=== PATIENT | male | born 1985 | race Hispanic/Latino ===

== ENCOUNTER 2019-03-16 09:42 | Inpatient (IN) | payer OTHER, SELFPAY ==
[2019-03-16] MEDS ORDERED: NACL 0.9% 1000 ML 1,000 ML ONE (09:57)
[2019-03-16] MEDS ORDERED: D50W (25GM) Syringe IV ONE ×2 (09:57→10:30)
[2019-03-16] MEDS ORDERED: ATIVAN ONE (10:07)
[2019-03-16] MEDS ORDERED: AMIDATE IV ONE ×3 (10:14→10:26)
[2019-03-16] MEDS ORDERED: ZEMURON IV ONE ×2 (10:17→10:26)
[2019-03-16] MEDS ORDERED: NACL 0.9% 1000 ML 1,000 ML IV ONE ×2 (10:25→10:29)
[2019-03-16] MEDS ORDERED: ATIVAN IV ONE (10:27)
[2019-03-16] MEDS: DIPRIVAN 10 MG/ML 1,000 MG/100 ML BOTTLE IV SCH ×3 (10:40→23:57)
--- NOTE | 2019-03-16 10:44 | XRay Report ---
AP CHEST: HISTORY: Altered mental status, endotracheal tube placement The distal tip of the endotracheal tube terminates 6.6 cm superior to the dez. AP view of the chest demonstrates a normal mediastinal and cardiac contour with clear lungs and normal bony and soft tissue structures. IMPRESSION: Endotracheal tube as described. There is adequate bilateral pulmonary inflation. Unremarkable AP chest.
[2019-03-16] MEDS ORDERED: TYLENOL PR ONE ×3 (10:49→10:52)
--- NOTE | 2019-03-16 10:53 | Emergency Department Report ---
ED Altered Mental Status HPI - General Stated Complaint: AMS Time Seen by Provider: 03/16/19 10:23 Source: EMS Mode of arrival: Stretcher Limitations: Altered Mental Status - History of Present Illness Initial Comments: 33-year-old male presents to ED from [facility] for altered mental status. Patient currently inpatient resident at [facility] since yesterday for drug abuse. This morning, EMS states [facility] reported that the patient was unresponsive at the facility and Narcan was given IM. Facility then reports patient began having seizure-like activity. Upon EMS arrival patient tachycardic, tremulous, sweaty, with stammering speech. Father currently at bedside, reports patient has history of methamphetamine abuse and Xanax usage. Drug screen from yesterday, 03/15, positive for cocaine, opiates, amphetamines. Father states patient does not abuse alcohol. Father reports patient has an allergy to droperidol. States he was given the medication as a child and became very agitated after receiving it. [facility] records show that patient received ativan 2 mg for agitation at 2AM. Then received Ativan 2mg, Haldol 5 mg, and Benadryl 50 mg at 6 AM this morning. Narcan given at 9 AM. Complaint: altered mental status -: This morning Severity: severe Consistency of Symptoms: constant Context: drug abuse - Related Data Home Medications Medication Instructions Recorded Confirmed Last Taken Unobtainable 03/16/19 03/16/19 Unknown Allergies Allergy/AdvReac Type Severity Reaction Status Date / Time Unable to Assess Allergy Unverified 03/16/19 11:41 ED Review of Systems ROS: Stated complaint: AMS Other details as noted in HPI Comment: Unobtainable due to pts medical conditions ED Past Medical Hx - Medications Home Medications: Home Medications Medication Instructions Recorded Confirmed Last Taken Type Unobtainable 03/16/19 03/16/19 Unknown History ED Physical Exam - General General appearance: anxious, lethargic, in distress - Head Head exam: Present: atraumatic, normocephalic - Eye Eye exam: Present: normal appearance, PERRL - ENT ENT exam: Present: mucous membranes dry - Neck Neck exam: Present: normal inspection - Respiratory Respiratory exam: Present: normal lung sounds bilaterally, respiratory distress, other (tachypneic) - Cardiovascular Cardiovascular Exam: Present: normal rhythm, tachycardia - GI/Abdominal GI/Abdominal exam: Present: soft. Absent: distended, tenderness - Extremities Exam Extremities exam: Present: other (extremities are rigid) - Neurological Exam Neurological exam: Present: alert, altered, other (moves all extremities; tremulous; speech is incoherent) - Psychiatric Psychiatric exam: Present: agitated, anxious - Skin Skin exam: Present: diaphoretic, pallor ED Course Vital Signs 03/16/19 03/16/19 03/16/19 10:16 10:30 10:46 Temperature Temperature [ Pre-Procedure] Pulse Rate 125 H 134 H 128 H Pulse Rate [ Intra-Procedure ] Pulse Rate [ Post-Procedure] Pulse Rate [Pre -Procedure] Respiratory 64 H 10 L 19 Rate Respiratory Rate [Intra- Procedure] Respiratory Rate [Post- Procedure] Respiratory Rate [Pre- Procedure] Blood Pressure 156/60 177/92 Blood Pressure [Intra- Procedure] Blood Pressure [Post-Procedure ] Blood Pressure [Pre-Procedure] O2 Sat by Pulse 100 100 Oximetry O2 Sat by Pulse Oximetry [ Intra-Procedure ] O2 Sat by Pulse Oximetry [Post -Procedure] O2 Sat by Pulse Oximetry [Pre- Procedure] 03/16/19 03/16/19 03/16/19 11:00 11:33 11:37 Temperature 102.3 F H Temperature [ Pre-Procedure] Pulse Rate 120 H 115 H 130 H Pulse Rate [ Intra-Procedure ] Pulse Rate [ Post-Procedure] Pulse Rate [Pre -Procedure] Respiratory 17 18 Rate Respiratory Rate [Intra- Procedure] Respiratory Rate [Post- Procedure] Respiratory Rate [Pre- Procedure] Blood Pressure 147/95 151/73 130/53 Blood Pressure [Intra- Procedure] Blood Pressure [Post-Procedure ] Blood Pressure [Pre-Procedure] O2 Sat by Pulse 100 100 100 Oximetry O2 Sat by Pulse Oximetry [ Intra-Procedure ] O2 Sat by Pulse Oximetry [Post -Procedure] O2 Sat by Pulse Oximetry [Pre- Procedure] 03/16/19 03/16/19 03/16/19 11:45 11:54 12:01 Temperature Temperature [ Pre-Procedure] Pulse Rate 117 H 120 H 124 H Pulse Rate [ Intra-Procedure ] Pulse Rate [ Post-Procedure] Pulse Rate [Pre -Procedure] Respiratory 25 H 32 H Rate Respiratory Rate [Intra- Procedure] Respiratory Rate [Post- Procedure] Respiratory Rate [Pre- Procedure] Blood Pressure 121/59 132/71 132/71 Blood Pressure [Intra- Procedure] Blood Pressure [Post-Procedure ] Blood Pressure [Pre-Procedure] O2 Sat by Pulse 100 100 100 Oximetry O2 Sat by Pulse Oximetry [ Intra-Procedure ] O2 Sat by Pulse Oximetry [Post -Procedure] O2 Sat by Pulse Oximetry [Pre- Procedure] 03/16/19 03/16/19 03/16/19 12:15 12:30 12:31 Temperature Temperature [ 100.3 F H Pre-Procedure] Pulse Rate 125 H 125 H Pulse Rate [ 127 H Intra-Procedure ] Pulse Rate [ Post-Procedure] Pulse Rate [Pre 123 H -Procedure] Respiratory 35 H 20 Rate Respiratory 16 Rate [Intra- Procedure] Respiratory Rate [Post- Procedure] Respiratory 30 H Rate [Pre- Procedure] Blood Pressure 111/76 111/76 Blood Pressure 98/68 [Intra- Procedure] Blood Pressure [Post-Procedure ] Blood Pressure 111/76 [Pre-Procedure] O2 Sat by Pulse 100 Oximetry O2 Sat by Pulse 95 Oximetry [ Intra-Procedure ] O2 Sat by Pulse Oximetry [Post -Procedure] O2 Sat by Pulse 100 Oximetry [Pre- Procedure] 03/16/19 03/16/19 03/16/19 12:40 12:45 13:00 Temperature Temperature [ Pre-Procedure] Pulse Rate 118 H 111 H Pulse Rate [ Intra-Procedure ] Pulse Rate [ 119 H Post-Procedure] Pulse Rate [Pre -Procedure] Respiratory 33 H 32 H Rate Respiratory Rate [Intra- Procedure] Respiratory 34 H Rate [Post- Procedure] Respiratory Rate [Pre- Procedure] Blood Pressure 112/66 115/69 Blood Pressure [Intra- Procedure] Blood Pressure 122/69 [Post-Procedure ] Blood Pressure [Pre-Procedure] O2 Sat by Pulse 100 98 Oximetry O2 Sat by Pulse Oximetry [ Intra-Procedure ] O2 Sat by Pulse 100 Oximetry [Post -Procedure] O2 Sat by Pulse Oximetry [Pre- Procedure] 03/16/19 03/16/19 03/16/19 13:12 13:15 13:30 Temperature 100.3 F H Temperature [ Pre-Procedure] Pulse Rate 103 H 99 H Pulse Rate [ Intra-Procedure ] Pulse Rate [ Post-Procedure] Pulse Rate [Pre -Procedure] Respiratory 34 H 33 H Rate Respiratory Rate [Intra- Procedure] Respiratory Rate [Post- Procedure] Respiratory Rate [Pre- Procedure] Blood Pressure 112/67 113/67 Blood Pressure [Intra- Procedure] Blood Pressure [Post-Procedure ] Blood Pressure [Pre-Procedure] O2 Sat by Pulse 99 99 Oximetry O2 Sat by Pulse Oximetry [ Intra-Procedure ] O2 Sat by Pulse Oximetry [Post -Procedure] O2 Sat by Pulse Oximetry [Pre- Procedure] 03/16/19 03/16/19 03/16/19 13:45 14:00 14:15 Temperature Temperature [ Pre-Procedure] Pulse Rate 99 H 96 H 93 H Pulse Rate [ Intra-Procedure ] Pulse Rate [ Post-Procedure] Pulse Rate [Pre -Procedure] Respiratory 33 H 33 H 33 H Rate Respiratory Rate [Intra- Procedure] Respiratory Rate [Post- Procedure] Respiratory Rate [Pre- Procedure] Blood Pressure 112/67 115/65 118/68 Blood Pressure [Intra- Procedure] Blood Pressure [Post-Procedure ] Blood Pressure [Pre-Procedure] O2 Sat by Pulse Oximetry O2 Sat by Pulse Oximetry [ Intra-Procedure ] O2 Sat by Pulse Oximetry [Post -Procedure] O2 Sat by Pulse Oximetry [Pre- Procedure] 03/16/19 03/16/19 03/16/19 14:30 14:41 14:45 Temperature Temperature [ Pre-Procedure] Pulse Rate 95 H 93 H 94 H Pulse Rate [ Intra-Procedure ] Pulse Rate [ Post-Procedure] Pulse Rate [Pre -Procedure] Respiratory 33 H 32 H Rate Respiratory Rate [Intra- Procedure] Respiratory Rate [Post- Procedure] Respiratory Rate [Pre- Procedure] Blood Pressure 113/67 113/67 108/65 Blood Pressure [Intra- Procedure] Blood Pressure [Post-Procedure ] Blood Pressure [Pre-Procedure] O2 Sat by Pulse 100 100 Oximetry O2 Sat by Pulse Oximetry [ Intra-Procedure ] O2 Sat by Pulse Oximetry [Post -Procedure] O2 Sat by Pulse Oximetry [Pre- Procedure] 03/16/19 03/16/19 03/16/19 15:00 15:15 15:30 Temperature Temperature [ Pre-Procedure] Pulse Rate 94 H 95 H 94 H Pulse Rate [ Intra-Procedure ] Pulse Rate [ Post-Procedure] Pulse Rate [Pre -Procedure] Respiratory 32 H 33 H 32 H Rate Respiratory Rate [Intra- Procedure] Respiratory Rate [Post- Procedure] Respiratory Rate [Pre- Procedure] Blood Pressure 114/69 108/67 116/65 Blood Pressure [Intra- Procedure] Blood Pressure [Post-Procedure ] Blood Pressure [Pre-Procedure] O2 Sat by Pulse 100 100 Oximetry O2 Sat by Pulse Oximetry [ Intra-Procedure ] O2 Sat by Pulse Oximetry [Post -Procedure] O2 Sat by Pulse Oximetry [Pre- Procedure] 03/16/19 03/16/19 03/16/19 15:45 16:00 16:15 Temperature Temperature [ Pre-Procedure] Pulse Rate 94 H 97 H 98 H Pulse Rate [ Intra-Procedure ] Pulse Rate [ Post-Procedure] Pulse Rate [Pre -Procedure] Respiratory 30 H 32 H 31 H Rate Respiratory Rate [Intra- Procedure] Respiratory Rate [Post- Procedure] Respiratory Rate [Pre- Procedure] Blood Pressure 113/66 118/71 117/72 Blood Pressure [Intra- Procedure] Blood Pressure [Post-Procedure ] Blood Pressure [Pre-Procedure] O2 Sat by Pulse 100 100 100 Oximetry O2 Sat by Pulse Oximetry [ Intra-Procedure ] O2 Sat by Pulse Oximetry [Post -Procedure] O2 Sat by Pulse Oximetry [Pre- Procedure] 03/16/19 03/16/19 03/16/19 16:30 16:45 17:00 Temperature Temperature [ Pre-Procedure] Pulse Rate 99 H 96 H 99 H Pulse Rate [ Intra-Procedure ] Pulse Rate [ Post-Procedure] Pulse Rate [Pre -Procedure] Respiratory 34 H 33 H 31 H Rate Respiratory Rate [Intra- Procedure] Respiratory Rate [Post- Procedure] Respiratory Rate [Pre- Procedure] Blood Pressure 113/72 113/72 123/76 Blood Pressure [Intra- Procedure] Blood Pressure [Post-Procedure ] Blood Pressure [Pre-Procedure] O2 Sat by Pulse 100 100 Oximetry O2 Sat by Pulse Oximetry [ Intra-Procedure ] O2 Sat by Pulse Oximetry [Post -Procedure] O2 Sat by Pulse Oximetry [Pre- Procedure] 03/16/19 03/16/19 03/16/19 17:15 17:30 17:45 Temperature Temperature [ Pre-Procedure] Pulse Rate 97 H 94 H 95 H Pulse Rate [ Intra-Procedure ] Pulse Rate [ Post-Procedure] Pulse Rate [Pre -Procedure] Respiratory 32 H 34 H 27 H Rate Respiratory Rate [Intra- Procedure] Respiratory Rate [Post- Procedure] Respiratory Rate [Pre- Procedure] Blood Pressure 116/78 128/79 128/78 Blood Pressure [Intra- Procedure] Blood Pressure [Post-Procedure ] Blood Pressure [Pre-Procedure] O2 Sat by Pulse 100 97 Oximetry O2 Sat by Pulse Oximetry [ Intra-Procedure ] O2 Sat by Pulse Oximetry [Post -Procedure] O2 Sat by Pulse Oximetry [Pre- Procedure] 03/16/19 03/16/19 03/16/19 17:46 18:00 18:15 Temperature 97.4 F L Temperature [ Pre-Procedure] Pulse Rate 96 H 93 H Pulse Rate [ Intra-Procedure ] Pulse Rate [ Post-Procedure] Pulse Rate [Pre -Procedure] Respiratory 32 H 30 H Rate Respiratory Rate [Intra- Procedure] Respiratory Rate [Post- Procedure] Respiratory Rate [Pre- Procedure] Blood Pressure 132/73 127/71 Blood Pressure [Intra- Procedure] Blood Pressure [Post-Procedure ] Blood Pressure [Pre-Procedure] O2 Sat by Pulse Oximetry O2 Sat by Pulse Oximetry [ Intra-Procedure ] O2 Sat by Pulse Oximetry [Post -Procedure] O2 Sat by Pulse Oximetry [Pre- Procedure] 03/16/19 03/16/19 03/16/19 18:30 18:45 19:00 Temperature Temperature [ Pre-Procedure] Pulse Rate 93 H 90 91 H Pulse Rate [ Intra-Procedure ] Pulse Rate [ Post-Procedure] Pulse Rate [Pre -Procedure] Respiratory 32 H 29 H 33 H Rate Respiratory Rate [Intra- Procedure] Respiratory Rate [Post- Procedure] Respiratory Rate [Pre- Procedure] Blood Pressure 126/80 124/82 115/81 Blood Pressure [Intra- Procedure] Blood Pressure [Post-Procedure ] Blood Pressure [Pre-Procedure] O2 Sat by Pulse 100 100 100 Oximetry O2 Sat by Pulse Oximetry [ Intra-Procedure ] O2 Sat by Pulse Oximetry [Post -Procedure] O2 Sat by Pulse Oximetry [Pre- Procedure] 03/16/19 03/16/19 03/16/19 19:15 19:25 19:30 Temperature Temperature [ Pre-Procedure] Pulse Rate 89 88 87 Pulse Rate [ Intra-Procedure ] Pulse Rate [ Post-Procedure] Pulse Rate [Pre -Procedure] Respiratory 28 H 27 H Rate Respiratory Rate [Intra- Procedure] Respiratory Rate [Post- Procedure] Respiratory Rate [Pre- Procedure] Blood Pressure 123/75 123/75 123/71 Blood Pressure [Intra- Procedure] Blood Pressure [Post-Procedure ] Blood Pressure [Pre-Procedure] O2 Sat by Pulse 100 100 100 Oximetry O2 Sat by Pulse Oximetry [ Intra-Procedure ] O2 Sat by Pulse Oximetry [Post -Procedure] O2 Sat by Pulse Oximetry [Pre- Procedure] 03/16/19 03/16/19 03/16/19 19:45 20:00 20:15 Temperature Temperature [ Pre-Procedure] Pulse Rate 91 H 92 H 90 Pulse Rate [ Intra-Procedure ] Pulse Rate [ Post-Procedure] Pulse Rate [Pre -Procedure] Respiratory 30 H 31 H 30 H Rate Respiratory Rate [Intra- Procedure] Respiratory Rate [Post- Procedure] Respiratory Rate [Pre- Procedure] Blood Pressure 131/72 130/72 130/85 Blood Pressure [Intra- Procedure] Blood Pressure [Post-Procedure ] Blood Pressure [Pre-Procedure] O2 Sat by Pulse 99 99 98 Oximetry O2 Sat by Pulse Oximetry [ Intra-Procedure ] O2 Sat by Pulse Oximetry [Post -Procedure] O2 Sat by Pulse Oximetry [Pre- Procedure] 03/16/19 03/16/19 03/16/19 20:30 20:45 21:00 Temperature Temperature [ Pre-Procedure] Pulse Rate 91 H 94 H 93 H Pulse Rate [ Intra-Procedure ] Pulse Rate [ Post-Procedure] Pulse Rate [Pre -Procedure] Respiratory 30 H 31 H 31 H Rate Respiratory Rate [Intra- Procedure] Respiratory Rate [Post- Procedure] Respiratory Rate [Pre- Procedure] Blood Pressure 130/72 135/73 130/75 Blood Pressure [Intra- Procedure] Blood Pressure [Post-Procedure ] Blood Pressure [Pre-Procedure] O2 Sat by Pulse 100 100 100 Oximetry O2 Sat by Pulse Oximetry [ Intra-Procedure ] O2 Sat by Pulse Oximetry [Post -Procedure] O2 Sat by Pulse Oximetry [Pre- Procedure] 03/16/19 03/16/19 03/16/19 21:15 21:30 21:45 Temperature Temperature [ Pre-Procedure] Pulse Rate 93 H 95 H 92 H Pulse Rate [ Intra-Procedure ] Pulse Rate [ Post-Procedure] Pulse Rate [Pre -Procedure] Respiratory 32 H 33 H 31 H Rate Respiratory Rate [Intra- Procedure] Respiratory Rate [Post- Procedure] Respiratory Rate [Pre- Procedure] Blood Pressure 130/75 129/76 129/76 Blood Pressure [Intra- Procedure] Blood Pressure [Post-Procedure ] Blood Pressure [Pre-Procedure] O2 Sat by Pulse 100 100 100 Oximetry O2 Sat by Pulse Oximetry [ Intra-Procedure ] O2 Sat by Pulse Oximetry [Post -Procedure] O2 Sat by Pulse Oximetry [Pre- Procedure] 06/03/16/19 03/16/19 22:00 22:15 22:30 Temperature Temperature [ Pre-Procedure] Pulse Rate 90 93 H 90 Pulse Rate [ Intra-Procedure ] Pulse Rate [ Post-Procedure] Pulse Rate [Pre -Procedure] Respiratory 30 H 31 H 31 H Rate Respiratory Rate [Intra- Procedure] Respiratory Rate [Post- Procedure] Respiratory Rate [Pre- Procedure] Blood Pressure 129/74 129/74 136/73 Blood Pressure [Intra- Procedure] Blood Pressure [Post-Procedure ] Blood Pressure [Pre-Procedure] O2 Sat by Pulse 99 95 98 Oximetry O2 Sat by Pulse Oximetry [ Intra-Procedure ] O2 Sat by Pulse Oximetry [Post -Procedure] O2 Sat by Pulse Oximetry [Pre- Procedure] 03/16/19 22:45 Temperature Temperature [ Pre-Procedure] Pulse Rate 93 H Pulse Rate [ Intra-Procedure ] Pulse Rate [ Post-Procedure] Pulse Rate [Pre -Procedure] Respiratory 29 H Rate Respiratory Rate [Intra- Procedure] Respiratory Rate [Post- Procedure] Respiratory Rate [Pre- Procedure] Blood Pressure 136/73 Blood Pressure [Intra- Procedure] Blood Pressure [Post-Procedure ] Blood Pressure [Pre-Procedure] O2 Sat by Pulse 97 Oximetry O2 Sat by Pulse Oximetry [ Intra-Procedure ] O2 Sat by Pulse Oximetry [Post -Procedure] O2 Sat by Pulse Oximetry [Pre- Procedure] - Reevaluation(s) Reevaluation #1: 03/16/19 10:53 RT instructed to advance ET tube 4 cm - Intubation Sedative: Etomidate Mg Given: 24 Paralytic: Rocuronium Mg Given: 50 Laryngoscope: Jeffrey Size: 4 ET Tube Size: 7.5 Tube Secured Depth (cm): 26 Tube Secured Location: teeth Tube Placement Confirmation: visualized tube passing t, equal breath sounds bilat, no breath sounds over epi, confirmation by capnometr Patient Tolerated Procedure: well Intubation Complications: none - Lumbar Puncture Consent Obtained: emergent situation Time Out Performed: Yes Indication for Procedure: change in mental status Patient Position: right lateral decubitus Skin Prep: Other (betadine) Local Anesthetic Used: Lidocaine 1% Amount of anesthesia used (mls): 3 Interspace Used: L4-L5 Fluid Initially Obtained: clear Complications: none Patient Tolerated Procedure: well - Lab Data Result diagrams: 03/17/19 04:41 03/17/19 04:41 Lab Results 03/16/19 03/16/19 03/16/19 Range/Units 10:00 10:21 10:37 WBC 27.7 H (4.5-11.0) K/mm3 RBC 4.58 (3.65-5.03) M/mm3 Hgb 14.0 (11.8-15.2) gm/dl Hct 41.5 (35.5-45.6) % MCV 91 (84-94) fl MCH 31 (28-32) pg MCHC 34 (32-34) % RDW 13.8 (13.2-15.2) % Plt Count 553 H (140-440) K/mm3 Add Manual Diff Complete Total Counted 100 Seg Neuts % (Manual) 90.0 H (40.0-70.0) % Band Neutrophils % 1.0 % Lymphocytes % (Manual) 2.0 L (13.4-35.0) % Reactive Lymphs % (Man) 0 % Monocytes % (Manual) 5.0 (0.0-7.3) % Eosinophils % (Manual) 0 (0.0-4.3) % Basophils % (Manual) 0 (0.0-1.8) % Metamyelocytes % 1.0 % Myelocytes % 1.0 % Promyelocytes % 0 % Blast Cells % 0 % Nucleated RBC % Not Reportable Seg Neutrophils # Man 24.9 H (1.8-7.7) K/mm3 Band Neutrophils # 0.3 K/mm3 Lymphocytes # (Manual) 0.6 L (1.2-5.4) K/mm3 Abs React Lymphs (Man) 0.0 K/mm3 Monocytes # (Manual) 1.4 H (0.0-0.8) K/mm3 Eosinophils # (Manual) 0.0 (0.0-0.4) K/mm3 Basophils # (Manual) 0.0 (0.0-0.1) K/mm3 Metamyelocytes # 0.3 K/mm3 Myelocytes # 0.3 K/mm3 Promyelocytes # 0.0 K/mm3 Blast Cells # 0.0 K/mm3 WBC Morphology Not Reportable Hypersegmented Neuts Not Reportable Hyposegmented Neuts Not Reportable Hypogranular Neuts Not Reportable Smudge Cells Not Reportable Toxic Granulation Not Reportable Toxic Vacuolation Not Reportable Dohle Bodies Not Reportable Pelger-Huet Anomaly Not Reportable Yung Rods Not Reportable Platelet Estimate Consistent w auto Clumped Platelets Not Reportable Plt Clumps, EDTA Not Reportable Large Platelets Not Reportable Giant Platelets Not Reportable Platelet Satelliting Not Reportable Plt Morphology Comment Not Reportable RBC Morphology Normal Dimorphic RBCs Not Reportable Polychromasia Not Reportable Hypochromasia Not Reportable Poikilocytosis Not Reportable Anisocytosis Not Reportable Microcytosis Not Reportable Macrocytosis Not Reportable Spherocytes Not Reportable Pappenheimer Bodies Not Reportable Sickle Cells Not Reportable Target Cells Not Reportable Tear Drop Cells Not Reportable Ovalocytes Not Reportable Helmet Cells Not Reportable [place] Bodies Not Reportable [place] Rings Not Reportable Asif Cells Not Reportable Bite Cells Not Reportable Crenated Cell Not Reportable Elliptocytes Not Reportable Acanthocytes (Spur) Not Reportable Rouleaux Not Reportable Hemoglobin C Crystals Not Reportable Schistocytes Not Reportable Malaria parasites Not Reportable Yamil Bodies Not Reportable Hem Pathologist Commnt No PT (12.2-14.9) Sec. INR (0.87-1.13) APTT (24.2-36.6) Sec. Sodium (137-145) mmol/L Potassium (3.6-5.0) mmol/L Chloride (98-107) mmol/L Carbon Dioxide (22-30) mmol/L Anion Gap mmol/L BUN (9-20) mg/dL Creatinine (0.8-1.5) mg/dL Estimated GFR ml/min BUN/Creatinine Ratio % Glucose (75-100) mg/dL POC Glucose 49 L 154 H (70-105) Calcium (8.4-10.2) mg/dL Total Bilirubin (0.1-1.2) mg/dL AST (5-40) units/L ALT (7-56) units/L Alkaline Phosphatase (35-129) units/L Total Creatine Kinase (55-170) units/L Troponin T (0.00-0.029) ng/mL Total Protein (6.3-8.2) g/dL Albumin (3.9-5) g/dL Albumin/Globulin Ratio % Urine Color (Yellow) Urine Turbidity (Clear) Urine pH (5.0-7.0) Ur Specific Patterson (1.003-1.030) Urine Protein (Negative) mg/dL Urine Glucose (UA) (Negative) mg/dL Urine Ketones (Negative) mg/dL Urine Blood (Negative) Urine Nitrite (Negative) Urine Bilirubin (Negative) Urine Urobilinogen (<2.0) mg/dL Ur Leukocyte Esterase (Negative) Urine WBC (Auto) (0.0-6.0) /HPF Urine RBC (Auto) (0.0-6.0) /HPF U Epithel Cells (Auto) (0-13.0) /HPF Urine Bacteria (Auto) (Negative) /HPF Urine Mucus /HPF Urine Creatinine (0.1-20.0) mg/dL Urine Sodium mmol/L Salicylates (2.8-20.0) mg/dL Urine Opiates Screen Urine Methadone Screen Acetaminophen (10.0-30.0) ug/mL Ur Barbiturates Screen Ur Phencyclidine Scrn Ur Amphetamines Screen U Benzodiazepines Scrn Urine Cocaine Screen U Marijuana (THC) Screen Drugs of Abuse Note Plasma/Serum Alcohol (0-0.07) % 03/16/19 03/16/19 03/16/19 Range/Units 10:37 10:37 10:37 WBC (4.5-11.0) K/mm3 RBC (3.65-5.03) M/mm3 Hgb (11.8-15.2) gm/dl Hct (35.5-45.6) % MCV (84-94) fl MCH (28-32) pg MCHC (32-34) % RDW (13.2-15.2) % Plt Count (140-440) K/mm3 Add Manual Diff Total Counted Seg Neuts % (Manual) (40.0-70.0) % Band Neutrophils % % Lymphocytes % (Manual) (13.4-35.0) % Reactive Lymphs % (Man) % Monocytes % (Manual) (0.0-7.3) % Eosinophils % (Manual) (0.0-4.3) % Basophils % (Manual) (0.0-1.8) % Metamyelocytes % % Myelocytes % % Promyelocytes % % Blast Cells % % Nucleated RBC % Seg Neutrophils # Man (1.8-7.7) K/mm3 Band Neutrophils # K/mm3 Lymphocytes # (Manual) (1.2-5.4) K/mm3 Abs React Lymphs (Man) K/mm3 Monocytes # (Manual) (0.0-0.8) K/mm3 Eosinophils # (Manual) (0.0-0.4) K/mm3 Basophils # (Manual) (0.0-0.1) K/mm3 Metamyelocytes # K/mm3 Myelocytes # K/mm3 Promyelocytes # K/mm3 Blast Cells # K/mm3 WBC Morphology Hypersegmented Neuts Hyposegmented Neuts Hypogranular Neuts Smudge Cells Toxic Granulation Toxic Vacuolation Dohle Bodies Pelger-Huet Anomaly Yung Rods Platelet Estimate Clumped Platelets Plt Clumps, EDTA Large Platelets Giant Platelets Platelet Satelliting Plt Morphology Comment RBC Morphology Dimorphic RBCs Polychromasia Hypochromasia Poikilocytosis Anisocytosis Microcytosis Macrocytosis Spherocytes Pappenheimer Bodies Sickle Cells Target Cells Tear Drop Cells Ovalocytes Helmet Cells [place] Bodies [place] Rings Asif Cells Bite Cells Crenated Cell Elliptocytes Acanthocytes (Spur) Rouleaux Hemoglobin C Crystals Schistocytes Malaria parasites Yamil Bodies Hem Pathologist Commnt PT 17.5 H (12.2-14.9) Sec. INR 1.47 H (0.87-1.13) APTT 25.7 (24.2-36.6) Sec. Sodium 138 (137-145) mmol/L Potassium 5.1 H (3.6-5.0) mmol/L Chloride 99.8 (98-107) mmol/L Carbon Dioxide 13 L (22-30) mmol/L Anion Gap 30 mmol/L BUN 35 H (9-20) mg/dL Creatinine 3.0 H (0.8-1.5) mg/dL Estimated GFR 24 ml/min BUN/Creatinine Ratio 12 % Glucose 129 H (75-100) mg/dL POC Glucose (70-105) Calcium 8.9 (8.4-10.2) mg/dL Total Bilirubin 2.60 H (0.1-1.2) mg/dL AST 160 H (5-40) units/L ALT 106 H (7-56) units/L Alkaline Phosphatase 133 H (35-129) units/L Total Creatine Kinase (55-170) units/L Troponin T < 0.010 (0.00-0.029) ng/mL Total Protein 7.6 (6.3-8.2) g/dL Albumin 4.5 (3.9-5) g/dL Albumin/Globulin Ratio 1.5 % Urine Color (Yellow) Urine Turbidity (Clear) Urine pH (5.0-7.0) Ur Specific Patterson (1.003-1.030) Urine Protein (Negative) mg/dL Urine Glucose (UA) (Negative) mg/dL Urine Ketones (Negative) mg/dL Urine Blood (Negative) Urine Nitrite (Negative) Urine Bilirubin (Negative) Urine Urobilinogen (<2.0) mg/dL Ur Leukocyte Esterase (Negative) Urine WBC (Auto) (0.0-6.0) /HPF Urine RBC (Auto) (0.0-6.0) /HPF U Epithel Cells (Auto) (0-13.0) /HPF Urine Bacteria (Auto) (Negative) /HPF Urine Mucus /HPF Urine Creatinine (0.1-20.0) mg/dL Urine Sodium mmol/L Salicylates < 0.3 L (2.8-20.0) mg/dL Urine Opiates Screen Urine Methadone Screen Acetaminophen (10.0-30.0) ug/mL Ur Barbiturates Screen Ur Phencyclidine Scrn Ur Amphetamines Screen U Benzodiazepines Scrn Urine Cocaine Screen U Marijuana (THC) Screen Drugs of Abuse Note Plasma/Serum Alcohol (0-0.07) % 03/16/19 03/16/19 03/16/19 Range/Units 10:37 10:37 10:37 WBC (4.5-11.0) K/mm3 RBC (3.65-5.03) M/mm3 Hgb (11.8-15.2) gm/dl Hct (35.5-45.6) % MCV (84-94) fl MCH (28-32) pg MCHC (32-34) % RDW (13.2-15.2) % Plt Count (140-440) K/mm3 Add Manual Diff Total Counted Seg Neuts % (Manual) (40.0-70.0) % Band Neutrophils % % Lymphocytes % (Manual) (13.4-35.0) % Reactive Lymphs % (Man) % Monocytes % (Manual) (0.0-7.3) % Eosinophils % (Manual) (0.0-4.3) % Basophils % (Manual) (0.0-1.8) % Metamyelocytes % % Myelocytes % % Promyelocytes % % Blast Cells % % Nucleated RBC % Seg Neutrophils # Man (1.8-7.7) K/mm3 Band Neutrophils # K/mm3 Lymphocytes # (Manual) (1.2-5.4) K/mm3 Abs React Lymphs (Man) K/mm3 Monocytes # (Manual) (0.0-0.8) K/mm3 Eosinophils # (Manual) (0.0-0.4) K/mm3 Basophils # (Manual) (0.0-0.1) K/mm3 Metamyelocytes # K/mm3 Myelocytes # K/mm3 Promyelocytes # K/mm3 Blast Cells # K/mm3 WBC Morphology Hypersegmented Neuts Hyposegmented Neuts Hypogranular Neuts Smudge Cells Toxic Granulation Toxic Vacuolation Dohle Bodies Pelger-Huet Anomaly Yung Rods Platelet Estimate Clumped Platelets Plt Clumps, EDTA Large Platelets Giant Platelets Platelet Satelliting Plt Morphology Comment RBC Morphology Dimorphic RBCs Polychromasia Hypochromasia Poikilocytosis Anisocytosis Microcytosis Macrocytosis Spherocytes Pappenheimer Bodies Sickle Cells Target Cells Tear Drop Cells Ovalocytes Helmet Cells [place] Bodies [place] Rings Asif Cells Bite Cells Crenated Cell Elliptocytes Acanthocytes (Spur) Rouleaux Hemoglobin C Crystals Schistocytes Malaria parasites Yamil Bodies Hem Pathologist Commnt PT (12.2-14.9) Sec. INR (0.87-1.13) APTT (24.2-36.6) Sec. Sodium (137-145) mmol/L Potassium (3.6-5.0) mmol/L Chloride (98-107) mmol/L Carbon Dioxide (22-30) mmol/L Anion Gap mmol/L BUN (9-20) mg/dL Creatinine (0.8-1.5) mg/dL Estimated GFR ml/min BUN/Creatinine Ratio % Glucose (75-100) mg/dL POC Glucose (70-105) Calcium (8.4-10.2) mg/dL Total Bilirubin (0.1-1.2) mg/dL AST (5-40) units/L ALT (7-56) units/L Alkaline Phosphatase (35-129) units/L Total Creatine Kinase 4300 H (55-170) units/L Troponin T (0.00-0.029) ng/mL Total Protein (6.3-8.2) g/dL Albumin (3.9-5) g/dL Albumin/Globulin Ratio % Urine Color (Yellow) Urine Turbidity (Clear) Urine pH (5.0-7.0) Ur Specific Patterson (1.003-1.030) Urine Protein (Negative) mg/dL Urine Glucose (UA) (Negative) mg/dL Urine Ketones (Negative) mg/dL Urine Blood (Negative) Urine Nitrite (Negative) Urine Bilirubin (Negative) Urine Urobilinogen (<2.0) mg/dL Ur Leukocyte Esterase (Negative) Urine WBC (Auto) (0.0-6.0) /HPF Urine RBC (Auto) (0.0-6.0) /HPF U Epithel Cells (Auto) (0-13.0) /HPF Urine Bacteria (Auto) (Negative) /HPF Urine Mucus /HPF Urine Creatinine (0.1-20.0) mg/dL Urine Sodium mmol/L Salicylates (2.8-20.0) mg/dL Urine Opiates Screen Urine Methadone Screen Acetaminophen < 5.0 L (10.0-30.0) ug/mL Ur Barbiturates Screen Ur Phencyclidine Scrn Ur Amphetamines Screen U Benzodiazepines Scrn Urine Cocaine Screen U Marijuana (THC) Screen Drugs of Abuse Note Plasma/Serum Alcohol < 0.01 (0-0.07) % 03/16/19 03/16/19 03/16/19 Range/Units 11:37 11:37 11:37 WBC (4.5-11.0) K/mm3 RBC (3.65-5.03) M/mm3 Hgb (11.8-15.2) gm/dl Hct (35.5-45.6) % MCV (84-94) fl MCH (28-32) pg MCHC (32-34) % RDW (13.2-15.2) % Plt Count (140-440) K/mm3 Add Manual Diff Total Counted Seg Neuts % (Manual) (40.0-70.0) % Band Neutrophils % % Lymphocytes % (Manual) (13.4-35.0) % Reactive Lymphs % (Man) % Monocytes % (Manual) (0.0-7.3) % Eosinophils % (Manual) (0.0-4.3) % Basophils % (Manual) (0.0-1.8) % Metamyelocytes % % Myelocytes % % Promyelocytes % % Blast Cells % % Nucleated RBC % Seg Neutrophils # Man (1.8-7.7) K/mm3 Band Neutrophils # K/mm3 Lymphocytes # (Manual) (1.2-5.4) K/mm3 Abs React Lymphs (Man) K/mm3 Monocytes # (Manual) (0.0-0.8) K/mm3 Eosinophils # (Manual) (0.0-0.4) K/mm3 Basophils # (Manual) (0.0-0.1) K/mm3 Metamyelocytes # K/mm3 Myelocytes # K/mm3 Promyelocytes # K/mm3 Blast Cells # K/mm3 WBC Morphology Hypersegmented Neuts Hyposegmented Neuts Hypogranular Neuts Smudge Cells Toxic Granulation Toxic Vacuolation Dohle Bodies Pelger-Huet Anomaly Yung Rods Platelet Estimate Clumped Platelets Plt Clumps, EDTA Large Platelets Giant Platelets Platelet Satelliting Plt Morphology Comment RBC Morphology Dimorphic RBCs Polychromasia Hypochromasia Poikilocytosis Anisocytosis Microcytosis Macrocytosis Spherocytes Pappenheimer Bodies Sickle Cells Target Cells Tear Drop Cells Ovalocytes Helmet Cells [place] Bodies [place] Rings [place] Cells Bite Cells Crenated Cell Elliptocytes Acanthocytes (Spur) Rouleaux Hemoglobin C Crystals Schistocytes Malaria parasites Yamil Bodies Hem Pathologist Commnt PT (12.2-14.9) Sec. INR (0.87-1.13) APTT (24.2-36.6) Sec. Sodium (137-145) mmol/L Potassium (3.6-5.0) mmol/L Chloride (98-107) mmol/L Carbon Dioxide (22-30) mmol/L Anion Gap mmol/L BUN (9-20) mg/dL Creatinine (0.8-1.5) mg/dL Estimated GFR ml/min BUN/Creatinine Ratio % Glucose (75-100) mg/dL POC Glucose (70-105) Calcium (8.4-10.2) mg/dL Total Bilirubin (0.1-1.2) mg/dL AST (5-40) units/L ALT (7-56) units/L Alkaline Phosphatase (35-129) units/L Total Creatine Kinase (55-170) units/L Troponin T (0.00-0.029) ng/mL Total Protein (6.3-8.2) g/dL Albumin (3.9-5) g/dL Albumin/Globulin Ratio % Urine Color [place] (Yellow) Urine Turbidity Cloudy (Clear) Urine pH 6.0 (5.0-7.0) Ur Specific Patterson 1.015 (1.003-1.030) Urine Protein 100 mg/dl (Negative) mg/dL Urine Glucose (UA) 150 (Negative) mg/dL Urine Ketones Tr (Negative) mg/dL Urine Blood Lg (Negative) Urine Nitrite Neg (Negative) Urine Bilirubin Neg (Negative) Urine Urobilinogen 2.0 (<2.0) mg/dL Ur Leukocyte Esterase Neg (Negative) Urine WBC (Auto) 10.0 H (0.0-6.0) /HPF Urine RBC (Auto) 58.0 (0.0-6.0) /HPF U Epithel Cells (Auto) 3.0 (0-13.0) /HPF Urine Bacteria (Auto) 3+ (Negative) /HPF Urine Mucus 1+ /HPF Urine Creatinine 75.6 H (0.1-20.0) mg/dL Urine Sodium 50 mmol/L Salicylates (2.8-20.0) mg/dL Urine Opiates Screen Presumptive positive Urine Methadone Screen Presumptive negative Acetaminophen (10.0-30.0) ug/mL Ur Barbiturates Screen Presumptive negative Ur Phencyclidine Scrn Presumptive negative Ur Amphetamines Screen Presumptive positive U Benzodiazepines Scrn Presumptive negative Urine Cocaine Screen Presumptive positive U Marijuana (THC) Screen Presumptive negative Drugs of Abuse Note Disclamer Plasma/Serum Alcohol (0-0.07) % - EKG Data -: EKG Interpreted by Ak EKG shows normal: sinus rhythm, axis, intervals, QRS complexes, ST-T waves Rate: tachycardia - Radiology Data Radiology results: report reviewed, image reviewed - Medical Decision Making 38-year-old male presents from [facility] with altered mental status. Upon initial presentation, patient is pale, diaphoretic, tachypneic, tachycardic, tremulous, muscle rigidity is present, patient somewhat lethargic with incoherent speech. Initial Accu-Chek was in the 40s. One amp of D50 was given. No resolution of symptoms. Ativan 2 mg was given, without resolution of symptoms either. Decision was made to intubate the patient due to need to secure the airway for adequate sedation to obtain full workup. Patient was intubated with etomidate and rocuronium. CT head normal, CXR unremarkable. Paperwork from [facility] show that pt received ativan at 2 AM for agitation. Then received haldol, benadryl, ativan at 6 AM. Pt became unresponvise at around 9 AM and narcan was given. Then began exhibiting seizure-like activity, shaking all over but alert, so EMS was called. Pt has hx of depression and drug abuse (cocaine, methamphetamines, Xanax) per father. Father also reports hx of droperidol allergy which was given to pt when he was much younger. It is possible that pt is experiencing neuroleptic malignant syndrome after receiving haldol this morning. WBCs elevated, pt febrile, serum CK elevated to 4,000, acute renal failure and liver dysfunction present. Pt currently sedated w/ pro pofol and ativan, appears much better. Tachycardia improved, no muscle rigidity, skin color improved. Infection is also likely, so antibiotics given, blood and urine cultures drawn, and LP was performed. LP unremarkable for meningitis. Lactate is normal. Patient admitted to Dr Lees, hospitalist, for further management. - Differential Diagnosis NMS, benzodiazepine withdrawal, infection Critical Care Time: Yes Critical care time in (mins) excluding proc time.: 35 Critical care attestation.: If time is entered above; I have spent that time in minutes in the direct care of this critically ill patient, excluding procedure time. Critical Care Time: 35 min ED Disposition Clinical Impression: Encephalopathy, SIRS (systemic inflammatory response syndrome), Hypoglycemia, NMS (neuroleptic malignant syndrome), Drug abuse, Hepatic dysfunction Acute renal failure Qualifiers: Acute renal failure type: with acute tubular necrosis Qualified Code(s): N17.0 - Acute kidney failure with tubular necrosis Rhabdomyolysis Qualifiers: Encounter type: initial encounter Respiratory failure Qualifiers: Chronicity: acute Respiratory failure complication: hypoxia Qualified Code(s): J96.01 - Acute respiratory failure with hypoxia Disposition: 09 OP ADMIT IP TO THIS HOSP Is pt being admited?: Yes Condition: Critical
[2019-03-16 10:59] LABS: Hematocrit 41.5 % (35.5-45.6); Mean Corpuscular HGB Conc 34 % (32-34); Mean Corpuscular Volume 91 fl (84-94); Platelet Count 553 K/mm3 (140-440); Red Blood Count 4.58 M/mm3 (3.65-5.03); Red Cell Distribution Width 13.8 % (13.2-15.2)
[2019-03-16 11:09] LABS: INR 1.47 (0.87-1.13); Partial Thromboplastin Time 25.7 Sec. (24.2-36.6)
[2019-03-16 11:16] LABS: Alanine Aminotransferase 106 units/L (7-56); Albumin 4.5 g/dL (3.9-5); BUN/Creatinine Ratio 12; Blood Urea Nitrogen 35 mg/dL (9-20); Calcium 8.9 mg/dL (8.4-10.2); Hemolysis Index 9
[2019-03-16] MEDS ORDERED: ROCEPHIN/NS 2 GM/100 ML 2 GM/100 ML BAG IV ONE (11:30)
[2019-03-16] MEDS ORDERED: SODIUM CHLORIDE FLUSH SYRINGE 10 ML IV PRN (11:52)
[2019-03-16] MEDS ORDERED: NACL 0.9% 1000 ML IV ONE (11:52)
--- NOTE | 2019-03-16 11:57 | History and Physical Report ---
History of Present Illness Chief complaint: Confused History of present illness: 33 YO Male with Polysubstance Abuse, Psychosis currently and inpatient at [facility] presents to ED for evaluation. Pt is lethargic and unable to provide history and is intubated and on vest support at time of my exam. Patient history provided by his father who is at bedside during exam and interview. As per father, the patient was found to be confused by [place] staff to be confused with decreased level of responsiveness. EMS notified, and upon arrival the patient was found to be unresponsive and treated with supportive care and IM Narcan and transported to [facility]. Pt seen and evaluated in ED and was found to have Encephalopathy, Sepsis, and Respiratory distress and was unable to protect his airway. Pt intubated and placed on vent support. Pt admitted to ICU and initiated on sepsis protocol. No prior admission for review. No medication listed at time of admission for reconciliation. Past History Past Medical History: other (polysubstance abuse, Psychosis) Past Surgical History: No surgical history, Other (reviewed) Social history: single, smoking, alcohol abuse Family history: no significant family history (reviewed) Medications and Allergies Allergies Allergy/AdvReac Type Severity Reaction Status Date / Time Unable to Assess Allergy Unverified 03/16/19 11:41 Active Meds: Active Medications Propofol (Diprivan 10 Mg/Ml) 1,000 mg in 100 mls @ 3.138 mls/hr IV TITR JOÃO; Protocol Ceftriaxone Sodium (Rocephin/Ns 2 Gm/100 Ml) 2 gm in 100 mls @ 200 mls/hr IV ONCE ONE; Protocol Stop: 03/16/19 11:59 Lorazepam 100 mg/ Sodium Chloride/ Miscellaneous Information 100 mls @ 1 mls/hr IV TITR JOÃO; Protocol Vancomycin HCl 2,000 mg/ (Sodium Chloride) 540 mls @ 333 mls/hr IV ONCE ONE; Protocol Stop: 03/16/19 13:29 Ceftriaxone Sodium (Rocephin/Ns 2 Gm/100 Ml) 2 gm in 100 mls @ 200 mls/hr IV Q24HR JOÃO; Protocol Sodium Chloride (Sodium Chloride Flush Syringe 10 Ml) 10 ml IV BID JOÃO Sodium Chloride (Sodium Chloride Flush Syringe 10 Ml) 10 ml IV PRN PRN PRN Reason: LINE FLUSH Sodium Chloride (Nacl 0.9% 1000 Ml) 3,140 ml 30 ml/kg (3140 ml) IV ONCE ONE Stop: 03/16/19 11:53 Review of Systems ROS unobtainable: due to endotracheal tube Exam - Constitutional Vitals: Temp Pulse Resp BP Pulse Ox 102.3 F H 130 H 18 130/53 100 03/16/19 11:37 03/16/19 11:37 03/16/19 11:37 03/16/19 11:37 03/16/19 11:37 General appearance: Present: mild distress - EENT Eyes: Present: miosis - Neck Neck: Present: supple, normal ROM - Respiratory Respiratory effort: labored Respiratory: bilateral: diminished - Cardiovascular Heart Sounds: Present: S1 & S2. Absent: rub, click - Extremities Extremities: pulses symmetrical, No edema Peripheral Pulses: within normal limits - Abdominal General gastrointestinal: Present: soft, non-tender, non-distended, normal bowel sounds Male genitourinary: Present: normal - Integumentary Integumentary: Present: clear, warm, dry - Musculoskeletal Musculoskeletal: generalized weakness - Psychiatric Psychiatric: no appropriate mood/affect, no intact judgment & insight, no memory intact - Neurologic Neurologic: no focal deficits, moves all extremities, no gait normal Results - Labs CBC & Chem 7: 03/16/19 10:37 03/16/19 10:37 Labs: Abnormal lab results 03/16/19 03/16/19 03/16/19 Range/Units 10:21 10:37 10:37 WBC 27.7 H (4.5-11.0) K/mm3 Plt Count 553 H (140-440) K/mm3 PT 17.5 H (12.2-14.9) Sec. INR 1.47 H (0.87-1.13) Potassium (3.6-5.0) mmol/L Carbon Dioxide (22-30) mmol/L BUN (9-20) mg/dL Creatinine (0.8-1.5) mg/dL Glucose (75-100) mg/dL POC Glucose 154 H (70-105) Total Bilirubin (0.1-1.2) mg/dL AST (5-40) units/L ALT (7-56) units/L Alkaline Phosphatase (35-129) units/L Salicylates (2.8-20.0) mg/dL Acetaminophen (10.0-30.0) ug/mL 03/16/19 03/16/19 03/16/19 Range/Units 10:37 10:37 10:37 WBC (4.5-11.0) K/mm3 Plt Count (140-440) K/mm3 PT (12.2-14.9) Sec. INR (0.87-1.13) Potassium 5.1 H (3.6-5.0) mmol/L Carbon Dioxide 13 L (22-30) mmol/L BUN 35 H (9-20) mg/dL Creatinine 3.0 H (0.8-1.5) mg/dL Glucose 129 H (75-100) mg/dL POC Glucose (70-105) Total Bilirubin 2.60 H (0.1-1.2) mg/dL AST 160 H (5-40) units/L ALT 106 H (7-56) units/L Alkaline Phosphatase 133 H (35-129) units/L Salicylates < 0.3 L (2.8-20.0) mg/dL Acetaminophen < 5.0 L (10.0-30.0) ug/mL Assessment and Plan - Patient Problems (1) Sepsis Current Visit: Yes Status: Acute Qualifiers: Sepsis type: sepsis due to unspecified organism Qualified Code(s): A41.9 - Sepsis, unspecified organism Plan to address problem: Admit to ICU, Sepsis Protocol: IV antibiotic therapy, blood cultures, serial lactic acid level, monitor uop q shift, lumbar puncture, Rapid HIV, CBC, CMP, chest x ray, urinalysis, LFT, IVF resuscitation therapy. The high probability of a clinically significant, sudden or life threatening deterioration of the [neuro, respiratory, renal, ID] system(s) required my full and direct attention, intervention and personal management. The aggregate critical care time was [65] minutes. This time is in addition to time spent performing reported procedures but includes the following: [x] Data Review and interpretation [x] Patient assessment and monitoring of vital signs [x] Documentation [x] Medication orders and management (2) Encephalopathy Current Visit: Yes Status: Acute Plan to address problem: CT head, neuro checks, rapid hiv, ivf resuscitation therapy, seizure precautions. (3) Respiratory failure Current Visit: Yes Status: Acute Qualifiers: Chronicity: acute Respiratory failure complication: hypoxia Qualified Code(s): J96.01 - Acute respiratory failure with hypoxia Plan to address problem: Admit to ICU, Pt intubated, sedated on vent, pulmonary consulted in ED, wean vent as tolerated, daily SBT, chest x ray, pulse oximetry, nebulizer therapy, (4) Acute renal failure Current Visit: Yes Status: Acute Qualifiers: Acute renal failure type: with acute tubular necrosis Qualified Code(s): N17.0 - Acute kidney failure with tubular necrosis Plan to address problem: IVF resuscitation therapy, monitor uop q shift, urine electrolytes, monitor serum creatnine, repeat bmp in am. (5) Rhabdomyolysis Current Visit: Yes Status: Acute Qualifiers: Encounter type: initial encounter Plan to address problem: IVF resuscitation therapy, IV bicarbonate therapy, repeat ck in am, monitor uop q shift, avoid nephrotoxic agents. (6) Hepatic dysfunction Current Visit: Yes Status: Acute Plan to address problem: Supportive care, repeat CMP in AM to monitor for increasing LFT and to evaluated for shock liver. continue supportive care. (7) Hyperkalemia Current Visit: Yes Status: Acute Plan to address problem: IVF resuscitation therapy, repeat bmp in AM, No EKG changes. (8) DVT prophylaxis Current Visit: Yes Status: Acute Plan to address problem: SCD to BLE while in bed, prophylactic heparin
--- NOTE | 2019-03-16 11:59 | Cat Scan Report ---
CT HEAD WITHOUT CONTRAST: HISTORY: Altered mental status. TECHNIQUE: Sequential 2.5mm CT images. COMPARISON: none. FINDINGS: Cerebral Parenchyma: Within normal limits. Cerebellum: Within normal limits. Brainstem: Within normal limits. Ventricles: Normal. Sella: Normal. Extra-axial spaces: Normal. Basal Cisterns: Normal. Intracranial Hemorrhage: None. Midline Shift: None. Calvarium: Normal. Sinuses: Normal. Mastoid Air Cells: Normal. Visualized Orbits: Normal. IMPRESSION: Cranial CT scan within normal limits.
[2019-03-16] MEDS ORDERED: VANCOMYCIN PHARMACY TO DOSE IV SCH (12:00)
[2019-03-16] MEDS: ATIVAN 100 MG in NACL 0.9% 50 ML, VIAFLEX EMPTY CONTAINER 0 ML IV SCH (12:11)
[2019-03-16 12:15] LABS: Total Cells Counted 100
[2019-03-16 12:16] LABS: Band Neutrophils # (Manual) 0.3 K/mm3; Basophils % (Manual) 0 % (0.0-1.8); Eosinophils % (Manual) 0 % (0.0-4.3); Myelocytes # (Manual) 0.3 K/mm3; Platelet Estimate Consistent w Auto; RBC Morphology Normal
[2019-03-16 12:22] LABS: Benzodiazepines Screen,Urine PRESUMPTIVE NEGATIVE; Cannabinoid Screen,Urine PRESUMPTIVE NEGATIVE; Methadone Screen,Urine PRESUMPTIVE NEGATIVE
[2019-03-16 12:25] LABS: Bacteria,Urine 3+ /HPF (Negative); Bilirubin,Urine NEG (Negative); Blood,Urine LG (Negative); Color,Urine Amber (Yellow); Mucus,Urine 1+ /HPF
[2019-03-16 12:43] LABS: Amphetamine Screen,Urine PRESUMPTIVE POSITIVE; Cocaine Screen,Urine PRESUMPTIVE POSITIVE; Opiate Screen,Urine PRESUMPTIVE POSITIVE
[2019-03-16] MEDS ORDERED: VANCOMYCIN 2,000 MG in NACL 0.9% 500 ML 500 ML IV ONE (13:00)
[2019-03-16] MEDS ORDERED: NACL 0.9% 1000 ML 3,000 ML ONE (13:02)
[2019-03-16 13:56] LABS: Appearance,CSF Clear; Red Blood Cell,CSF 0 /mm3 (0-0); White Blood Cell,CSF 2 /mm3 (1-10)
[2019-03-16 13:58] LABS: Appearance,CSF Clear; Red Blood Cell,CSF 0 /mm3 (0-0); White Blood Cell,CSF 2 /mm3 (1-10)
[2019-03-16 14:26] LABS: Creatinine,Urine 75.6 mg/dL (0.1-20.0)
[2019-03-16 14:41] LABS: Basophils CSF 0 %; Total Cells Counted 29 /mm3
[2019-03-16 14:43] LABS: Basophils CSF 0 %; Total Cells Counted 65 /mm3
[2019-03-16] MEDS ORDERED: DIPRIVAN 10 MG/ML 1,000 MG/100 ML BOTTLE IV ONE ×3 (15:17→22:42)
[2019-03-16] MEDS: HEPARIN SUB-Q SCH (23:48)
[2019-03-16] MEDS: SODIUM CHLORIDE FLUSH SYRINGE 10 ML IV SCH (23:59)
[2019-03-17] MEDS: DIPRIVAN 10 MG/ML 1,000 MG/100 ML BOTTLE IV SCH ×3 (03:20→15:30)
[2019-03-17 05:20] LABS: Basophils % (Auto) 0.3 % (0.0-1.8); Eosinophils % (Auto) 0.1 % (0.0-4.3); Hematocrit 36.1 % (35.5-45.6); Hemoglobin 12.5 gm/dl (11.8-15.2); Lymphocytes # (Auto) 2.2 K/mm3 (1.2-5.4); Lymphocytes % (Auto) 16.1 % (13.4-35.0); Mean Corpuscular HGB Conc 35 % (32-34); Mean Corpuscular Volume 92 fl (84-94); Monocytes % (Auto) 7.1 % (0.0-7.3); Platelet Count 283 K/mm3 (140-440); Red Blood Count 3.93 M/mm3 (3.65-5.03); Red Cell Distribution Width 14.6 % (13.2-15.2)
[2019-03-17 05:54] LABS: Albumin 3.4 g/dL (3.9-5); Calcium 8.2 mg/dL (8.4-10.2)
--- NOTE | 2019-03-17 08:57 | Consultation ---
History of Present Illness Consult date: 03/17/19 Requesting physician: TOM HARRIS Reason for consult: other (Acute hypoxemic respiratory failure on MVS, acute toxic encephalopathy, Substance abuse disorder) History of present illness: 33 YO Male with Polysubstance Abuse, Psychosis currently and inpatient at [facility] presents to ED for evaluation. Pt is lethargic and unable to provide history and is intubated and on vest support at time of my exam. Patient history provided by his father who is at bedside during exam and interview. As per father, the patient was found to be confused by [place] staff to be confused with decreased level of responsiveness. EMS notified, and upon arrival the patient was found to be unresponsive and treated with supportive care and IM Narcan and transported to [facility]. Pt seen and evaluated in ED and was found to have Encephalopathy, Sepsis, and Respiratory distress and was unable to protect his airway. Pt intubated and placed on vent support. Pt admitted to ICU and initiated on sepsis protocol. I have been consulted for critical care management. Patient was seen and examined. Vitals, labs, medications, chart and imaging were reviewed. History as documented. Currently orally intubated, no central lines. Has a Sinclair catheter On propofol and Lorazepam infusions, with RAAS of -3 Vent settings- AC 26/500/6/25% 7.30/27/135/13/-13 Past History Past Medical History: other (polysubstance abuse, Psychosis) Past Surgical History: No surgical history, Other (reviewed) Social history: single, smoking, alcohol abuse Family history: no significant family history (reviewed) Medications and Allergies Allergies Allergy/AdvReac Type Severity Reaction Status Date / Time Unable to Assess Allergy Unverified 03/16/19 11:41 Home Medications Medication Instructions Recorded Confirmed Last Taken Type Unobtainable 03/16/19 03/16/19 Unknown History Active Meds: Active Medications Famotidine (Pepcid) 20 mg IV DAILY JOÃO Heparin Sodium (Porcine) (Heparin) 5,000 unit SUB-Q Q12HR JOÃO Last Admin: 03/16/19 23:48 Dose: 5,000 unit Documented by: Propofol (Diprivan 10 Mg/Ml) 1,000 mg in 100 mls @ 3.138 mls/hr IV TITR JOÃO; Protocol Last Admin: 03/17/19 08:15 Dose: 30 mcg/kg/min, 18.828 mls/hr Documented by: Lorazepam 100 mg/ Sodium Chloride/ Miscellaneous Information 100 mls @ 1 mls/hr IV TITR JOÃO; Protocol Last Titration: 03/17/19 08:15 Dose: 3 mg/hr, 3 mls/hr Documented by: Ceftriaxone Sodium (Rocephin/Ns 2 Gm/100 Ml) 2 gm in 100 mls @ 200 mls/hr IV Q24HR JOÃO; Protocol Azithromycin 500 mg/ Sodium (Chloride) 250 mls @ 250 mls/hr IV Q24HR JOÃO Stop: 03/22/19 09:59 Sodium Chloride (Sodium Chloride Flush Syringe 10 Ml) 10 ml IV BID JOÃO Last Admin: 03/16/19 23:59 Dose: 10 ml Documented by: Sodium Chloride (Sodium Chloride Flush Syringe 10 Ml) 10 ml IV PRN PRN PRN Reason: LINE FLUSH Review of Systems ROS unobtainable: due to endotracheal tube, due to mental status Physical Examination Vital signs: Vital Signs Pulse Resp 125 H 64 H 03/16/19 10:16 03/16/19 10:16 General appearance: no acute distress, other (sedated) Eyes: non-icteric ENT: oropharynx dry, other (ETT 7.5cm at 23 at the lip, no patient-ventilator dys-synchrony) Neck: supple, no lymphadenopathy, no JVD Effort: normal Ascultation: Bilateral: diminished breath sounds Cardiovascular: regular rate and rhythm, other (S1,S2, no murmurs, gallops or rubs) Gastrointestinal: normoactive bowel sounds, soft, non-tender, non-distended, other (bowel sounds in all 4 quadrants, sinclair catheter) Integumentary: normal Extremities: no cyanosis, no edema, pink and warm, pulses normal, no ischemia or petechiae Musculoskeletal: no deformities unable to assess other (sedated) Results - Laboratory Findings CBC and BMP: 03/17/19 04:41 03/17/19 04:41 ABG POC ABG pH 7.304 (7.35-7.45) L 03/17/19 08:27 POC ABG pO2 135 (80-105) H 03/17/19 08:27 POC ABG HCO3 13.2 (22-26 mml/L) 03/17/19 08:27 POC ABG Total CO2 14 (23-27mmol/L) 03/17/19 08:27 POC ABG O2 Sat 99 03/17/19 08:27 PT/INR, D-dimer PT 17.5 Sec. (12.2-14.9) H 03/16/19 10:37 INR 1.47 (0.87-1.13) H 03/16/19 10:37 Abnormal lab findings: Abnormal Labs 03/16/19 03/16/19 03/16/19 10:21 10:37 10:37 WBC 27.7 H MCHC Plt Count 553 H [place] # Seg Neutrophils % Seg Neuts % (Manual) 90.0 H Lymphocytes % (Manual) 2.0 L Seg Neutrophils # Seg Neutrophils # Man 24.9 H Lymphocytes # (Manual) 0.6 L Monocytes # (Manual) 1.4 H PT 17.5 H INR 1.47 H POC ABG pH POC ABG pCO2 POC ABG pO2 Potassium Carbon Dioxide BUN Creatinine Glucose POC Glucose 154 H Calcium Total Bilirubin AST ALT Alkaline Phosphatase Total Creatine Kinase Total Protein Albumin Urine WBC (Auto) Urine Creatinine Salicylates Acetaminophen 03/16/19 03/16/19 03/16/19 10:37 10:37 10:37 WBC MCHC Plt Count [place] # Seg Neutrophils % Seg Neuts % (Manual) Lymphocytes % (Manual) Seg Neutrophils # Seg Neutrophils # Man Lymphocytes # (Manual) Monocytes # (Manual) PT INR POC ABG pH POC ABG pCO2 POC ABG pO2 Potassium 5.1 H Carbon Dioxide 13 L BUN 35 H Creatinine 3.0 H Glucose 129 H POC Glucose Calcium Total Bilirubin 2.60 H AST 160 H ALT 106 H Alkaline Phosphatase 133 H Total Creatine Kinase Total Protein Albumin Urine WBC (Auto) Urine Creatinine Salicylates < 0.3 L Acetaminophen < 5.0 L 03/16/19 03/16/19 03/16/19 10:37 11:37 11:37 WBC MCHC Plt Count [place] # Seg Neutrophils % Seg Neuts % (Manual) Lymphocytes % (Manual) Seg Neutrophils # Seg Neutrophils # Man Lymphocytes # (Manual) Monocytes # (Manual) PT INR POC ABG pH POC ABG pCO2 POC ABG pO2 Potassium Carbon Dioxide BUN Creatinine Glucose POC Glucose Calcium Total Bilirubin AST ALT Alkaline Phosphatase Total Creatine Kinase 4300 H Total Protein Albumin Urine WBC (Auto) 10.0 H Urine Creatinine 75.6 H Salicylates Acetaminophen 03/16/19 03/17/19 03/17/19 12:25 04:41 04:41 WBC 13.5 H MCHC 35 H Plt Count [place] # 1.0 H Seg Neutrophils % 76.4 H Seg Neuts % (Manual) Lymphocytes % (Manual) Seg Neutrophils # 10.3 H Seg Neutrophils # Man Lymphocytes # (Manual) Monocytes # (Manual) PT INR POC ABG pH 7.188 L POC ABG pCO2 47.9 H POC ABG pO2 Potassium Carbon Dioxide 13 L BUN 57 H Creatinine 4.6 H D Glucose POC Glucose Calcium 8.2 L Total Bilirubin AST 567 H ALT 356 H Alkaline Phosphatase Total Creatine Kinase Total Protein 6.0 L D Albumin 3.4 L Urine WBC (Auto) Urine Creatinine Salicylates Acetaminophen 03/17/19 03/17/19 03/17/19 04:41 04:57 08:27 WBC MCHC Plt Count [place] # Seg Neutrophils % Seg Neuts % (Manual) Lymphocytes % (Manual) Seg Neutrophils # Seg Neutrophils # Man Lymphocytes # (Manual) Monocytes # (Manual) PT INR POC ABG pH 7.302 L 7.304 L POC ABG pCO2 POC ABG pO2 158 H 135 H Potassium Carbon Dioxide BUN Creatinine Glucose POC Glucose Calcium Total Bilirubin AST ALT Alkaline Phosphatase Total Creatine Kinase 73966 H Total Protein Albumin Urine WBC (Auto) Urine Creatinine Salicylates Acetaminophen - Diagnostic Findings Chest x-ray: image reviewed (ETT is high, no acute pulmonary infiltrates, large gastric bubble) Additional studies: CT head- no acute infarct, hemorrhage or shift. Normal study Assessment and Plan -Acute hypoxemic respiratory failure on MVS -Acute metabolic- toxic encephalopathy -Acute metabolic acidosis -Acute renal failure (multifactorial) -Rhabdomyolysis -Polysubstance abuse disorder with overdose -Advance ETT by 3 cm -Continue with volume resuscitation, change the fluid to bicarbonate infusion in view of rhabdomyolysis -He has a base excess of -13 and acute renal failure, he remains intravascularly depleted and will benefit from volume resuscitation. -Avoid normal saline- there is emerging data that it can potentiate renal failure -Blood cultures, urine cultures with urinalysis, tracheal aspirate for culture -Follow up cultures -Stop antibiotics and monitor. No clinical indication to suspect sepsis -Adjust minute ventilation for better gas exchange -Lung protective strategies -Serial CXR and ABG -Serail BMPs, monitor CK and liver enzymes -VAP bundle addressed -Critical care bundles addressed -Supplemental oxygen to keep O2 sats > 90% -Bronchodilators -Accuchecks with glycemic control. Target blood glucose <180mg/dL -Nutrition consult for tube feedings -Start tube feedings with aspiration precautions -Agitation management -Titrate sedation to RAAS 0 to -1 -Prevention of delirium, maintenance of sleep-wake cycle -Avoid nephrotoxic agents, adjust all antibiotics and medications for CrCL and GFR -VTE and Stress ulcer prophylaxis -Sinclair catheter in this critically ill patient with acute renal failure, requiring strict intake and output monitoring. Will assess daily, the need for ongoing Sinclair catheter -Substance abuse counselling once he is able to be an active participant of the conversation CONDITION: CRITICAL PROGNOSIS: GUARDED CODE STATUS: FULL CODE The high probability of a clinically significant, sudden or life-threatening deterioration of the [respiratory, cardiovascular, renal , gastrointestinal, neurology] system(s) required my full and direct attention, intervention and personal management. The aggregate critical care time was [45 ] minutes without overlap. Time includes spent on; [x] Data Review and interpretation [x] Patient assessment and monitoring of vital signs [x] Documentation [x] Medication orders and management
[2019-03-17] MEDS ORDERED: ROCEPHIN/NS 2 GM/100 ML 2 GM/100 ML BAG IV SCH (10:00)
[2019-03-17] MEDS ORDERED: ZITHROMAX 500 MG in NACL 0.9% 250ML 250 ML IV SCH (10:00)
[2019-03-17] MEDS ORDERED: SODIUM BICARBONATE IV ONE (10:00)
[2019-03-17] MEDS ORDERED: D5W IV ONE (10:00)
[2019-03-17] MEDS: HEPARIN SUB-Q SCH ×2 (11:01→21:11)
[2019-03-17] MEDS: PEPCID IV SCH (11:01)
[2019-03-17] MEDS: SODIUM CHLORIDE FLUSH SYRINGE 10 ML IV SCH ×2 (11:02→21:13)
[2019-03-17] MEDS: ATIVAN 100 MG in NACL 0.9% 50 ML, VIAFLEX EMPTY CONTAINER 0 ML IV SCH (11:03)
[2019-03-17] MEDS: D5W IV SCH ×2 (12:00→19:03)
[2019-03-17] MEDS: SODIUM BICARBONATE IV SCH ×2 (12:00→19:03)
--- NOTE | 2019-03-17 15:10 | Progress Note ---
Assessment and Plan Assessment and plan: 33 YO Male with Polysubstance Abuse, Psychosis currently and inpatient at [facility] presents to ED for evaluation. Pt is lethargic and unable to provide history and is intubated and on vest support at time of my exam. Patient history provided by his father who is at bedside during exam and interview. As per father, the patient was found to be confused by [place] staff to be confused with decreased level of responsiveness. EMS notified, and upon arrival the patient was found to be unresponsive and treated with supportive care and IM Narcan and transported to [facility]. Pt seen and evaluated in ED and was found to have Encephalopathy, Sepsis, and Respiratory distress and was unable to protect his airway. Pt intubated and placed on vent support. Pt admitted to ICU and initiated on sepsis protocol. No prior admission for review. No medication listed at time of admission for reconciliation. (1) Sepsis Current Visit: Yes Status: Acute Qualifiers: Sepsis type: sepsis due to unspecified organism Qualified Code(s): A41.9 - Sepsis, unspecified organism Plan to address problem: CONTINUE ICU, Sepsis Protocol: IV antibiotic therapy, blood cultures, serial lactic acid level, monitor uop q shift, lumbar puncture, Rapid HIV, CBC, CMP, chest x ray, urinalysis, LFT, IVF resuscitation therapy. ASPIRATION PRECAUTIONS (2) Encephalopathy-METABOLIC Current Visit: Yes Status: Acute Plan to address problem: CT head, neuro checks, rapid hiv, ivf resuscitation therapy, seizure precautions. Neurology consulted due to possible seizure (3) Respiratory failure Current Visit: Yes Status: Acute Qualifiers: Chronicity: acute Respiratory failure complication: hypoxia Qualified Code(s): J96.01 - Acute respiratory failure with hypoxia Plan to address problem: Pt intubated, sedated on vent, pulmonary consulted in ED, wean vent as maddison erated, daily SBT, chest x ray, pulse oximetry, nebulizer therapy, (4) Acute renal failure Current Visit: Yes Status: Acute Qualifiers: Acute renal failure type: with acute tubular necrosis Qualified Code(s): N17.0 - Acute kidney failure with tubular necrosis Plan to address problem: IVF resuscitation therapy, monitor uop q shift, urine electrolytes, monitor serum creatnine, repeat bmp in am. (5) Rhabdomyolysis Current Visit: Yes Status: Acute Qualifiers: Encounter type: initial encounter Plan to address problem: IVF resuscitation therapy, IV bicarbonate therapy, repeat ck in am, monitor uop q shift, avoid nephrotoxic agents. (6) Hepatic dysfunction Current Visit: Yes Status: Acute Plan to address problem: Supportive care, repeat CMP in AM to monitor for increasing LFT and to evaluated for shock liver. continue supportive care. (7) Hyperkalemia Current Visit: Yes Status: Acute Plan to address problem: IVF resuscitation therapy, repeat bmp in AM, No EKG changes. (8) DVT prophylaxis Current Visit: Yes Status: Acute Plan to address problem: SCD to BLE while in bed, prophylactic heparin Plan discussed with family The high probability of a clinically significant, sudden or life threatening deterioration of the [neuro, respiratory, renal, ID] system(s) required my full and direct attention, intervention and personal management. The aggregate critical care time was [35] minutes. This time is in addition to time spent performing reported procedures but includes the following: [x] Data Review and interpretation [x] Patient assessment and monitoring of vital signs [x] Documentation [x] Medication orders and management History Interval history: Patient seen and examined, remains on full ventilatory support and sedated Hospitalist Physical - Physical exam Narrative exam: General appearance: Present: mild distress, ON FULL MECHANICAL VENTIALTION - EENT Eyes: Present: miosis - Neck Neck: Present: supple, normal ROM - Respiratory Respiratory effort: labored Respiratory: bilateral: diminished - Cardiovascular Heart Sounds: Present: S1 & S2. Absent: rub, click - Extremities Extremities: pulses symmetrical, No edema Peripheral Pulses: within normal limits - Abdominal General gastrointestinal: Present: soft, non-tender, non-distended, normal bowel sounds Male genitourinary: Present: normal - Integumentary Integumentary: Present: clear, warm, dry - Musculoskeletal Musculoskeletal: no c/c/e - Psychiatric Psychiatric: unable to access - Neurologic Neurologic: no focal deficits, moves all extremities, no gait rahul - Constitutional Vitals: Temp Pulse Resp BP Pulse Ox 98.9 F 89 32 H 142/91 100 03/17/19 04:00 03/17/19 13:41 03/17/19 13:41 03/17/19 13:41 03/17/19 13:41 General appearance: Present: mild distress Results - Labs CBC & Chem 7: 03/17/19 04:41 03/17/19 04:41 Labs: Laboratory Last Values WBC 13.5 K/mm3 (4.5-11.0) H 03/17/19 04:41 RBC 3.93 M/mm3 (3.65-5.03) 03/17/19 04:41 Hgb 12.5 gm/dl (11.8-15.2) 03/17/19 04:41 Hct 36.1 % (35.5-45.6) 03/17/19 04:41 MCV 92 fl (84-94) 03/17/19 04:41 MCH 32 pg (28-32) 03/17/19 04:41 MCHC 35 % (32-34) H 03/17/19 04:41 RDW 14.6 % (13.2-15.2) 03/17/19 04:41 Plt Count 283 K/mm3 (140-440) 03/17/19 04:41 Lymph % (Auto) 16.1 % (13.4-35.0) 03/17/19 04:41 [place] % (Auto) 7.1 % (0.0-7.3) 03/17/19 04:41 Eos % (Auto) 0.1 % (0.0-4.3) 03/17/19 04:41 Baso % (Auto) 0.3 % (0.0-1.8) 03/17/19 04:41 Lymph # 2.2 K/mm3 (1.2-5.4) 03/17/19 04:41 [place] # 1.0 K/mm3 (0.0-0.8) H 03/17/19 04:41 Eos # 0.0 K/mm3 (0.0-0.4) 03/17/19 04:41 Baso # 0.0 K/mm3 (0.0-0.1) 03/17/19 04:41 Add Manual Diff Complete 03/16/19 10:37 Total Counted 100 03/16/19 10:37 Seg Neutrophils % 76.4 % (40.0-70.0) H 03/17/19 04:41 Seg Neuts % (Manual) 90.0 % (40.0-70.0) H 03/16/19 10:37 1.0 % 03/16/19 10:37 2.0 % (13.4-35.0) L 03/16/19 10:37 Reactive Lymphs % (Man) 0 % 03/16/19 10:37 5.0 % (0.0-7.3) 03/16/19 10:37 0 % (0.0-4.3) 03/16/19 10:37 0 % (0.0-1.8) 03/16/19 10:37 1.0 % 03/16/19 10:37 1.0 % 03/16/19 10:37 0 % 03/16/19 10:37 0 % 03/16/19 10:37 Nucleated RBC % Not Reportable 03/16/19 10:37 Seg Neutrophils # 10.3 K/mm3 (1.8-7.7) H 03/17/19 04:41 Seg Neutrophils # Man 24.9 K/mm3 (1.8-7.7) H 03/16/19 10:37 Band Neutrophils # 0.3 K/mm3 03/16/19 10:37 0.6 K/mm3 (1.2-5.4) L 03/16/19 10:37 Abs React Lymphs (Man) 0.0 K/mm3 03/16/19 10:37 1.4 K/mm3 (0.0-0.8) H 03/16/19 10:37 0.0 K/mm3 (0.0-0.4) 03/16/19 10:37 0.0 K/mm3 (0.0-0.1) 03/16/19 10:37 0.3 K/mm3 03/16/19 10:37 0.3 K/mm3 03/16/19 10:37 0.0 K/mm3 03/16/19 10:37 Blast Cells # 0.0 K/mm3 03/16/19 10:37 WBC Morphology Not Reportable 03/16/19 10:37 Hypersegmented Neuts Not Reportable 03/16/19 10:37 Hyposegmented Neuts Not Reportable 03/16/19 10:37 Hypogranular Neuts Not Reportable 03/16/19 10:37 Not Reportable 03/16/19 10:37 Not Reportable 03/16/19 10:37 Not Reportable 03/16/19 10:37 Not Reportable 03/16/19 10:37 Not Reportable 03/16/19 10:37 Not Reportable 03/16/19 10:37 Consistent w auto 03/16/19 10:37 Not Reportable 03/16/19 10:37 Plt Clumps, EDTA Not Reportable 03/16/19 10:37 Not Reportable 03/16/19 10:37 Not Reportable 03/16/19 10:37 Not Reportable 03/16/19 10:37 Plt Morphology Comment Not Reportable 03/16/19 10:37 RBC Morphology Normal 03/16/19 10:37 Dimorphic RBCs Not Reportable 03/16/19 10:37 Not Reportable 03/16/19 10:37 Not Reportable 03/16/19 10:37 Not Reportable 03/16/19 10:37 Not Reportable 03/16/19 10:37 Not Reportable 03/16/19 10:37 Not Reportable 03/16/19 10:37 Not Reportable 03/16/19 10:37 Not Reportable 03/16/19 10:37 Not Reportable 03/16/19 10:37 Not Reportable 03/16/19 10:37 Not Reportable 03/16/19 10:37 Not Reportable 03/16/19 10:37 Not Reportable 03/16/19 10:37 Not Reportable 03/16/19 10:37 Not Reportable 03/16/19 10:37 Not Reportable 03/16/19 10:37 Not Reportable 03/16/19 10:37 Not Reportable 03/16/19 10:37 Not Reportable 03/16/19 10:37 Acanthocytes (Spur) Not Reportable 03/16/19 10:37 Rouleaux Not Reportable 03/16/19 10:37 Not Reportable 03/16/19 10:37 Not Reportable 03/16/19 10:37 Not Reportable 03/16/19 10:37 Not Reportable 03/16/19 10:37 Hem Pathologist Commnt No 03/16/19 10:37 PT 17.5 Sec. (12.2-14.9) H 03/16/19 10:37 INR 1.47 (0.87-1.13) H 03/16/19 10:37 APTT 25.7 Sec. (24.2-36.6) 03/16/19 10:37 POC ABG pH 7.304 (7.35-7.45) L 03/17/19 08:27 POC ABG pCO2 47.9 (35-45) H 03/16/19 12:25 POC ABG pO2 135 (80-105) H 03/17/19 08:27 POC ABG HCO3 13.2 (22-26 mml/L) 03/17/19 08:27 POC ABG Total CO2 14 (23-27mmol/L) 03/17/19 08:27 POC ABG O2 Sat 99 03/17/19 08:27 POC ABG Base Excess -13 ((-2) - (+3)mmol/L) 03/17/19 08:27 25 % 03/17/19 08:27 Sodium 141 mmol/L (137-145) 03/17/19 04:41 Potassium 4.1 mmol/L (3.6-5.0) 03/17/19 04:41 Chloride 106.3 mmol/L (98-107) 03/17/19 04:41 Carbon Dioxide 13 mmol/L (22-30) L 03/17/19 04:41 26 mmol/L 03/17/19 04:41 BUN 57 mg/dL (9-20) H 03/17/19 04:41 4.6 mg/dL (0.8-1.5) H D 03/17/19 04:41 Estimated GFR 15 ml/min 03/17/19 04:41 12 % 03/17/19 04:41 Glucose 90 mg/dL (75-100) 03/17/19 04:41 POC Glucose 100 (70-105) 03/16/19 17:45 Lactic Acid 0.80 mmol/L (0.7-2.0) 03/16/19 16:38 Calcium 8.2 mg/dL (8.4-10.2) L 03/17/19 04:41 1.10 mg/dL (0.1-1.2) 03/17/19 04:41 AST 567 units/L (5-40) H 03/17/19 04:41 ALT 356 units/L (7-56) H 03/17/19 04:41 114 units/L (35-129) 03/17/19 04:41 61201 units/L (55-170) H 03/17/19 04:41 < 0.010 ng/mL (0.00-0.029) 03/16/19 10:37 6.0 g/dL (6.3-8.2) L D 03/17/19 04:41 3.4 g/dL (3.9-5) L 03/17/19 04:41 1.3 % 03/17/19 04:41 [place] (Yellow) 03/16/19 11:37 Cloudy (Clear) 03/16/19 11:37 6.0 (5.0-7.0) 03/16/19 11:37 Ur Specific [place] 1.015 (1.003-1.030) 03/16/19 11:37 100 mg/dl mg/dL (Negative) 03/16/19 11:37 150 mg/dL (Negative) 03/16/19 11:37 Tr mg/dL (Negative) 03/16/19 11:37 Lg (Negative) 03/16/19 11:37 Neg (Negative) 03/16/19 11:37 Neg (Negative) 03/16/19 11:37 2.0 mg/dL (<2.0) 03/16/19 11:37 Ur Leukocyte Esterase Neg (Negative) 03/16/19 11:37 10.0 /HPF (0.0-6.0) H 03/16/19 11:37 58.0 /HPF (0.0-6.0) 03/16/19 11:37 U Epithel Cells (Auto) 3.0 /HPF (0-13.0) 03/16/19 11:37 3+ /HPF (Negative) 03/16/19 11:37 1+ /HPF 03/16/19 11:37 75.6 mg/dL (0.1-20.0) H 03/16/19 11:37 50 mmol/L 03/16/19 11:37 Clear 03/16/19 12:40 Clear 03/16/19 12:40 Colorless 03/16/19 12:40 Colorless 03/16/19 12:40 2 /mm3 (1-10) 03/16/19 12:40 2 /mm3 (1-10) 03/16/19 12:40 0 /mm3 (0-0) 03/16/19 12:40 0 /mm3 (0-0) 03/16/19 12:40 CSF Seg Neutrophils 0 % (0-6) 03/16/19 12:40 CSF Seg Neutrophils 0 % (0-6) 03/16/19 12:40 47.7 % (40-80) 03/16/19 12:40 93.1 % (40-80) 03/16/19 12:40 CSF Reactive Lymphs 0 % 03/16/19 12:40 CSF Reactive Lymphs 0 % 03/16/19 12:40 6.9 % (15-45) 03/16/19 12:40 52.3 % (15-45) 03/16/19 12:40 0 % 03/16/19 12:40 0 % 03/16/19 12:40 0 % 03/16/19 12:40 0 % 03/16/19 12:40 C 03/16/19 12:40 C 03/16/19 12:40 69 mg/dL 03/16/19 12:40 Salicylates < 0.3 mg/dL (2.8-20.0) L 03/16/19 10:37 Presumptive positive 03/16/19 11:37 Presumptive negative 03/16/19 11:37 Acetaminophen < 5.0 ug/mL (10.0-30.0) L 03/16/19 10:37 Ur Barbiturates Screen Presumptive negative 03/16/19 11:37 Ur Phencyclidine Scrn Presumptive negative 03/16/19 11:37 Ur Amphetamines Screen Presumptive positive 03/16/19 11:37 U Benzodiazepines Scrn Presumptive negative 03/16/19 11:37 Presumptive positive 03/16/19 11:37 U Marijuana (THC) Screen Presumptive negative 03/16/19 11:37 Disclamer 03/16/19 11:37 Plasma/Serum Alcohol < 0.01 % (0-0.07) 03/16/19 10:37 HIV 1&2 Antibody Rapid Non react (Non React) 03/16/19 12:05 Non react (Non React) 03/16/19 12:05 Active Medications - Current Medications Current Medications: Generic Name Dose Route Start Last Admin Trade Name Freq PRN Reason Stop Dose Admin Famotidine 20 mg 03/17/19 10:00 03/17/19 11:01 Pepcid IV 20 mg DAILY JOÃO Administration Heparin Sodium (Porcine) 5,000 unit 03/16/19 22:00 03/17/19 11:01 Heparin SUB-Q 5,000 unit Q12HR JOÃO Administration Propofol 1,000 mg in 100 mls @ 3.138 mls/hr 03/16/19 11:00 03/17/19 14:52 Diprivan 10 Mg/Ml IV 15 mcg/kg/min TITR JOÃO 9.414 mls/hr Titration Protocol 5 MCG/KG/MIN Lorazepam 100 mg/ Sodium 100 mls @ 1 mls/hr 03/16/19 12:00 03/17/19 12:30 Chloride/ Miscellaneous IV 1 mg/hr Information TITR JOÃO 1 mls/hr Titration Protocol 1 MG/HR Sodium Bicarbonate 150 meq/ 1,150 mls @ 175 mls/hr 03/17/19 10:00 03/17/19 12:00 Dextrose IV 175 mls/hr DIRECT JOÃO Administration Sodium Chloride 10 ml 03/16/19 22:00 03/17/19 11:02 Sodium Chloride Flush Syringe 10 Ml IV 10 ml BID JOÃO Administration Sodium Chloride 10 ml 03/16/19 11:52 Sodium Chloride Flush Syringe 10 Ml IV PRN PRN LINE FLUSH
--- NOTE | 2019-03-17 19:54 | Electroencephalogram Report ---
Electroencephalogram EEG Date of exam: 03/17/19 History: Seizure after Narcan at [place] when found unresponsive Impression: This 17 channel digital EEG (of which one is an EKG channel) is done using the 10/20 international montage in this 20 minute recording. There is 9-10 Hz alpha activity in the posterior leads and some anterior beta activity. EKG shows tachycardia. Off propofol there is considerable movement artifact with pulling of restraints according to the nitriles lab technician and EMG artifact. No sleep architecture was captured. No epileptiform activity was seen. Description: The waking background shows an appropriate organization with well-defined anter ior posterior voltage and frequency gradients. Posteriorly, there is a well- developed alpha rhythm of [ ] Hz which is symmetrical and bilaterally reactive. Anteriorly, there is a pattern of lower voltage and slightly irregular theta and beta range frequencies. During drowsiness, there is attenuation of the background rhythms. The sleep background shows normal organization with well-formed sleep spindles and vertex waves which are synchronous and symmetrical. Throughout, the recording there are no epileptiform abnormalities, focal or lateralizing features, or significant interhemispheric findings. Interpretation: Normal waking electroencephalogram for age other than tachycardia. This EEG does not exclude epilepsy of partial onset. Up to 4 EEGs over several months may be needed to capture interictal epileptiform activity.
--- NOTE | 2019-03-17 19:58 | Consultation ---
History of Present Illness Consult date: 03/17/19 Requesting physician: TOM HARRIS Reason for Consult: seizure Chief complaint: seizure History of present illness: This 33-year-old white male was admitted yesterday after having been found un responsive at [facility] where he was given Narcan followed by a seizure. He was noted to be tachycardic and sweating and stammering afterwards. The previous days tox screen at the facility and shown cocaine, opiates and amphetamines. Because he is intubated, history gathering is sparse but he nods yes to smoking and yes to 1 pack per day and nods yes to alcohol and to beer though not to wine or hard liquor cannot easily quantify the amounts of alcohol with him today. He shakes his head no to headache and to dizziness. He is on a lorazepam drip and propofol while intubated. Past medical history: See below Social history: One pack per day cigarettes as above, unknown quantities of alcohol, could not really interrogate him about illicit substances. See below Family history: Unobtainable Review of systems: Unobtainable General appearance: Well-developed but overweight early 30s white male, intubated and sedated though wakes up enough to nod his head and shake his head to questions after being off lorazepam and propofol for several minutes. HEENT: Atraumatic normocephalic, no bruits, orally intubated which prevents inspection of oropharynx. Neck: Supple, no bruits. Heart: No murmur or extra sounds. Extremities: 2+ dorsalis pedis pulses, no clubbing cyanosis or edema. Neurologic exam: Mental status: Awake and is off sedation to being semi-alert, nods yes to h [facility] for multiple choice for location, cannot nod to identify month or year or name of president. Cranial nerves: [place] appear grossly intact to visual threat, no papilledema, spontaneous venous pulsations are present, PERRL, extraocular movements full to command though has a tendency to look downwards, corneals are positive, facial sensation intact to pinprick him a cannot assess Karimi, weakly positive gag to Yankauer suction and positive cough to tracheal suction. Won't cooperate for shoulder shrug but protrudes tongue in the midline. Cerebellar: Finger to nose is dysmetric bilaterally with searching tremor. Cannot attempt [id number] on either side due to painful left leg. Sensory exam: Intact pinprick throughout. Motor exam upper extremities: No drift or pronation, raw juice weigher are 5 right and 4+ left, cannot cooperate for rapid alternating movements. Motor exam lower extremities: Bends knees equally, pedal pushes and anterior tibials are 5 bilaterally. Rapid alternating movements are intact. Reflexes: Jaw jerk is positive, palmomental and snout are negative. Triceps, biceps and brachioradialis is 0. Pugh's is negative bilaterally. Knee jerks are 0, ankle jerks are 1 on the right and trace in the left without clonus. Toes are bilaterally downgoing to Babinski testing. Past History Past Medical History: other (polysubstance abuse, Psychosis) Past Surgical History: No surgical history, Other (reviewed) Social history: single, smoking, alcohol abuse Family history: no significant family history (reviewed) Medications and Allergies Allergies Allergy/AdvReac Type Severity Reaction Status Date / Time Unable to Assess Allergy Unverified 03/16/19 11:41 Home Medications Medication Instructions Recorded Confirmed Last Taken Type Unobtainable 03/16/19 03/16/19 Unknown History Active Meds: Active Medications Famotidine (Pepcid) 20 mg IV DAILY JOÃO Last Admin: 03/17/19 11:01 Dose: 20 mg Documented by: Heparin Sodium (Porcine) (Heparin) 5,000 unit SUB-Q Q12HR JOÃO Last Admin: 03/17/19 11:01 Dose: 5,000 unit Documented by: Propofol (Diprivan 10 Mg/Ml) 1,000 mg in 100 mls @ 3.138 mls/hr IV TITR JOÃO; Protocol Last Titration: 03/17/19 18:50 Dose: 10 mcg/kg/min, 6.276 mls/hr Documented by: Lorazepam 100 mg/ Sodium Chloride/ Miscellaneous Information 100 mls @ 1 mls/hr IV TITR JOÃO; Protocol Last Titration: 03/17/19 18:50 Dose: 2 mg/hr, 2 mls/hr Documented by: Sodium Bicarbonate 150 meq/ (Dextrose) 1,150 mls @ 175 mls/hr IV DIRECT JOÃO Last Admin: 03/17/19 19:03 Dose: 175 mls/hr Documented by: Sodium Chloride (Sodium Chloride Flush Syringe 10 Ml) 10 ml IV BID JOÃO Last Admin: 03/17/19 11:02 Dose: 10 ml Documented by: Sodium Chloride (Sodium Chloride Flush Syringe 10 Ml) 10 ml IV PRN PRN PRN Reason: LINE FLUSH Physical Examination - Vital Signs Vital Signs: Vital Signs Pulse Resp 125 H 64 H 03/16/19 10:16 03/16/19 10:16 Results - Laboratory Findings CBC and BMP: 03/17/19 04:41 03/17/19 04:41 Abnormal Lab Findings: Abnormal Labs 03/16/19 03/16/19 03/16/19 10:00 10:21 10:37 WBC 27.7 H MCHC Plt Count 553 H [place] # Seg Neutrophils % Seg Neuts % (Manual) 90.0 H Lymphocytes % (Manual) 2.0 L Seg Neutrophils # Seg Neutrophils # Man 24.9 H Lymphocytes # (Manual) 0.6 L Monocytes # (Manual) 1.4 H PT INR POC ABG pH POC ABG pCO2 POC ABG pO2 Potassium Carbon Dioxide BUN Creatinine Glucose POC Glucose 49 L 154 H Calcium Total Bilirubin AST ALT Alkaline Phosphatase Total Creatine Kinase Total Protein Albumin Urine WBC (Auto) Urine Creatinine Salicylates Acetaminophen 03/16/19 03/16/19 03/16/19 10:37 10:37 10:37 WBC MCHC Plt Count [place] # Seg Neutrophils % Seg Neuts % (Manual) Lymphocytes % (Manual) Seg Neutrophils # Seg Neutrophils # Man Lymphocytes # (Manual) Monocytes # (Manual) PT 17.5 H INR 1.47 H POC ABG pH POC ABG pCO2 POC ABG pO2 Potassium 5.1 H Carbon Dioxide 13 L BUN 35 H Creatinine 3.0 H Glucose 129 H POC Glucose Calcium Total Bilirubin 2.60 H AST 160 H ALT 106 H Alkaline Phosphatase 133 H Total Creatine Kinase Total Protein Albumin Urine WBC (Auto) Urine Creatinine Salicylates < 0.3 L Acetaminophen 03/16/19 03/16/19 03/16/19 10:37 10:37 11:37 WBC MCHC Plt Count [place] # Seg Neutrophils % Seg Neuts % (Manual) Lymphocytes % (Manual) Seg Neutrophils # Seg Neutrophils # Man Lymphocytes # (Manual) Monocytes # (Manual) PT INR POC ABG pH POC ABG pCO2 POC ABG pO2 Potassium Carbon Dioxide BUN Creatinine Glucose POC Glucose Calcium Total Bilirubin AST ALT Alkaline Phosphatase Total Creatine Kinase 4300 H Total Protein Albumin Urine WBC (Auto) 10.0 H Urine Creatinine Salicylates Acetaminophen < 5.0 L 03/16/19 03/16/19 03/17/19 11:37 12:25 04:41 WBC 13.5 H MCHC 35 H Plt Count [place] # 1.0 H Seg Neutrophils % 76.4 H Seg Neuts % (Manual) Lymphocytes % (Manual) Seg Neutrophils # 10.3 H Seg Neutrophils # Man Lymphocytes # (Manual) Monocytes # (Manual) PT INR POC ABG pH 7.188 L POC ABG pCO2 47.9 H POC ABG pO2 Potassium Carbon Dioxide BUN Creatinine Glucose POC Glucose Calcium Total Bilirubin AST ALT Alkaline Phosphatase Total Creatine Kinase Total Protein Albumin Urine WBC (Auto) Urine Creatinine 75.6 H Salicylates Acetaminophen 03/17/19 03/17/19 03/17/19 04:41 04:41 04:57 WBC MCHC Plt Count [place] # Seg Neutrophils % Seg Neuts % (Manual) Lymphocytes % (Manual) Seg Neutrophils # Seg Neutrophils # Man Lymphocytes # (Manual) Monocytes # (Manual) PT INR POC ABG pH 7.302 L POC ABG pCO2 POC ABG pO2 158 H Potassium Carbon Dioxide 13 L BUN 57 H Creatinine 4.6 H D Glucose POC Glucose Calcium 8.2 L Total Bilirubin AST 567 H ALT 356 H Alkaline Phosphatase Total Creatine Kinase 51711 H Total Protein 6.0 L D Albumin 3.4 L Urine WBC (Auto) Urine Creatinine Salicylates Acetaminophen 03/17/19 03/17/19 08:27 16:47 WBC MCHC Plt Count [place] # Seg Neutrophils % Seg Neuts % (Manual) Lymphocytes % (Manual) Seg Neutrophils # Seg Neutrophils # Man Lymphocytes # (Manual) Monocytes # (Manual) PT INR POC ABG pH 7.304 L POC ABG pCO2 POC ABG pO2 135 H 127 H Potassium Carbon Dioxide BUN Creatinine Glucose POC Glucose Calcium Total Bilirubin AST ALT Alkaline Phosphatase Total Creatine Kinase Total Protein Albumin Urine WBC (Auto) Urine Creatinine Salicylates Acetaminophen Assessment and Plan Impression: 1. Single provoked seizure 2. Metabolic encephalopathy Plan: 1. Seizure triggered by Narcan in the setting of opiate withdrawal. 2. I expect him to return to normal once he is able to be off sedation. 40 minutes critical care time spent with this patient. Thanks for an interesting consultation on this unfortunate early 30s male. Signing off, call for any questions.
[2019-03-18] MEDS: SODIUM BICARBONATE IV SCH ×2 (03:23→10:30)
[2019-03-18] MEDS: D5W IV SCH ×2 (03:23→10:30)
[2019-03-18] MEDS: SODIUM CHLORIDE FLUSH SYRINGE 10 ML IV SCH ×2 (10:00→21:28)
[2019-03-18] MEDS: HEPARIN SUB-Q SCH ×2 (10:00→21:28)
[2019-03-18] MEDS: PEPCID IV SCH (10:01)
[2019-03-18 10:27] LABS: Basophils # (Auto) 0.1 K/mm3 (0.0-0.1); Basophils % (Auto) 1.2 % (0.0-1.8); Eosinophils # (Auto) 0.3 K/mm3 (0.0-0.4); Eosinophils % (Auto) 3.1 % (0.0-4.3); Hematocrit 31.2 % (35.5-45.6); Hemoglobin 10.8 gm/dl (11.8-15.2); Lymphocytes # (Auto) 1.6 K/mm3 (1.2-5.4); Lymphocytes % (Auto) 17.3 % (13.4-35.0); Mean Corpuscular HGB Conc 35 % (32-34); Mean Corpuscular Volume 90 fl (84-94); Monocytes # (Auto) 0.8 K/mm3 (0.0-0.8); Monocytes % (Auto) 9.2 % (0.0-7.3); Platelet Count 254 K/mm3 (140-440); Red Blood Count 3.47 M/mm3 (3.65-5.03); Red Cell Distribution Width 14.1 % (13.2-15.2)
[2019-03-18 10:51] LABS: Calcium 7.5 mg/dL (8.4-10.2)
--- NOTE | 2019-03-18 10:57 | Progress Note ---
Assessment and Plan Acute hypoxemic respiratory failure on MVS Acute metabolic- toxic encephalopathy Acute metabolic acidosis Acute renal failure (multifactorial) Rhabdomyolysis Polysubstance abuse disorder with overdose - get ABG and extubate if acceptable - get nephrology consultation - continue with volume resuscitation, change the fluid to bicarbonate infusion in view of rhabdomyolysis - follow Blood cultures, urine cultures with urinalysis, tracheal aspirate for culture - Follow clinically off AB's - continue Lung protective strategies - Serial CXR and ABG - Serial BMPs, monitor CK and liver enzymes - VAP bundle addressed - Critical care bundles addressed - Supplemental oxygen to keep O2 sats > 90% - Bronchodilators - Accuchecks with glycemic control. Target blood glucose <180mg/dL - Nutrition consult for tube feedings - Start tube feedings with aspiration precautions - Agitation management - Titrate sedation to RAAS 0 to -1 - Prevention of delirium, maintenance of sleep-wake cycle - Avoid nephrotoxic agents, adjust all antibiotics and medications for CrCL and GFR - VTE and Stress ulcer prophylaxis - Sinclair catheter in this critically ill patient with acute renal failure, requiring strict intake and output monitoring (Will assess daily, the need for ongoing Sinclair catheter) - Substance abuse counselling once he is able to be an active participant of the conversation CONDITION: CRITICAL PROGNOSIS: GUARDED CODE STATUS: FULL CODE The high probability of a clinically significant, sudden or life-threatening deterioration of the [respiratory, cardiovascular, renal , gastrointestinal, neurology] system(s) required my full and direct attention, intervention and personal management. The aggregate critical care time was [32] minutes without overlap. Time includes spent on; [x] Data Review and interpretation [x] Patient assessment and monitoring of vital signs [x] Documentation [x] Medication orders and management Subjective Date of service: 03/18/19 Principal diagnosis: Ac. hypoxemic resp failure; Ac encephalopathy (toxic/met); ABDI; Drug OD Interval history: Patient is seen today for: Ac. hypoxemic respiratory failure on MVS; Acute encephalopathy (toxic/met); Acute metabolic acidosis; Acute renal failure (multifactorial); Rhabdomyolysis; Polysubstance abuse disorder with overdose Seen and examined at bedside; 24hour events reviewed; nursing and respiratory care staff consulted; no adverse overnight events reported to me; remains on MVS; tolerating SBT well; denies acute chest pains or palpitations; No N/V/F/C Objective Vital Signs - 12hr 03/17/19 03/17/19 03/17/19 23:00 23:11 23:21 Temperature Pulse Rate 84 84 85 Pulse Rate [ From Monitor] Respiratory 27 H 28 H 29 H Rate Respiratory Rate [no s/s] Blood Pressure 142/86 142/86 142/86 O2 Sat by Pulse 100 100 100 Oximetry 03/17/19 03/17/19 03/17/19 23:28 23:30 23:34 Temperature Pulse Rate 78 84 78 Pulse Rate [ From Monitor] Respiratory 28 H 29 H 29 H Rate Respiratory Rate [no s/s] Blood Pressure 136/89 148/90 148/90 O2 Sat by Pulse 100 100 99 Oximetry 03/17/19 03/17/19 03/17/19 23:41 23:43 23:44 Temperature Pulse Rate 84 85 84 Pulse Rate [ 86 From Monitor] Respiratory 33 H 32 H 25 H Rate Respiratory Rate [no s/s] Blood Pressure 148/90 148/90 O2 Sat by Pulse 100 100 100 Oximetry 03/17/19 03/18/19 03/18/19 23:51 00:00 00:11 Temperature 99.7 F H Pulse Rate 84 85 85 Pulse Rate [ From Monitor] Respiratory 32 H 31 H 23 Rate Respiratory Rate [no s/s] Blood Pressure 148/90 131/79 131/79 O2 Sat by Pulse 100 100 100 Oximetry 03/18/19 03/18/19 03/18/19 00:21 00:30 00:41 Temperature Pulse Rate Pulse Rate [ From Monitor] Respiratory Rate Respiratory Rate [no s/s] Blood Pressure 131/79 147/81 147/81 O2 Sat by Pulse 100 99 100 Oximetry 03/18/19 03/18/19 03/18/19 00:50 01:00 01:11 Temperature Pulse Rate 76 83 Pulse Rate [ From Monitor] Respiratory 31 H 26 H Rate Respiratory Rate [no s/s] Blood Pressure 147/81 122/73 122/73 O2 Sat by Pulse 100 100 100 Oximetry 03/18/19 03/18/19 03/18/19 01:21 01:30 01:41 Temperature Pulse Rate 84 77 78 Pulse Rate [ From Monitor] Respiratory 30 H 31 H 20 Rate Respiratory Rate [no s/s] Blood Pressure 122/73 130/78 130/78 O2 Sat by Pulse 100 100 100 Oximetry 03/18/19 03/18/1903/18/19 01:51 02:00 02:10 Temperature Pulse Rate 80 80 Pulse Rate [ 86 From Monitor] Respiratory 18 25 H Rate Respiratory 25 H Rate [no s/s] Blood Pressure 130/78 130/78 126/75 O2 Sat by Pulse 100 100 100 Oximetry 03/18/19 03/18/19 03/18/19 02:20 02:30 02:41 Temperature Pulse Rate Pulse Rate [ From Monitor] Respiratory Rate Respiratory Rate [no s/s] Blood Pressure 126/75 126/75 O2 Sat by Pulse 100 100 100 Oximetry 03/18/19 03/18/19 03/18/19 02:51 03:00 03:11 Temperature Pulse Rate 78 81 Pulse Rate [ From Monitor] Respiratory 29 H 29 H Rate Respiratory Rate [no s/s] Blood Pressure 126/75 128/75 128/75 O2 Sat by Pulse 100 100 100 Oximetry 03/18/19 03/18/19 03/18/19 03:20 03:30 03:41 Temperature Pulse Rate 78 75 78 Pulse Rate [ From Monitor] Respiratory 28 H 28 H 27 H Rate Respiratory Rate [no s/s] Blood Pressure 128/75 130/76 130/76 O2 Sat by Pulse 100 100 100 Oximetry 03/18/19 03/18/19 03/18/19 03:51 04:00 04:11 Temperature 99.0 F Pulse Rate 75 76 75 Pulse Rate [ 86 From Monitor] Respiratory 26 H 27 H 29 H Rate Respiratory Rate [no s/s] Blood Pressure 130/76 130/76 137/83 O2 Sat by Pulse 100 100 100 Oximetry 03/18/19 03/18/19 03/18/19 04:21 04:25 04:30 Temperature Pulse Rate 72 77 80 Pulse Rate [ From Monitor] Respiratory 25 H 25 H Rate Respiratory Rate [no s/s] Blood Pressure 137/83 137/83 127/79 O2 Sat by Pulse 100 100 100 Oximetry 03/18/19 03/18/19 03/18/19 04:41 04:51 05:00 Temperature Pulse Rate 75 77 72 Pulse Rate [ From Monitor] Respiratory 27 H 27 H 27 H Rate Respiratory Rate [no s/s] Blood Pressure 127/79 127/79 127/79 O2 Sat by Pulse 100 100 100 Oximetry 03/18/19 03/18/19 03/18/19 05:11 05:21 05:30 Temperature Pulse Rate 73 73 75 Pulse Rate [ From Monitor] Respiratory 24 26 H 26 H Rate Respiratory Rate [no s/s] Blood Pressure 135/88 135/88 144/90 O2 Sat by Pulse 100 100 100 Oximetry 03/18/19 03/18/19 03/18/19 05:41 05:51 06:00 Temperature Pulse Rate 72 72 69 Pulse Rate [ From Monitor] Respiratory 26 H 26 H 26 H Rate Respiratory Rate [no s/s] Blood Pressure 144/90 144/90 144/90 O2 Sat by Pulse 100 100 100 Oximetry 03/18/19 03/18/19 03/18/19 06:04 06:11 06:21 Temperature Pulse Rate 75 76 75 Pulse Rate [ From Monitor] Respiratory 23 23 Rate Respiratory Rate [no s/s] Blood Pressure 138/87 138/87 138/87 O2 Sat by Pulse 100 100 100 Oximetry 03/18/19 03/18/19 03/18/19 06:25 06:30 06:40 Temperature Pulse Rate 75 76 Pulse Rate [ From Monitor] Respiratory 24 23 Rate Respiratory 25 H Rate [no s/s] Blood Pressure 137/85 137/85 O2 Sat by Pulse 100 100 Oximetry 03/18/19 03/18/19 03/18/19 06:51 07:00 07:09 Temperature Pulse Rate 74 77 77 Pulse Rate [ From Monitor] Respiratory 22 25 H 21 Rate Respiratory Rate [no s/s] Blood Pressure 137/85 143/82 143/82 O2 Sat by Pulse 100 100 100 Oximetry 03/18/19 03/18/19 03/18/19 07:11 07:21 07:30 Temperature Pulse Rate 74 85 70 Pulse Rate [ From Monitor] Respiratory 22 23 20 Rate Respiratory Rate [no s/s] Blood Pressure 143/82 143/82 133/81 O2 Sat by Pulse 100 100 100 Oximetry 03/18/19 03/18/19 03/18/19 07:41 07:51 08:00 Temperature 97.5 F L Pulse Rate 71 71 72 Pulse Rate [ 72 From Monitor] Respiratory 22 22 21 Rate Respiratory Rate [no s/s] Blood Pressure 133/81 133/81 134/84 O2 Sat by Pulse 100 100 100 Oximetry 03/18/19 03/18/19 03/18/19 08:11 08:15 08:21 Temperature Pulse Rate 76 80 76 Pulse Rate [ From Monitor] Respiratory 22 24 Rate Respiratory Rate [no s/s] Blood Pressure 134/84 134/84 O2 Sat by Pulse 100 100 Oximetry 03/18/19 08:30 Temperature Pulse Rate 77 Pulse Rate [ From Monitor] Respiratory 25 H Rate Respiratory Rate [no s/s] Blood Pressure 140/80 O2 Sat by Pulse 100 Oximetry Constitutional: no acute distress, other (sedated) Eyes: non-icteric ENT: oropharynx dry, other (ETT 7.5cm at 23 at the lip, no patient-ventilator dys-synchrony) Neck: supple, no lymphadenopathy, no JVD Effort: normal Ascultation: Bilateral: diminished breath sounds Percussion: Bilateral: not dull Cardiovascular: regular rate and rhythm, other (S1,S2, no murmurs, gallops or rubs) Gastrointestinal: normoactive bowel sounds, soft, non-tender, non-distended, other (bowel sounds in all 4 quadrants, sinclair catheter) Integumentary: normal Extremities: no cyanosis, no edema, pink and warm, pulses normal, no ischemia or petechiae Neurologic: normal mental status, non-focal exam, pupils equal and round, motor strength normal and Psychiatric: mood appropriate, affect normal CBC and BMP: 03/19/19 04:22 03/19/19 04:22 ABG, PT/INR, D-dimer: ABG POC ABG pH 7.473 (7.35-7.45) H 03/18/19 09:16 POC ABG pCO2 31.5 (35-45) L 03/18/19 09:16 POC ABG pO2 118 (80-105) H 03/18/19 09:16 POC ABG HCO3 23.1 (22-26 mml/L) 03/18/19 09:16 POC ABG Total CO2 24 (23-27mmol/L) 03/18/19 09:16 POC ABG O2 Sat 99 03/18/19 09:16 PT/INR, D-dimer PT 17.5 Sec. (12.2-14.9) H 03/16/19 10:37 INR 1.47 (0.87-1.13) H 03/16/19 10:37 Abnormal lab findings: Abnormal Labs 03/16/19 03/16/19 03/16/19 10:00 10:21 10:37 WBC 27.7 H RBC Hgb Hct MCHC Plt Count 553 H [place] % (Auto) [place] # Seg Neutrophils % Seg Neuts % (Manual) 90.0 H Lymphocytes % (Manual) 2.0 L Seg Neutrophils # Seg Neutrophils # Man 24.9 H Lymphocytes # (Manual) 0.6 L Monocytes # (Manual) 1.4 H PT INR POC ABG pH POC ABG pCO2 POC ABG pO2 Potassium Carbon Dioxide BUN Creatinine Glucose POC Glucose 49 L 154 H Calcium Total Bilirubin AST ALT Alkaline Phosphatase Total Creatine Kinase Total Protein Albumin Urine WBC (Auto) Urine Creatinine Salicylates Acetaminophen 03/16/19 03/16/19 03/16/19 10:37 10:37 10:37 WBC RBC Hgb Hct MCHC Plt Count [place] % (Auto) [place] # Seg Neutrophils % Seg Neuts % (Manual) Lymphocytes % (Manual) Seg Neutrophils # Seg Neutrophils # Man Lymphocytes # (Manual) Monocytes # (Manual) PT 17.5 H INR 1.47 H POC ABG pH POC ABG pCO2 POC ABG pO2 Potassium 5.1 H Carbon Dioxide 13 L BUN 35 H Creatinine 3.0 H Glucose 129 H POC Glucose Calcium Total Bilirubin 2.60 H AST 160 H ALT 106 H Alkaline Phosphatase 133 H Total Creatine Kinase Total Protein Albumin Urine WBC (Auto) Urine Creatinine Salicylates < 0.3 L Acetaminophen 03/16/19 03/16/19 03/16/19 10:37 10:37 11:37 WBC RBC Hgb Hct MCHC Plt Count [place] % (Auto) [place] # Seg Neutrophils % Seg Neuts % (Manual) Lymphocytes % (Manual) Seg Neutrophils # Seg Neutrophils # Man Lymphocytes # (Manual) Monocytes # (Manual) PT INR POC ABG pH POC ABG pCO2 POC ABG pO2 Potassium Carbon Dioxide BUN Creatinine Glucose POC Glucose Calcium Total Bilirubin AST ALT Alkaline Phosphatase Total Creatine Kinase 4300 H Total Protein Albumin Urine WBC (Auto) 10.0 H Urine Creatinine Salicylates Acetaminophen < 5.0 L 03/16/19 03/16/19 03/17/19 11:37 12:25 04:41 WBC 13.5 H RBC Hgb Hct MCHC 35 H Plt Count [place] % (Auto) [place] # 1.0 H Seg Neutrophils % 76.4 H Seg Neuts % (Manual) Lymphocytes % (Manual) Seg Neutrophils # 10.3 H Seg Neutrophils # Man Lymphocytes # (Manual) Monocytes # (Manual) PT INR POC ABG pH 7.188 L POC ABG pCO2 47.9 H POC ABG pO2 Potassium Carbon Dioxide BUN Creatinine Glucose POC Glucose Calcium Total Bilirubin AST ALT Alkaline Phosphatase Total Creatine Kinase Total Protein Albumin Urine WBC (Auto) Urine Creatinine 75.6 H Salicylates Acetaminophen 03/17/19 03/17/19 03/17/19 04:41 04:41 04:57 WBC RBC Hgb Hct MCHC Plt Count [place] % (Auto) [place] # Seg Neutrophils % Seg Neuts % (Manual) Lymphocytes % (Manual) Seg Neutrophils # Seg Neutrophils # Man Lymphocytes # (Manual) Monocytes # (Manual) PT INR POC ABG pH 7.302 L POC ABG pCO2 POC ABG pO2 158 H Potassium Carbon Dioxide 13 L BUN 57 H Creatinine 4.6 H D Glucose POC Glucose Calcium 8.2 L Total Bilirubin AST 567 H ALT 356 H Alkaline Phosphatase Total Creatine Kinase 53468 H Total Protein 6.0 L D Albumin 3.4 L Urine WBC (Auto) Urine Creatinine Salicylates Acetaminophen 03/17/19 03/17/19 03/18/19 08:27 16:47 04:45 WBC RBC Hgb Hct MCHC Plt Count [place] % (Auto) [place] # Seg Neutrophils % Seg Neuts % (Manual) Lymphocytes % (Manual) Seg Neutrophils # Seg Neutrophils # Man Lymphocytes # (Manual) Monocytes # (Manual) PT INR POC ABG pH 7.304 L 7.459 H POC ABG pCO2 POC ABG pO2 135 H 127 H 124 H Potassium Carbon Dioxide BUN Creatinine Glucose POC Glucose Calcium Total Bilirubin AST ALT Alkaline Phosphatase Total Creatine Kinase Total Protein Albumin Urine WBC (Auto) Urine Creatinine Salicylates Acetaminophen 03/18/19 03/18/19 03/18/19 04:59 09:16 10:00 WBC RBC Hgb Hct MCHC Plt Count [place] % (Auto) [place] # Seg Neutrophils % Seg Neuts % (Manual) Lymphocytes % (Manual) Seg Neutrophils # Seg Neutrophils # Man Lymphocytes # (Manual) Monocytes # (Manual) PT INR POC ABG pH 7.473 H POC ABG pCO2 31.5 L POC ABG pO2 118 H Potassium 3.1 L D Carbon Dioxide 21 L D BUN 75 H Creatinine 7.9 H D Glucose 120 H POC Glucose Calcium 7.5 L Total Bilirubin AST ALT Alkaline Phosphatase Total Creatine Kinase 64471 H Total Protein Albumin Urine WBC (Auto) Urine Creatinine Salicylates Acetaminophen 03/18/19 10:00 WBC RBC 3.47 L Hgb 10.8 L Hct 31.2 L MCHC 35 H Plt Count [place] % (Auto) 9.2 H [place] # Seg Neutrophils % Seg Neuts % (Manual) Lymphocytes % (Manual) Seg Neutrophils # Seg Neutrophils # Man Lymphocytes # (Manual) Monocytes # (Manual) PT INR POC ABG pH POC ABG pCO2 POC ABG pO2 Potassium Carbon Dioxide BUN Creatinine Glucose POC Glucose Calcium Total Bilirubin AST ALT Alkaline Phosphatase Total Creatine Kinase Total Protein Albumin Urine WBC (Auto) Urine Creatinine Salicylates Acetaminophen Chest x-ray: image reviewed (ETT in good position) Allied health notes reviewed: nursing
[2019-03-18] MEDS ORDERED: POTASSIUM CHLORIDE FEEDTUBE ONE ×2 (12:00→17:00)
--- NOTE | 2019-03-18 14:41 | Consultation ---
History of Present Illness - Reason for Consult Consult date: 03/18/19 acute renal failure, hypokalemia, metabolic acidosis - History of Present Illness This is a 33-year-old male with a past medical history of psychosis and polysubstance abuse who was recently being seen at the [facility] who presented from this facility to the emergency department for further evaluation of altered mental status and agitation. There is documentation that apparently he became unresponsive and was administered Narcan by EMS after which he had what was described as seizure-like activity. He was then transported to [facility]. He is being evaluated at this time. He was noted to have elevated CPK levels and now continually rising creatinine levels concerning for worsening acute kidney injury in the setting of rhabdomyolysis. He initially was intubated but now has been extubated and seems to be stable from a respiratory standpoint. He is continuing on the bicarbonate drip running at 150 mL an hour. He was also receiving Ativan and propofol infu sions but for less than a 48 hour period. He had urinated about 700 mL of urine yesterday. He was switched over to a condom cath and has since only voided 40 mL. I have discussed with the nurse and we will do a bladder scan at this time. Renal ultrasound is pending at this time. He is urinalysis is actually positive for large amount of blood and red blood cells along with proteinuria. This is raising concerns for possible glomerular nephritis etiology of this acute kidney injury beyond just rhabdo. Per patient and patient's family at bedside he has never had any history of kidney disease. He denies any recent episode of gross hematuria, recent cold or cough, recent fevers, recent flulike symptoms, or any new rashes or significant joint pains. His tox screen was positive for cocaine. Past History Past Medical History: other (polysubstance abuse, Psychosis) Past Surgical History: No surgical history, Other (reviewed) Social history: single, smoking, alcohol abuse Family history: no significant family history (reviewed) Medications and Allergies Allergies Allergy/AdvReac Type Severity Reaction Status Date / Time Unable to Assess Allergy Unverified 03/16/19 11:41 Home Medications Medication Instructions Recorded Confirmed Last Taken Type Unobtainable 03/16/19 03/16/19 Unknown History Active Meds: Active Medications Famotidine (Pepcid) 20 mg IV DAILY JOÃO Last Admin: 03/18/19 10:01 Dose: 20 mg Documented by: Heparin Sodium (Porcine) (Heparin) 5,000 unit SUB-Q Q12HR JOÃO Last Admin: 03/18/19 10:00 Dose: 5,000 unit Documented by: Propofol (Diprivan 10 Mg/Ml) 1,000 mg in 100 mls @ 3.138 mls/hr IV TITR JOÃO; Protocol Last Titration: 03/18/19 05:00 Dose: 0 mcg/kg/min, 0 mls/hr Documented by: Lorazepam 100 mg/ Sodium Chloride/ Miscellaneous Information 100 mls @ 1 mls/hr IV TITR JOÃO; Protocol Last Titration: 03/18/19 05:00 Dose: 0 mg/hr, 0 mls/hr Documented by: Sodium Bicarbonate 150 meq/ (Dextrose) 1,150 mls @ 175 mls/hr IV DIRECT JOÃO Last Admin: 03/18/19 10:30 Dose: 175 mls/hr Documented by: Sodium Chloride (Sodium Chloride Flush Syringe 10 Ml) 10 ml IV BID JOÃO Last Admin: 03/18/19 10:00 Dose: 10 ml Documented by: Sodium Chloride (Sodium Chloride Flush Syringe 10 Ml) 10 ml IV PRN PRN PRN Reason: LINE FLUSH Review of Systems All systems: negative Constitutional: fatigue, weakness Neurological: weakness Exam - Vital Signs Vital signs: Vital Signs Pulse Resp 125 H 64 H 03/16/19 10:16 03/16/19 10:16 - General Appearance General appearance: well-developed, well-nourished, appears stated age, obese EENT: ATNC, PERRL Neck: Present: neck supple, trachea midline Respiratory: Clear to Ascultation Heart: regular, normal heart rate, S1S2 Gastrointestinal: Present: normal, normoactive bowel sounds Integumentary: no rash, warm and dry Neurologic: no focal deficit, no asterixis Musculoskeletal: Present: other (negative edema) Psychiatric: mood/affect appropriate, cooperative Results - Lab Results 03/18/19 10:00 03/18/19 10:00 Most recent lab results Calcium 7.5 mg/dL (8.4-10.2) L 03/18/19 10:00 75.6 mg/dL (0.1-20.0) H 03/16/19 11:37 50 mmol/L 03/16/19 11:37 - Image Kidney/bladder ultrasound: pending Assessment and Plan - Patient Problems (1) Acute renal failure Current Visit: Yes Status: Acute Qualifiers: Acute renal failure type: with acute tubular necrosis Qualified Code(s): N17.0 - Acute kidney failure with tubular necrosis Plan to address problem: Patient is showing signs of severe ABDI possibly in the setting of ATN. With the urinalysis findings have to rule out possible glomerulonephritis. Concern for possible underlying rapidly progressive glomerulonephritis given quick rise in his serum creatinine worsening kidney function. This is despite mild reduction in CPK levels. Will send complement levels as well as ANCA vasculitis studies stat. Will monitor renal functions daily. No acute indication for renal placement therapy at this time. However based on his poor renal function this may change. Recommend avoiding any nephrotoxins. Maintain maps above 65. His propafol has been discontinued at this time. We'll assess triglyceride levels but doubt propofol infusion syndrome based on duration of infusion. Discussed with patient's family that if kidney function continues to worsen he will need a kidney biopsy for further elucidation of the cause of his renal insufficiency. We'll consider empiric steroid treatment for possible RPGN pending the aforementioned labs. (2) Encephalopathy Current Visit: Yes Status: Acute Plan to address problem: His mental status seems to be improved back to baseline. We'll continue to monitor. ECG was reviewed. Further recommendations per neurology. (3) Respiratory failure Current Visit: Yes Status: Acute Qualifiers: Chronicity: acute Respiratory failure complication: hypoxia Qualified Code(s): J96.01 - Acute respiratory failure with hypoxia Plan to address problem: Patient has been extubated at this time and his overall respiratory status is stable. Further recommendations per ICU. (4) Rhabdomyolysis Current Visit: Yes Status: Acute Qualifiers: Encounter type: initial encounter Plan to address problem: Would recommend to switch his sodium bicarbonate drip given his recent ABG and serum bicarbonate levels, as well as low K and Ca levels. We'll switch over to normal saline and will increase to 250 mL an hour. Careful monitoring of I's a nd O's.
[2019-03-18] MEDS: NS/KCL 20MEQ 20 MEQ/1,000 ML BAG IV SCH ×2 (16:13→20:16)
--- NOTE | 2019-03-18 17:44 | Progress Note ---
Assessment and Plan Assessment and plan: 33 YO Male with Polysubstance Abuse, Psychosis currently and inpatient at [facility] presents to ED for evaluation. Pt is lethargic and unable to provide history and is intubated and on vest support at time of my exam. Patient history provided by his father who is at bedside during exam and interview. As per father, the patient was found to be confused by [place] staff to be confused with decreased level of responsiveness. EMS notified, and upon arrival the patient was found to be unresponsive and treated with supportive care and IM Narcan and transported to [facility]. Pt seen and evaluated in ED and was found to have Encephalopathy, Sepsis, and Respiratory distress and was unable to protect his airway. Pt intubated and placed on vent support. Pt admitted to ICU and initiated on sepsis protocol. No prior admission for review. No medication listed at time of admission for reconciliation. (1) Sepsis Current Visit: Yes Status: Acute Qualifiers: Sepsis type: sepsis due to unspecified organism Qualified Code(s): A41.9 - Sepsis, unspecified organism Plan to address problem: CONTINUE ICU, Sepsis Protocol: IV antibiotic therapy, blood cultures, serial lactic acid level, monitor uop q shift, lumbar puncture, Rapid HIV, CBC, CMP, chest x ray, urinalysis, LFT, IVF resuscitation therapy. ASPIRATION PRECAUTIONS (2) Encephalopathy-METABOLIC Current Visit: Yes Status: Acute Plan to address problem: CT head, neuro checks, rapid hiv, ivf resuscitation therapy, seizure precautions. Neurology consulted due to possible seizure (3) Respiratory failure Current Visit: Yes Status: Acute Qualifiers: Chronicity: acute Respiratory failure complication: hypoxia Qualified Code(s): J96.01 - Acute respiratory failure with hypoxia Plan to address problem: Pt intubated, sedated on vent, pulmonary consulted in ED, wean vent as maddison erated, daily SBT, chest x ray, pulse oximetry, nebulizer therapy, (4) Acute renal failure Current Visit: Yes Status: Acute Qualifiers: Acute renal failure type: with acute tubular necrosis Qualified Code(s): N17.0 - Acute kidney failure with tubular necrosis Plan to address problem: IVF resuscitation therapy, monitor uop q shift, urine electrolytes, monitor serum creatnine, repeat bmp in am. Worsening, Renal consulted. Concerning for Glomerolonephritis and work up started Per nephrology- Discussed with patient's family that if kidney function continues to worsen he will need a kidney biopsy for further elucidation of the cause of his renal insufficiency. We'll consider empiric steroid treatment for possible RPGN pending the aforementioned labs. (4) Rhabdomyolysis Current Visit: Yes Status: Acute Qualifiers: Encounter type: initial encounter Plan to address problem: Would recommend to switch his sodium bicarbonate drip given his recent ABG and serum bicarbonate levels, as well as low K and Ca levels. We'll switch over to normal saline and will increase to 250 mL an hour. Careful monitoring of I's and O's. (5) Rhabdomyolysis Current Visit: Yes Status: Acute Qualifiers: Encounter type: initial encounter Plan to address problem: IVF resuscitation therapy, IV bicarbonate therapy, repeat ck in am, monitor uop q shift, avoid nephrotoxic agents. (6) Hepatic dysfunction Current Visit: Yes Status: Acute Plan to address problem: Supportive care, repeat CMP in AM to monitor for increasing LFT and to evaluated for shock liver. continue supportive care. (7) Hyperkalemia Current Visit: Yes Status: Acute Plan to address problem: IVF resuscitation therapy, repeat bmp in AM, No EKG changes. (8) DVT prophylaxis Current Visit: Yes Status: Acute Plan to address problem: SCD to BLE while in bed, prophylactic heparin Plan discussed with family The high probability of a clinically significant, sudden or life threatening deterioration of the [neuro, respiratory, renal, ID] system(s) required my full and direct attention, intervention and personal management. The aggregate critical care time was [35] minutes. This time is in addition to time spent performing reported procedures but includes the following: [x] Data Review and interpretation [x] Patient assessment and monitoring of vital signs [x] Documentation [x] Medication orders and management History Interval history: Patient seen and examined, remains on full ventilatory support Was on CPAP this afternoon. Hospitalist Physical - Physical exam Narrative exam: General appearance: Present: mild distress, ON FULL MECHANICAL VENTILATION - EENT Eyes: Present: miosis - Neck Neck: Present: supple, normal ROM - Respiratory Respiratory effort: labored Respiratory: bilateral: diminished - Cardiovascular Heart Sounds: Present: S1 & S2. Absent: rub, click - Extremities Extremities: pulses symmetrical, No edema Peripheral Pulses: within normal limits - Abdominal General gastrointestinal: Present: soft, non-tender, non-distended, normal bowel sounds Male genitourinary: Present: normal - Integumentary Integumentary: Present: clear, warm, dry - Musculoskeletal Musculoskeletal: no c/c/e - Psychiatric Psychiatric: unable to access - Neurologic Neurologic: no focal deficits, moves all extremities, no gait rahul. Awakes to stimuli but lethargic - Constitutional Vitals: Temp Pulse Resp BP Pulse Ox 98.6 F 72 15 120/78 100 03/18/19 11:46 03/18/19 14:11 03/18/19 14:11 03/18/19 14:11 03/18/19 14:11 General appearance: Present: mild distress Results - Labs CBC & Chem 7: 03/18/19 10:00 03/18/19 10:00 Labs: Laboratory Last Values WBC 9.1 K/mm3 (4.5-11.0) 03/18/19 10:00 RBC 3.47 M/mm3 (3.65-5.03) L 03/18/19 10:00 Hgb 10.8 gm/dl (11.8-15.2) L 03/18/19 10:00 Hct 31.2 % (35.5-45.6) L 03/18/19 10:00 MCV 90 fl (84-94) 03/18/19 10:00 MCH 31 pg (28-32) 03/18/19 10:00 MCHC 35 % (32-34) H 03/18/19 10:00 RDW 14.1 % (13.2-15.2) 03/18/19 10:00 Plt Count 254 K/mm3 (140-440) 03/18/19 10:00 Lymph % (Auto) 17.3 % (13.4-35.0) 03/18/19 10:00 [place] % (Auto) 9.2 % (0.0-7.3) H 03/18/19 10:00 Eos % (Auto) 3.1 % (0.0-4.3) 03/18/19 10:00 Baso % (Auto) 1.2 % (0.0-1.8) 03/18/19 10:00 Lymph # 1.6 K/mm3 (1.2-5.4) 03/18/19 10:00 [place] # 0.8 K/mm3 (0.0-0.8) 03/18/19 10:00 Eos # 0.3 K/mm3 (0.0-0.4) 03/18/19 10:00 Baso # 0.1 K/mm3 (0.0-0.1) 03/18/19 10:00 Add Manual Diff Complete 03/16/19 10:37 Total Counted 100 03/16/19 10:37 Seg Neutrophils % 69.2 % (40.0-70.0) 03/18/19 10:00 Seg Neuts % (Manual) 90.0 % (40.0-70.0) H 03/16/19 10:37 1.0 % 03/16/19 10:37 2.0 % (13.4-35.0) L 03/16/19 10:37 Reactive Lymphs % (Man) 0 % 03/16/19 10:37 5.0 % (0.0-7.3) 03/16/19 10:37 0 % (0.0-4.3) 03/16/19 10:37 0 % (0.0-1.8) 03/16/19 10:37 1.0 % 03/16/19 10:37 1.0 % 03/16/19 10:37 0 % 03/16/19 10:37 0 % 03/16/19 10:37 Nucleated RBC % Not Reportable 03/16/19 10:37 Seg Neutrophils # 6.3 K/mm3 (1.8-7.7) 03/18/19 10:00 Seg Neutrophils # Man 24.9 K/mm3 (1.8-7.7) H 03/16/19 10:37 Band Neutrophils # 0.3 K/mm3 03/16/19 10:37 0.6 K/mm3 (1.2-5.4) L 03/16/19 10:37 Abs React Lymphs (Man) 0.0 K/mm3 03/16/19 10:37 1.4 K/mm3 (0.0-0.8) H 03/16/19 10:37 0.0 K/mm3 (0.0-0.4) 03/16/19 10:37 0.0 K/mm3 (0.0-0.1) 03/16/19 10:37 0.3 K/mm3 03/16/19 10:37 0.3 K/mm3 03/16/19 10:37 0.0 K/mm3 03/16/19 10:37 Blast Cells # 0.0 K/mm3 03/16/19 10:37 WBC Morphology Not Reportable 03/16/19 10:37 Hypersegmented Neuts Not Reportable 03/16/19 10:37 Hyposegmented Neuts Not Reportable 03/16/19 10:37 Hypogranular Neuts Not Reportable 03/16/19 10:37 Not Reportable 03/16/19 10:37 Not Reportable 03/16/19 10:37 Not Reportable 03/16/19 10:37 Not Reportable 03/16/19 10:37 Not Reportable 03/16/19 10:37 Not Reportable 03/16/19 10:37 Consistent w auto 03/16/19 10:37 Not Reportable 03/16/19 10:37 Plt Clumps, EDTA Not Reportable 03/16/19 10:37 Not Reportable 03/16/19 10:37 Not Reportable 03/16/19 10:37 Not Reportable 03/16/19 10:37 Plt Morphology Comment Not Reportable 03/16/19 10:37 RBC Morphology Normal 03/16/19 10:37 Dimorphic RBCs Not Reportable 03/16/19 10:37 Not Reportable 03/16/19 10:37 Not Reportable 03/16/19 10:37 Not Reportable 03/16/19 10:37 Not Reportable 03/16/19 10:37 Not Reportable 03/16/19 10:37 Not Reportable 03/16/19 10:37 Not Reportable 03/16/19 10:37 Not Reportable 03/16/19 10:37 Not Reportable 03/16/19 10:37 Not Reportable 03/16/19 10:37 Not Reportable 03/16/19 10:37 Not Reportable 03/16/19 10:37 Not Reportable 03/16/19 10:37 Not Reportable 03/16/19 10:37 Not Reportable 03/16/19 10:37 Not Reportable 03/16/19 10:37 Not Reportable 03/16/19 10:37 Not Reportable 03/16/19 10:37 Not Reportable 03/16/19 10:37 Acanthocytes (Spur) Not Reportable 03/16/19 10:37 Rouleaux Not Reportable 03/16/19 10:37 Not Reportable 03/16/19 10:37 Not Reportable 03/16/19 10:37 Not Reportable 03/16/19 10:37 Not Reportable 03/16/19 10:37 Hem Pathologist Commnt No 03/16/19 10:37 PT 17.5 Sec. (12.2-14.9) H 03/16/19 10:37 INR 1.47 (0.87-1.13) H 03/16/19 10:37 APTT 25.7 Sec. (24.2-36.6) 03/16/19 10:37 POC ABG pH 7.473 (7.35-7.45) H 03/18/19 09:16 POC ABG pCO2 31.5 (35-45) L 03/18/19 09:16 POC ABG pO2 118 (80-105) H 03/18/19 09:16 POC ABG HCO3 23.1 (22-26 mml/L) 03/18/19 09:16 POC ABG Total CO2 24 (23-27mmol/L) 03/18/19 09:16 POC ABG O2 Sat 99 03/18/19 09:16 POC ABG Base Excess 0 ((-2) - (+3)mmol/L) 03/18/19 09:16 25 % 03/18/19 09:16 Sodium 142 mmol/L (137-145) 03/18/19 10:00 Potassium 3.1 mmol/L (3.6-5.0) L D 03/18/19 10:00 Chloride 99.3 mmol/L (98-107) 03/18/19 10:00 Carbon Dioxide 21 mmol/L (22-30) L D 03/18/19 10:00 25 mmol/L 03/18/19 10:00 BUN 75 mg/dL (9-20) H 03/18/19 10:00 7.9 mg/dL (0.8-1.5) H D 03/18/19 10:00 Estimated GFR 8 ml/min 03/18/19 10:00 9 % 03/18/19 10:00 Glucose 120 mg/dL (75-100) H 03/18/19 10:00 POC Glucose 100 (70-105) 03/16/19 17:45 Lactic Acid 0.80 mmol/L (0.7-2.0) 03/16/19 16:38 Calcium 7.5 mg/dL (8.4-10.2) L 03/18/19 10:00 1.10 mg/dL (0.1-1.2) 03/17/19 04:41 AST 567 units/L (5-40) H 03/17/19 04:41 ALT 356 units/L (7-56) H 03/17/19 04:41 114 units/L (35-129) 03/17/19 04:41 74009 units/L (55-170) H 03/18/19 04:59 < 0.010 ng/mL (0.00-0.029) 03/16/19 10:37 6.0 g/dL (6.3-8.2) L D 03/17/19 04:41 3.4 g/dL (3.9-5) L 03/17/19 04:41 1.3 % 03/17/19 04:41 Triglycerides 76 mg/dL (2-149) 03/18/19 15:24 [place] (Yellow) 03/16/19 11:37 Cloudy (Clear) 03/16/19 11:37 6.0 (5.0-7.0) 03/16/19 11:37 Ur Specific Atco 1.015 (1.003-1.030) 03/16/19 11:37 100 mg/dl mg/dL (Negative) 03/16/19 11:37 150 mg/dL (Negative) 03/16/19 11:37 Tr mg/dL (Negative) 03/16/19 11:37 Lg (Negative) 03/16/19 11:37 Neg (Negative) 03/16/19 11:37 Neg (Negative) 03/16/19 11:37 2.0 mg/dL (<2.0) 03/16/19 11:37 Ur Leukocyte Esterase Neg (Negative) 03/16/19 11:37 10.0 /HPF (0.0-6.0) H 03/16/19 11:37 58.0 /HPF (0.0-6.0) 03/16/19 11:37 U Epithel Cells (Auto) 3.0 /HPF (0-13.0) 03/16/19 11:37 3+ /HPF (Negative) 03/16/19 11:37 1+ /HPF 03/16/19 11:37 75.6 mg/dL (0.1-20.0) H 03/16/19 11:37 50 mmol/L 03/16/19 11:37 Clear 03/16/19 12:40 Clear 03/16/19 12:40 Colorless 03/16/19 12:40 Colorless 03/16/19 12:40 2 /mm3 (1-10) 03/16/19 12:40 2 /mm3 (1-10) 03/16/19 12:40 0 /mm3 (0-0) 03/16/19 12:40 0 /mm3 (0-0) 03/16/19 12:40 CSF Seg Neutrophils 0 % (0-6) 03/16/19 12:40 CSF Seg Neutrophils 0 % (0-6) 03/16/19 12:40 47.7 % (40-80) 03/16/19 12:40 93.1 % (40-80) 03/16/19 12:40 CSF Reactive Lymphs 0 % 03/16/19 12:40 CSF Reactive Lymphs 0 % 03/16/19 12:40 6.9 % (15-45) 03/16/19 12:40 52.3 % (15-45) 03/16/19 12:40 0 % 03/16/19 12:40 0 % 03/16/19 12:40 0 % 03/16/19 12:40 0 % 03/16/19 12:40 C 03/16/19 12:40 C 03/16/19 12:40 69 mg/dL 03/16/19 12:40 Salicylates < 0.3 mg/dL (2.8-20.0) L 03/16/19 10:37 Presumptive positive 03/16/19 11:37 Presumptive negative 03/16/19 11:37 Acetaminophen < 5.0 ug/mL (10.0-30.0) L 03/16/19 10:37 Ur Barbiturates Screen Presumptive negative 03/16/19 11:37 Ur Phencyclidine Scrn Presumptive negative 03/16/19 11:37 Ur Amphetamines Screen Presumptive positive 03/16/19 11:37 U Benzodiazepines Scrn Presumptive negative 03/16/19 11:37 Presumptive positive 03/16/19 11:37 U Marijuana (THC) Screen Presumptive negative 03/16/19 11:37 Disclamer 03/16/19 11:37 Plasma/Serum Alcohol < 0.01 % (0-0.07) 03/16/19 10:37 HIV 1&2 Antibody Rapid Non react (Non React) 03/16/19 12:05 Non react (Non React) 03/16/19 12:05 Active Medications - Current Medications Current Medications: Generic Name Dose Route Start Last Admin Trade Name Freq PRN Reason Stop Dose Admin Famotidine 20 mg 03/17/19 10:00 03/18/19 10:01 Pepcid IV 20 mg DAILY JOÃO Administration Heparin Sodium (Porcine) 5,000 unit 03/16/19 22:00 03/18/19 10:00 Heparin SUB-Q 5,000 unit Q12HR JOÃO Administration Propofol 1,000 mg in 100 mls @ 3.138 mls/hr 03/16/19 11:00 03/18/19 05:00 Diprivan 10 Mg/Ml IV 0 mcg/kg/min TITR JOÃO 0 mls/hr Titration Protocol 5 MCG/KG/MIN Lorazepam 100 mg/ Sodium 100 mls @ 1 mls/hr 03/16/19 12:00 03/18/19 05:00 Chloride/ Miscellaneous IV 0 mg/hr Information TITR JOÃO 0 mls/hr Titration Protocol 1 MG/HR Potassium Chloride/Sodium Chloride 20 meq in 1,000 mls @ 250 mls/hr 03/18/19 15:00 03/18/19 16:13 Ns/Kcl 20meq IV 250 mls/hr DIRECT JOÃO Administration Sodium Chloride 10 ml 03/16/19 22:00 03/18/19 10:00 Sodium Chloride Flush Syringe 10 Ml IV 10 ml BID JOÃO Administration Sodium Chloride 10 ml 03/16/19 11:52 Sodium Chloride Flush Syringe 10 Ml IV PRN PRN LINE FLUSH
[2019-03-18 19:03] LABS: Bacteria,Urine 3+ /HPF (Negative); Bilirubin,Urine NEG (Negative); Blood,Urine LG (Negative); Color,Urine Amber (Yellow); Mucus,Urine FEW /HPF; Urobilinogen,Urine < 2.0 mg/dL (<2.0)
[2019-03-18 19:05] LABS: Protein,Urine >500 mg/dL (Negative)
[2019-03-19] MEDS: NS/KCL 20MEQ 20 MEQ/1,000 ML BAG IV SCH (05:15)
[2019-03-19 05:24] LABS: Hematocrit 30.6 % (35.5-45.6); Hemoglobin 10.5 gm/dl (11.8-15.2); Mean Corpuscular HGB Conc 34 % (32-34); Mean Corpuscular Volume 92 fl (84-94); Platelet Count 210 K/mm3 (140-440); Red Blood Count 3.35 M/mm3 (3.65-5.03); Red Cell Distribution Width 14.4 % (13.2-15.2)
[2019-03-19] MEDS ORDERED: LASIX IV ONE (08:00)
--- NOTE | 2019-03-19 09:30 | Progress Note ---
Assessment and Plan Assessment and plan: 33 YO Male with Polysubstance Abuse, Psychosis currently and inpatient at [facility] presents to ED for evaluation. Pt is lethargic and unable to provide history and is intubated and on vest support at time of my exam. Patient history provided by his father who is at bedside during exam and interview. As per father, the patient was found to be confused by [facility] staff to be confused with decreased level of responsiveness. EMS notified, and upon arrival the patient was found to be unresponsive and treated with supportive care and IM Narcan and transported to [facility]. Pt seen and evaluated in ED and was found to have Encephalopathy, Sepsis, and Respiratory distress and was unable to protect his airway. Pt intubated and placed on vent support. Pt admitted to ICU and initiated on sepsis protocol. No prior admission for review. No medication listed at time of admission for reconciliation. * Extubated successfully 03/18/19 * Patient on admission was treated with sepsis while other differential diagnosis SIRS (systemic inflammatory response syndrome), Hypoglycemia, NMS (neuroleptic malignant syndrome), Drug abuse, Hepatic dysfunction was highly evident. He did rather recover quickly only evidence noted for infection is from Urinalysis * His mental status improved by day 2 * He had noted seizure like activity follow administration of Narcan * UDS positive for cocain * Neurology, Renal and [employer]rication And [employer] Supervisor input noted * csf, unremarkable. Head CT -normal. EEG did not show active seizure. Sepsis- Resolved Acute Metabolic Encephalopathy- Resolved Acute cystitis- Descalate ABX, await culture Polysubstane abuse- With overdose, UDS, POSITIVE for opioids, cocain and amphateamines, counselling provided, greater than 15 mins. Patient currently and admitted from a r Rehab program Seizure-Likely secondary to opiate withdrawal Tobacco use disorder- Counseling provided Acute Hypoxemic Respiratory Failure Acute Renal failure with underlying ATN and possible Glomerelonephritis, -worse, On going work up with renal, anticipate renal biopsy Rhabdomylysis- Improving, initially treated with IV Bicarb Drip Acute Heaptocellular dysfunction- ?Acute Hepatitis vs passive congestive failure and shock liver state-Improving- check hepatic panel Hyperkalemia- Resolved DVT/GI prophy Plan discussed with family Will transfer to Med/surg History Interval history: Patient seen and examined, Doing well post extubation. No new complaints, sitting up this am, reports good urine output by nurses. Hospitalist Physical - Physical exam Narrative exam: General appearance: Present, AWAKE, EXTUBATED, Sitting up on chair, - EENT Eyes: Present: anicteric sclera - Neck Neck: Present: supple, normal ROM - Respiratory Respiratory effort: stable Respiratory: bilateral: diminished - Cardiovascular Heart Sounds: Present: S1 & S2. Absent: rub, click - Extremities Extremities: pulses symmetrical, No edema Peripheral Pulses: within normal limits - Abdominal General gastrointestinal: Present: soft, non-tender, non-distended, normal bowel sounds Male genitourinary: Present: normal - Integumentary Integumentary: Present: clear, warm, dry - Musculoskeletal Musculoskeletal: no c/c/e - Psychiatric Psychiatric: blank look. - Neurologic Neurologic: no focal deficits, moves all extremities, no gait normal. Awakes to stimuli but lethargic - Constitutional Vitals: Temp Pulse Resp BP Pulse Ox 98.6 F 56 L 30 H 124/68 96 03/18/19 11:46 03/19/19 08:11 03/19/19 08:17 03/19/19 08:11 03/19/19 08:17 General appearance: Present: mild distress Results - Labs CBC & Chem 7: 03/19/19 04:22 03/19/19 04:22 Labs: Laboratory Last Values WBC 6.9 K/mm3 (4.5-11.0) 03/19/19 04:22 RBC 3.35 M/mm3 (3.65-5.03) L 03/19/19 04:22 Hgb 10.5 gm/dl (11.8-15.2) L 03/19/19 04:22 Hct 30.6 % (35.5-45.6) L 03/19/19 04:22 MCV 92 fl (84-94) 03/19/19 04:22 MCH 32 pg (28-32) 03/19/19 04:22 MCHC 34 % (32-34) 03/19/19 04:22 RDW 14.4 % (13.2-15.2) 03/19/19 04:22 Plt Count 210 K/mm3 (140-440) 03/19/19 04:22 Lymph % (Auto) 17.3 % (13.4-35.0) 03/18/19 10:00 [place] % (Auto) 9.2 % (0.0-7.3) H 03/18/19 10:00 Eos % (Auto) 3.1 % (0.0-4.3) 03/18/19 10:00 Baso % (Auto) 1.2 % (0.0-1.8) 03/18/19 10:00 Lymph # 1.6 K/mm3 (1.2-5.4) 03/18/19 10:00 [place] # 0.8 K/mm3 (0.0-0.8) 03/18/19 10:00 Eos # 0.3 K/mm3 (0.0-0.4) 03/18/19 10:00 Baso # 0.1 K/mm3 (0.0-0.1) 03/18/19 10:00 Add Manual Diff Complete 03/16/19 10:37 Total Counted 100 03/16/19 10:37 Seg Neutrophils % 69.2 % (40.0-70.0) 03/18/19 10:00 Seg Neuts % (Manual) 90.0 % (40.0-70.0) H 03/16/19 10:37 1.0 % 03/16/19 10:37 2.0 % (13.4-35.0) L 03/16/19 10:37 Reactive Lymphs % (Man) 0 % 03/16/19 10:37 5.0 % (0.0-7.3) 03/16/19 10:37 0 % (0.0-4.3) 03/16/19 10:37 0 % (0.0-1.8) 03/16/19 10:37 1.0 % 03/16/19 10:37 1.0 % 03/16/19 10:37 0 % 03/16/19 10:37 0 % 03/16/19 10:37 Nucleated RBC % Not Reportable 03/16/19 10:37 Seg Neutrophils # 6.3 K/mm3 (1.8-7.7) 03/18/19 10:00 Seg Neutrophils # Man 24.9 K/mm3 (1.8-7.7) H 03/16/19 10:37 Band Neutrophils # 0.3 K/mm3 03/16/19 10:37 0.6 K/mm3 (1.2-5.4) L 03/16/19 10:37 Abs React Lymphs (Man) 0.0 K/mm3 03/16/19 10:37 1.4 K/mm3 (0.0-0.8) H 03/16/19 10:37 0.0 K/mm3 (0.0-0.4) 03/16/19 10:37 0.0 K/mm3 (0.0-0.1) 03/16/19 10:37 0.3 K/mm3 03/16/19 10:37 0.3 K/mm3 03/16/19 10:37 0.0 K/mm3 03/16/19 10:37 Blast Cells # 0.0 K/mm3 03/16/19 10:37 WBC Morphology Not Reportable 03/16/19 10:37 Hypersegmented Neuts Not Reportable 03/16/19 10:37 Hyposegmented Neuts Not Reportable 03/16/19 10:37 Hypogranular Neuts Not Reportable 03/16/19 10:37 Not Reportable 03/16/19 10:37 Not Reportable 03/16/19 10:37 Not Reportable 03/16/19 10:37 Not Reportable 03/16/19 10:37 Not Reportable 03/16/19 10:37 Not Reportable 03/16/19 10:37 Consistent w auto 03/16/19 10:37 Not Reportable 03/16/19 10:37 Plt Clumps, EDTA Not Reportable 03/16/19 10:37 Not Reportable 03/16/19 10:37 Not Reportable 03/16/19 10:37 Not Reportable 03/16/19 10:37 Plt Morphology Comment Not Reportable 03/16/19 10:37 RBC Morphology Normal 03/16/19 10:37 Dimorphic RBCs Not Reportable 03/16/19 10:37 Not Reportable 03/16/19 10:37 Not Reportable 03/16/19 10:37 Not Reportable 03/16/19 10:37 Not Reportable 03/16/19 10:37 Not Reportable 03/16/19 10:37 Not Reportable 03/16/19 10:37 Not Reportable 03/16/19 10:37 Not Reportable 03/16/19 10:37 Not Reportable 03/16/19 10:37 Not Reportable 03/16/19 10:37 Not Reportable 03/16/19 10:37 Not Reportable 03/16/19 10:37 Not Reportable 03/16/19 10:37 Not Reportable 03/16/19 10:37 Not Reportable 03/16/19 10:37 Not Reportable 03/16/19 10:37 Not Reportable 03/16/19 10:37 Not Reportable 03/16/19 10:37 Not Reportable 03/16/19 10:37 Acanthocytes (Spur) Not Reportable 03/16/19 10:37 [place]le[place] Not Reportable 03/16/19 10:37 Not Reportable 03/16/19 10:37 Not Reportable 03/16/19 10:37 Not Reportable 03/16/19 10:37 Not Reportable 03/16/19 10:37 Hem Pathologist Commnt No 03/16/19 10:37 PT 17.5 Sec. (12.2-14.9) H 03/16/19 10:37 INR 1.47 (0.87-1.13) H 03/16/19 10:37 APTT 25.7 Sec. (24.2-36.6) 03/16/19 10:37 POC ABG pH 7.473 (7.35-7.45) H 03/18/19 09:16 POC ABG pCO2 31.5 (35-45) L 03/18/19 09:16 POC ABG pO2 118 (80-105) H 03/18/19 09:16 POC ABG HCO3 23.1 (22-26 mml/L) 03/18/19 09:16 POC ABG Total CO2 24 (23-27mmol/L) 03/18/19 09:16 POC ABG O2 Sat 99 03/18/19 09:16 POC ABG Base Excess 0 ((-2) - (+3)mmol/L) 03/18/19 09:16 25 % 03/18/19 09:16 Sodium 143 mmol/L (137-145) 03/19/19 04:22 Potassium 3.8 mmol/L (3.6-5.0) D 03/19/19 04:22 Chloride 100.3 mmol/L (98-107) 03/19/19 04:22 Carbon Dioxide 20 mmol/L (22-30) L 03/19/19 04:22 27 mmol/L 03/19/19 04:22 BUN 78 mg/dL (9-20) H 03/19/19 04:22 9.1 mg/dL (0.8-1.5) H 03/19/19 04:22 Estimated GFR 7 ml/min 03/19/19 04:22 9 % 03/19/19 04:22 Glucose 97 mg/dL (75-100) 03/19/19 04:22 POC Glucose 100 (70-105) 03/16/19 17:45 Lactic Acid 0.80 mmol/L (0.7-2.0) 03/16/19 16:38 Calcium 8.0 mg/dL (8.4-10.2) L 03/19/19 04:22 2.00 mg/dL (0.1-1.2) H 03/19/19 04:22 AST 444 units/L (5-40) H 03/19/19 04:22 ALT 559 units/L (7-56) H 03/19/19 04:22 166 units/L (35-129) H 03/19/19 04:22 78011 units/L (55-170) H 03/19/19 04:22 < 0.010 ng/mL (0.00-0.029) 03/16/19 10:37 5.6 g/dL (6.3-8.2) L 03/19/19 04:22 3.0 g/dL (3.9-5) L 03/19/19 04:22 1.2 % 03/19/19 04:22 Triglycerides 76 mg/dL (2-149) 03/18/19 15:24 [place] (Yellow) 03/18/19 12:49 Cloudy (Clear) 03/18/19 12:49 5.0 (5.0-7.0) 03/18/19 12:49 Ur Specific [place] 1.015 (1.003-1.030) 03/18/19 12:49 >500 mg/dL (Negative) 03/18/19 12:49 150 mg/dL (Negative) 03/18/19 12:49 Tr mg/dL (Negative) 03/18/19 12:49 Lg (Negative) 03/18/19 12:49 Neg (Negative) 03/18/19 12:49 Neg (Negative) 03/18/19 12:49 < 2.0 mg/dL (<2.0) 03/18/19 12:49 Ur Leukocyte Esterase Neg (Negative) 03/18/19 12:49 18.0 /HPF (0.0-6.0) H 03/18/19 12:49 121.0 /HPF (0.0-6.0) 03/18/19 12:49 U Epithel Cells (Auto) 2.0 /HPF (0-13.0) 03/18/19 12:49 3+ /HPF (Negative) 03/18/19 12:49 Few /HPF 03/18/19 12:49 75.6 mg/dL (0.1-20.0) H 03/16/19 11:37 50 mmol/L 03/16/19 11:37 Clear 03/16/19 12:40 Clear 03/16/19 12:40 Colorless 03/16/19 12:40 Colorless 03/16/19 12:40 2 /mm3 (1-10) 03/16/19 12:40 2 /mm3 (1-10) 03/16/19 12:40 0 /mm3 (0-0) 03/16/19 12:40 0 /mm3 (0-0) 03/16/19 12:40 CSF Seg Neutrophils 0 % (0-6) 03/16/19 12:40 CSF Seg Neutrophils 0 % (0-6) 03/16/19 12:40 47.7 % (40-80) 03/16/19 12:40 93.1 % (40-80) 03/16/19 12:40 CSF Reactive Lymphs 0 % 03/16/19 12:40 CSF Reactive Lymphs 0 % 03/16/19 12:40 6.9 % (15-45) 03/16/19 12:40 52.3 % (15-45) 03/16/19 12:40 0 % 03/16/19 12:40 0 % 03/16/19 12:40 0 % 03/16/19 12:40 0 % 03/16/19 12:40 C 03/16/19 12:40 C 03/16/19 12:40 69 mg/dL 03/16/19 12:40 Salicylates < 0.3 mg/dL (2.8-20.0) L 03/16/19 10:37 Presumptive positive 03/16/19 11:37 Presumptive negative 03/16/19 11:37 Acetaminophen < 5.0 ug/mL (10.0-30.0) L 03/16/19 10:37 Ur Barbiturates Screen Presumptive negative 03/16/19 11:37 Ur Phencyclidine Scrn Presumptive negative 03/16/19 11:37 Ur Amphetamines Screen Presumptive positive 03/16/19 11:37 U Benzodiazepines Scrn Presumptive negative 03/16/19 11:37 Presumptive positive 03/16/19 11:37 U Marijuana (THC) Screen Presumptive negative 03/16/19 11:37 Disclamer 03/16/19 11:37 Plasma/Serum Alcohol < 0.01 % (0-0.07) 03/16/19 10:37 HIV 1&2 Antibody Rapid Non react (Non React) 03/16/19 12:05 Non react (Non React) 03/16/19 12:05 Active Medications - Current Medications Current Medications: Generic Name Dose Route Start Last Admin Trade Name Freq PRN Reason Stop Dose Admin Famotidine 20 mg 03/19/19 10:00 Pepcid PO DAILY JOÃO Heparin Sodium (Porcine) 5,000 unit 03/16/19 22:00 03/18/19 21:28 Heparin SUB-Q 5,000 unit Q12HR JOÃO Administration Sodium Chloride 1,000 mls @ 125 mls/hr 03/19/19 08:00 Nacl 0.9% 1000 Ml IV DIRECT JOÃO Sodium Chloride 10 ml 03/16/19 22:00 03/18/19 21:28 Sodium Chloride Flush Syringe 10 Ml IV 10 ml BID JOÃO Administration Sodium Chloride 10 ml 03/16/19 11:52 Sodium Chloride Flush Syringe 10 Ml IV PRN PRN LINE FLUSH
[2019-03-19] MEDS: HEPARIN SUB-Q SCH ×2 (09:33→21:19)
[2019-03-19] MEDS: NACL 0.9% 1000 ML 1,000 ML IV SCH (09:33)
[2019-03-19] MEDS: PEPCID PO SCH (09:34)
[2019-03-19] MEDS: SODIUM CHLORIDE FLUSH SYRINGE 10 ML IV SCH (09:36)
--- NOTE | 2019-03-19 10:06 | Progress Note ---
Assessment and Plan - Patient Problems (1) Acute renal failure Current Visit: Yes Status: Acute Qualifiers: Acute renal failure type: with acute tubular necrosis Qualified Code(s): N17.0 - Acute kidney failure with tubular necrosis Plan to address problem: Patient is showing signs of severe ABDI possibly in the setting of ATN. With the urinalysis findings have to rule out possible glomerulonephritis. Concern for possible underlying rapidly progressive glomerulonephritis given quick rise in his serum creatinine worsening kidney function. This is despite steady reduction in CPK levels. Sentcomplement levels as well as ANCA vasculitis studies stat, which are pending. No acute indication for renal placement therapy at this time. However based on his poor renal function this may change. Recommend avoiding any nephrotoxins. Maintain maps above 65. Given his progressively worsening renal function, will favor to set patient up for renal biopsy. His renal US is pending read, and if negative, will set patient up for renal biopsy and empirically treat as a RPGN with pulse dose steroid x 3 days. (2) Encephalopathy Current Visit: Yes Status: Acute Plan to address problem: His mental status seems to be improved back to baseline. We'll continue to monitor. ECG was reviewed. Further recommendations per neurology. (3) Respiratory failure Current Visit: Yes Status: Acute Qualifiers: Chronicity: acute Respiratory failure complication: hypoxia Qualified Code(s): J96.01 - Acute respiratory failure with hypoxia Plan to address problem: Patient has been extubated at this time and his overall respiratory status is stable. Further recommendations per ICU. (4) Rhabdomyolysis Current Visit: Yes Status: Acute Qualifiers: Encounter type: initial encounter Plan to address problem: His CPK levels are showing improvement with fluid hydration. Will continue at this time. Subjective Date of service: 03/19/19 Principal diagnosis: Ac. hypoxemic resp failure; Ac encephalopathy (toxic/met); ABDI; Drug OD Interval history: No acute events overnight. Renal function continues to worsen, with serum creatinine rapidly increasing now to 9 depsite decrease in CPK levels. He is oliguric, with documented 300 cc urine output. He remains on room air and overall respiratory and mental status is stable. Hemodynamics are also stable at this time. Objective - Vital Signs Vital signs: Vital Signs - 12hr 03/18/19 03/18/19 03/18/19 22:11 22:21 23:05 Pulse Rate 60 79 64 Pulse Rate [ From Monitor] Respiratory 45 H 46 H 20 Rate Blood Pressure 145/89 145/82 145/82 O2 Sat by Pulse 95 Oximetry 03/18/19 03/18/19 03/18/19 23:11 23:21 23:30 Pulse Rate 65 61 73 Pulse Rate [ From Monitor] Respiratory 47 H 43 H 29 H Rate Blood Pressure 145/82 145/82 126/81 O2 Sat by Pulse 94 94 89 Oximetry 03/18/19 03/18/19 03/18/19 23:31 23:41 23:51 Pulse Rate 68 68 58 L Pulse Rate [ From Monitor] Respiratory 30 H 22 40 H Rate Blood Pressure 126/81 145/89 126/81 O2 Sat by Pulse 93 96 100 Oximetry 03/19/19 03/19/19 03/19/19 00:00 00:11 00:21 Pulse Rate 59 L 64 61 Pulse Rate [ From Monitor] Respiratory 18 21 31 H Rate Blood Pressure 125/86 125/86 125/86 O2 Sat by Pulse 99 100 100 Oximetry 03/19/19 03/19/19 03/19/19 00:31 00:41 00:51 Pulse Rate 70 64 60 Pulse Rate [ From Monitor] Respiratory 24 42 H 40 H Rate Blood Pressure 146/88 146/88 146/88 O2 Sat by Pulse 91 97 Oximetry 03/19/19 03/19/19 03/19/19 01:00 01:11 01:20 Pulse Rate 64 66 62 Pulse Rate [ From Monitor] Respiratory 44 H 44 H 11 L Rate Blood Pressure 146/88 144/84 144/84 O2 Sat by Pulse 98 98 96 Oximetry 03/19/19 03/19/19 03/19/19 01:30 01:41 01:51 Pulse Rate 59 L 59 L 60 Pulse Rate [ From Monitor] Respiratory 15 42 H 23 Rate Blood Pressure 139/84 139/84 139/84 O2 Sat by Pulse 89 97 98 Oximetry 03/19/19 03/19/19 03/19/19 02:00 02:01 02:11 Pulse Rate 57 L 57 L Pulse Rate [ 60 From Monitor] Respiratory 27 H 27 H 34 H Rate Blood Pressure 136/80 136/80 O2 Sat by Pulse 100 100 Oximetry 03/19/19 03/19/19 03/19/19 02:21 02:30 02:41 Pulse Rate 62 52 L 52 L Pulse Rate [ From Monitor] Respiratory 27 H 22 11 L Rate Blood Pressure 136/80 133/82 133/82 O2 Sat by Pulse 94 Oximetry 03/19/19 03/19/19 03/19/19 02:51 03:00 03:29 Pulse Rate 56 L 103 H Pulse Rate [ From Monitor] Respiratory 39 H 45 H Rate Blood Pressure 133/82 134/79 134/79 O2 Sat by Pulse 97 99 Oximetry 03/19/19 03/19/19 03/19/19 03:31 03:41 03:51 Pulse Rate 59 L 58 L 65 Pulse Rate [ From Monitor] Respiratory 33 H 45 H 43 H Rate Blood Pressure 134/79 133/75 134/79 O2 Sat by Pulse 97 98 Oximetry 03/19/19 03/19/19 03/19/19 04:00 04:11 04:21 Pulse Rate 64 62 61 Pulse Rate [ From Monitor] Respiratory 21 41 H 13 Rate Blood Pressure 123/81 123/81 123/81 O2 Sat by Pulse 99 92 91 Oximetry 03/19/19 03/19/19 03/19/19 04:31 04:41 04:51 Pulse Rate 65 Pulse Rate [ From Monitor] Respiratory 13 Rate Blood Pressure 123/81 123/81 123/81 O2 Sat by Pulse 99 84 96 Oximetry 03/19/19 03/19/19 03/19/19 05:00 05:11 05:21 Pulse Rate 78 67 Pulse Rate [ From Monitor] Respiratory 23 Rate Blood Pressure 132/82 132/82 132/82 O2 Sat by Pulse 81 L 96 Oximetry 03/19/19 03/19/19 03/19/19 05:33 05:41 05:51 Pulse Rate 74 61 86 Pulse Rate [ From Monitor] Respiratory 28 H 14 19 Rate Blood Pressure 132/82 138/84 138/84 O2 Sat by Pulse 96 85 Oximetry 03/19/19 03/19/19 03/19/19 06:00 06:01 06:11 Pulse Rate 64 66 Pulse Rate [ 60 From Monitor] Respiratory 27 H 27 H 13 Rate Blood Pressure 138/84 160/85 O2 Sat by Pulse 100 83 L Oximetry 03/19/19 03/19/19 03/19/19 06:21 06:31 06:41 Pulse Rate 70 62 70 Pulse Rate [ From Monitor] Respiratory 22 Rate Blood Pressure 160/85 126/74 126/74 O2 Sat by Pulse 89 97 Oximetry 03/19/19 03/19/19 03/19/19 06:50 07:00 07:11 Pulse Rate 66 63 Pulse Rate [ From Monitor] Respiratory 15 28 H Rate Blood Pressure 126/74 130/82 130/82 O2 Sat by Pulse 68 L 83 L Oximetry 03/19/19 03/19/19 03/19/19 07:21 07:30 07:41 Pulse Rate 69 60 Pulse Rate [ From Monitor] Respiratory 30 H 24 29 H Rate Blood Pressure 130/82 124/68 124/68 O2 Sat by Pulse 78 L 90 Oximetry 03/19/19 03/19/19 03/19/19 07:51 08:01 08:11 Pulse Rate 58 L 90 56 L Pulse Rate [ From Monitor] Respiratory 47 H 20 Rate Blood Pressure 124/68 124/68 124/68 O2 Sat by Pulse 92 82 L 88 Oximetry 03/19/19 03/19/19 03/19/19 08:17 08:21 08:30 Pulse Rate 57 L 59 L Pulse Rate [ From Monitor] Respiratory 30 H 18 Rate Blood Pressure 124/68 135/82 O2 Sat by Pulse 96 94 92 Oximetry 03/19/19 03/19/19 03/19/19 08:41 08:51 09:00 Pulse Rate 60 64 86 Pulse Rate [ From Monitor] Respiratory 23 39 H 26 H Rate Blood Pressure 135/82 135/82 140/79 O2 Sat by Pulse 95 92 Oximetry 03/19/19 03/19/19 03/19/19 09:11 09:27 09:30 Pulse Rate 58 L 62 65 Pulse Rate [ From Monitor] Respiratory 43 H 27 H 23 Rate Blood Pressure 140/79 140/79 129/76 O2 Sat by Pulse 97 Oximetry 03/19/19 09:41 Pulse Rate 75 Pulse Rate [ From Monitor] Respiratory 29 H Rate Blood Pressure 129/76 O2 Sat by Pulse 98 Oximetry - General Appearance General appearance: well-developed, well-nourished, appears stated age, obese EENT: ATNC, PERRL Neck: no JVD, no thyromegaly Respiratory: Present: [place] Cardiology: regular, S1S2 Gastrointestinal: normal Integumentary: no rash, warm and dry Neurologic: no focal deficit, alert and oriented x3 Psychiatric: mood/affect appropriate, cooperative - Lab 03/19/19 04:22 03/19/19 04:22 Most recent lab results Calcium 8.0 mg/dL (8.4-10.2) L 03/19/19 04:22 75.6 mg/dL (0.1-20.0) H 03/16/19 11:37 50 mmol/L 03/16/19 11:37 - Imaging Chest x-ray: pending Kidney/bladder ultrasound: pending - Allied health notes Allied health notes reviewed: nursing Medications & Allergies - Medications Allergies/Adverse Reactions: Allergies Unable to Assess Allergy (Unverified 03/16/19 11:41) AMS Home Medications: Home Medications Medication Instructions Recorded Confirmed Last Taken Type Unobtainable 03/16/19 03/16/19 Unknown History Active Medications: Generic Name Dose Route Start Last Admin Trade Name Freq PRN Reason Stop Dose Admin Cephalexin 500 mg 03/19/19 10:00 Keflex PO Q12HR JOÃO Famotidine 20 mg 03/19/19 10:00 03/19/19 09:34 Pepcid PO 20 mg DAILY JOÃO Administration Heparin Sodium (Porcine) 5,000 unit 03/16/19 22:00 03/19/19 09:33 Heparin SUB-Q 5,000 unit Q12HR JOÃO Administration Sodium Chloride 1,000 mls @ 125 mls/hr 03/19/19 08:00 03/19/19 09:33 Nacl 0.9% 1000 Ml IV 125 mls/hr DIRECT JOÃO Administration Sodium Chloride 10 ml 03/16/19 22:00 03/19/19 09:36 Sodium Chloride Flush Syringe 10 Ml IV 10 ml BID JOÃO Administration Sodium Chloride 10 ml 03/16/19 11:52 Sodium Chloride Flush Syringe 10 Ml IV PRN PRN LINE FLUSH
[2019-03-19 10:42] LABS: Albumin 3.3 g/dL (3.9-5); Bilirubin,Direct 1.6 mg/dL (0-0.2)
[2019-03-19] MEDS: KEFLEX PO SCH (11:05)
--- NOTE | 2019-03-19 14:39 | Progress Note ---
Assessment and Plan Acute hypoxemic respiratory failure on MVS Acute metabolic- toxic encephalopathy Acute metabolic acidosis Acute renal failure (multifactorial) Rhabdomyolysis Polysubstance abuse disorder with overdose - nephrology evaluation ongoing - volume resuscitation per nephrology prescription - trend CpK levels and follow clinically - follow Blood, urine & tracheal aspirate cultures - Follow clinically off AB's - Serial BMPs and monitor liver enzymes - Supplemental oxygen prn to keep O2 sats > 90% - Bronchodilators to prn at this point - continue accuchecks with glycemic control per SSI fo target blood glucose <180mg/dL - ST evaluation and advance diet - Prevention of delirium, maintenance of sleep-wake cycle - Avoid nephrotoxic agents, adjust all antibiotics and medications for CrCL and GFR - VTE and Stress ulcer prophylaxis - Substance abuse counselling done at bedside ... re-evaluate in am & prn Subjective Date of service: 03/19/19 Principal diagnosis: Ac. hypoxemic resp failure; Ac encephalopathy (toxic/met); ABDI; Drug OD Interval history: Patient is seen today for: Ac. hypoxemic respiratory failure on MVS; Acute encephalopathy (toxic/met); Acute metabolic acidosis; Acute renal failure (mul tifactorial); Rhabdomyolysis; Polysubstance abuse disorder with overdose Seen and examined at bedside; 24hour events reviewed; nursing and respiratory care staff consulted; no adverse overnight events reported to me; resting peacefully in bed; No N/V/F/C; azotemia is persistent and may need dialysis Objective Vital Signs - 12hr 03/19/19 03/19/19 03/19/19 02:41 02:51 03:00 Temperature Pulse Rate 52 L 56 L Pulse Rate [ From Monitor] Respiratory 11 L 39 H Rate Blood Pressure 133/82 133/82 134/79 O2 Sat by Pulse 97 99 Oximetry 03/19/19 03/19/19 03/19/19 03:29 03:31 03:41 Temperature Pulse Rate 103 H 59 L 58 L Pulse Rate [ From Monitor] Respiratory 45 H 33 H 45 H Rate Blood Pressure 134/79 134/79 133/75 O2 Sat by Pulse 97 Oximetry 03/19/19 03/19/19 03/19/19 03:51 04:00 04:11 Temperature Pulse Rate 65 64 62 Pulse Rate [ From Monitor] Respiratory 43 H 21 41 H Rate Blood Pressure 134/79 123/81 123/81 O2 Sat by Pulse 98 99 92 Oximetry 03/19/19 03/19/19 03/19/19 04:21 04:31 04:41 Temperature Pulse Rate 61 65 Pulse Rate [ From Monitor] Respiratory 13 13 Rate Blood Pressure 123/81 123/81 123/81 O2 Sat by Pulse 91 99 84 Oximetry 03/19/19 03/19/19 03/19/19 04:51 05:00 05:11 Temperature Pulse Rate 78 67 Pulse Rate [ From Monitor] Respiratory 23 Rate Blood Pressure 123/81 132/82 132/82 O2 Sat by Pulse 96 81 L Oximetry 03/19/19 03/19/19 03/19/19 05:21 05:33 05:41 Temperature Pulse Rate 74 61 Pulse Rate [ From Monitor] Respiratory 28 H 14 Rate Blood Pressure 132/82 132/82 138/84 O2 Sat by Pulse 96 96 Oximetry 03/19/19 03/19/19 03/19/19 05:51 06:00 06:01 Temperature Pulse Rate 86 64 Pulse Rate [ 60 From Monitor] Respiratory 19 27 H 27 H Rate Blood Pressure 138/84 138/84 O2 Sat by Pulse 85 100 83 L Oximetry 03/19/19 03/19/19 03/19/19 06:11 06:21 06:31 Temperature Pulse Rate 66 70 62 Pulse Rate [ From Monitor] Respiratory 13 22 Rate Blood Pressure 160/85 160/85 126/74 O2 Sat by Pulse 89 97 Oximetry 03/19/19 03/19/19 03/19/19 06:41 06:50 07:00 Temperature Pulse Rate 70 66 Pulse Rate [ From Monitor] Respiratory 15 Rate Blood Pressure 126/74 126/74 130/82 O2 Sat by Pulse 68 L Oximetry 03/19/19 03/19/19 03/19/19 07:11 07:21 07:30 Temperature Pulse Rate 63 69 Pulse Rate [ From Monitor] Respiratory 28 H 30 H 24 Rate Blood Pressure 130/82 130/82 124/68 O2 Sat by Pulse 83 L 78 L Oximetry 03/19/19 03/19/19 03/19/19 07:41 07:51 08:01 Temperature Pulse Rate 60 58 L 90 Pulse Rate [ From Monitor] Respiratory 29 H 47 H 20 Rate Blood Pressure 124/68 124/68 124/68 O2 Sat by Pulse 90 92 82 L Oximetry 03/19/19 03/19/19 03/19/19 08:11 08:17 08:21 Temperature Pulse Rate 56 L 57 L Pulse Rate [ From Monitor] Respiratory 30 H Rate Blood Pressure 124/68 124/68 O2 Sat by Pulse 88 96 94 Oximetry 03/19/19 03/19/19 03/19/19 08:30 08:41 08:51 Temperature Pulse Rate 59 L 60 64 Pulse Rate [ From Monitor] Respiratory 18 23 39 H Rate Blood Pressure 135/82 135/82 135/82 O2 Sat by Pulse 92 95 92 Oximetry 03/19/19 03/19/19 03/19/19 09:00 09:11 09:27 Temperature Pulse Rate 86 58 L 62 Pulse Rate [ From Monitor] Respiratory 26 H 43 H 27 H Rate Blood Pressure 140/79 140/79 140/79 O2 Sat by Pulse Oximetry 03/19/19 03/19/19 03/19/19 09:30 09:41 09:51 Temperature Pulse Rate 65 75 64 Pulse Rate [ From Monitor] Respiratory 23 29 H 26 H Rate Blood Pressure 129/76 129/76 129/76 O2 Sat by Pulse 97 98 98 Oximetry 03/19/19 03/19/19 03/19/19 10:00 10:11 10:21 Temperature Pulse Rate 65 68 54 L Pulse Rate [ From Monitor] Respiratory 39 H 28 H 36 H Rate Blood Pressure 126/81 140/79 140/79 O2 Sat by Pulse 98 Oximetry 03/19/19 03/19/19 03/19/19 10:31 10:41 10:51 Temperature Pulse Rate 53 L 55 L 55 L Pulse Rate [ From Monitor] Respiratory 14 15 29 H Rate Blood Pressure 146/77 146/77 146/77 O2 Sat by Pulse 100 99 96 Oximetry 03/19/19 03/19/19 03/19/19 11:00 11:11 11:21 Temperature Pulse Rate 55 L 65 52 L Pulse Rate [ From Monitor] Respiratory 15 10 L 24 Rate Blood Pressure 142/84 146/77 146/77 O2 Sat by Pulse Oximetry 03/19/19 03/19/19 03/19/19 11:31 11:41 11:51 Temperature Pulse Rate 65 51 L 56 L Pulse Rate [ From Monitor] Respiratory 18 33 H 31 H Rate Blood Pressure 146/77 111/64 111/64 O2 Sat by Pulse Oximetry 03/19/19 03/19/19 12:00 13:08 Temperature 98.5 F Pulse Rate 68 65 Pulse Rate [ From Monitor] Respiratory 39 H 20 Rate Blood Pressure 134/73 141/87 O2 Sat by Pulse 96 Oximetry Constitutional: no acute distress, other (sedated) Eyes: non-icteric ENT: oropharynx dry, other (extubated) Neck: supple, no lymphadenopathy, no JVD Effort: normal Ascultation: Bilateral: diminished breath sounds Percussion: Bilateral: not dull Cardiovascular: regular rate and rhythm, other (S1,S2, no murmurs, gallops or rubs) Gastrointestinal: normoactive bowel sounds, soft, non-tender, non-distended, other (bowel sounds in all 4 quadrants, sinclair catheter) Integumentary: normal Extremities: no cyanosis, no edema, pink and warm, pulses normal, no ischemia or petechiae Neurologic: normal mental status, non-focal exam, pupils equal and round, motor strength normal and Psychiatric: mood appropriate, affect normal CBC and BMP: 03/20/19 06:32 03/22/19 06:53 ABG, PT/INR, D-dimer: ABG POC ABG pH 7.473 (7.35-7.45) H 03/18/19 09:16 POC ABG pCO2 31.5 (35-45) L 03/18/19 09:16 POC ABG pO2 118 (80-105) H 03/18/19 09:16 POC ABG HCO3 23.1 (22-26 mml/L) 03/18/19 09:16 POC ABG Total CO2 24 (23-27mmol/L) 03/18/19 09:16 POC ABG O2 Sat 99 03/18/19 09:16 PT/INR, D-dimer PT 17.5 Sec. (12.2-14.9) H 03/16/19 10:37 INR 1.47 (0.87-1.13) H 03/16/19 10:37 Abnormal lab findings: Abnormal Labs 03/16/19 03/16/19 03/16/19 10:00 10:21 10:37 WBC 27.7 H RBC Hgb Hct MCHC Plt Count 553 H [place] % (Auto) [place] # Seg Neutrophils % Seg Neuts % (Manual) 90.0 H Lymphocytes % (Manual) 2.0 L Seg Neutrophils # Seg Neutrophils # Man 24.9 H Lymphocytes # (Manual) 0.6 L Monocytes # (Manual) 1.4 H PT INR POC ABG pH POC ABG pCO2 POC ABG pO2 Potassium Carbon Dioxide BUN Creatinine Glucose POC Glucose 49 L 154 H Calcium Total Bilirubin Direct Bilirubin AST ALT Alkaline Phosphatase Total Creatine Kinase Total Protein Albumin Urine WBC (Auto) Urine Creatinine Salicylates Acetaminophen 03/16/19 03/16/19 03/16/19 10:37 10:37 10:37 WBC RBC Hgb Hct MCHC Plt Count [place] % (Auto) [place] # Seg Neutrophils % Seg Neuts % (Manual) Lymphocytes % (Manual) Seg Neutrophils # Seg Neutrophils # Man Lymphocytes # (Manual) Monocytes # (Manual) PT 17.5 H INR 1.47 H POC ABG pH POC ABG pCO2 POC ABG pO2 Potassium 5.1 H Carbon Dioxide 13 L BUN 35 H Creatinine 3.0 H Glucose 129 H POC Glucose Calcium Total Bilirubin 2.60 H Direct Bilirubin AST 160 H ALT 106 H Alkaline Phosphatase 133 H Total Creatine Kinase Total Protein Albumin Urine WBC (Auto) Urine Creatinine Salicylates < 0.3 L Acetaminophen 03/16/19 03/16/19 03/16/19 10:37 10:37 11:37 WBC RBC Hgb Hct MCHC Plt Count [place] % (Auto) [place] # Seg Neutrophils % Seg Neuts % (Manual) Lymphocytes % (Manual) Seg Neutrophils # Seg Neutrophils # Man Lymphocytes # (Manual) Monocytes # (Manual) PT INR POC ABG pH POC ABG pCO2 POC ABG pO2 Potassium Carbon Dioxide BUN Creatinine Glucose POC Glucose Calcium Total Bilirubin Direct Bilirubin AST ALT Alkaline Phosphatase Total Creatine Kinase 4300 H Total Protein Albumin Urine WBC (Auto) 10.0 H Urine Creatinine Salicylates Acetaminophen < 5.0 L 03/16/19 03/16/19 03/17/19 11:37 12:25 04:41 WBC 13.5 H RBC Hgb Hct MCHC 35 H Plt Count [place] % (Auto) [place] # 1.0 H Seg Neutrophils % 76.4 H Seg Neuts % (Manual) Lymphocytes % (Manual) Seg Neutrophils # 10.3 H Seg Neutrophils # Man Lymphocytes # (Manual) Monocytes # (Manual) PT INR POC ABG pH 7.188 L POC ABG pCO2 47.9 H POC ABG pO2 Potassium Carbon Dioxide BUN Creatinine Glucose POC Glucose Calcium Total Bilirubin Direct Bilirubin AST ALT Alkaline Phosphatase Total Creatine Kinase Total Protein Albumin Urine WBC (Auto) Urine Creatinine 75.6 H Salicylates Acetaminophen 03/17/19 03/17/19 03/17/19 04:41 04:41 04:57 WBC RBC Hgb Hct MCHC Plt Count [place] % (Auto) [place] # Seg Neutrophils % Seg Neuts % (Manual) Lymphocytes % (Manual) Seg Neutrophils # Seg Neutrophils # Man Lymphocytes # (Manual) Monocytes # (Manual) PT INR POC ABG pH 7.302 L POC ABG pCO2 POC ABG pO2 158 H Potassium Carbon Dioxide 13 L BUN 57 H Creatinine 4.6 H D Glucose POC Glucose Calcium 8.2 L Total Bilirubin Direct Bilirubin AST 567 H ALT 356 H Alkaline Phosphatase Total Creatine Kinase 15178 H Total Protein 6.0 L D Albumin 3.4 L Urine WBC (Auto) Urine Creatinine Salicylates Acetaminophen 03/17/19 03/17/19 03/18/19 08:27 16:47 04:45 WBC RBC Hgb Hct MCHC Plt Count [place] % (Auto) [place] # Seg Neutrophils % Seg Neuts % (Manual) Lymphocytes % (Manual) Seg Neutrophils # Seg Neutrophils # Man Lymphocytes # (Manual) Monocytes # (Manual) PT INR POC ABG pH 7.304 L 7.459 H POC ABG pCO2 POC ABG pO2 135 H 127 H 124 H Potassium Carbon Dioxide BUN Creatinine Glucose POC Glucose Calcium Total Bilirubin Direct Bilirubin AST ALT Alkaline Phosphatase Total Creatine Kinase Total Protein Albumin Urine WBC (Auto) Urine Creatinine Salicylates Acetaminophen 03/18/19 03/18/19 03/18/19 04:59 09:16 10:00 WBC RBC Hgb Hct MCHC Plt Count [place] % (Auto) [place] # Seg Neutrophils % Seg Neuts % (Manual) Lymphocytes % (Manual) Seg Neutrophils # Seg Neutrophils # Man Lymphocytes # (Manual) Monocytes # (Manual) PT INR POC ABG pH 7.473 H POC ABG pCO2 31.5 L POC ABG pO2 118 H Potassium 3.1 L D Carbon Dioxide 21 L D BUN 75 H Creatinine 7.9 H D Glucose 120 H POC Glucose Calcium 7.5 L Total Bilirubin Direct Bilirubin AST ALT Alkaline Phosphatase Total Creatine Kinase 74529 H Total Protein Albumin Urine WBC (Auto) Urine Creatinine Salicylates Acetaminophen 03/18/19 03/18/19 03/19/19 10:00 12:49 04:22 WBC RBC 3.47 L Hgb 10.8 L Hct 31.2 L MCHC 35 H Plt Count [place] % (Auto) 9.2 H [place] # Seg Neutrophils % Seg Neuts % (Manual) Lymphocytes % (Manual) Seg Neutrophils # Seg Neutrophils # Man Lymphocytes # (Manual) Monocytes # (Manual) PT INR POC ABG pH POC ABG pCO2 POC ABG pO2 Potassium Carbon Dioxide BUN Creatinine Glucose POC Glucose Calcium Total Bilirubin Direct Bilirubin AST ALT Alkaline Phosphatase Total Creatine Kinase 54609 H Total Protein Albumin Urine WBC (Auto) 18.0 H Urine Creatinine Salicylates Acetaminophen 03/19/19 03/19/19 03/19/19 04:22 04:22 09:53 WBC RBC 3.35 L Hgb 10.5 L Hct 30.6 L MCHC Plt Count [place] % (Auto) [place] # Seg Neutrophils % Seg Neuts % (Manual) Lymphocytes % (Manual) Seg Neutrophils # Seg Neutrophils # Man Lymphocytes # (Manual) Monocytes # (Manual) PT INR POC ABG pH POC ABG pCO2 POC ABG pO2 Potassium Carbon Dioxide 20 L BUN 78 H Creatinine 9.1 H Glucose POC Glucose Calcium 8.0 L Total Bilirubin 2.00 H 2.20 H Direct Bilirubin 1.6 H AST 444 H 467 H ALT 559 H 611 H Alkaline Phosphatase 166 H 189 H Total Creatine Kinase Total Protein 5.6 L 6.1 L Albumin 3.0 L 3.3 L Urine WBC (Auto) Urine Creatinine Salicylates Acetaminophen Allied health notes reviewed: nursing
[2019-03-19] MEDS: SOLU-Medrol 500 MG in NACL 0.9% 100 ML IV SCH (15:41)
--- NOTE | 2019-03-19 20:24 | Ultrasound Report ---
PROCEDURE: US RENAL BILAT TECHNIQUE: Ultrasound kidneys HISTORY: ABDI COMPARISONS: FINDINGS: Right kidney is 12.9 x 5.9 x 7.2 cm cortical thickness 1.4 cm Left kidney is 12.3 x 6.3 x 5.3 cm. Cortical thickness 2.4 cm No evidence for hydronephrosis. Kidneys appear slightly echogenic bilaterally may indicate underlying medical renal disease. IMPRESSION: Mildly increased renal echogenicity may indicate underlying medical renal disease No evidence for hydronephrosis. This document is electronically signed by Agus Post MD., March 19 2019 08:22:15 PM ET
[2019-03-20] MEDS: BENADRYL PO PRN (00:12)
[2019-03-20] MEDS: NACL 0.9% 1000 ML 1,000 ML IV SCH (00:12)
[2019-03-20] MEDS: SODIUM CHLORIDE FLUSH SYRINGE 10 ML IV SCH ×3 (00:13→21:48)
[2019-03-20 07:01] LABS: Hematocrit 33.5 % (35.5-45.6); Hemoglobin 11.6 gm/dl (11.8-15.2); Mean Corpuscular HGB Conc 35 % (32-34); Mean Corpuscular Volume 90 fl (84-94); Platelet Count 262 K/mm3 (140-440); Red Blood Count 3.72 M/mm3 (3.65-5.03); Red Cell Distribution Width 14.3 % (13.2-15.2)
[2019-03-20 07:13] LABS: Albumin 3.3 g/dL (3.9-5); Calcium 8.7 mg/dL (8.4-10.2)
--- NOTE | 2019-03-20 08:17 | Progress Note ---
Assessment and Plan -Acute hypoxemic respiratory failure s/p MVS -Acute metabolic- toxic encephalopathy -Acute metabolic acidosis -Acute renal failure (multifactorial) -Rhabdomyolysis -Polysubstance abuse disorder with overdose -PRN CXR and ABG -Supplemental oxygen to keep O2 sats > 90% -Bronchodilators -Accuchecks with glycemic control. Target blood glucose <180mg/dL -Prevention of delirium, maintenance of sleep-wake cycle -Avoid nephrotoxic agents, adjust all antibiotics and medications for CrCL and GFR -VTE and Stress ulcer prophylaxis -Substance abuse counselling -Placement of vascular catheter for initiation of HD CONDITION: FAIR PROGNOSIS: FAIR CODE STATUS: FULL CODE Subjective Date of service: 03/20/19 Principal diagnosis: Ac. hypoxemic resp failure; Ac encephalopathy (toxic/met); ABDI; Drug OD Interval history: Patient is seen today for: Ac. hypoxemic respiratory failure s/p MVS; Acute encephalopathy (toxic/met); Acute metabolic acidosis; Acute renal failure (multifactorial); Rhabdomyolysis; Polysubstance abuse disorder with overdose Seen and examined at bedside; 24hour events reviewed; nursing and respiratory care staff consulted; no adverse overnight events reported to me; mother at the bedside, somnolent, for HD catheter placement today fro initiation of HD No fevers, no vomiting Objective Vital Signs - 12hr 03/19/19 03/19/19 03/20/19 21:24 22:00 00:00 Temperature 97.2 F L Pulse Rate 60 56 L Pulse Rate [ 56 L From Monitor] Respiratory 22 Rate Blood Pressure 142/93 O2 Sat by Pulse 97 Oximetry 03/20/19 05:16 Temperature 96.6 F L Pulse Rate 50 L Pulse Rate [ From Monitor] Respiratory 20 Rate Blood Pressure 146/87 O2 Sat by Pulse 98 Oximetry Constitutional: no acute distress Eyes: non-icteric ENT: oropharynx dry Neck: supple, no lymphadenopathy, no JVD Effort: normal Ascultation: Bilateral: diminished breath sounds Percussion: Bilateral: not dull Cardiovascular: regular rate and rhythm, other (S1,S2, no murmurs, gallops or rubs) Gastrointestinal: normoactive bowel sounds, soft, non-tender, non-distended, other (bowel sounds in all 4 quadrants, sinclair catheter) Integumentary: normal Extremities: no cyanosis, no edema, pink and warm, pulses normal, no ischemia or petechiae Neurologic: normal mental status, non-focal exam, pupils equal and round, motor strength normal and Psychiatric: mood appropriate, affect normal CBC and BMP: 03/20/19 06:32 03/20/19 06:32 ABG, PT/INR, D-dimer: ABG POC ABG pH 7.473 (7.35-7.45) H 03/18/19 09:16 POC ABG pCO2 31.5 (35-45) L 03/18/19 09:16 POC ABG pO2 118 (80-105) H 03/18/19 09:16 POC ABG HCO3 23.1 (22-26 mml/L) 03/18/19 09:16 POC ABG Total CO2 24 (23-27mmol/L) 03/18/19 09:16 POC ABG O2 Sat 99 03/18/19 09:16 PT/INR, D-dimer PT 17.5 Sec. (12.2-14.9) H 03/16/19 10:37 INR 1.47 (0.87-1.13) H 03/16/19 10:37 Abnormal lab findings: Abnormal Labs 03/16/19 03/16/19 03/16/19 10:00 10:21 10:37 WBC 27.7 H RBC Hgb Hct MCHC Plt Count 553 H [place] % (Auto) [place] # Seg Neutrophils % Seg Neuts % (Manual) 90.0 H Lymphocytes % (Manual) 2.0 L Seg Neutrophils # Seg Neutrophils # Man 24.9 H Lymphocytes # (Manual) 0.6 L Monocytes # (Manual) 1.4 H PT INR POC ABG pH POC ABG pCO2 POC ABG pO2 Sodium Potassium Chloride Carbon Dioxide BUN Creatinine Glucose POC Glucose 49 L 154 H Calcium Total Bilirubin Direct Bilirubin AST ALT Alkaline Phosphatase Total Creatine Kinase Total Protein Albumin Urine WBC (Auto) Urine Creatinine Salicylates Acetaminophen 03/16/19 03/16/19 03/16/19 10:37 10:37 10:37 WBC RBC Hgb Hct MCHC Plt Count [place] % (Auto) [place] # Seg Neutrophils % Seg Neuts % (Manual) Lymphocytes % (Manual) Seg Neutrophils # Seg Neutrophils # Man Lymphocytes # (Manual) Monocytes # (Manual) PT 17.5 H INR 1.47 H POC ABG pH POC ABG pCO2 POC ABG pO2 Sodium Potassium 5.1 H Chloride Carbon Dioxide 13 L BUN 35 H Creatinine 3.0 H Glucose 129 H POC Glucose Calcium Total Bilirubin 2.60 H Direct Bilirubin AST 160 H ALT 106 H Alkaline Phosphatase 133 H Total Creatine Kinase Total Protein Albumin Urine WBC (Auto) Urine Creatinine Salicylates < 0.3 L Acetaminophen 03/16/19 03/16/19 03/16/19 10:37 10:37 11:37 WBC RBC Hgb Hct MCHC Plt Count [place] % (Auto) [place] # Seg Neutrophils % Seg Neuts % (Manual) Lymphocytes % (Manual) Seg Neutrophils # Seg Neutrophils # Man Lymphocytes # (Manual) Monocytes # (Manual) PT INR POC ABG pH POC ABG pCO2 POC ABG pO2 Sodium Potassium Chloride Carbon Dioxide BUN Creatinine Glucose POC Glucose Calcium Total Bilirubin Direct Bilirubin AST ALT Alkaline Phosphatase Total Creatine Kinase 4300 H Total Protein Albumin Urine WBC (Auto) 10.0 H Urine Creatinine Salicylates Acetaminophen < 5.0 L 03/16/19 03/16/19 03/17/19 11:37 12:25 04:41 WBC 13.5 H RBC Hgb Hct MCHC 35 H Plt Count [place] % (Auto) [place] # 1.0 H Seg Neutrophils % 76.4 H Seg Neuts % (Manual) Lymphocytes % (Manual) Seg Neutrophils # 10.3 H Seg Neutrophils # Man Lymphocytes # (Manual) Monocytes # (Manual) PT INR POC ABG pH 7.188 L POC ABG pCO2 47.9 H POC ABG pO2 Sodium Potassium Chloride Carbon Dioxide BUN Creatinine Glucose POC Glucose Calcium Total Bilirubin Direct Bilirubin AST ALT Alkaline Phosphatase Total Creatine Kinase Total Protein Albumin Urine WBC (Auto) Urine Creatinine 75.6 H Salicylates Acetaminophen 03/17/19 03/17/19 03/17/19 04:41 04:41 04:57 WBC RBC Hgb Hct MCHC Plt Count [place] % (Auto) [place] # Seg Neutrophils % Seg Neuts % (Manual) Lymphocytes % (Manual) Seg Neutrophils # Seg Neutrophils # Man Lymphocytes # (Manual) Monocytes # (Manual) PT INR POC ABG pH 7.302 L POC ABG pCO2 POC ABG pO2 158 H Sodium Potassium Chloride Carbon Dioxide 13 L BUN 57 H Creatinine 4.6 H D Glucose POC Glucose Calcium 8.2 L Total Bilirubin Direct Bilirubin AST 567 H ALT 356 H Alkaline Phosphatase Total Creatine Kinase 18915 H Total Protein 6.0 L D Albumin 3.4 L Urine WBC (Auto) Urine Creatinine Salicylates Acetaminophen 03/17/19 03/17/19 03/18/19 08:27 16:47 04:45 WBC RBC Hgb Hct MCHC Plt Count [place] % (Auto) [place] # Seg Neutrophils % Seg Neuts % (Manual) Lymphocytes % (Manual) Seg Neutrophils # Seg Neutrophils # Man Lymphocytes # (Manual) Monocytes # (Manual) PT INR POC ABG pH 7.304 L 7.459 H POC ABG pCO2 POC ABG pO2 135 H 127 H 124 H Sodium Potassium Chloride Carbon Dioxide BUN Creatinine Glucose POC Glucose Calcium Total Bilirubin Direct Bilirubin AST ALT Alkaline Phosphatase Total Creatine Kinase Total Protein Albumin Urine WBC (Auto) Urine Creatinine Salicylates Acetaminophen 03/18/19 03/18/19 03/18/19 04:59 09:16 10:00 WBC RBC Hgb Hct MCHC Plt Count [place] % (Auto) [place] # Seg Neutrophils % Seg Neuts % (Manual) Lymphocytes % (Manual) Seg Neutrophils # Seg Neutrophils # Man Lymphocytes # (Manual) Monocytes # (Manual) PT INR POC ABG pH 7.473 H POC ABG pCO2 31.5 L POC ABG pO2 118 H Sodium Potassium 3.1 L D Chloride Carbon Dioxide 21 L D BUN 75 H Creatinine 7.9 H D Glucose 120 H POC Glucose Calcium 7.5 L Total Bilirubin Direct Bilirubin AST ALT Alkaline Phosphatase Total Creatine Kinase 87492 H Total Protein Albumin Urine WBC (Auto) Urine Creatinine Salicylates Acetaminophen 03/18/19 03/18/19 03/19/19 10:00 12:49 04:22 WBC RBC 3.47 L Hgb 10.8 L Hct 31.2 L MCHC 35 H Plt Count [place] % (Auto) 9.2 H [place] # Seg Neutrophils % Seg Neuts % (Manual) Lymphocytes % (Manual) Seg Neutrophils # Seg Neutrophils # Man Lymphocytes # (Manual) Monocytes # (Manual) PT INR POC ABG pH POC ABG pCO2 POC ABG pO2 Sodium Potassium Chloride Carbon Dioxide BUN Creatinine Glucose POC Glucose Calcium Total Bilirubin Direct Bilirubin AST ALT Alkaline Phosphatase Total Creatine Kinase 11186 H Total Protein Albumin Urine WBC (Auto) 18.0 H Urine Creatinine Salicylates Acetaminophen 03/19/19 03/19/19 03/19/19 04:22 04:22 09:53 WBC RBC 3.35 L Hgb 10.5 L Hct 30.6 L MCHC Plt Count [place] % (Auto) [place] # Seg Neutrophils % Seg Neuts % (Manual) Lymphocytes % (Manual) Seg Neutrophils # Seg Neutrophils # Man Lymphocytes # (Manual) Monocytes # (Manual) PT INR POC ABG pH POC ABG pCO2 POC ABG pO2 Sodium Potassium Chloride Carbon Dioxide 20 L BUN 78 H Creatinine 9.1 H Glucose POC Glucose Calcium 8.0 L Total Bilirubin 2.00 H 2.20 H Direct Bilirubin 1.6 H AST 444 H 467 H ALT 559 H 611 H Alkaline Phosphatase 166 H 189 H Total Creatine Kinase Total Protein 5.6 L 6.1 L Albumin 3.0 L 3.3 L Urine WBC (Auto) Urine Creatinine Salicylates Acetaminophen 03/20/19 03/20/19 03/20/19 06:32 06:32 06:32 WBC RBC Hgb 11.6 L Hct 33.5 L MCHC 35 H Plt Count [place] % (Auto) [place] # Seg Neutrophils % Seg Neuts % (Manual) Lymphocytes % (Manual) Seg Neutrophils # Seg Neutrophils # Man Lymphocytes # (Manual) Monocytes # (Manual) PT INR POC ABG pH POC ABG pCO2 POC ABG pO2 Sodium 136 L Potassium Chloride 97.7 L Carbon Dioxide 18 L BUN 88 H Creatinine 11.0 H Glucose 147 H POC Glucose Calcium Total Bilirubin 1.40 H Direct Bilirubin AST 269 H ALT 552 H Alkaline Phosphatase 198 H Total Creatine Kinase 4375 H Total Protein Albumin 3.3 L Urine WBC (Auto) Urine Creatinine Salicylates Acetaminophen Allied health notes reviewed: nursing
--- NOTE | 2019-03-20 09:33 | Progress Note ---
Assessment and Plan Assessment and plan: 33 YO Male with Polysubstance Abuse, Psychosis currently and inpatient at [facility] presents to ED for evaluation. Pt is lethargic and unable to provide history and is intubated and on vest support at time of my exam. Patient history provided by his father who is at bedside during exam and interview. As per father, the patient was found to be confused by [place] staff to be confused with decreased level of responsiveness. EMS notified, and upon arrival the patient was found to be unresponsive and treated with supportive care and IM Narcan and transported to [facility]. Pt seen and evaluated in ED and was found to have Encephalopathy, Sepsis, and Respiratory distress and was unable to protect his airway. Pt intubated and placed on vent support. Pt admitted to ICU and initiated on sepsis protocol. No prior admission for review. No medication listed at time of admission for reconciliation. * Extubated successfully 03/18/19 * Patient on admission was treated with sepsis while other differential diagnosis SIRS (systemic inflammatory response syndrome), Hypoglycemia, NMS (neuroleptic malignant syndrome), Drug abuse, Hepatic dysfunction was highly evident. He did rather recover quickly only evidence noted for infection is from Urinalysis * His mental status improved by day 2 * He had noted seizure like activity follow administration of Narcan * UDS positive for cocain * Neurology, Renal and Tapper Supervisor input noted * csf, unremarkable. Head CT -normal. EEG did not show active seizure. Sepsis- Resolved Acute Renal failure with underlying ATN and possible Glomerelonephritis, -worse, On going work up with renal, anticipate renal biopsy- WORSENIGN AZOTEMIA DESPITE RESOLVING RHABDO AND RESOLVED DKA - Nephrology following METABOLIC ACIDOSIS: Starting on dialysis today, anticipate correction Acute Metabolic Encephalopathy- Intermittent, may require intermittent Ativan, MONITOR FOR RESPIRATORY DEPRESSION Acute cystitis- Descalate ABX, await culture Polysubstane abuse- With overdose, UDS, POSITIVE for opioids, cocain and amphateamines, counselling provided, greater than 15 mins. Patient currently and admitted from a rRehab program Seizure-Likely secondary to opiate withdrawal Tobacco use disorder- Counseling provided Acute Hypoxemic Respiratory Failure-Resolved Rhabdomylysis- Improving, initially treated with IV Bicarb Drip Acute Heaptocellular dysfunction- ?Acute Hepatitis vs passive congestive failure and shock liver state-Improving- check hepatic panel Hyperkalemia- Resolved DVT/GI prophy Plan discussed with family History Interval history: Patient seen and examined, father at bedside No new complaints, sitting up this am, reports good urine output by nurses. Hospitalist Physical - Physical exam Narrative exam: General appearance: Present, AWAKE, - EENT Eyes: Present: anicteric sclera - Neck Neck: Present: supple, normal ROM - Respiratory Respiratory effort: stable Respiratory: bilateral: diminished - Cardiovascular Heart Sounds: Present: S1 & S2. Absent: rub, click - Extremities Extremities: pulses symmetrical, No edema Peripheral Pulses: within normal limits - Abdominal General gastrointestinal: Present: soft, non-tender, non-distended, normal bowel sounds Male genitourinary: Present: normal - Integumentary Integumentary: Present: clear, warm, dry - Musculoskeletal Musculoskeletal: no c/c/e - Psychiatric Psychiatric: blank look. - Neurologic Neurologic: no focal deficits, moves all extremities, no gait normal. - Constitutional Vitals: Temp Pulse Resp BP Pulse Ox 96.6 F L 50 L 20 146/87 98 03/20/19 05:16 03/20/19 05:16 03/20/19 05:16 03/20/19 05:16 03/20/19 05:16 General appearance: Present: mild distress Results - Labs CBC & Chem 7: 03/20/19 06:32 03/20/19 06:32 Labs: Laboratory Last Values WBC 7.7 K/mm3 (4.5-11.0) 03/20/19 06:32 RBC 3.72 M/mm3 (3.65-5.03) 03/20/19 06:32 Hgb 11.6 gm/dl (11.8-15.2) L 03/20/19 06:32 Hct 33.5 % (35.5-45.6) L 03/20/19 06:32 MCV 90 fl (84-94) 03/20/19 06:32 MCH 31 pg (28-32) 03/20/19 06:32 MCHC 35 % (32-34) H 03/20/19 06:32 RDW 14.3 % (13.2-15.2) 03/20/19 06:32 Plt Count 262 K/mm3 (140-440) 03/20/19 06:32 Lymph % (Auto) 17.3 % (13.4-35.0) 03/18/19 10:00 [place] % (Auto) 9.2 % (0.0-7.3) H 03/18/19 10:00 Eos % (Auto) 3.1 % (0.0-4.3) 03/18/19 10:00 Baso % (Auto) 1.2 % (0.0-1.8) 03/18/19 10:00 Lymph # 1.6 K/mm3 (1.2-5.4) 03/18/19 10:00 [place] # 0.8 K/mm3 (0.0-0.8) 03/18/19 10:00 Eos # 0.3 K/mm3 (0.0-0.4) 03/18/19 10:00 Baso # 0.1 K/mm3 (0.0-0.1) 03/18/19 10:00 Add Manual Diff Complete 03/16/19 10:37 Total Counted 100 03/16/19 10:37 Seg Neutrophils % 69.2 % (40.0-70.0) 03/18/19 10:00 Seg Neuts % (Manual) 90.0 % (40.0-70.0) H 03/16/19 10:37 1.0 % 03/16/19 10:37 2.0 % (13.4-35.0) L 03/16/19 10:37 Reactive Lymphs % (Man) 0 % 03/16/19 10:37 5.0 % (0.0-7.3) 03/16/19 10:37 0 % (0.0-4.3) 03/16/19 10:37 0 % (0.0-1.8) 03/16/19 10:37 1.0 % 03/16/19 10:37 1.0 % 03/16/19 10:37 0 % 03/16/19 10:37 0 % 03/16/19 10:37 Nucleated RBC % Not Reportable 03/16/19 10:37 Seg Neutrophils # 6.3 K/mm3 (1.8-7.7) 03/18/19 10:00 Seg Neutrophils # Man 24.9 K/mm3 (1.8-7.7) H 03/16/19 10:37 Band Neutrophils # 0.3 K/mm3 03/16/19 10:37 0.6 K/mm3 (1.2-5.4) L 03/16/19 10:37 Abs React Lymphs (Man) 0.0 K/mm3 03/16/19 10:37 1.4 K/mm3 (0.0-0.8) H 03/16/19 10:37 0.0 K/mm3 (0.0-0.4) 03/16/19 10:37 0.0 K/mm3 (0.0-0.1) 03/16/19 10:37 0.3 K/mm3 03/16/19 10:37 0.3 K/mm3 03/16/19 10:37 0.0 K/mm3 03/16/19 10:37 Blast Cells # 0.0 K/mm3 03/16/19 10:37 WBC Morphology Not Reportable 03/16/19 10:37 Hypersegmented Neuts Not Reportable 03/16/19 10:37 Hyposegmented Neuts Not Reportable 03/16/19 10:37 Hypogranular Neuts Not Reportable 03/16/19 10:37 Not Reportable 03/16/19 10:37 Not Reportable 03/16/19 10:37 Not Reportable 03/16/19 10:37 Not Reportable 03/16/19 10:37 Not Reportable 03/16/19 10:37 Not Reportable 03/16/19 10:37 Consistent w auto 03/16/19 10:37 Not Reportable 03/16/19 10:37 Plt Clumps, EDTA Not Reportable 03/16/19 10:37 Not Reportable 03/16/19 10:37 Not Reportable 03/16/19 10:37 Not Reportable 03/16/19 10:37 Plt Morphology Comment Not Reportable 03/16/19 10:37 RBC Morphology Normal 03/16/19 10:37 Dimorphic RBCs Not Reportable 03/16/19 10:37 Not Reportable 03/16/19 10:37 Not Reportable 03/16/19 10:37 Not Reportable 03/16/19 10:37 Not Reportable 03/16/19 10:37 Not Reportable 03/16/19 10:37 Not Reportable 03/16/19 10:37 Not Reportable 03/16/19 10:37 Not Reportable 03/16/19 10:37 Not Reportable 03/16/19 10:37 Not Reportable 03/16/19 10:37 Not Reportable 03/16/19 10:37 Not Reportable 03/16/19 10:37 Not Reportable 03/16/19 10:37 Not Reportable 03/16/19 10:37 Not Reportable 03/16/19 10:37 Not Reportable 03/16/19 10:37 Not Reportable 03/16/19 10:37 Not Reportable 03/16/19 10:37 Not Reportable 03/16/19 10:37 Acanthocytes (Spur) Not Reportable 03/16/19 10:37 [place] Not Reportable 03/16/19 10:37 Not Reportable 03/16/19 10:37 Not Reportable 03/16/19 10:37 Not Reportable 03/16/19 10:37 Not Reportable 03/16/19 10:37 Hem Pathologist Commnt No 03/16/19 10:37 PT 17.5 Sec. (12.2-14.9) H 03/16/19 10:37 INR 1.47 (0.87-1.13) H 03/16/19 10:37 APTT 25.7 Sec. (24.2-36.6) 03/16/19 10:37 POC ABG pH 7.473 (7.35-7.45) H 03/18/19 09:16 POC ABG pCO2 31.5 (35-45) L 03/18/19 09:16 POC ABG pO2 118 (80-105) H 03/18/19 09:16 POC ABG HCO3 23.1 (22-26 mml/L) 03/18/19 09:16 POC ABG Total CO2 24 (23-27mmol/L) 03/18/19 09:16 POC ABG O2 Sat 99 03/18/19 09:16 POC ABG Base Excess 0 ((-2) - (+3)mmol/L) 03/18/19 09:16 25 % 03/18/19 09:16 Sodium 136 mmol/L (137-145) L 03/20/19 06:32 Potassium 4.7 mmol/L (3.6-5.0) D 03/20/19 06:32 Chloride 97.7 mmol/L (98-107) L 03/20/19 06:32 Carbon Dioxide 18 mmol/L (22-30) L 03/20/19 06:32 25 mmol/L 03/20/19 06:32 BUN 88 mg/dL (9-20) H 03/20/19 06:32 11.0 mg/dL (0.8-1.5) H 03/20/19 06:32 Estimated GFR 5 ml/min 03/20/19 06:32 8 % 03/20/19 06:32 Glucose 147 mg/dL (75-100) H 03/20/19 06:32 POC Glucose 100 (70-105) 03/16/19 17:45 Lactic Acid 0.80 mmol/L (0.7-2.0) 03/16/19 16:38 Calcium 8.7 mg/dL (8.4-10.2) 03/20/19 06:32 1.40 mg/dL (0.1-1.2) H 03/20/19 06:32 1.6 mg/dL (0-0.2) H 03/19/19 09:53 0.6 mg/dL 03/19/19 09:53 AST 269 units/L (5-40) H 03/20/19 06:32 ALT 552 units/L (7-56) H 03/20/19 06:32 198 units/L (35-129) H 03/20/19 06:32 4375 units/L (55-170) H 03/20/19 06:32 < 0.010 ng/mL (0.00-0.029) 03/16/19 10:37 6.4 g/dL (6.3-8.2) 03/20/19 06:32 3.3 g/dL (3.9-5) L 03/20/19 06:32 1.1 % 03/20/19 06:32 Triglycerides 76 mg/dL (2-149) 03/18/19 15:24 [place] (Yellow) 03/18/19 12:49 Cloudy (Clear) 03/18/19 12:49 5.0 (5.0-7.0) 03/18/19 12:49 Ur Specific [place] 1.015 (1.003-1.030) 03/18/19 12:49 >500 mg/dL (Negative) 03/18/19 12:49 150 mg/dL (Negative) 03/18/19 12:49 Tr mg/dL (Negative) 03/18/19 12:49 Lg (Negative) 03/18/19 12:49 Neg (Negative) 03/18/19 12:49 Neg (Negative) 03/18/19 12:49 < 2.0 mg/dL (<2.0) 03/18/19 12:49 Ur Leukocyte Esterase Neg (Negative) 03/18/19 12:49 18.0 /HPF (0.0-6.0) H 03/18/19 12:49 121.0 /HPF (0.0-6.0) 03/18/19 12:49 U Epithel Cells (Auto) 2.0 /HPF (0-13.0) 03/18/19 12:49 3+ /HPF (Negative) 03/18/19 12:49 Few /HPF 03/18/19 12:49 75.6 mg/dL (0.1-20.0) H 03/16/19 11:37 50 mmol/L 03/16/19 11:37 Clear 03/16/19 12:40 Clear 03/16/19 12:40 Colorless 03/16/19 12:40 Colorless 03/16/19 12:40 2 /mm3 (1-10) 03/16/19 12:40 2 /mm3 (1-10) 03/16/19 12:40 0 /mm3 (0-0) 03/16/19 12:40 0 /mm3 (0-0) 03/16/19 12:40 CSF Seg Neutrophils 0 % (0-6) 03/16/19 12:40 CSF Seg Neutrophils 0 % (0-6) 03/16/19 12:40 47.7 % (40-80) 03/16/19 12:40 93.1 % (40-80) 03/16/19 12:40 CSF Reactive Lymphs 0 % 03/16/19 12:40 CSF Reactive Lymphs 0 % 03/16/19 12:40 6.9 % (15-45) 03/16/19 12:40 52.3 % (15-45) 03/16/19 12:40 0 % 03/16/19 12:40 0 % 03/16/19 12:40 0 % 03/16/19 12:40 0 % 03/16/19 12:40 C 03/16/19 12:40 C 03/16/19 12:40 69 mg/dL 03/16/19 12:40 Salicylates < 0.3 mg/dL (2.8-20.0) L 03/16/19 10:37 Presumptive positive 03/16/19 11:37 Presumptive negative 03/16/19 11:37 Acetaminophen < 5.0 ug/mL (10.0-30.0) L 03/16/19 10:37 Ur Barbiturates Screen Presumptive negative 03/16/19 11:37 Ur Phencyclidine Scrn Presumptive negative 03/16/19 11:37 Ur Amphetamines Screen Presumptive positive 03/16/19 11:37 U Benzodiazepines Scrn Presumptive negative 03/16/19 11:37 Presumptive positive 03/16/19 11:37 U Marijuana (THC) Screen Presumptive negative 03/16/19 11:37 Disclamer 03/16/19 11:37 Plasma/Serum Alcohol < 0.01 % (0-0.07) 03/16/19 10:37 HIV 1&2 Antibody Rapid Non react (Non React) 03/16/19 12:05 Non react (Non React) 03/16/19 12:05 Active Medications - Current Medications Current Medications: Generic Name Dose Route Start Last Admin Trade Name Freq PRN Reason Stop Dose Admin Cephalexin 250 mg 03/19/19 12:00 03/19/19 11:05 Keflex PO 250 mg Q24HR JOÃO Administration Diphenhydramine HCl 25 mg 03/19/19 22:54 03/20/19 00:12 Benadryl PO 25 mg Q6H PRN Administration Itching Famotidine 20 mg 03/19/19 10:00 03/19/19 09:34 Pepcid PO 20 mg DAILY JOÃO Administration Heparin Sodium (Porcine) 5,000 unit 03/16/19 22:00 03/19/19 21:19 Heparin SUB-Q 5,000 unit Q12HR JOÃO Administration Sodium Chloride 1,000 mls @ 125 mls/hr 03/19/19 08:00 03/20/19 00:12 Nacl 0.9% 1000 Ml IV 125 mls/hr DIRECT JOÃO Administration Methylprednisolone Sodium 100 mls @ 200 mls/hr 03/19/19 15:30 03/19/19 15:41 Succinate 500 mg/ Sodium IV 03/21/19 10:29 200 mls/hr Chloride Q24HR JOÃO Administration Lorazepam 2 mg 03/19/19 17:14 Ativan IV Q6H PRN Agitation Sodium Chloride 10 ml 03/16/19 22:00 03/20/19 00:13 Sodium Chloride Flush Syringe 10 Ml IV 10 ml BID JOÃO Administration Sodium Chloride 10 ml 03/16/19 11:52 Sodium Chloride Flush Syringe 10 Ml IV PRN PRN LINE FLUSH
[2019-03-20] MEDS ORDERED: NACL 0.9% 100 ML IV PRN (10:19)
--- NOTE | 2019-03-20 10:29 | Progress Note ---
Assessment and Plan - Patient Problems (1) Acute renal failure Current Visit: Yes Status: Acute Qualifiers: Acute renal failure type: with acute tubular necrosis Qualified Code(s): N17.0 - Acute kidney failure with tubular necrosis Plan to address problem: severe ABDI possibly in the setting of ATN. With the urinalysis findings have to rule out possible glomerulonephritis. Concern for possible underlying rapidly progressive glomerulonephritis given quick rise in his serum creatinine wors ening kidney function. Sent complement levels as well as ANCA vasculitis studies stat, which are pending. Empiric treatment with IV steroid pulse, scheduled for renal biopsy on Mon. progressive decline in eGFR noted along with developing uremic symptoms. Discussed indication, risks and benefits of temporary HD with patient and father, initially pt was reluctant to undergo HD, but now agreeable to HD. vascular surgery consulted for vacath placement. Will initiate HD once access placed. Recommend avoiding any nephrotoxins. Maintain maps above 65. (2) Rhabdomyolysis Current Visit: Yes Status: Acute Qualifiers: Encounter type: initial encounter Plan to address problem: His CPK levels are showing improvement with fluid hydration. Will continue at this time. (3) Encephalopathy Current Visit: Yes Status: Acute Plan to address problem: uremic encephalopathy contributing. HD for today (4) Respiratory failure Current Visit: Yes Status: Acute Qualifiers: Chronicity: acute Respiratory failure complication: hypoxia Qualified Code(s): J96.01 - Acute respiratory failure with hypoxia Plan to address problem: Patient has been extubated at this time and his overall respiratory status is stable. Subjective Date of service: 03/20/19 Principal diagnosis: Ac. hypoxemic resp failure; Ac encephalopathy (toxic/met); ABDI; Drug OD Interval history: Pt awake, weak, decreased appetite, some nausea reported, however not in acute respiratory distress. Objective - Vital Signs Vital signs: Vital Signs - 12hr 03/20/19 03/20/19 00:00 05:16 Temperature 96.6 F L Pulse Rate 50 L Pulse Rate [ 56 L From Monitor] Respiratory 20 Rate Blood Pressure 146/87 O2 Sat by Pulse 98 Oximetry - General Appearance General appearance: well-developed, well-nourished, appears stated age EENT: ATNC, PERRL, mucous membranes moist Neck: no JVD Respiratory: Present: Clear to Ascultation Cardiology: regular, S1S2 Gastrointestinal: normoactive bowel sounds Integumentary: no rash, other (no edema ) Neurologic: no focal deficit, alert and oriented x3, strength 5/5, CN 3-12 intact Psychiatric: mood/affect appropriate, cooperative - Lab 03/20/19 06:32 03/20/19 06:32 Most recent lab results Calcium 8.7 mg/dL (8.4-10.2) 03/20/19 06:32 75.6 mg/dL (0.1-20.0) H 03/16/19 11:37 50 mmol/L 03/16/19 11:37 Medications & Allergies - Medications Allergies/Adverse Reactions: Allergies Unable to Assess Allergy (Unverified 03/16/19 11:41) AMS Home Medications: Home Medications Medication Instructions Recorded Confirmed Last Taken Type Unobtainable 03/16/19 03/16/19 Unknown History Active Medications: Generic Name Dose Route Start Last Admin Trade Name Freq PRN Reason Stop Dose Admin Cephalexin 250 mg 03/19/19 12:00 03/19/19 11:05 Keflex PO 250 mg Q24HR JOÃO Administration Diphenhydramine HCl 25 mg 03/19/19 22:54 03/20/19 00:12 Benadryl PO 25 mg Q6H PRN Administration Itching Famotidine 20 mg 03/19/19 10:00 03/19/19 09:34 Pepcid PO 20 mg DAILY JOÃO Administration Heparin Sodium (Porcine) 5,000 unit 03/16/19 22:00 03/19/19 21:19 Heparin SUB-Q 5,000 unit Q12HR JOÃO Administration Sodium Chloride 1,000 mls @ 125 mls/hr 03/19/19 08:00 03/20/19 00:12 Nacl 0.9% 1000 Ml IV 125 mls/hr DIRECT JOÃO Administration Methylprednisolone Sodium 100 mls @ 200 mls/hr 03/19/19 15:30 03/19/19 15:41 Succinate 500 mg/ Sodium IV 03/21/19 10:29 200 mls/hr Chloride Q24HR JOÃO Administration Sodium Chloride 100 mls @ 999 mls/hr 03/20/19 10:19 Nacl 0.9% IV BECK PRN Hypotension Lorazepam 2 mg 03/19/19 17:14 Ativan IV Q6H PRN Agitation Sodium Chloride 10 ml 03/16/19 22:00 03/20/19 00:13 Sodium Chloride Flush Syringe 10 Ml IV 10 ml BID JOÃO Administration Sodium Chloride 10 ml 03/16/19 11:52 Sodium Chloride Flush Syringe 10 Ml IV PRN PRN LINE FLUSH
[2019-03-20] MEDS: HEPARIN SUB-Q SCH ×2 (10:52→21:47)
[2019-03-20] MEDS: SOLU-Medrol 500 MG in NACL 0.9% 100 ML IV SCH (11:01)
[2019-03-20] MEDS: KEFLEX PO SCH (11:15)
[2019-03-20] MEDS: PEPCID PO SCH (11:15)
[2019-03-20] MEDS ORDERED: HEPARIN 10,000 UNITS/10 ML ONE (11:16)
[2019-03-20] MEDS ORDERED: HEPARIN/NS 5000 UNIT/500ML(CATH LAB) 500 ML IR ONE (11:16)
[2019-03-20] MEDS ORDERED: XYLOCAINE 1%/ EPI 1:100,000 INFILTRATI ONE (11:17)
[2019-03-20] MEDS ORDERED: VERSED ONE (11:22)
[2019-03-20] MEDS ORDERED: SUBLIMAZE ONE (11:22)
--- NOTE | 2019-03-20 11:26 | Event Note ---
Date: 03/20/19 Discussed situation with mother. Dialysis catheter is necessary for treatment. The risks of dialysis catheters include, but are not limited to, pneumothorax, hemorrhage, deep venous thrombosis, infection, and malfunction. Without dialysis, the patient will experience significant morbidity and possible mortality. Dialysis catheter risks exist and are unpredictable. Mother agreed to proceeding with intervention.
--- NOTE | 2019-03-20 11:50 | Operative Report ---
Operative Report Operative Report: RIGHT JUGULAR VASCATH Date of procedure: 03/20/2019 Pre-operative diagnosis: ESRD Post-operative diagnosis: same Procedure name(s): 1. US guided puncture of the right internal jugular vein 2. Placement of right internal jugular vein Medcomp 6" Vascath 3. Fluoroscopic supervision Surgeon: Jose Cerda MD, FACS Shuttle Van Driver: none Anesthesia: local only EBL: minimal Operative indication: Patient is a 33 yo man who requires hemodialysis access. Findings: Good flow from both ports. Catheter located at the cavoatrial junction. Procedure: The patient was placed on the table in the supine position. The area over the right neck and chest was prepped with ChloraPrep solution and draped in usual sterile fashion. 1% lidocaine was used for local anesthesia. Under real-time ultrasound guidance the right internal jugular vein was identified and cannulated using micropuncture technique. A guidewire was advanced into the central circulation. Using the dilator, the track into the jugular vein was dilated. The catheter was placed over the wire into the central circulation. The catheter tip was placed at the cavoatrial junction. The catheters were aspirated with excellent flow from both ports. Both ports flushed easily. They were then filled to their stated volume with 1000 unit per milliliter heparin. The catheter was sewn to the skin with 2-0 Proline. Sterile dressings were applied. The patient tolerated the procedure well.
[2019-03-20] MEDS ORDERED: NACL 0.9 (PRIMING MACHINE ONLY DIALYSIS) MC ONE (12:28)
[2019-03-20 16:02] LABS: Hepatitis B Surface Antigen Non-Reactive (Negative); Hepatitis C Virus Antibody Non-Reactive (NonReactive)
--- NOTE | 2019-03-21 07:43 | Progress Note ---
Assessment and Plan - Patient Problems (1) Acute renal failure Current Visit: Yes Status: Acute Qualifiers: Acute renal failure type: with acute tubular necrosis Qualified Code(s): N17.0 - Acute kidney failure with tubular necrosis Plan to address problem: severe ABDI possibly in the setting of ATN. With the urinalysis findings have to rule out possible glomerulonephritis. Concern for possible underlying rapidly progressive glomerulonephritis given quick rise in his serum creatinine wors ening kidney function. Sent complement levels as well as ANCA vasculitis studies stat, which are pending. Empiric treatment with IV steroid pulse, scheduled for renal biopsy on Fri. progressive decline in eGFR noted along with developing uremic symptoms. Patient initiated on HD on 03/20, next HD scheduled for Fri AM. Recommend avoiding any nephrotoxins. Maintain maps above 65. (2) Rhabdomyolysis Current Visit: Yes Status: Acute Qualifiers: Encounter type: initial encounter Plan to address problem: CPK levels are trending down with fluid hydration. Will continue at this time, however at decreased rate to avoid fluid overload in the setting of oliguria (3) Encephalopathy Current Visit: Yes Status: Acute Plan to address problem: uremic encephalopathy contributing. HD for today (4) Respiratory failure Current Visit: Yes Status: Acute Qualifiers: Chronicity: acute Respiratory failure complication: hypoxia Qualified Code(s): J96.01 - Acute respiratory failure with hypoxia Plan to address problem: Patient has been extubated at this time and his overall respiratory status is stable. Subjective Date of service: 03/21/19 Principal diagnosis: Ac. hypoxemic resp failure; Ac encephalopathy (toxic/met); ABDI; Drug OD Interval history: Pt awake, denies fever, chills, SOB, CP, n/v/d, reports decreased urine output. HD well tolerated yesterday. Objective - Vital Signs Vital signs: Vital Signs - 12hr 03/21/19 04:09 Temperature 98.3 F Pulse Rate 60 Blood Pressure 153/83 O2 Sat by Pulse 97 Oximetry - General Appearance General appearance: well-developed, well-nourished, appears stated age EENT: ATNC, PERRL, mucous membranes moist Neck: no JVD Respiratory: Present: Clear to Ascultation Cardiology: regular, S1S2 Gastrointestinal: normoactive bowel sounds Integumentary: no rash Neurologic: no focal deficit, alert and oriented x3, strength 5/5, CN 3-12 i ntact Psychiatric: mood/affect appropriate, cooperative - Lab 03/20/19 06:32 03/20/19 06:32 Most recent lab results Calcium 8.7 mg/dL (8.4-10.2) 03/20/19 06:32 75.6 mg/dL (0.1-20.0) H 03/16/19 11:37 50 mmol/L 03/16/19 11:37 Medications & Allergies - Medications Allergies/Adverse Reactions: Allergies Unable to Assess Allergy (Unverified 03/16/19 11:41) AMS Home Medications: Home Medications Medication Instructions Recorded Confirmed Last Taken Type Unobtainable 03/16/19 03/16/19 Unknown History Active Medications: Generic Name Dose Route Start Last Admin Trade Name Freq PRN Reason Stop Dose Admin Cephalexin 250 mg 03/19/19 12:00 03/20/19 11:15 Keflex PO Not Given Q24HR JOÃO Diphenhydramine HCl 25 mg 03/19/19 22:54 03/20/19 00:12 Benadryl PO 25 mg Q6H PRN Administration Itching Famotidine 20 mg 03/19/19 10:00 03/20/19 11:15 Pepcid PO Not Given DAILY JOÃO Heparin Sodium (Porcine) 5,000 unit 03/16/19 22:00 03/20/19 21:47 Heparin SUB-Q 5,000 unit Q12HR JOÃO Administration Sodium Chloride 1,000 mls @ 125 mls/hr 03/19/19 08:00 03/21/19 03:15 Nacl 0.9% 1000 Ml IV Infused DIRECT JOÃO Infusion Methylprednisolone Sodium 100 mls @ 200 mls/hr 03/19/19 15:30 03/20/19 11:01 Succinate 500 mg/ Sodium IV 03/21/19 10:29 200 mls/hr Chloride Q24HR JOÃO Administration Sodium Chloride 100 mls @ 999 mls/hr 03/20/19 10:19 Nacl 0.9% IV BECK PRN Hypotension Lorazepam 2 mg 03/19/19 17:14 Ativan IV Q6H PRN Agitation Sodium Chloride 10 ml 03/16/19 22:00 03/20/19 21:48 Sodium Chloride Flush Syringe 10 Ml IV 10 ml BID JOÃO Administration Sodium Chloride 10 ml 03/16/19 11:52 Sodium Chloride Flush Syringe 10 Ml IV PRN PRN LINE FLUSH
[2019-03-21] MEDS ORDERED: NACL 0.9% 100 ML IV PRN (07:45)
--- NOTE | 2019-03-21 08:34 | Progress Note ---
Assessment and Plan Assessment and plan: 33 YO Male with Polysubstance Abuse, Psychosis currently and inpatient at [facility] presents to ED for evaluation. Pt is lethargic and unable to provide history and is intubated and on vest support at time of my exam. Patient history provided by his father who is at bedside during exam and interview. As per father, the patient was found to be confused by [facility] staff to be confused with decreased level of responsiveness. EMS notified, and upon arrival the patient was found to be unresponsive and treated with supportive care and IM Narcan and transported to [facility]. Pt seen and evaluated in ED and was found to have Encephalopathy, Sepsis, and Respiratory distress and was unable to protect his airway. Pt intubated and placed on vent support. Pt admitted to ICU and initiated on sepsis protocol. No prior admission for review. No medication listed at time of admission for reconciliation. * Extubated successfully 03/18/19 * Patient on admission was treated with sepsis while other differential diagnosis SIRS (systemic inflammatory response syndrome), Hypoglycemia, NMS (neuroleptic malignant syndrome), Drug abuse, Hepatic dysfunction was highly evident. He did rather recover quickly only evidence noted for infection is from Urinalysis * His mental status improved by day 2 * He had noted seizure like activity follow administration of Narcan * UDS positive for cocain * Neurology, Renal and Area Manager input noted * csf, unremarkable. Head CT -normal. EEG did not show active seizure. * Dialysis access placed 03/20/19 and dialysis started Sepsis- Resolved Acute Renal failure with underlying ATN and possible Glomerelonephritis, -worse, On going work up with renal, anticipate renal biopsy- - Nephrology following. vascular work up ongoing, pulse dose steroids started METABOLIC ACIDOSIS: started dialysis, anticipate correction Acute Metabolic Encephalopathy- Intermittent, may require intermittent Ativan, MONITOR FOR RESPIRATORY DEPRESSION Acute cystitis- Descalate ABX, await culture Polysubstane abuse- With overdose, UDS, POSITIVE for opioids, cocain and amphateamines, counselling provided, greater than 15 mins. Patient currently and admitted from a Rehab program Seizure-Likely secondary to opiate withdrawal Tobacco use disorder- Counseling provided Acute Hypoxemic Respiratory Failure-Resolved Rhabdomylysis- Improving, initially treated with IV Bicarb Drip Acute Heaptocellular dysfunction- ?Acute Hepatitis vs passive congestive failure and shock liver state-Improving- check hepatic panel Hyperkalemia- Resolved DVT/GI prophy Plan discussed with family History Interval history: Patient seen and examined, No new complaints, tolerated Dialysis yesterday Hospitalist Physical - Physical exam Narrative exam: General appearance: Present, AWAKE, - EENT Eyes: Present: anicteric sclera - Neck Neck: Present: supple, normal ROM - Respiratory Respiratory effort: stable Respiratory: bilateral: diminished - Cardiovascular Heart Sounds: Present: S1 & S2. Absent: rub, click - Extremities Extremities: pulses symmetrical, No edema Peripheral Pulses: within normal limits - Abdominal General gastrointestinal: Present: soft, non-tender, non-distended, normal bowel sounds Male genitourinary: Present: normal - Integumentary Integumentary: Present: clear, warm, dry - Musculoskeletal Musculoskeletal: no c/c/e - Psychiatric Psychiatric: blank look. - Neurologic Neurologic: no focal deficits, moves all extremities, no gait normal. - Constitutional Vitals: Temp Pulse Resp BP Pulse Ox 98.3 F 60 20 153/83 97 03/21/19 04:09 03/21/19 04:09 03/20/19 18:57 03/21/19 04:09 03/21/19 04:09 General appearance: Present: mild distress Results - Labs CBC & Chem 7: 03/20/19 06:32 03/21/19 08:24 Labs: Laboratory Last Values WBC 7.7 K/mm3 (4.5-11.0) 03/20/19 06:32 RBC 3.72 M/mm3 (3.65-5.03) 03/20/19 06:32 Hgb 11.6 gm/dl (11.8-15.2) L 03/20/19 06:32 Hct 33.5 % (35.5-45.6) L 03/20/19 06:32 MCV 90 fl (84-94) 03/20/19 06:32 MCH 31 pg (28-32) 03/20/19 06:32 MCHC 35 % (32-34) H 03/20/19 06:32 RDW 14.3 % (13.2-15.2) 03/20/19 06:32 Plt Count 262 K/mm3 (140-440) 03/20/19 06:32 Lymph % (Auto) 17.3 % (13.4-35.0) 03/18/19 10:00 [place] % (Auto) 9.2 % (0.0-7.3) H 03/18/19 10:00 Eos % (Auto) 3.1 % (0.0-4.3) 03/18/19 10:00 Baso % (Auto) 1.2 % (0.0-1.8) 03/18/19 10:00 Lymph # 1.6 K/mm3 (1.2-5.4) 03/18/19 10:00 [place] # 0.8 K/mm3 (0.0-0.8) 03/18/19 10:00 Eos # 0.3 K/mm3 (0.0-0.4) 03/18/19 10:00 Baso # 0.1 K/mm3 (0.0-0.1) 03/18/19 10:00 Add Manual Diff Complete 03/16/19 10:37 Total Counted 100 03/16/19 10:37 Seg Neutrophils % 69.2 % (40.0-70.0) 03/18/19 10:00 Seg Neuts % (Manual) 90.0 % (40.0-70.0) H 03/16/19 10:37 1.0 % 03/16/19 10:37 2.0 % (13.4-35.0) L 03/16/19 10:37 Reactive Lymphs % (Man) 0 % 03/16/19 10:37 5.0 % (0.0-7.3) 03/16/19 10:37 0 % (0.0-4.3) 03/16/19 10:37 0 % (0.0-1.8) 03/16/19 10:37 1.0 % 03/16/19 10:37 1.0 % 03/16/19 10:37 0 % 03/16/19 10:37 0 % 03/16/19 10:37 Nucleated RBC % Not Reportable 03/16/19 10:37 Seg Neutrophils # 6.3 K/mm3 (1.8-7.7) 03/18/19 10:00 Seg Neutrophils # Man 24.9 K/mm3 (1.8-7.7) H 03/16/19 10:37 Band Neutrophils # 0.3 K/mm3 03/16/19 10:37 0.6 K/mm3 (1.2-5.4) L 03/16/19 10:37 Abs React Lymphs (Man) 0.0 K/mm3 03/16/19 10:37 1.4 K/mm3 (0.0-0.8) H 03/16/19 10:37 0.0 K/mm3 (0.0-0.4) 03/16/19 10:37 0.0 K/mm3 (0.0-0.1) 03/16/19 10:37 0.3 K/mm3 03/16/19 10:37 0.3 K/mm3 03/16/19 10:37 0.0 K/mm3 03/16/19 10:37 Blast Cells # 0.0 K/mm3 03/16/19 10:37 WBC Morphology Not Reportable 03/16/19 10:37 Hypersegmented Neuts Not Reportable 03/16/19 10:37 Hyposegmented Neuts Not Reportable 03/16/19 10:37 Hypogranular Neuts Not Reportable 03/16/19 10:37 Not Reportable 03/16/19 10:37 Not Reportable 03/16/19 10:37 Not Reportable 03/16/19 10:37 Not Reportable 03/16/19 10:37 Not Reportable 03/16/19 10:37 Not Reportable 03/16/19 10:37 Consistent w auto 03/16/19 10:37 Not Reportable 03/16/19 10:37 Plt Clumps, EDTA Not Reportable 03/16/19 10:37 Not Reportable 03/16/19 10:37 Not Reportable 03/16/19 10:37 Not Reportable 03/16/19 10:37 Plt Morphology Comment Not Reportable 03/16/19 10:37 RBC Morphology Normal 03/16/19 10:37 Dimorphic RBCs Not Reportable 03/16/19 10:37 Not Reportable 03/16/19 10:37 Not Reportable 03/16/19 10:37 Not Reportable 03/16/19 10:37 Not Reportable 03/16/19 10:37 Not Reportable 03/16/19 10:37 Not Reportable 03/16/19 10:37 Not Reportable 03/16/19 10:37 Not Reportable 03/16/19 10:37 Not Reportable 03/16/19 10:37 Not Reportable 03/16/19 10:37 Not Reportable 03/16/19 10:37 Not Reportable 03/16/19 10:37 Not Reportable 03/16/19 10:37 Not Reportable 03/16/19 10:37 Not Reportable 03/16/19 10:37 Not Reportable 03/16/19 10:37 Not Reportable 03/16/19 10:37 Not Reportable 03/16/19 10:37 Not Reportable 03/16/19 10:37 Acanthocytes (Spur) Not Reportable 03/16/19 10:37 [place]le[place] Not Reportable 03/16/19 10:37 Not Reportable 03/16/19 10:37 Not Reportable 03/16/19 10:37 Not Reportable 03/16/19 10:37 Not Reportable 03/16/19 10:37 Hem Pathologist Commnt No 03/16/19 10:37 PT 17.5 Sec. (12.2-14.9) H 03/16/19 10:37 INR 1.47 (0.87-1.13) H 03/16/19 10:37 APTT 25.7 Sec. (24.2-36.6) 03/16/19 10:37 POC ABG pH 7.473 (7.35-7.45) H 03/18/19 09:16 POC ABG pCO2 31.5 (35-45) L 03/18/19 09:16 POC ABG pO2 118 (80-105) H 03/18/19 09:16 POC ABG HCO3 23.1 (22-26 mml/L) 03/18/19 09:16 POC ABG Total CO2 24 (23-27mmol/L) 03/18/19 09:16 POC ABG O2 Sat 99 03/18/19 09:16 POC ABG Base Excess 0 ((-2) - (+3)mmol/L) 03/18/19 09:16 25 % 03/18/19 09:16 Sodium 136 mmol/L (137-145) L 03/20/19 06:32 Potassium 4.7 mmol/L (3.6-5.0) D 03/20/19 06:32 Chloride 97.7 mmol/L (98-107) L 03/20/19 06:32 Carbon Dioxide 18 mmol/L (22-30) L 03/20/19 06:32 25 mmol/L 03/20/19 06:32 BUN 88 mg/dL (9-20) H 03/20/19 06:32 11.0 mg/dL (0.8-1.5) H 03/20/19 06:32 Estimated GFR 5 ml/min 03/20/19 06:32 8 % 03/20/19 06:32 Glucose 147 mg/dL (75-100) H 03/20/19 06:32 POC Glucose 100 (70-105) 03/16/19 17:45 Lactic Acid 0.80 mmol/L (0.7-2.0) 03/16/19 16:38 Calcium 8.7 mg/dL (8.4-10.2) 03/20/19 06:32 1.40 mg/dL (0.1-1.2) H 03/20/19 06:32 1.6 mg/dL (0-0.2) H 03/19/19 09:53 0.6 mg/dL 03/19/19 09:53 AST 269 units/L (5-40) H 03/20/19 06:32 ALT 552 units/L (7-56) H 03/20/19 06:32 198 units/L (35-129) H 03/20/19 06:32 4375 units/L (55-170) H 03/20/19 06:32 < 0.010 ng/mL (0.00-0.029) 03/16/19 10:37 6.4 g/dL (6.3-8.2) 03/20/19 06:32 3.3 g/dL (3.9-5) L 03/20/19 06:32 1.1 % 03/20/19 06:32 Triglycerides 76 mg/dL (2-149) 03/18/19 15:24 [place] (Yellow) 03/18/19 12:49 Cloudy (Clear) 03/18/19 12:49 5.0 (5.0-7.0) 03/18/19 12:49 Ur Specific [place] 1.015 (1.003-1.030) 03/18/19 12:49 >500 mg/dL (Negative) 03/18/19 12:49 150 mg/dL (Negative) 03/18/19 12:49 Tr mg/dL (Negative) 03/18/19 12:49 Lg (Negative) 03/18/19 12:49 Neg (Negative) 03/18/19 12:49 Neg (Negative) 03/18/19 12:49 < 2.0 mg/dL (<2.0) 03/18/19 12:49 Ur Leukocyte Esterase Neg (Negative) 03/18/19 12:49 18.0 /HPF (0.0-6.0) H 03/18/19 12:49 121.0 /HPF (0.0-6.0) 03/18/19 12:49 U Epithel Cells (Auto) 2.0 /HPF (0-13.0) 03/18/19 12:49 3+ /HPF (Negative) 03/18/19 12:49 Few /HPF 03/18/19 12:49 75.6 mg/dL (0.1-20.0) H 03/16/19 11:37 50 mmol/L 03/16/19 11:37 Clear 03/16/19 12:40 Clear 03/16/19 12:40 Colorless 03/16/19 12:40 Colorless 03/16/19 12:40 2 /mm3 (1-10) 03/16/19 12:40 2 /mm3 (1-10) 03/16/19 12:40 0 /mm3 (0-0) 03/16/19 12:40 0 /mm3 (0-0) 03/16/19 12:40 CSF Seg Neutrophils 0 % (0-6) 03/16/19 12:40 CSF Seg Neutrophils 0 % (0-6) 03/16/19 12:40 47.7 % (40-80) 03/16/19 12:40 93.1 % (40-80) 03/16/19 12:40 CSF Reactive Lymphs 0 % 03/16/19 12:40 CSF Reactive Lymphs 0 % 03/16/19 12:40 6.9 % (15-45) 03/16/19 12:40 52.3 % (15-45) 03/16/19 12:40 0 % 03/16/19 12:40 0 % 03/16/19 12:40 0 % 03/16/19 12:40 0 % 03/16/19 12:40 C 03/16/19 12:40 C 03/16/19 12:40 69 mg/dL 03/16/19 12:40 Salicylates < 0.3 mg/dL (2.8-20.0) L 03/16/19 10:37 Presumptive positive 03/16/19 11:37 Presumptive negative 03/16/19 11:37 Acetaminophen < 5.0 ug/mL (10.0-30.0) L 03/16/19 10:37 Ur Barbiturates Screen Presumptive negative 03/16/19 11:37 Ur Phencyclidine Scrn Presumptive negative 03/16/19 11:37 Ur Amphetamines Screen Presumptive positive 03/16/19 11:37 U Benzodiazepines Scrn Presumptive negative 03/16/19 11:37 Presumptive positive 03/16/19 11:37 U Marijuana (THC) Screen Presumptive negative 03/16/19 11:37 Disclamer 03/16/19 11:37 Plasma/Serum Alcohol < 0.01 % (0-0.07) 03/16/19 10:37 Hepatitis A IgM Ab Non-reactive (NonReactive) 03/20/19 14:30 Hep Bs Antigen Non-reactive (Negative) 03/20/19 14:30 Hep B Core IgM Ab Non-reactive (NonReactive) 03/20/19 14:30 Non-reactive (NonReactive) 03/20/19 14:30 HIV 1&2 Antibody Rapid Non react (Non React) 03/16/19 12:05 Non react (Non React) 03/16/19 12:05 Active Medications - Current Medications Current Medications: Generic Name Dose Route Start Last Admin Trade Name Freq PRN Reason Stop Dose Admin Cephalexin 250 mg 03/19/19 12:00 03/20/19 11:15 Keflex PO Not Given Q24HR JOÃO Diphenhydramine HCl 25 mg 03/19/19 22:54 03/20/19 00:12 Benadryl PO 25 mg Q6H PRN Administration Itching Famotidine 20 mg 03/19/19 10:00 03/20/19 11:15 Pepcid PO Not Given DAILY JOÃO Heparin Sodium (Porcine) 5,000 unit 03/16/19 22:00 03/20/19 21:47 Heparin SUB-Q 5,000 unit Q12HR JOÃO Administration Sodium Chloride 1,000 mls @ 125 mls/hr 03/19/19 08:00 03/21/19 03:15 Nacl 0.9% 1000 Ml IV Infused DIRECT JOÃO Infusion Methylprednisolone Sodium 100 mls @ 200 mls/hr 03/19/19 15:30 03/20/19 11:01 Succinate 500 mg/ Sodium IV 03/21/19 10:29 200 mls/hr Chloride Q24HR JOÃO Administration Sodium Chloride 100 mls @ 999 mls/hr 03/20/19 10:19 Nacl 0.9% IV BECK PRN Hypotension Sodium Chloride 100 mls @ 999 mls/hr 03/21/19 07:45 Nacl 0.9% IV BECK PRN Hypotension Lorazepam 2 mg 03/19/19 17:14 Ativan IV Q6H PRN Agitation Sodium Chloride 10 ml 03/16/19 22:00 03/20/19 21:48 Sodium Chloride Flush Syringe 10 Ml IV 10 ml BID JOÃO Administration Sodium Chloride 10 ml 03/16/19 11:52 Sodium Chloride Flush Syringe 10 Ml IV PRN PRN LINE FLUSH
[2019-03-21] MEDS: HEPARIN SUB-Q SCH ×2 (09:17→21:35)
[2019-03-21] MEDS: KEFLEX PO SCH (09:17)
[2019-03-21] MEDS: PEPCID PO SCH (09:17)
[2019-03-21] MEDS: SOLU-Medrol 500 MG in NACL 0.9% 100 ML IV SCH (09:24)
--- NOTE | 2019-03-21 09:42 | Progress Note ---
Assessment and Plan -Acute hypoxemic respiratory failure s/p MVS -Acute metabolic- toxic encephalopathy -Acute metabolic acidosis -Acute renal failure (multifactorial) -Rhabdomyolysis -Polysubstance abuse disorder with overdose -PRN CXR and ABG -Supplemental oxygen to keep O2 sats > 90% -Bronchodilators -Accuchecks with glycemic control. Target blood glucose <180mg/dL -Prevention of delirium, maintenance of sleep-wake cycle -Avoid nephrotoxic agents, adjust all antibiotics and medications for CrCL and GFR -VTE and Stress ulcer prophylaxis -Substance abuse counselling done -PT/OT to evaluate and treat, increase activity --HD/UF schedule per Renal service -Updated patient and family re care plan- NO smoking, PT/OT will help him get up CONDITION: FAIR PROGNOSIS: FAIR CODE STATUS: FULL CODE Subjective Date of service: 03/14/19 Principal diagnosis: Ac. hypoxemic resp failure; Ac encephalopathy (toxic/met); ABDI; Drug OD Interval history: Patient is seen today for: Ac. hypoxemic respiratory failure s/p MVS; Acute encephalopathy (toxic/met); Acute metabolic acidosis; Acute renal failure (multifactorial); Rhabdomyolysis; Polysubstance abuse disorder with overdose Seen and examined at bedside; 24hour events reviewed; nursing and respiratory care staff consulted; no adverse overnight events reported to me; s/p HD catheter yesterday tolerated it well. Awake and alert; parents at the bedside. Want to smoke a cigarette, wants to walk around and he wants a coca-cola. Offered a nicotine patch which he declined No fevers, no vomiting Objective Vital Signs - 12hr 03/21/19 04:09 Temperature 98.3 F Pulse Rate 60 Blood Pressure 153/83 O2 Sat by Pulse 97 Oximetry Constitutional: no acute distress, alert Eyes: non-icteric ENT: oropharynx moist Neck: supple, no lymphadenopathy, no JVD Effort: normal Ascultation: Bilateral: diminished breath sounds Percussion: Bilateral: not dull Cardiovascular: regular rate and rhythm, other (S1,S2, no murmurs, gallops or rubs) Gastrointestinal: normoactive bowel sounds, soft, non-tender, non-distended, other (bowel sounds in all 4 quadrants,) Integumentary: normal Extremities: no cyanosis, no edema, pink and warm, pulses normal, no ischemia or petechiae Neurologic: normal mental status, non-focal exam, pupils equal and round, motor strength normal and Psychiatric: mood appropriate, affect normal CBC and BMP: 03/24/19 07:46 03/24/19 07:46 ABG, PT/INR, D-dimer: ABG POC ABG pH 7.473 (7.35-7.45) H 03/18/19 09:16 POC ABG pCO2 31.5 (35-45) L 03/18/19 09:16 POC ABG pO2 118 (80-105) H 03/18/19 09:16 POC ABG HCO3 23.1 (22-26 mml/L) 03/18/19 09:16 POC ABG Total CO2 24 (23-27mmol/L) 03/18/19 09:16 POC ABG O2 Sat 99 03/18/19 09:16 PT/INR, D-dimer PT 17.5 Sec. (12.2-14.9) H 03/16/19 10:37 INR 1.47 (0.87-1.13) H 03/16/19 10:37 Abnormal lab findings: Abnormal Labs 03/16/19 03/16/19 03/16/19 10:00 10:21 10:37 WBC 27.7 H RBC Hgb Hct MCHC Plt Count 553 H [place] % (Auto) [place] # Seg Neutrophils % Seg Neuts % (Manual) 90.0 H Lymphocytes % (Manual) 2.0 L Seg Neutrophils # Seg Neutrophils # Man 24.9 H Lymphocytes # (Manual) 0.6 L Monocytes # (Manual) 1.4 H PT INR POC ABG pH POC ABG pCO2 POC ABG pO2 Sodium Potassium Chloride Carbon Dioxide BUN Creatinine Glucose POC Glucose 49 L 154 H Calcium Total Bilirubin Direct Bilirubin AST ALT Alkaline Phosphatase Total Creatine Kinase Total Protein Albumin Urine WBC (Auto) Urine Creatinine Salicylates Acetaminophen 03/16/19 03/16/19 03/16/19 10:37 10:37 10:37 WBC RBC Hgb Hct MCHC Plt Count [place] % (Auto) [place] # Seg Neutrophils % Seg Neuts % (Manual) Lymphocytes % (Manual) Seg Neutrophils # Seg Neutrophils # Man Lymphocytes # (Manual) Monocytes # (Manual) PT 17.5 H INR 1.47 H POC ABG pH POC ABG pCO2 POC ABG pO2 Sodium Potassium 5.1 H Chloride Carbon Dioxide 13 L BUN 35 H Creatinine 3.0 H Glucose 129 H POC Glucose Calcium Total Bilirubin 2.60 H Direct Bilirubin AST 160 H ALT 106 H Alkaline Phosphatase 133 H Total Creatine Kinase Total Protein Albumin Urine WBC (Auto) Urine Creatinine Salicylates < 0.3 L Acetaminophen 03/16/19 03/16/19 03/16/19 10:37 10:37 11:37 WBC RBC Hgb Hct MCHC Plt Count [place] % (Auto) [place] # Seg Neutrophils % Seg Neuts % (Manual) Lymphocytes % (Manual) Seg Neutrophils # Seg Neutrophils # Man Lymphocytes # (Manual) Monocytes # (Manual) PT INR POC ABG pH POC ABG pCO2 POC ABG pO2 Sodium Potassium Chloride Carbon Dioxide BUN Creatinine Glucose POC Glucose Calcium Total Bilirubin Direct Bilirubin AST ALT Alkaline Phosphatase Total Creatine Kinase 4300 H Total Protein Albumin Urine WBC (Auto) 10.0 H Urine Creatinine Salicylates Acetaminophen < 5.0 L 03/16/19 03/16/19 03/17/19 11:37 12:25 04:41 WBC 13.5 H RBC Hgb Hct MCHC 35 H Plt Count [place] % (Auto) [place] # 1.0 H Seg Neutrophils % 76.4 H Seg Neuts % (Manual) Lymphocytes % (Manual) Seg Neutrophils # 10.3 H Seg Neutrophils # Man Lymphocytes # (Manual) Monocytes # (Manual) PT INR POC ABG pH 7.188 L POC ABG pCO2 47.9 H POC ABG pO2 Sodium Potassium Chloride Carbon Dioxide BUN Creatinine Glucose POC Glucose Calcium Total Bilirubin Direct Bilirubin AST ALT Alkaline Phosphatase Total Creatine Kinase Total Protein Albumin Urine WBC (Auto) Urine Creatinine 75.6 H Salicylates Acetaminophen 03/17/19 03/17/19 03/17/19 04:41 04:41 04:57 WBC RBC Hgb Hct MCHC Plt Count [place] % (Auto) [place] # Seg Neutrophils % Seg Neuts % (Manual) Lymphocytes % (Manual) Seg Neutrophils # Seg Neutrophils # Man Lymphocytes # (Manual) Monocytes # (Manual) PT INR POC ABG pH 7.302 L POC ABG pCO2 POC ABG pO2 158 H Sodium Potassium Chloride Carbon Dioxide 13 L BUN 57 H Creatinine 4.6 H D Glucose POC Glucose Calcium 8.2 L Total Bilirubin Direct Bilirubin AST 567 H ALT 356 H Alkaline Phosphatase Total Creatine Kinase 77930 H Total Protein 6.0 L D Albumin 3.4 L Urine WBC (Auto) Urine Creatinine Salicylates Acetaminophen 03/17/19 03/17/19 03/18/19 08:27 16:47 04:45 WBC RBC Hgb Hct MCHC Plt Count [place] % (Auto) [place] # Seg Neutrophils % Seg Neuts % (Manual) Lymphocytes % (Manual) Seg Neutrophils # Seg Neutrophils # Man Lymphocytes # (Manual) Monocytes # (Manual) PT INR POC ABG pH 7.304 L 7.459 H POC ABG pCO2 POC ABG pO2 135 H 127 H 124 H Sodium Potassium Chloride Carbon Dioxide BUN Creatinine Glucose POC Glucose Calcium Total Bilirubin Direct Bilirubin AST ALT Alkaline Phosphatase Total Creatine Kinase Total Protein Albumin Urine WBC (Auto) Urine Creatinine Salicylates Acetaminophen 03/18/19 03/18/19 03/18/19 04:59 09:16 10:00 WBC RBC Hgb Hct MCHC Plt Count [place] % (Auto) [place] # Seg Neutrophils % Seg Neuts % (Manual) Lymphocytes % (Manual) Seg Neutrophils # Seg Neutrophils # Man Lymphocytes # (Manual) Monocytes # (Manual) PT INR POC ABG pH 7.473 H POC ABG pCO2 31.5 L POC ABG pO2 118 H Sodium Potassium 3.1 L D Chloride Carbon Dioxide 21 L D BUN 75 H Creatinine 7.9 H D Glucose 120 H POC Glucose Calcium 7.5 L Total Bilirubin Direct Bilirubin AST ALT Alkaline Phosphatase Total Creatine Kinase 63635 H Total Protein Albumin Urine WBC (Auto) Urine Creatinine Salicylates Acetaminophen 03/18/19 03/18/19 03/19/19 10:00 12:49 04:22 WBC RBC 3.47 L Hgb 10.8 L Hct 31.2 L MCHC 35 H Plt Count [place] % (Auto) 9.2 H [place] # Seg Neutrophils % Seg Neuts % (Manual) Lymphocytes % (Manual) Seg Neutrophils # Seg Neutrophils # Man Lymphocytes # (Manual) Monocytes # (Manual) PT INR POC ABG pH POC ABG pCO2 POC ABG pO2 Sodium Potassium Chloride Carbon Dioxide BUN Creatinine Glucose POC Glucose Calcium Total Bilirubin Direct Bilirubin AST ALT Alkaline Phosphatase Total Creatine Kinase 22466 H Total Protein Albumin Urine WBC (Auto) 18.0 H Urine Creatinine Salicylates Acetaminophen 03/19/19 03/19/19 03/19/19 04:22 04:22 09:53 WBC RBC 3.35 L Hgb 10.5 L Hct 30.6 L MCHC Plt Count [place] % (Auto) [place] # Seg Neutrophils % Seg Neuts % (Manual) Lymphocytes % (Manual) Seg Neutrophils # Seg Neutrophils # Man Lymphocytes # (Manual) Monocytes # (Manual) PT INR POC ABG pH POC ABG pCO2 POC ABG pO2 Sodium Potassium Chloride Carbon Dioxide 20 L BUN 78 H Creatinine 9.1 H Glucose POC Glucose Calcium 8.0 L Total Bilirubin 2.00 H 2.20 H Direct Bilirubin 1.6 H AST 444 H 467 H ALT 559 H 611 H Alkaline Phosphatase 166 H 189 H Total Creatine Kinase Total Protein 5.6 L 6.1 L Albumin 3.0 L 3.3 L Urine WBC (Auto) Urine Creatinine Salicylates Acetaminophen 03/20/19 03/20/19 03/20/19 06:32 06:32 06:32 WBC RBC Hgb 11.6 L Hct 33.5 L MCHC 35 H Plt Count [place] % (Auto) [place] # Seg Neutrophils % Seg Neuts % (Manual) Lymphocytes % (Manual) Seg Neutrophils # Seg Neutrophils # Man Lymphocytes # (Manual) Monocytes # (Manual) PT INR POC ABG pH POC ABG pCO2 POC ABG pO2 Sodium 136 L Potassium Chloride 97.7 L Carbon Dioxide 18 L BUN 88 H Creatinine 11.0 H Glucose 147 H POC Glucose Calcium Total Bilirubin 1.40 H Direct Bilirubin AST 269 H ALT 552 H Alkaline Phosphatase 198 H Total Creatine Kinase 4375 H Total Protein Albumin 3.3 L Urine WBC (Auto) Urine Creatinine Salicylates Acetaminophen 03/21/19 08:24 WBC RBC Hgb Hct MCHC Plt Count [place] % (Auto) [place] # Seg Neutrophils % Seg Neuts % (Manual) Lymphocytes % (Manual) Seg Neutrophils # Seg Neutrophils # Man Lymphocytes # (Manual) Monocytes # (Manual) PT INR POC ABG pH POC ABG pCO2 POC ABG pO2 Sodium 136 L Potassium Chloride Carbon Dioxide 20 L BUN 76 H Creatinine 9.6 H Glucose 146 H POC Glucose Calcium 8.0 L Total Bilirubin Direct Bilirubin AST ALT Alkaline Phosphatase Total Creatine Kinase Total Protein Albumin Urine WBC (Auto) Urine Creatinine Salicylates Acetaminophen Allied health notes reviewed: nursing
[2019-03-21 15:38] LABS: Creatinine,Urine 136.3 mg/dL (0.1-20.0)
[2019-03-21] MEDS: SODIUM CHLORIDE FLUSH SYRINGE 10 ML IV SCH ×2 (17:03→21:35)
[2019-03-22] MEDS: ATIVAN IV PRN (03:04)
[2019-03-22 07:59] LABS: Albumin 3.2 g/dL (3.9-5); Calcium 7.8 mg/dL (8.4-10.2)
--- NOTE | 2019-03-22 09:14 | Progress Note ---
Assessment and Plan Acute hypoxemic respiratory failure on MVS Acute metabolic- toxic encephalopathy Acute metabolic acidosis Acute renal failure (multifactorial) Rhabdomyolysis Polysubstance abuse disorder with overdose - continue HD/UF for toxon and volume clearance - trend CpK levels and follow clinically (down to hundreds now) - all cultures NGTD - follow clinically off AB's - Serial BMPs and monitor liver enzymes - Supplemental oxygen prn to keep O2 sats > 90% - Bronchodilators prn at this point - continue accuchecks with glycemic control per SSI fo target blood glucose <180mg/dL - aspiration precautions - Avoid nephrotoxic agents, adjust all antibiotics and medications for CrCL and GFR - VTE and Stress ulcer prophylaxis - Substance abuse counselling done at bedside ... re-evaluate in am & prn Subjective Date of service: 03/22/19 Principal diagnosis: Ac. hypoxemic resp failure; Ac encephalopathy (toxic/met); ABDI; Drug OD Interval history: Patient is seen today for: Ac. hypoxemic respiratory failure on MVS; Acute encephalopathy (toxic/met); Acute metabolic acidosis; Acute renal failure (multifactorial); Rhabdomyolysis; Polysubstance abuse disorder with overdose Seen and examined at bedside; 24hour events reviewed; nursing and respiratory care staff consulted; no adverse overnight events reported to me; resting peacefully in bed; family visiting; he feels better; he is s/p dialysis; denies acute chest pains or palpitations; still making some urine Objective Vital Signs - 12hr 03/22/19 03/22/19 00:21 06:34 Temperature 98.0 F 97.3 F L Pulse Rate 62 62 Respiratory 18 18 Rate Blood Pressure 174/86 166/96 O2 Sat by Pulse 100 98 Oximetry Constitutional: no acute distress, other (mallampati 2) Eyes: non-icteric ENT: oropharynx dry, other (extubated) Neck: supple, no lymphadenopathy, no JVD, other (no thyromegaly) Effort: normal Ascultation: Bilateral: diminished breath sounds Percussion: Bilateral: not dull Cardiovascular: regular rate and rhythm, other (S1,S2, no murmurs, gallops or rubs) Gastrointestinal: normoactive bowel sounds, soft, non-tender, non-distended, other (bowel sounds in all 4 quadrants, sinclair catheter) Integumentary: normal Extremities: no cyanosis, no edema, pink and warm, pulses normal, no ischemia or petechiae Neurologic: normal mental status, non-focal exam, pupils equal and round, motor strength normal and Psychiatric: mood appropriate, affect normal CBC and BMP: 03/22/19 06:53 03/23/19 06:07 ABG, PT/INR, D-dimer: ABG POC ABG pH 7.473 (7.35-7.45) H 03/18/19 09:16 POC ABG pCO2 31.5 (35-45) L 03/18/19 09:16 POC ABG pO2 118 (80-105) H 03/18/19 09:16 POC ABG HCO3 23.1 (22-26 mml/L) 03/18/19 09:16 POC ABG Total CO2 24 (23-27mmol/L) 03/18/19 09:16 POC ABG O2 Sat 99 03/18/19 09:16 PT/INR, D-dimer PT 17.5 Sec. (12.2-14.9) H 03/16/19 10:37 INR 1.47 (0.87-1.13) H 03/16/19 10:37 Abnormal lab findings: Abnormal Labs 03/16/19 03/16/19 03/16/19 10:00 10:21 10:37 WBC 27.7 H RBC Hgb Hct MCHC Plt Count 553 H Meigs % (Auto) Meigs # Seg Neutrophils % Seg Neuts % (Manual) 90.0 H Lymphocytes % (Manual) 2.0 L Seg Neutrophils # Seg Neutrophils # Man 24.9 H Lymphocytes # (Manual) 0.6 L Monocytes # (Manual) 1.4 H PT INR POC ABG pH POC ABG pCO2 POC ABG pO2 Sodium Potassium Chloride Carbon Dioxide BUN Creatinine Glucose POC Glucose 49 L 154 H Calcium Total Bilirubin Direct Bilirubin AST ALT Alkaline Phosphatase Total Creatine Kinase Total Protein Albumin Urine WBC (Auto) Urine Creatinine Salicylates Acetaminophen Complement C3 Complement C4 03/16/19 03/16/19 03/16/19 10:37 10:37 10:37 WBC RBC Hgb Hct MCHC Plt Count Meigs % (Auto) Meigs # Seg Neutrophils % Seg Neuts % (Manual) Lymphocytes % (Manual) Seg Neutrophils # Seg Neutrophils # Man Lymphocytes # (Manual) Monocytes # (Manual) PT 17.5 H INR 1.47 H POC ABG pH POC ABG pCO2 POC ABG pO2 Sodium Potassium 5.1 H Chloride Carbon Dioxide 13 L BUN 35 H Creatinine 3.0 H Glucose 129 H POC Glucose Calcium Total Bilirubin 2.60 H Direct Bilirubin AST 160 H ALT 106 H Alkaline Phosphatase 133 H Total Creatine Kinase Total Protein Albumin Urine WBC (Auto) Urine Creatinine Salicylates < 0.3 L Acetaminophen Complement C3 Complement C4 03/16/19 03/16/19 03/16/19 10:37 10:37 11:37 WBC RBC Hgb Hct MCHC Plt Count Meigs % (Auto) Meigs # Seg Neutrophils % Seg Neuts % (Manual) Lymphocytes % (Manual) Seg Neutrophils # Seg Neutrophils # Man Lymphocytes # (Manual) Monocytes # (Manual) PT INR POC ABG pH POC ABG pCO2 POC ABG pO2 Sodium Potassium Chloride Carbon Dioxide BUN Creatinine Glucose POC Glucose Calcium Total Bilirubin Direct Bilirubin AST ALT Alkaline Phosphatase Total Creatine Kinase 4300 H Total Protein Albumin Urine WBC (Auto) 10.0 H Urine Creatinine Salicylates Acetaminophen < 5.0 L Complement C3 Complement C4 03/16/19 03/16/19 03/17/19 11:37 12:25 04:41 WBC 13.5 H RBC Hgb Hct MCHC 35 H Plt Count Meigs % (Auto) Meigs # 1.0 H Seg Neutrophils % 76.4 H Seg Neuts % (Manual) Lymphocytes % (Manual) Seg Neutrophils # 10.3 H Seg Neutrophils # Man Lymphocytes # (Manual) Monocytes # (Manual) PT INR POC ABG pH 7.188 L POC ABG pCO2 47.9 H POC ABG pO2 Sodium Potassium Chloride Carbon Dioxide BUN Creatinine Glucose POC Glucose Calcium Total Bilirubin Direct Bilirubin AST ALT Alkaline Phosphatase Total Creatine Kinase Total Protein Albumin Urine WBC (Auto) Urine Creatinine 75.6 H Salicylates Acetaminophen Complement C3 Complement C4 03/17/19 03/17/19 03/17/19 04:41 04:41 04:57 WBC RBC Hgb Hct MCHC Plt Count Meigs % (Auto) Meigs # Seg Neutrophils % Seg Neuts % (Manual) Lymphocytes % (Manual) Seg Neutrophils # Seg Neutrophils # Man Lymphocytes # (Manual) Monocytes # (Manual) PT INR POC ABG pH 7.302 L POC ABG pCO2 POC ABG pO2 158 H Sodium Potassium Chloride Carbon Dioxide 13 L BUN 57 H Creatinine 4.6 H D Glucose POC Glucose Calcium 8.2 L Total Bilirubin Direct Bilirubin AST 567 H ALT 356 H Alkaline Phosphatase Total Creatine Kinase 61501 H Total Protein 6.0 L D Albumin 3.4 L Urine WBC (Auto) Urine Creatinine Salicylates Acetaminophen Complement C3 Complement C4 03/17/19 03/17/19 03/18/19 08:27 16:47 04:45 WBC RBC Hgb Hct MCHC Plt Count Meigs % (Auto) Meigs # Seg Neutrophils % Seg Neuts % (Manual) Lymphocytes % (Manual) Seg Neutrophils # Seg Neutrophils # Man Lymphocytes # (Manual) Monocytes # (Manual) PT INR POC ABG pH 7.304 L 7.459 H POC ABG pCO2 POC ABG pO2 135 H 127 H 124 H Sodium Potassium Chloride Carbon Dioxide BUN Creatinine Glucose POC Glucose Calcium Total Bilirubin Direct Bilirubin AST ALT Alkaline Phosphatase Total Creatine Kinase Total Protein Albumin Urine WBC (Auto) Urine Creatinine Salicylates Acetaminophen Complement C3 Complement C4 03/18/19 03/18/19 03/18/19 04:59 09:16 10:00 WBC RBC Hgb Hct MCHC Plt Count Meigs % (Auto) Meigs # Seg Neutrophils % Seg Neuts % (Manual) Lymphocytes % (Manual) Seg Neutrophils # Seg Neutrophils # Man Lymphocytes # (Manual) Monocytes # (Manual) PT INR POC ABG pH 7.473 H POC ABG pCO2 31.5 L POC ABG pO2 118 H Sodium Potassium 3.1 L D Chloride Carbon Dioxide 21 L D BUN 75 H Creatinine 7.9 H D Glucose 120 H POC Glucose Calcium 7.5 L Total Bilirubin Direct Bilirubin AST ALT Alkaline Phosphatase Total Creatine Kinase 13475 H Total Protein Albumin Urine WBC (Auto) Urine Creatinine Salicylates Acetaminophen Complement C3 Complement C4 03/18/19 03/18/19 03/18/19 10:00 12:49 15:24 WBC RBC 3.47 L Hgb 10.8 L Hct 31.2 L MCHC 35 H Plt Count Meigs % (Auto) 9.2 H Meigs # Seg Neutrophils % Seg Neuts % (Manual) Lymphocytes % (Manual) Seg Neutrophils # Seg Neutrophils # Man Lymphocytes # (Manual) Monocytes # (Manual) PT INR POC ABG pH POC ABG pCO2 POC ABG pO2 Sodium Potassium Chloride Carbon Dioxide BUN Creatinine Glucose POC Glucose Calcium Total Bilirubin Direct Bilirubin AST ALT Alkaline Phosphatase Total Creatine Kinase Total Protein Albumin Urine WBC (Auto) 18.0 H Urine Creatinine Salicylates Acetaminophen Complement C3 69 L Complement C4 03/18/19 03/19/19 03/19/19 15:24 04:22 04:22 WBC RBC Hgb Hct MCHC Plt Count Meigs % (Auto) Meigs # Seg Neutrophils % Seg Neuts % (Manual) Lymphocytes % (Manual) Seg Neutrophils # Seg Neutrophils # Man Lymphocytes # (Manual) Monocytes # (Manual) PT INR POC ABG pH POC ABG pCO2 POC ABG pO2 Sodium Potassium Chloride Carbon Dioxide 20 L BUN 78 H Creatinine 9.1 H Glucose POC Glucose Calcium 8.0 L Total Bilirubin 2.00 H Direct Bilirubin AST 444 H ALT 559 H Alkaline Phosphatase 166 H Total Creatine Kinase 69456 H Total Protein 5.6 L Albumin 3.0 L Urine WBC (Auto) Urine Creatinine Salicylates Acetaminophen Complement C3 Complement C4 14 L 03/19/19 03/19/19 03/20/19 04:22 09:53 06:32 WBC RBC 3.35 L Hgb 10.5 L Hct 30.6 L MCHC Plt Count Meigs % (Auto) Meigs # Seg Neutrophils % Seg Neuts % (Manual) Lymphocytes % (Manual) Seg Neutrophils # Seg Neutrophils # Man Lymphocytes # (Manual) Monocytes # (Manual) PT INR POC ABG pH POC ABG pCO2 POC ABG pO2 Sodium Potassium Chloride Carbon Dioxide BUN Creatinine Glucose POC Glucose Calcium Total Bilirubin 2.20 H Direct Bilirubin 1.6 H AST 467 H ALT 611 H Alkaline Phosphatase 189 H Total Creatine Kinase 4375 H Total Protein 6.1 L Albumin 3.3 L Urine WBC (Auto) Urine Creatinine Salicylates Acetaminophen Complement C3 Complement C4 03/20/19 03/20/19 03/21/19 06:32 06:32 08:24 WBC RBC Hgb 11.6 L Hct 33.5 L MCHC 35 H Plt Count Meigs % (Auto) Meigs # Seg Neutrophils % Seg Neuts % (Manual) Lymphocytes % (Manual) Seg Neutrophils # Seg Neutrophils # Man Lymphocytes # (Manual) Monocytes # (Manual) PT INR POC ABG pH POC ABG pCO2 POC ABG pO2 Sodium 136 L Potassium Chloride 97.7 L Carbon Dioxide 18 L BUN 88 H Creatinine 11.0 H Glucose 147 H POC Glucose Calcium Total Bilirubin 1.40 H Direct Bilirubin AST 269 H ALT 552 H Alkaline Phosphatase 198 H Total Creatine Kinase 1011 H Total Protein Albumin 3.3 L Urine WBC (Auto) Urine Creatinine Salicylates Acetaminophen Complement C3 Complement C4 03/21/19 03/21/19 03/22/19 08:24 15:00 06:53 WBC RBC Hgb Hct MCHC Plt Count Meigs % (Auto) Meigs # Seg Neutrophils % Seg Neuts % (Manual) Lymphocytes % (Manual) Seg Neutrophils # Seg Neutrophils # Man Lymphocytes # (Manual) Monocytes # (Manual) PT INR POC ABG pH POC ABG pCO2 POC ABG pO2 Sodium 136 L Potassium Chloride Carbon Dioxide 20 L BUN 76 H Creatinine 9.6 H Glucose 146 H POC Glucose Calcium 8.0 L Total Bilirubin Direct Bilirubin AST ALT Alkaline Phosphatase Total Creatine Kinase 642 H Total Protein Albumin Urine WBC (Auto) Urine Creatinine 136.3 H Salicylates Acetaminophen Complement C3 Complement C4 03/22/19 06:53 WBC RBC Hgb Hct MCHC Plt Count Meigs % (Auto) Meigs # Seg Neutrophils % Seg Neuts % (Manual) Lymphocytes % (Manual) Seg Neutrophils # Seg Neutrophils # Man Lymphocytes # (Manual) Monocytes # (Manual) PT INR POC ABG pH POC ABG pCO2 POC ABG pO2 Sodium 134 L Potassium Chloride 96.1 L Carbon Dioxide 18 L BUN 94 H Creatinine 10.8 H Glucose 136 H POC Glucose Calcium 7.8 L Total Bilirubin Direct Bilirubin AST 106 H ALT 378 H Alkaline Phosphatase 181 H Total Creatine Kinase Total Protein 5.9 L Albumin 3.2 L Urine WBC (Auto) Urine Creatinine Salicylates Acetaminophen Complement C3 Complement C4 Allied health notes reviewed: nursing
[2019-03-22] MEDS ORDERED: TYLENOL PR PRN (09:23)
[2019-03-22] MEDS: HEPARIN SUB-Q SCH ×2 (09:37→21:54)
[2019-03-22] MEDS: KEFLEX PO SCH ×2 (09:37→23:06)
[2019-03-22] MEDS: PEPCID PO SCH (09:38)
[2019-03-22] MEDS: SODIUM CHLORIDE FLUSH SYRINGE 10 ML IV SCH ×2 (09:39→21:55)
[2019-03-22] MEDS ORDERED: NACL 0.9 (PRIMING MACHINE ONLY DIALYSIS) MC ONE (10:18)
--- NOTE | 2019-03-22 10:43 | Progress Note ---
Assessment and Plan - Patient Problems (1) Acute renal failure Current Visit: Yes Status: Acute Qualifiers: Acute renal failure type: with acute tubular necrosis Qualified Code(s): N17.0 - Acute kidney failure with tubular necrosis Plan to address problem: severe ABDI possibly in the setting of ATN. With the urinalysis findings have to rule out possible glomerulonephritis. Concern for possible underlying rapidly progressive glomerulonephritis given quick rise in his serum creatinine wors ening kidney function. Hep B/C/ HIV panel negative. Sent complement levels as well as ANCA vasculitis studies, which are pending. S/p empiric treatment with IV steroid pulse, scheduled for renal biopsy on Fri. progressive decline in eGFR noted along with developing uremic symptoms. Patient initiated on HD on 03/20, cont HD on MWF schedule until significant renal recovery seen. Recommend avoiding any nephrotoxins. Maintain maps above 65. (2) Rhabdomyolysis Current Visit: Yes Status: Acute Qualifiers: Encounter type: initial encounter Plan to address problem: CPK levels are trending down with fluid hydration. (3) Encephalopathy Current Visit: Yes Status: Acute Plan to address problem: uremic encephalopathy contributing. improved with HD (4) Respiratory failure Current Visit: Yes Status: Acute Qualifiers: Chronicity: acute Respiratory failure complication: hypoxia Qualified Code(s): J96.01 - Acute respiratory failure with hypoxia Plan to address problem: Patient has been extubated at this time and his overall respiratory status is stable. Subjective Date of service: 03/22/19 Principal diagnosis: Ac. hypoxemic resp failure; Ac encephalopathy (toxic/met); ABDI; Drug OD Interval history: Pt awake, denies fever, chills, SOB, CP, n/v/d, reports decreased urine output. HD well tolerated Objective - Vital Signs Vital signs: Vital Signs - 12hr 03/22/19 03/22/19 03/22/19 00:21 06:34 09:40 Temperature 98.0 F 97.3 F L 98.2 F Pulse Rate 62 62 60 Respiratory 18 18 18 Rate Blood Pressure 174/86 166/96 178/101 O2 Sat by Pulse 100 98 Oximetry 03/22/19 03/22/19 03/22/19 09:52 10:00 10:15 Temperature Pulse Rate 58 L 60 58 L Respiratory Rate Blood Pressure 187/105 183/105 169/90 O2 Sat by Pulse Oximetry - General Appearance General appearance: well-developed, well-nourished, appears stated age EENT: ATNC, PERRL, mucous membranes moist Neck: no JVD Respiratory: Present: Clear to Ascultation Cardiology: regular, S1S2 Gastrointestinal: normoactive bowel sounds Integumentary: no rash, other (no edema ) Neurologic: no focal deficit, alert and oriented x3, strength 5/5, CN 3-12 intact Psychiatric: mood/affect appropriate, cooperative - Lab 03/20/19 06:32 03/22/19 06:53 Most recent lab results Calcium 7.8 mg/dL (8.4-10.2) L 03/22/19 06:53 136.3 mg/dL (0.1-20.0) H 03/21/19 15:00 37 mmol/L 03/21/19 15:00 Medications & Allergies - Medications Allergies/Adverse Reactions: Allergies Unable to Assess Allergy (Unverified 03/16/19 11:41) AMS Home Medications: Home Medications Medication Instructions Recorded Confirmed Last Taken Type Unobtainable 03/16/19 03/16/19 Unknown History Active Medications: Generic Name Dose Route Start Last Admin Trade Name Freq PRN Reason Stop Dose Admin Acetaminophen 650 mg 03/22/19 09:23 Tylenol NV Q6H PRN Pain, Mild (1-3) Cephalexin 250 mg 03/19/19 12:00 03/22/19 09:37 Keflex PO Not Given Q24HR JOÃO Diphenhydramine HCl 25 mg 03/19/19 22:54 03/20/19 00:12 Benadryl PO 25 mg Q6H PRN Administration Itching Famotidine 20 mg 03/19/19 10:00 03/22/19 09:38 Pepcid PO Not Given DAILY JOÃO Heparin Sodium (Porcine) 5,000 unit 03/16/19 22:00 03/22/19 09:37 Heparin SUB-Q Not Given Q12HR JOÃO Sodium Chloride 100 mls @ 999 mls/hr 03/20/19 10:19 Nacl 0.9% IV BECK PRN Hypotension Sodium Chloride 100 mls @ 999 mls/hr 03/21/19 07:45 Nacl 0.9% IV BECK PRN Hypotension Sodium Chloride 1,000 mls @ 50 mls/hr 03/21/19 10:00 Nacl 0.9% 1000 Ml IV DIRECT JOÃO Lorazepam 2 mg 03/19/19 17:14 03/22/19 03:04 Ativan IV 2 mg Q6H PRN Administration Agitation Sodium Chloride 10 ml 03/16/19 22:00 03/22/19 09:39 Sodium Chloride Flush Syringe 10 Ml IV Not Given BID JOÃO Sodium Chloride 10 ml 03/16/19 11:52 Sodium Chloride Flush Syringe 10 Ml IV PRN PRN LINE FLUSH
[2019-03-22 10:50] LABS: Hematocrit 30.5 % (35.5-45.6); Hemoglobin 10.5 gm/dl (11.8-15.2); Mean Corpuscular HGB Conc 35 % (32-34); Mean Corpuscular Volume 91 fl (84-94); Platelet Count 303 K/mm3 (140-440); Red Blood Count 3.36 M/mm3 (3.65-5.03); Red Cell Distribution Width 14.2 % (13.2-15.2)
[2019-03-22 15:39] LABS: INR 1.2 (0.87-1.13)
[2019-03-22 15:40] LABS: Partial Thromboplastin Time 26.4 Sec. (24.2-36.6)
--- NOTE | 2019-03-22 15:57 | Progress Note ---
Assessment and Plan Assessment and plan: 33 YO Male with Polysubstance Abuse, Psychosis currently and inpatient at [facility] presents to ED for evaluation. Pt is lethargic and unable to provide history and is intubated and on vest support at time of my exam. Patient history provided by his father who is at bedside during exam and interview. As per father, the patient was found to be confused by [place] staff to be confused with decreased level of responsiveness. EMS notified, and upon arrival the patient was found to be unresponsive and treated with supportive care and IM Narcan and transported to [facility]. Pt seen and evaluated in ED and was found to have Encephalopathy, Sepsis, and Respiratory distress and was unable to protect his airway. Pt intubated and placed on vent support. Pt admitted to ICU and initiated on sepsis protocol. No prior admission for review. No medication listed at time of admission for reconciliation. * Extubated successfully 03/18/19 * Patient on admission was treated with sepsis while other differential diagnosis SIRS (systemic inflammatory response syndrome), Hypoglycemia, NMS (neuroleptic malignant syndrome), Drug abuse, Hepatic dysfunction was highly evident. He did rather recover quickly only evidence noted for infection is from Urinalysis * His mental status improved by day 2 * He had noted seizure like activity follow administration of Narcan * UDS positive for cocain * Neurology, Renal and Processing Archivist input noted * csf, unremarkable. Head CT -normal. EEG did not show active seizure. * Dialysis access placed 03/20/19 and dialysis started Sepsis- Resolved Acute Renal failure with underlying ATN and possible Glomerelonephritis, - Started on HD, Renal biopsy planned for AM - Nephrology following. vascular work up ongoing, pulse dose steroids started METABOLIC ACIDOSIS: started dialysis, anticipate correction Acute Metabolic Encephalopathy- Intermittent, may require intermittent Ativan, MONITOR FOR RESPIRATORY DEPRESSION Acute cystitis- No culture growth, continue abx till day after biopsy and then discontinue if no fever Polysubstane abuse- With overdose, UDS, POSITIVE for opioids, cocain and amphateamines, counselling provided, greater than 15 mins. Patient currently and admitted from a Rehab program Seizure-Likely secondary to opiate withdrawal Tobacco use disorder- Counseling provided Acute Hypoxemic Respiratory Failure-Resolved Rhabdomylysis- Improving, initially treated with IV Bicarb Drip Acute Heaptocellular dysfunction- ?Acute Hepatitis vs passive congestive failure and shock liver state-Improving- Hyperkalemia- Resolved DVT/GI prophy Plan discussed with family History Interval history: Patient seen and examined, No new complaints, tolerated Dialysis today. Family at bedside. Hospitalist Physical - Physical exam Narrative exam: General appearance: Present, AWAKE, - EENT Eyes: Present: anicteric sclera - Neck Neck: Present: supple, normal ROM - Respiratory Respiratory effort: stable Respiratory: bilateral: clear - Cardiovascular Heart Sounds: Present: S1 & S2. Absent: rub, click - Extremities Extremities: pulses symmetrical, No edema Peripheral Pulses: within normal limits - Abdominal General gastrointestinal: Present: soft, non-tender, non-distended, normal bowel sounds Male genitourinary: Present: normal - Integumentary Integumentary: Present: clear, warm, dry - Musculoskeletal Musculoskeletal: no c/c/e - Psychiatric Psychiatric: Normal mood and affect - Neurologic Neurologic: no focal deficits, moves all extremities, no gait normal. - Constitutional Vitals: Temp Pulse Resp BP Pulse Ox 98.0 F 72 22 153/96 99 03/22/19 12:50 03/22/19 12:50 03/22/19 12:50 03/22/19 12:50 03/22/19 12:50 General appearance: Present: mild distress Results - Labs CBC & Chem 7: 03/22/19 06:53 03/22/19 06:53 Labs: Laboratory Last Values WBC 10.0 K/mm3 (4.5-11.0) 03/22/19 06:53 RBC 3.36 M/mm3 (3.65-5.03) L 03/22/19 06:53 Hgb 10.5 gm/dl (11.8-15.2) L 03/22/19 06:53 Hct 30.5 % (35.5-45.6) L 03/22/19 06:53 MCV 91 fl (84-94) 03/22/19 06:53 MCH 31 pg (28-32) 03/22/19 06:53 MCHC 35 % (32-34) H 03/22/19 06:53 RDW 14.2 % (13.2-15.2) 03/22/19 06:53 Plt Count 303 K/mm3 (140-440) 03/22/19 06:53 Lymph % (Auto) 17.3 % (13.4-35.0) 03/18/19 10:00 [place] % (Auto) 9.2 % (0.0-7.3) H 03/18/19 10:00 Eos % (Auto) 3.1 % (0.0-4.3) 03/18/19 10:00 Baso % (Auto) 1.2 % (0.0-1.8) 03/18/19 10:00 Lymph # 1.6 K/mm3 (1.2-5.4) 03/18/19 10:00 [place] # 0.8 K/mm3 (0.0-0.8) 03/18/19 10:00 Eos # 0.3 K/mm3 (0.0-0.4) 03/18/19 10:00 Baso # 0.1 K/mm3 (0.0-0.1) 03/18/19 10:00 Add Manual Diff Complete 03/16/19 10:37 Total Counted 100 03/16/19 10:37 Seg Neutrophils % 69.2 % (40.0-70.0) 03/18/19 10:00 Seg Neuts % (Manual) 90.0 % (40.0-70.0) H 03/16/19 10:37 1.0 % 03/16/19 10:37 2.0 % (13.4-35.0) L 03/16/19 10:37 Reactive Lymphs % (Man) 0 % 03/16/19 10:37 5.0 % (0.0-7.3) 03/16/19 10:37 0 % (0.0-4.3) 03/16/19 10:37 0 % (0.0-1.8) 03/16/19 10:37 1.0 % 03/16/19 10:37 1.0 % 03/16/19 10:37 0 % 03/16/19 10:37 0 % 03/16/19 10:37 Nucleated RBC % Not Reportable 03/16/19 10:37 Seg Neutrophils # 6.3 K/mm3 (1.8-7.7) 03/18/19 10:00 Seg Neutrophils # Man 24.9 K/mm3 (1.8-7.7) H 03/16/19 10:37 Band Neutrophils # 0.3 K/mm3 03/16/19 10:37 0.6 K/mm3 (1.2-5.4) L 03/16/19 10:37 Abs React Lymphs (Man) 0.0 K/mm3 03/16/19 10:37 1.4 K/mm3 (0.0-0.8) H 03/16/19 10:37 0.0 K/mm3 (0.0-0.4) 03/16/19 10:37 0.0 K/mm3 (0.0-0.1) 03/16/19 10:37 0.3 K/mm3 03/16/19 10:37 0.3 K/mm3 03/16/19 10:37 0.0 K/mm3 03/16/19 10:37 Blast Cells # 0.0 K/mm3 03/16/19 10:37 WBC Morphology Not Reportable 03/16/19 10:37 Hypersegmented Neuts Not Reportable 03/16/19 10:37 Hyposegmented Neuts Not Reportable 03/16/19 10:37 Hypogranular Neuts Not Reportable 03/16/19 10:37 Not Reportable 03/16/19 10:37 Not Reportable 03/16/19 10:37 Not Reportable 03/16/19 10:37 Not Reportable 03/16/19 10:37 Not Reportable 03/16/19 10:37 Not Reportable 03/16/19 10:37 Consistent w auto 03/16/19 10:37 Not Reportable 03/16/19 10:37 Plt Clumps, EDTA Not Reportable 03/16/19 10:37 Not Reportable 03/16/19 10:37 Not Reportable 03/16/19 10:37 Not Reportable 03/16/19 10:37 Plt Morphology Comment Not Reportable 03/16/19 10:37 RBC Morphology Normal 03/16/19 10:37 Dimorphic RBCs Not Reportable 03/16/19 10:37 Not Reportable 03/16/19 10:37 Not Reportable 03/16/19 10:37 Not Reportable 03/16/19 10:37 Not Reportable 03/16/19 10:37 Not Reportable 03/16/19 10:37 Not Reportable 03/16/19 10:37 Not Reportable 03/16/19 10:37 Not Reportable 03/16/19 10:37 Not Reportable 03/16/19 10:37 Not Reportable 03/16/19 10:37 Not Reportable 03/16/19 10:37 Not Reportable 03/16/19 10:37 Not Reportable 03/16/19 10:37 Not Reportable 03/16/19 10:37 Not Reportable 03/16/19 10:37 Not Reportable 03/16/19 10:37 Not Reportable 03/16/19 10:37 Not Reportable 03/16/19 10:37 Not Reportable 03/16/19 10:37 Acanthocytes (Spur) Not Reportable 03/16/19 10:37 [place] Not Reportable 03/16/19 10:37 Not Reportable 03/16/19 10:37 Not Reportable 03/16/19 10:37 Not Reportable 03/16/19 10:37 Not Reportable 03/16/19 10:37 Hem Pathologist Commnt No 03/16/19 10:37 PT 14.9 Sec. (12.2-14.9) 03/22/19 15:13 INR 1.20 (0.87-1.13) H 03/22/19 15:13 APTT 26.4 Sec. (24.2-36.6) 03/22/19 15:13 POC ABG pH 7.473 (7.35-7.45) H 03/18/19 09:16 POC ABG pCO2 31.5 (35-45) L 03/18/19 09:16 POC ABG pO2 118 (80-105) H 03/18/19 09:16 POC ABG HCO3 23.1 (22-26 mml/L) 03/18/19 09:16 POC ABG Total CO2 24 (23-27mmol/L) 03/18/19 09:16 POC ABG O2 Sat 99 03/18/19 09:16 POC ABG Base Excess 0 ((-2) - (+3)mmol/L) 03/18/19 09:16 25 % 03/18/19 09:16 Sodium 134 mmol/L (137-145) L 03/22/19 06:53 Potassium 4.5 mmol/L (3.6-5.0) 03/22/19 06:53 Chloride 96.1 mmol/L (98-107) L 03/22/19 06:53 Carbon Dioxide 18 mmol/L (22-30) L 03/22/19 06:53 24 mmol/L 03/22/19 06:53 BUN 94 mg/dL (9-20) H 03/22/19 06:53 10.8 mg/dL (0.8-1.5) H 03/22/19 06:53 Estimated GFR 6 ml/min 03/22/19 06:53 9 % 03/22/19 06:53 Glucose 136 mg/dL (75-100) H 03/22/19 06:53 POC Glucose 100 (70-105) 03/16/19 17:45 Lactic Acid 0.80 mmol/L (0.7-2.0) 03/16/19 16:38 Calcium 7.8 mg/dL (8.4-10.2) L 03/22/19 06:53 0.90 mg/dL (0.1-1.2) 03/22/19 06:53 1.6 mg/dL (0-0.2) H 03/19/19 09:53 0.6 mg/dL 03/19/19 09:53 AST 106 units/L (5-40) H 03/22/19 06:53 ALT 378 units/L (7-56) H 03/22/19 06:53 181 units/L (35-129) H 03/22/19 06:53 642 units/L (55-170) H 03/22/19 06:53 < 0.010 ng/mL (0.00-0.029) 03/16/19 10:37 5.9 g/dL (6.3-8.2) L 03/22/19 06:53 3.2 g/dL (3.9-5) L 03/22/19 06:53 1.2 % 03/22/19 06:53 Triglycerides 76 mg/dL (2-149) 03/18/19 15:24 [place] (Yellow) 03/18/19 12:49 Cloudy (Clear) 03/18/19 12:49 5.0 (5.0-7.0) 03/18/19 12:49 Ur Specific [place] 1.015 (1.003-1.030) 03/18/19 12:49 >500 mg/dL (Negative) 03/18/19 12:49 150 mg/dL (Negative) 03/18/19 12:49 Tr mg/dL (Negative) 03/18/19 12:49 Lg (Negative) 03/18/19 12:49 Neg (Negative) 03/18/19 12:49 Neg (Negative) 03/18/19 12:49 < 2.0 mg/dL (<2.0) 03/18/19 12:49 Ur Leukocyte Esterase Neg (Negative) 03/18/19 12:49 18.0 /HPF (0.0-6.0) H 03/18/19 12:49 121.0 /HPF (0.0-6.0) 03/18/19 12:49 U Epithel Cells (Auto) 2.0 /HPF (0-13.0) 03/18/19 12:49 3+ /HPF (Negative) 03/18/19 12:49 Few /HPF 03/18/19 12:49 136.3 mg/dL (0.1-20.0) H 03/21/19 15:00 37 mmol/L 03/21/19 15:00 Clear 03/16/19 12:40 Clear 03/16/19 12:40 Colorless 03/16/19 12:40 Colorless 03/16/19 12:40 2 /mm3 (1-10) 03/16/19 12:40 2 /mm3 (1-10) 03/16/19 12:40 0 /mm3 (0-0) 03/16/19 12:40 0 /mm3 (0-0) 03/16/19 12:40 CSF Seg Neutrophils 0 % (0-6) 03/16/19 12:40 CSF Seg Neutrophils 0 % (0-6) 03/16/19 12:40 47.7 % (40-80) 03/16/19 12:40 93.1 % (40-80) 03/16/19 12:40 CSF Reactive Lymphs 0 % 03/16/19 12:40 CSF Reactive Lymphs 0 % 03/16/19 12:40 6.9 % (15-45) 03/16/19 12:40 52.3 % (15-45) 03/16/19 12:40 0 % 03/16/19 12:40 0 % 03/16/19 12:40 0 % 03/16/19 12:40 0 % 03/16/19 12:40 C 03/16/19 12:40 C 03/16/19 12:40 69 mg/dL 03/16/19 12:40 Salicylates < 0.3 mg/dL (2.8-20.0) L 03/16/19 10:37 Presumptive positive 03/16/19 11:37 Presumptive negative 03/16/19 11:37 Acetaminophen < 5.0 ug/mL (10.0-30.0) L 03/16/19 10:37 Ur Barbiturates Screen Presumptive negative 03/16/19 11:37 Ur Phencyclidine Scrn Presumptive negative 03/16/19 11:37 Ur Amphetamines Screen Presumptive positive 03/16/19 11:37 U Benzodiazepines Scrn Presumptive negative 03/16/19 11:37 Presumptive positive 03/16/19 11:37 U Marijuana (THC) Screen Presumptive negative 03/16/19 11:37 Disclamer 03/16/19 11:37 Plasma/Serum Alcohol < 0.01 % (0-0.07) 03/16/19 10:37 69 mg/dL (82-185) L 03/18/19 15:24 14 mg/dL (15-53) L 03/18/19 15:24 Hepatitis A IgM Ab Non-reactive (NonReactive) 03/20/19 14:30 Hep Bs Antigen Non-reactive (Negative) 03/20/19 14:30 Hep B Core IgM Ab Non-reactive (NonReactive) 03/20/19 14:30 Non-reactive (NonReactive) 03/20/19 14:30 HIV 1&2 Antibody Rapid Non react (Non React) 03/16/19 12:05 Non react (Non React) 03/16/19 12:05 Active Medications - Current Medications Current Medications: Generic Name Dose Route Start Last Admin Trade Name Freq PRN Reason Stop Dose Admin Acetaminophen 650 mg 03/22/19 09:23 Tylenol RI Q6H PRN Pain, Mild (1-3) Cephalexin 250 mg 03/19/19 12:00 03/22/19 09:37 Keflex PO Not Given Q24HR JOÃO Diphenhydramine HCl 25 mg 03/19/19 22:54 03/20/19 00:12 Benadryl PO 25 mg Q6H PRN Administration Itching Famotidine 20 mg 03/19/19 10:00 03/22/19 09:38 Pepcid PO Not Given DAILY [facility] Heparin Sodium (Porcine) 5,000 unit 03/16/19 22:00 03/22/19 09:37 Heparin SUB-Q Not Given Q12HR JOÃO Sodium Chloride 100 mls @ 999 mls/hr 03/21/19 07:45 Nacl 0.9% IV BECK PRN Hypotension Sodium Chloride 1,000 mls @ 50 mls/hr 03/21/19 10:00 Nacl 0.9% 1000 Ml IV DIRECT [facility] Lorazepam 2 mg 03/19/19 17:14 03/22/19 03:04 Ativan IV 2 mg Q6H PRN Administration Agitation Sodium Chloride 10 ml 03/16/19 22:00 03/22/19 09:39 Sodium Chloride Flush Syringe 10 Ml IV Not Given BID JOÃO Sodium Chloride 10 ml 03/16/19 11:52 Sodium Chloride Flush Syringe 10 Ml IV PRN PRN LINE FLUSH
[2019-03-22] MEDS ORDERED: KEFLEX PO SCH (17:00)
[2019-03-23 06:50] LABS: Calcium 7.1 mg/dL (8.4-10.2)
[2019-03-23] MEDS ORDERED: SUBLIMAZE IV ONE (08:51)
[2019-03-23] MEDS ORDERED: VERSED IV ONE (08:51)
[2019-03-23] MEDS ORDERED: DILAUDID ONE ×2 (09:57→10:05)
[2019-03-23] MEDS ORDERED: ZOFRAN ONE (09:57)
[2019-03-23] MEDS: HEPARIN SUB-Q SCH ×2 (10:00→21:56)
[2019-03-23] MEDS ORDERED: ZOFRAN IV ONE (10:03)
--- NOTE | 2019-03-23 10:44 | Progress Note ---
Assessment and Plan Acute hypoxemic respiratory failure on MVS Acute metabolic- toxic encephalopathy Acute metabolic acidosis Acute renal failure (multifactorial) Rhabdomyolysis Polysubstance abuse disorder with overdose - follow kidney biopsy report - conservative volume management - continue HD/UF for toxon and volume clearance / to prevent pulmonary edema - trend CpK levels and follow clinically (down to hundreds now) - all cultures NGTD - follow clinically off AB's - Serial BMPs and monitor liver enzymes - Supplemental oxygen prn to keep O2 sats > 90% - Bronchodilators prn at this point - continue accuchecks with glycemic control per SSI fo target blood glucose <180mg/dL - aspiration precautions - Avoid nephrotoxic agents, adjust all antibiotics and medications for CrCL and GFR - VTE and Stress ulcer prophylaxis - Substance abuse counselling done at bedside ... re-evaluate in am & prn Subjective Date of service: 03/23/19 Principal diagnosis: Ac. hypoxemic resp failure; Ac encephalopathy (toxic/met); BADI; Drug OD Interval history: Patient is seen today for: Ac. hypoxemic respiratory failure on MVS; Acute encephalopathy (toxic/met); Acute metabolic acidosis; Acute renal failure (multifactorial); Rhabdomyolysis; Polysubstance abuse disorder with overdose Seen and examined at bedside; 24hour events reviewed; nursing and respiratory care staff consulted; no adverse overnight events reported to me; resting peacefully in bed; s/p left kidney biopsy; no immediate complications; No hemoptysis; No N/V/F/C Objective Vital Signs - 12hr 03/23/19 03/23/19 03/23/19 02:00 04:47 06:00 Temperature 98.5 F Temperature [ Post-Procedure] Pulse Rate 69 Pulse Rate [ Intra-Procedure ] Pulse Rate [ Post-Procedure] Respiratory 18 Rate Respiratory Rate [Intra- Procedure] Respiratory Rate [Post- Procedure] Respiratory 18 18 Rate [no s/s] Blood Pressure 143/85 Blood Pressure [Intra- Procedure] Blood Pressure [Post-Procedure ] O2 Sat by Pulse 97 Oximetry O2 Sat by Pulse Oximetry [ Intra-Procedure ] O2 Sat by Pulse Oximetry [Post -Procedure] 03/23/19 03/23/19 03/23/19 09:48 09:52 09:56 Temperature Temperature [ 97.9 F Post-Procedure] Pulse Rate Pulse Rate [ 63 64 Intra-Procedure ] Pulse Rate [ 68 Post-Procedure] Respiratory Rate Respiratory 24 24 Rate [Intra- Procedure] Respiratory 18 Rate [Post- Procedure] Respiratory Rate [no s/s] Blood Pressure Blood Pressure 152/97 149/96 [Intra- Procedure] Blood Pressure 150/91 [Post-Procedure ] O2 Sat by Pulse Oximetry O2 Sat by Pulse 100 100 Oximetry [ Intra-Procedure ] O2 Sat by Pulse 96 Oximetry [Post -Procedure] 03/23/19 03/23/19 03/23/19 10:00 10:05 10:09 Temperature Temperature [ Post-Procedure] Pulse Rate Pulse Rate [ 67 64 64 Intra-Procedure ] Pulse Rate [ Post-Procedure] Respiratory Rate Respiratory 20 20 13 Rate [Intra- Procedure] Respiratory Rate [Post- Procedure] Respiratory Rate [no s/s] Blood Pressure Blood Pressure 135/84 138/83 151/91 [Intra- Procedure] Blood Pressure [Post-Procedure ] O2 Sat by Pulse Oximetry O2 Sat by Pulse 100 100 99 Oximetry [ Intra-Procedure ] O2 Sat by Pulse Oximetry [Post -Procedure] 03/23/19 03/23/19 03/23/19 10:18 10:27 10:41 Temperature Temperature [ 97.1 F L Post-Procedure] Pulse Rate Pulse Rate [ Intra-Procedure ] Pulse Rate [ 64 66 64 Post-Procedure] Respiratory Rate Respiratory Rate [Intra- Procedure] Respiratory 20 16 16 Rate [Post- Procedure] Respiratory Rate [no s/s] Blood Pressure Blood Pressure [Intra- Procedure] Blood Pressure 156/93 153/88 135/73 [Post-Procedure ] O2 Sat by Pulse Oximetry O2 Sat by Pulse Oximetry [ Intra-Procedure ] O2 Sat by Pulse 99 97 99 Oximetry [Post -Procedure] Constitutional: no acute distress, other (mallampati 2) Eyes: non-icteric ENT: oropharynx dry, other (extubated) Neck: supple, no lymphadenopathy, no JVD, other (no thyromegaly) Effort: normal Ascultation: Bilateral: diminished breath sounds Percussion: Bilateral: not dull Cardiovascular: regular rate and rhythm, other (S1,S2, no murmurs, gallops or rubs) Gastrointestinal: normoactive bowel sounds, soft, non-tender, non-distended, other (bowel sounds in all 4 quadrants, sinclair catheter) Integumentary: normal Extremities: no cyanosis, no edema, pink and warm, pulses normal, no ischemia or petechiae Neurologic: normal mental status, non-focal exam, pupils equal and round, motor strength normal and Psychiatric: mood appropriate, affect normal CBC and BMP: 03/22/19 06:53 03/23/19 06:07 ABG, PT/INR, D-dimer: ABG POC ABG pH 7.473 (7.35-7.45) H 03/18/19 09:16 POC ABG pCO2 31.5 (35-45) L 03/18/19 09:16 POC ABG pO2 118 (80-105) H 03/18/19 09:16 POC ABG HCO3 23.1 (22-26 mml/L) 03/18/19 09:16 POC ABG Total CO2 24 (23-27mmol/L) 03/18/19 09:16 POC ABG O2 Sat 99 03/18/19 09:16 PT/INR, D-dimer PT 14.9 Sec. (12.2-14.9) 03/22/19 15:13 INR 1.20 (0.87-1.13) H 03/22/19 15:13 Abnormal lab findings: Abnormal Labs 03/16/19 03/16/19 03/16/19 10:00 10:21 10:37 WBC 27.7 H RBC Hgb Hct MCHC Plt Count 553 H [place] % (Auto) [place] # Seg Neutrophils % Seg Neuts % (Manual) 90.0 H Lymphocytes % (Manual) 2.0 L Seg Neutrophils # Seg Neutrophils # Man 24.9 H Lymphocytes # (Manual) 0.6 L Monocytes # (Manual) 1.4 H PT INR POC ABG pH POC ABG pCO2 POC ABG pO2 Sodium Potassium Chloride Carbon Dioxide BUN Creatinine Glucose POC Glucose 49 L 154 H Calcium Total Bilirubin Direct Bilirubin AST ALT Alkaline Phosphatase Total Creatine Kinase Total Protein Albumin Urine WBC (Auto) Urine Creatinine Salicylates Acetaminophen Complement C3 Complement C4 03/16/19 03/16/19 03/16/19 10:37 10:37 10:37 WBC RBC Hgb Hct MCHC Plt Count [place] % (Auto) [place] # Seg Neutrophils % Seg Neuts % (Manual) Lymphocytes % (Manual) Seg Neutrophils # Seg Neutrophils # Man Lymphocytes # (Manual) Monocytes # (Manual) PT 17.5 H INR 1.47 H POC ABG pH POC ABG pCO2 POC ABG pO2 Sodium Potassium 5.1 H Chloride Carbon Dioxide 13 L BUN 35 H Creatinine 3.0 H Glucose 129 H POC Glucose Calcium Total Bilirubin 2.60 H Direct Bilirubin AST 160 H ALT 106 H Alkaline Phosphatase 133 H Total Creatine Kinase Total Protein Albumin Urine WBC (Auto) Urine Creatinine Salicylates < 0.3 L Acetaminophen Complement C3 Complement C4 03/16/19 03/16/19 03/16/19 10:37 10:37 11:37 WBC RBC Hgb Hct MCHC Plt Count [place] % (Auto) [place] # Seg Neutrophils % Seg Neuts % (Manual) Lymphocytes % (Manual) Seg Neutrophils # Seg Neutrophils # Man Lymphocytes # (Manual) Monocytes # (Manual) PT INR POC ABG pH POC ABG pCO2 POC ABG pO2 Sodium Potassium Chloride Carbon Dioxide BUN Creatinine Glucose POC Glucose Calcium Total Bilirubin Direct Bilirubin AST ALT Alkaline Phosphatase Total Creatine Kinase 4300 H Total Protein Albumin Urine WBC (Auto) 10.0 H Urine Creatinine Salicylates Acetaminophen < 5.0 L Complement C3 Complement C4 03/16/19 03/16/19 03/17/19 11:37 12:25 04:41 WBC 13.5 H RBC Hgb Hct MCHC 35 H Plt Count [place] % (Auto) [place] # 1.0 H Seg Neutrophils % 76.4 H Seg Neuts % (Manual) Lymphocytes % (Manual) Seg Neutrophils # 10.3 H Seg Neutrophils # Man Lymphocytes # (Manual) Monocytes # (Manual) PT INR POC ABG pH 7.188 L POC ABG pCO2 47.9 H POC ABG pO2 Sodium Potassium Chloride Carbon Dioxide BUN Creatinine Glucose POC Glucose Calcium Total Bilirubin Direct Bilirubin AST ALT Alkaline Phosphatase Total Creatine Kinase Total Protein Albumin Urine WBC (Auto) Urine Creatinine 75.6 H Salicylates Acetaminophen Complement C3 Complement C4 03/17/19 03/17/19 03/17/19 04:41 04:41 04:57 WBC RBC Hgb Hct MCHC Plt Count [place] % (Auto) [place] # Seg Neutrophils % Seg Neuts % (Manual) Lymphocytes % (Manual) Seg Neutrophils # Seg Neutrophils # Man Lymphocytes # (Manual) Monocytes # (Manual) PT INR POC ABG pH 7.302 L POC ABG pCO2 POC ABG pO2 158 H Sodium Potassium Chloride Carbon Dioxide 13 L BUN 57 H Creatinine 4.6 H D Glucose POC Glucose Calcium 8.2 L Total Bilirubin Direct Bilirubin AST 567 H ALT 356 H Alkaline Phosphatase Total Creatine Kinase 09039 H Total Protein 6.0 L D Albumin 3.4 L Urine WBC (Auto) Urine Creatinine Salicylates Acetaminophen Complement C3 Complement C4 03/17/19 03/17/19 03/18/19 08:27 16:47 04:45 WBC RBC Hgb Hct MCHC Plt Count [place] % (Auto) [place] # Seg Neutrophils % Seg Neuts % (Manual) Lymphocytes % (Manual) Seg Neutrophils # Seg Neutrophils # Man Lymphocytes # (Manual) Monocytes # (Manual) PT INR POC ABG pH 7.304 L 7.459 H POC ABG pCO2 POC ABG pO2 135 H 127 H 124 H Sodium Potassium Chloride Carbon Dioxide BUN Creatinine Glucose POC Glucose Calcium Total Bilirubin Direct Bilirubin AST ALT Alkaline Phosphatase Total Creatine Kinase Total Protein Albumin Urine WBC (Auto) Urine Creatinine Salicylates Acetaminophen Complement C3 Complement C4 03/18/19 03/18/19 03/18/19 04:59 09:16 10:00 WBC RBC Hgb Hct MCHC Plt Count [place] % (Auto) [place] # Seg Neutrophils % Seg Neuts % (Manual) Lymphocytes % (Manual) Seg Neutrophils # Seg Neutrophils # Man Lymphocytes # (Manual) Monocytes # (Manual) PT INR POC ABG pH 7.473 H POC ABG pCO2 31.5 L POC ABG pO2 118 H Sodium Potassium 3.1 L D Chloride Carbon Dioxide 21 L D BUN 75 H Creatinine 7.9 H D Glucose 120 H POC Glucose Calcium 7.5 L Total Bilirubin Direct Bilirubin AST ALT Alkaline Phosphatase Total Creatine Kinase 60848 H Total Protein Albumin Urine WBC (Auto) Urine Creatinine Salicylates Acetaminophen Complement C3 Complement C4 03/18/19 03/18/19 03/18/19 10:00 12:49 15:24 WBC RBC 3.47 L Hgb 10.8 L Hct 31.2 L MCHC 35 H Plt Count [place] % (Auto) 9.2 H [place] # Seg Neutrophils % Seg Neuts % (Manual) Lymphocytes % (Manual) Seg Neutrophils # Seg Neutrophils # Man Lymphocytes # (Manual) Monocytes # (Manual) PT INR POC ABG pH POC ABG pCO2 POC ABG pO2 Sodium Potassium Chloride Carbon Dioxide BUN Creatinine Glucose POC Glucose Calcium Total Bilirubin Direct Bilirubin AST ALT Alkaline Phosphatase Total Creatine Kinase Total Protein Albumin Urine WBC (Auto) 18.0 H Urine Creatinine Salicylates Acetaminophen Complement C3 69 L Complement C4 03/18/19 03/19/19 03/19/19 15:24 04:22 04:22 WBC RBC Hgb Hct MCHC Plt Count [place] % (Auto) [place] # Seg Neutrophils % Seg Neuts % (Manual) Lymphocytes % (Manual) Seg Neutrophils # Seg Neutrophils # Man Lymphocytes # (Manual) Monocytes # (Manual) PT INR POC ABG pH POC ABG pCO2 POC ABG pO2 Sodium Potassium Chloride Carbon Dioxide 20 L BUN 78 H Creatinine 9.1 H Glucose POC Glucose Calcium 8.0 L Total Bilirubin 2.00 H Direct Bilirubin AST 444 H ALT 559 H Alkaline Phosphatase 166 H Total Creatine Kinase 39664 H Total Protein 5.6 L Albumin 3.0 L Urine WBC (Auto) Urine Creatinine Salicylates Acetaminophen Complement C3 Complement C4 14 L 03/19/19 03/19/19 03/20/19 04:22 09:53 06:32 WBC RBC 3.35 L Hgb 10.5 L Hct 30.6 L MCHC Plt Count [place] % (Auto) [place] # Seg Neutrophils % Seg Neuts % (Manual) Lymphocytes % (Manual) Seg Neutrophils # Seg Neutrophils # Man Lymphocytes # (Manual) Monocytes # (Manual) PT INR POC ABG pH POC ABG pCO2 POC ABG pO2 Sodium Potassium Chloride Carbon Dioxide BUN Creatinine Glucose POC Glucose Calcium Total Bilirubin 2.20 H Direct Bilirubin 1.6 H AST 467 H ALT 611 H Alkaline Phosphatase 189 H Total Creatine Kinase 4375 H Total Protein 6.1 L Albumin 3.3 L Urine WBC (Auto) Urine Creatinine Salicylates Acetaminophen Complement C3 Complement C4 03/20/19 03/20/19 03/21/19 06:32 06:32 08:24 WBC RBC Hgb 11.6 L Hct 33.5 L MCHC 35 H Plt Count [place] % (Auto) [place] # Seg Neutrophils % Seg Neuts % (Manual) Lymphocytes % (Manual) Seg Neutrophils # Seg Neutrophils # Man Lymphocytes # (Manual) Monocytes # (Manual) PT INR POC ABG pH POC ABG pCO2 POC ABG pO2 Sodium 136 L Potassium Chloride 97.7 L Carbon Dioxide 18 L BUN 88 H Creatinine 11.0 H Glucose 147 H POC Glucose Calcium Total Bilirubin 1.40 H Direct Bilirubin AST 269 H ALT 552 H Alkaline Phosphatase 198 H Total Creatine Kinase 1011 H Total Protein Albumin 3.3 L Urine WBC (Auto) Urine Creatinine Salicylates Acetaminophen Complement C3 Complement C4 03/21/19 03/21/19 03/22/19 08:24 15:00 06:53 WBC RBC Hgb Hct MCHC Plt Count [place] % (Auto) [place] # Seg Neutrophils % Seg Neuts % (Manual) Lymphocytes % (Manual) Seg Neutrophils # Seg Neutrophils # Man Lymphocytes # (Manual) Monocytes # (Manual) PT INR POC ABG pH POC ABG pCO2 POC ABG pO2 Sodium 136 L Potassium Chloride Carbon Dioxide 20 L BUN 76 H Creatinine 9.6 H Glucose 146 H POC Glucose Calcium 8.0 L Total Bilirubin Direct Bilirubin AST ALT Alkaline Phosphatase Total Creatine Kinase 642 H Total Protein Albumin Urine WBC (Auto) Urine Creatinine 136.3 H Salicylates Acetaminophen Complement C3 Complement C4 03/22/19 03/22/19 03/22/19 06:53 06:53 15:13 WBC RBC 3.36 L Hgb 10.5 L Hct 30.5 L MCHC 35 H Plt Count [place] % (Auto) [place] # Seg Neutrophils % Seg Neuts % (Manual) Lymphocytes % (Manual) Seg Neutrophils # Seg Neutrophils # Man Lymphocytes # (Manual) Monocytes # (Manual) PT INR 1.20 H POC ABG pH POC ABG pCO2 POC ABG pO2 Sodium 134 L Potassium Chloride 96.1 L Carbon Dioxide 18 L BUN 94 H Creatinine 10.8 H Glucose 136 H POC Glucose Calcium 7.8 L Total Bilirubin Direct Bilirubin AST 106 H ALT 378 H Alkaline Phosphatase 181 H Total Creatine Kinase Total Protein 5.9 L Albumin 3.2 L Urine WBC (Auto) Urine Creatinine Salicylates Acetaminophen Complement C3 Complement C4 03/23/19 06:07 WBC RBC Hgb Hct MCHC Plt Count [place] % (Auto) [place] # Seg Neutrophils % Seg Neuts % (Manual) Lymphocytes % (Manual) Seg Neutrophils # Seg Neutrophils # Man Lymphocytes # (Manual) Monocytes # (Manual) PT INR POC ABG pH POC ABG pCO2 POC ABG pO2 Sodium Potassium Chloride Carbon Dioxide BUN 75 H Creatinine 9.5 H Glucose POC Glucose Calcium 7.1 L Total Bilirubin Direct Bilirubin AST ALT Alkaline Phosphatase Total Creatine Kinase 368 H Total Protein Albumin Urine WBC (Auto) Urine Creatinine Salicylates Acetaminophen Complement C3 Complement C4 Allied health notes reviewed: nursing
[2019-03-23] MEDS ORDERED: DILAUDID IV ONE (11:00)
--- NOTE | 2019-03-23 11:07 | Cat Scan Report ---
CT BIOPSY RENAL RIGHT HISTORY: Acute renal insufficiency. DESCRIPTION OF PROCEDURE: Informed consent was obtained. Sterile technique was utilized. A timeout wa s performed. Skin anesthesia was accomplished with 1% lidocaine. Anxiolysis was accomplished with 1 m g of Dilaudid and 4 mg of Zofran. Independent cardiorespiratory monitoring by RN. Intraobserver time of 15 minutes. The patient was sedated for [address] guidance, a 17-gauge introducer needle was advanced to the inferior pole of the right kidney . 2 separate 1.3 cm 18-gauge core biopsies were obtained and placed in formalin for pathologic analys is. Postbiopsy scan demonstrates no uncontained hemorrhage. The patient tolerated the procedure witho ut difficulty. IMPRESSION: Successful CT-guided biopsy at the inferior pole of the right kidney. Signer Name: Inder Zuñiga Jr, MD Signed: 03/23/2019 10:03 AM Workstation Name: [id number]
[2019-03-23] MEDS: NACL 0.9% 1000 ML 1,000 ML IV SCH (12:35)
[2019-03-23] MEDS: PEPCID PO SCH (12:35)
[2019-03-23] MEDS: KEFLEX PO SCH ×2 (12:36→21:56)
[2019-03-23] MEDS: SODIUM CHLORIDE FLUSH SYRINGE 10 ML IV SCH ×2 (12:37→21:56)
--- NOTE | 2019-03-23 15:58 | Progress Note ---
Assessment and Plan Assessment and plan: 33 YO Male with Polysubstance Abuse, Psychosis currently and inpatient at [facility] presents to ED for evaluation. Pt is lethargic and unable to provide history and is intubated and on vest support at time of my exam. Patient history provided by his father who is at bedside during exam and interview. As per father, the patient was found to be confused by [facility] staff to be confused with decreased level of responsiveness. EMS notified, and upon arrival the patient was found to be unresponsive and treated with supportive care and IM Narcan and transported to [facility]. Pt seen and evaluated in ED and was found to have Encephalopathy, Sepsis, and Respiratory distress and was unable to protect his airway. Pt intubated and placed on vent support. Pt admitted to ICU and initiated on sepsis protocol. he improved, was extubated, transferred to medical floor. * Extubated successfully 03/18/19 * Patient on admission was treated with sepsis while other differential diagnosis SIRS (systemic inflammatory response syndrome), Hypoglycemia, NMS (neuroleptic malignant syndrome), Drug abuse, Hepatic dysfunction was highly evident. He did rather recover quickly only evidence noted for infection is from Urinalysis * His mental status improved by day 2 * He had noted seizure like activity follow administration of Narcan * UDS positive for cocain * Neurology, Renal and Burrer Marker Axle input noted * csf, unremarkable. Head CT -normal. EEG did not show active seizure. * Dialysis access placed 03/20/19 and dialysis started Sepsis- Resolved Acute Renal failure with underlying ATN and possible Glomerelonephritis, - Started on HD, s/p renal biopsy today Nephrology following. vascular work up ongoing, pulse dose steroids started METABOLIC ACIDOSIS: started dialysis, anticipate correction Acute Metabolic Encephalopathy- Intermittent, may require intermittent Ativan, MONITOR FOR RESPIRATORY DEPRESSION Acute cystitis- No culture growth, continue abx till day after biopsy and then discontinue if no fever Polysubstane abuse- With overdose, UDS, POSITIVE for opioids, cocain and amphateamines, counselling provided, greater than 15 mins. Patient currently admitted from a Rehab program Seizure-Likely secondary to opiate withdrawal Tobacco use disorder- Counseling provided Acute Hypoxemic Respiratory Failure-Resolved Rhabdomylysis- Improving, initially treated with IV Bicarb Drip Acute Heaptocellular dysfunction- ?Acute Hepatitis vs passive congestive failure and shock liver state-Improving- Hyperkalemia- Resolved DVT/GI prophy Plan discussed with patient and father at bedside History Interval history: had left kidney biopsy today No pain at biopsy site Hospitalist Physical - Physical exam Narrative exam: Gen: Not in acute distress, lying in bed,obese HEENT: Normocephalic, atraumatic Neck: supple, no JVD Heart: S1 and S2 reg, no murmurs, rubs or gallop Lungs: Clear, no crackles, no wheeze Abd: soft, non tender, non distended, normal BS Ext: No edema, no clubbing, no cyanosis, Neuro: Awake,alert, oriented,moves all ext, - Constitutional Vitals: Temp Pulse Resp BP Pulse Ox 98.7 F 63 20 149/84 98 03/23/19 11:49 03/23/19 11:49 03/23/19 11:49 03/23/19 11:49 03/23/19 14:26 Results - Labs CBC & Chem 7: 03/22/19 06:53 03/23/19 06:07 Labs: Laboratory Last Values WBC 10.0 K/mm3 (4.5-11.0) 03/22/19 06:53 RBC 3.36 M/mm3 (3.65-5.03) L 03/22/19 06:53 Hgb 10.5 gm/dl (11.8-15.2) L 03/22/19 06:53 Hct 30.5 % (35.5-45.6) L 03/22/19 06:53 MCV 91 fl (84-94) 03/22/19 06:53 MCH 31 pg (28-32) 03/22/19 06:53 MCHC 35 % (32-34) H 03/22/19 06:53 RDW 14.2 % (13.2-15.2) 03/22/19 06:53 Plt Count 303 K/mm3 (140-440) 03/22/19 06:53 Lymph % (Auto) 17.3 % (13.4-35.0) 03/18/19 10:00 [place] % (Auto) 9.2 % (0.0-7.3) H 03/18/19 10:00 Eos % (Auto) 3.1 % (0.0-4.3) 03/18/19 10:00 Baso % (Auto) 1.2 % (0.0-1.8) 03/18/19 10:00 Lymph # 1.6 K/mm3 (1.2-5.4) 03/18/19 10:00 [place]herty # 0.8 K/mm3 (0.0-0.8) 03/18/19 10:00 Eos # 0.3 K/mm3 (0.0-0.4) 03/18/19 10:00 Baso # 0.1 K/mm3 (0.0-0.1) 03/18/19 10:00 Add Manual Diff Complete 03/16/19 10:37 Total Counted 100 03/16/19 10:37 Seg Neutrophils % 69.2 % (40.0-70.0) 03/18/19 10:00 Seg Neuts % (Manual) 90.0 % (40.0-70.0) H 03/16/19 10:37 1.0 % 03/16/19 10:37 2.0 % (13.4-35.0) L 03/16/19 10:37 Reactive Lymphs % (Man) 0 % 03/16/19 10:37 5.0 % (0.0-7.3) 03/16/19 10:37 0 % (0.0-4.3) 03/16/19 10:37 0 % (0.0-1.8) 03/16/19 10:37 1.0 % 03/16/19 10:37 1.0 % 03/16/19 10:37 0 % 03/16/19 10:37 0 % 03/16/19 10:37 Nucleated RBC % Not Reportable 03/16/19 10:37 Seg Neutrophils # 6.3 K/mm3 (1.8-7.7) 03/18/19 10:00 Seg Neutrophils # Man 24.9 K/mm3 (1.8-7.7) H 03/16/19 10:37 Band Neutrophils # 0.3 K/mm3 03/16/19 10:37 0.6 K/mm3 (1.2-5.4) L 03/16/19 10:37 Abs React Lymphs (Man) 0.0 K/mm3 03/16/19 10:37 1.4 K/mm3 (0.0-0.8) H 03/16/19 10:37 0.0 K/mm3 (0.0-0.4) 03/16/19 10:37 0.0 K/mm3 (0.0-0.1) 03/16/19 10:37 0.3 K/mm3 03/16/19 10:37 0.3 K/mm3 03/16/19 10:37 0.0 K/mm3 03/16/19 10:37 Blast Cells # 0.0 K/mm3 03/16/19 10:37 WBC Morphology Not Reportable 03/16/19 10:37 Hypersegmented Neuts Not Reportable 03/16/19 10:37 Hyposegmented Neuts Not Reportable 03/16/19 10:37 Hypogranular Neuts Not Reportable 03/16/19 10:37 Not Reportable 03/16/19 10:37 Not Reportable 03/16/19 10:37 Not Reportable 03/16/19 10:37 Not Reportable 03/16/19 10:37 Not Reportable 03/16/19 10:37 Not Reportable 03/16/19 10:37 Consistent w auto 03/16/19 10:37 Not Reportable 03/16/19 10:37 Plt Clumps, EDTA Not Reportable 03/16/19 10:37 Not Reportable 03/16/19 10:37 Not Reportable 03/16/19 10:37 Not Reportable 03/16/19 10:37 Plt Morphology Comment Not Reportable 03/16/19 10:37 RBC Morphology Normal 03/16/19 10:37 Dimorphic RBCs Not Reportable 03/16/19 10:37 Not Reportable 03/16/19 10:37 Not Reportable 03/16/19 10:37 Not Reportable 03/16/19 10:37 Not Reportable 03/16/19 10:37 Not Reportable 03/16/19 10:37 Not Reportable 03/16/19 10:37 Not Reportable 03/16/19 10:37 Not Reportable 03/16/19 10:37 Not Reportable 03/16/19 10:37 Not Reportable 03/16/19 10:37 Not Reportable 03/16/19 10:37 Not Reportable 03/16/19 10:37 Not Reportable 03/16/19 10:37 Not Reportable 03/16/19 10:37 Not Reportable 03/16/19 10:37 Not Reportable 03/16/19 10:37 Not Reportable 03/16/19 10:37 Not Reportable 03/16/19 10:37 Not Reportable 03/16/19 10:37 Acanthocytes (Spur) Not Reportable 03/16/19 10:37 Rouleaux Not Reportable 03/16/19 10:37 Not Reportable 03/16/19 10:37 Not Reportable 03/16/19 10:37 Not Reportable 03/16/19 10:37 Not Reportable 03/16/19 10:37 Hem Pathologist Commnt No 03/16/19 10:37 PT 14.9 Sec. (12.2-14.9) 03/22/19 15:13 INR 1.20 (0.87-1.13) H 03/22/19 15:13 APTT 26.4 Sec. (24.2-36.6) 03/22/19 15:13 POC ABG pH 7.473 (7.35-7.45) H 03/18/19 09:16 POC ABG pCO2 31.5 (35-45) L 03/18/19 09:16 POC ABG pO2 118 (80-105) H 03/18/19 09:16 POC ABG HCO3 23.1 (22-26 mml/L) 03/18/19 09:16 POC ABG Total CO2 24 (23-27mmol/L) 03/18/19 09:16 POC ABG O2 Sat 99 03/18/19 09:16 POC ABG Base Excess 0 ((-2) - (+3)mmol/L) 03/18/19 09:16 25 % 03/18/19 09:16 Sodium 137 mmol/L (137-145) 03/23/19 06:07 Potassium 4.1 mmol/L (3.6-5.0) 03/23/19 06:07 Chloride 98.2 mmol/L (98-107) 03/23/19 06:07 Carbon Dioxide 22 mmol/L (22-30) 03/23/19 06:07 21 mmol/L 03/23/19 06:07 BUN 75 mg/dL (9-20) H 03/23/19 06:07 9.5 mg/dL (0.8-1.5) H 03/23/19 06:07 Estimated GFR 6 ml/min 03/23/19 06:07 8 % 03/23/19 06:07 Glucose 97 mg/dL (75-100) 03/23/19 06:07 POC Glucose 100 (70-105) 03/16/19 17:45 Lactic Acid 0.80 mmol/L (0.7-2.0) 03/16/19 16:38 Calcium 7.1 mg/dL (8.4-10.2) L 03/23/19 06:07 0.90 mg/dL (0.1-1.2) 03/22/19 06:53 1.6 mg/dL (0-0.2) H 03/19/19 09:53 0.6 mg/dL 03/19/19 09:53 AST 106 units/L (5-40) H 03/22/19 06:53 ALT 378 units/L (7-56) H 03/22/19 06:53 181 units/L (35-129) H 03/22/19 06:53 368 units/L (55-170) H 03/23/19 06:07 < 0.010 ng/mL (0.00-0.029) 03/16/19 10:37 5.9 g/dL (6.3-8.2) L 03/22/19 06:53 3.2 g/dL (3.9-5) L 03/22/19 06:53 1.2 % 03/22/19 06:53 Triglycerides 76 mg/dL (2-149) 03/18/19 15:24 [place] (Yellow) 03/18/19 12:49 Cloudy (Clear) 03/18/19 12:49 5.0 (5.0-7.0) 03/18/19 12:49 Ur Specific [place] 1.015 (1.003-1.030) 03/18/19 12:49 >500 mg/dL (Negative) 03/18/19 12:49 150 mg/dL (Negative) 03/18/19 12:49 Tr mg/dL (Negative) 03/18/19 12:49 Lg (Negative) 03/18/19 12:49 Neg (Negative) 03/18/19 12:49 Neg (Negative) 03/18/19 12:49 < 2.0 mg/dL (<2.0) 03/18/19 12:49 Ur Leukocyte Esterase Neg (Negative) 03/18/19 12:49 18.0 /HPF (0.0-6.0) H 03/18/19 12:49 121.0 /HPF (0.0-6.0) 03/18/19 12:49 U Epithel Cells (Auto) 2.0 /HPF (0-13.0) 03/18/19 12:49 3+ /HPF (Negative) 03/18/19 12:49 Few /HPF 03/18/19 12:49 136.3 mg/dL (0.1-20.0) H 03/21/19 15:00 37 mmol/L 03/21/19 15:00 Clear 03/16/19 12:40 Clear 03/16/19 12:40 Colorless 03/16/19 12:40 Colorless 03/16/19 12:40 2 /mm3 (1-10) 03/16/19 12:40 2 /mm3 (1-10) 03/16/19 12:40 0 /mm3 (0-0) 03/16/19 12:40 0 /mm3 (0-0) 03/16/19 12:40 CSF Seg Neutrophils 0 % (0-6) 03/16/19 12:40 CSF Seg Neutrophils 0 % (0-6) 03/16/19 12:40 47.7 % (40-80) 03/16/19 12:40 93.1 % (40-80) 03/16/19 12:40 CSF Reactive Lymphs 0 % 03/16/19 12:40 CSF Reactive Lymphs 0 % 03/16/19 12:40 6.9 % (15-45) 03/16/19 12:40 52.3 % (15-45) 03/16/19 12:40 0 % 03/16/19 12:40 0 % 03/16/19 12:40 0 % 03/16/19 12:40 0 % 03/16/19 12:40 C 03/16/19 12:40 C 03/16/19 12:40 69 mg/dL 03/16/19 12:40 Salicylates < 0.3 mg/dL (2.8-20.0) L 03/16/19 10:37 Presumptive positive 03/16/19 11:37 Presumptive negative 03/16/19 11:37 Acetaminophen < 5.0 ug/mL (10.0-30.0) L 03/16/19 10:37 Ur Barbiturates Screen Presumptive negative 03/16/19 11:37 Ur Phencyclidine Scrn Presumptive negative 03/16/19 11:37 Ur Amphetamines Screen Presumptive positive 03/16/19 11:37 U Benzodiazepines Scrn Presumptive negative 03/16/19 11:37 Presumptive positive 03/16/19 11:37 U Marijuana (THC) Screen Presumptive negative 03/16/19 11:37 Disclamer 03/16/19 11:37 Plasma/Serum Alcohol < 0.01 % (0-0.07) 03/16/19 10:37 69 mg/dL (82-185) L 03/18/19 15:24 14 mg/dL (15-53) L 03/18/19 15:24 Hepatitis A IgM Ab Non-reactive (NonReactive) 03/20/19 14:30 Hep Bs Antigen Non-reactive (Negative) 03/20/19 14:30 Hep B Core IgM Ab Non-reactive (NonReactive) 03/20/19 14:30 Non-reactive (NonReactive) 03/20/19 14:30 HIV 1&2 Antibody Rapid Non react (Non React) 03/16/19 12:05 Non react (Non React) 03/16/19 12:05 Active Medications - Current Medications Current Medications: Generic Name Dose Route Start Last Admin Trade Name Freq PRN Reason Stop Dose Admin Acetaminophen 650 mg 03/22/19 09:23 Tylenol [place] Q6H PRN Pain, Mild (1-3) Cephalexin 250 mg 03/22/19 22:00 03/23/19 12:36 Keflex PO 250 mg Q12HR JOÃO Administration Diphenhydramine HCl 25 mg 03/19/19 22:54 03/20/19 00:12 Benadryl PO 25 mg Q6H PRN Administration Itching Famotidine 20 mg 03/19/19 10:00 03/23/19 12:35 Pepcid PO 20 mg DAILY JOÃO Administration Heparin Sodium (Porcine) 5,000 unit 03/16/19 22:00 03/22/19 21:54 Heparin SUB-Q 5,000 unit Q12HR JOÃO Administration Sodium Chloride 100 mls @ 999 mls/hr 03/21/19 07:45 Nacl 0.9% IV BECK PRN Hypotension Sodium Chloride 1,000 mls @ 50 mls/hr 03/21/19 10:00 03/23/19 12:35 Nacl 0.9% 1000 Ml IV 50 mls/hr DIRECT JOÃO Administration Lorazepam 2 mg 03/19/19 17:14 03/22/19 03:04 Ativan IV 2 mg Q6H PRN Administration Agitation Sodium Chloride 10 ml 03/16/19 22:00 03/23/19 12:37 Sodium Chloride Flush Syringe 10 Ml IV 10 ml BID JOÃO Administration Sodium Chloride 10 ml 03/16/19 11:52 Sodium Chloride Flush Syringe 10 Ml IV PRN PRN LINE FLUSH Nutrition/Malnutrition Assess - Dietary Evaluation Nutrition/Malnutrition Findings: Nutrition Notes Start: 03/23/19 09: 37 Freq: Status: Active Protocol: Document 03/23/19 09:37 LP (Rec: 03/23/19 09:38 LP [email or web address]) Nutrition Notes Need for Assessment generated from: LOS Initial or Follow up Brief Note Current Diagnosis Acute Kidney Injury, Respiratory Failure Other Pertinent Diagnosis drug abuse Subjective/Other Information Screen for LOS. Pt currently NPO for renal bx but was eating at least 75% of meals. Nutrition Intervention Revisit per MD consult or patient Sign Off request:
[2019-03-23] MEDS: BENADRYL PO PRN (22:04)
[2019-03-24] MEDS: ATIVAN IV PRN (01:16)
[2019-03-24] MEDS: TYLENOL PO PRN (03:34)
[2019-03-24 08:10] LABS: Hematocrit 28.7 % (35.5-45.6); Hemoglobin 10.1 gm/dl (11.8-15.2); Mean Corpuscular HGB Conc 35 % (32-34); Mean Corpuscular Volume 90 fl (84-94); Platelet Count 318 K/mm3 (140-440); Red Cell Distribution Width 13.9 % (13.2-15.2)
[2019-03-24 08:28] LABS: Calcium 7.1 mg/dL (8.4-10.2)
--- NOTE | 2019-03-24 09:38 | Progress Note ---
Assessment and Plan Assessment and plan: 33 YO Male with Polysubstance Abuse, Psychosis currently and inpatient at [facility] presents to ED for evaluation. Pt is lethargic and unable to provide history and is intubated and on vest support at time of my exam. Patient history provided by his father who is at bedside during exam and interview. As per father, the patient was found to be confused by [facility] staff to be confused with decreased level of responsiveness. EMS notified, and upon arrival the patient was found to be unresponsive and treated with supportive care and IM Narcan and transported to [facility]. Pt seen and evaluated in ED and was found to have Encephalopathy, Sepsis, and Respiratory distress and was unable to protect his airway. Pt intubated and placed on vent support. Pt admitted to ICU and initiated on sepsis protocol. He improved, was extubated, transferred to medical floor. * Extubated successfully 03/18/19 * Patient on admission was treated with sepsis while other differential diagnosis SIRS (systemic inflammatory response syndrome), Hypoglycemia, NMS (neuroleptic malignant syndrome), Drug abuse, Hepatic dysfunction was highly evident. He did rather recover quickly only evidence noted for infection is from Urinalysis * His mental status improved by day 2 * He had noted seizure like activity follow administration of Narcan * UDS positive for cocain * Neurology, Renal and [employer] input noted * csf, unremarkable. Head CT -normal. EEG did not show active seizure. * Dialysis access placed 03/20/19 and dialysis started Sepsis- Resolved Acute Renal failure with underlying ATN and possible Glomerelonephritis, - Started on HD, s/p renal biopsy 03/23 Nephrology following. vascular work up ongoing, pulse dose steroids started METABOLIC ACIDOSIS: started dialysis, anticipate correction Acute Metabolic Encephalopathy- Intermittent, may require intermittent Ativan, MONITOR FOR RESPIRATORY DEPRESSION Acute cystitis- No culture growth, continue abx till day after biopsy and then discontinue if no fever Polysubstane abuse- With overdose, UDS, POSITIVE for opioids, cocain and amphateamines, counselling provided, greater than 15 mins. Patient currently admitted from a Rehab program Seizure-Likely secondary to opiate withdrawal Tobacco use disorder- Counseling provided Acute Hypoxemic Respiratory Failure-Resolved Rhabdomylysis- Improving, initially treated with IV Bicarb Drip Acute Heaptocellular dysfunction- ?Acute Hepatitis vs passive congestive failure and shock liver state-Improving- Hyperkalemia- Resolved DVT/GI prophy Plan discussed with patient and father at bedside History Interval history: had left kidney biopsy 03/23 No pain at biopsy site Hospitalist Physical - Physical exam Narrative exam: Gen: Not in acute distress, lying in bed,obese HEENT: Normocephalic, atraumatic Neck: supple, no JVD Heart: S1 and S2 reg, no murmurs, rubs or gallop Lungs: Clear, no crackles, no wheeze Abd: soft, non tender, non distended, normal BS Ext: No edema, no clubbing, no cyanosis, Neuro: Awake,alert, oriented,moves all ext, - Constitutional Vitals: Temp Pulse Resp BP Pulse Ox 99.4 F 86 20 136/67 97 03/24/19 05:30 03/24/19 05:30 03/24/19 05:30 03/24/19 05:30 03/24/19 05:30 Results - Labs CBC & Chem 7: 03/24/19 07:46 03/24/19 07:46 Labs: Laboratory Last Values WBC 8.9 K/mm3 (4.5-11.0) 03/24/19 07:46 RBC 3.20 M/mm3 (3.65-5.03) L 03/24/19 07:46 Hgb 10.1 gm/dl (11.8-15.2) L 03/24/19 07:46 Hct 28.7 % (35.5-45.6) L 03/24/19 07:46 MCV 90 fl (84-94) 03/24/19 07:46 MCH 32 pg (28-32) 03/24/19 07:46 MCHC 35 % (32-34) H 03/24/19 07:46 RDW 13.9 % (13.2-15.2) 03/24/19 07:46 Plt Count 318 K/mm3 (140-440) 03/24/19 07:46 Lymph % (Auto) 17.3 % (13.4-35.0) 03/18/19 10:00 [place] % (Auto) 9.2 % (0.0-7.3) H 03/18/19 10:00 Eos % (Auto) 3.1 % (0.0-4.3) 03/18/19 10:00 Baso % (Auto) 1.2 % (0.0-1.8) 03/18/19 10:00 Lymph # 1.6 K/mm3 (1.2-5.4) 03/18/19 10:00 [place] # 0.8 K/mm3 (0.0-0.8) 03/18/19 10:00 Eos # 0.3 K/mm3 (0.0-0.4) 03/18/19 10:00 Baso # 0.1 K/mm3 (0.0-0.1) 03/18/19 10:00 Add Manual Diff Complete 03/16/19 10:37 Total Counted 100 03/16/19 10:37 Seg Neutrophils % 69.2 % (40.0-70.0) 03/18/19 10:00 Seg Neuts % (Manual) 90.0 % (40.0-70.0) H 03/16/19 10:37 1.0 % 03/16/19 10:37 2.0 % (13.4-35.0) L 03/16/19 10:37 Reactive Lymphs % (Man) 0 % 03/16/19 10:37 5.0 % (0.0-7.3) 03/16/19 10:37 0 % (0.0-4.3) 03/16/19 10:37 0 % (0.0-1.8) 03/16/19 10:37 1.0 % 03/16/19 10:37 1.0 % 03/16/19 10:37 0 % 03/16/19 10:37 0 % 03/16/19 10:37 Nucleated RBC % Not Reportable 03/16/19 10:37 Seg Neutrophils # 6.3 K/mm3 (1.8-7.7) 03/18/19 10:00 Seg Neutrophils # Man 24.9 K/mm3 (1.8-7.7) H 03/16/19 10:37 Band Neutrophils # 0.3 K/mm3 03/16/19 10:37 0.6 K/mm3 (1.2-5.4) L 03/16/19 10:37 Abs React Lymphs (Man) 0.0 K/mm3 03/16/19 10:37 1.4 K/mm3 (0.0-0.8) H 03/16/19 10:37 0.0 K/mm3 (0.0-0.4) 03/16/19 10:37 0.0 K/mm3 (0.0-0.1) 03/16/19 10:37 0.3 K/mm3 03/16/19 10:37 0.3 K/mm3 03/16/19 10:37 0.0 K/mm3 03/16/19 10:37 Blast Cells # 0.0 K/mm3 03/16/19 10:37 WBC Morphology Not Reportable 03/16/19 10:37 Hypersegmented Neuts Not Reportable 03/16/19 10:37 Hyposegmented Neuts Not Reportable 03/16/19 10:37 Hypogranular Neuts Not Reportable 03/16/19 10:37 Not Reportable 03/16/19 10:37 Not Reportable 03/16/19 10:37 Not Reportable 03/16/19 10:37 Not Reportable 03/16/19 10:37 Not Reportable 03/16/19 10:37 Not Reportable 03/16/19 10:37 Consistent w auto 03/16/19 10:37 Not Reportable 03/16/19 10:37 Plt Clumps, EDTA Not Reportable 03/16/19 10:37 Not Reportable 03/16/19 10:37 Not Reportable 03/16/19 10:37 Not Reportable 03/16/19 10:37 Plt Morphology Comment Not Reportable 03/16/19 10:37 RBC Morphology Normal 03/16/19 10:37 Dimorphic RBCs Not Reportable 03/16/19 10:37 Not Reportable 03/16/19 10:37 Not Reportable 03/16/19 10:37 Not Reportable 03/16/19 10:37 Not Reportable 03/16/19 10:37 Not Reportable 03/16/19 10:37 Not Reportable 03/16/19 10:37 Not Reportable 03/16/19 10:37 Not Reportable 03/16/19 10:37 Not Reportable 03/16/19 10:37 Not Reportable 03/16/19 10:37 Not Reportable 03/16/19 10:37 Not Reportable 03/16/19 10:37 Not Reportable 03/16/19 10:37 Not Reportable 03/16/19 10:37 Not Reportable 03/16/19 10:37 Not Reportable 03/16/19 10:37 Not Reportable 03/16/19 10:37 Not Reportable 03/16/19 10:37 Not Reportable 03/16/19 10:37 Acanthocytes (Spur) Not Reportable 03/16/19 10:37 Rouleaux Not Reportable 03/16/19 10:37 Not Reportable 03/16/19 10:37 Not Reportable 03/16/19 10:37 Not Reportable 03/16/19 10:37 Not Reportable 03/16/19 10:37 Hem Pathologist Commnt No 03/16/19 10:37 PT 14.9 Sec. (12.2-14.9) 03/22/19 15:13 INR 1.20 (0.87-1.13) H 03/22/19 15:13 APTT 26.4 Sec. (24.2-36.6) 03/22/19 15:13 POC ABG pH 7.473 (7.35-7.45) H 03/18/19 09:16 POC ABG pCO2 31.5 (35-45) L 03/18/19 09:16 POC ABG pO2 118 (80-105) H 03/18/19 09:16 POC ABG HCO3 23.1 (22-26 mml/L) 03/18/19 09:16 POC ABG Total CO2 24 (23-27mmol/L) 03/18/19 09:16 POC ABG O2 Sat 99 03/18/19 09:16 POC ABG Base Excess 0 ((-2) - (+3)mmol/L) 03/18/19 09:16 25 % 03/18/19 09:16 Sodium 134 mmol/L (137-145) L 03/24/19 07:46 Potassium 3.9 mmol/L (3.6-5.0) 03/24/19 07:46 Chloride 97.9 mmol/L (98-107) L 03/24/19 07:46 Carbon Dioxide 20 mmol/L (22-30) L 03/24/19 07:46 20 mmol/L 03/24/19 07:46 BUN 81 mg/dL (9-20) H 03/24/19 07:46 10.2 mg/dL (0.8-1.5) H 03/24/19 07:46 Estimated GFR 6 ml/min 03/24/19 07:46 8 % 03/24/19 07:46 Glucose 94 mg/dL (75-100) 03/24/19 07:46 POC Glucose 100 (70-105) 03/16/19 17:45 Lactic Acid 0.80 mmol/L (0.7-2.0) 03/16/19 16:38 Calcium 7.1 mg/dL (8.4-10.2) L 03/24/19 07:46 0.90 mg/dL (0.1-1.2) 03/22/19 06:53 1.6 mg/dL (0-0.2) H 03/19/19 09:53 0.6 mg/dL 03/19/19 09:53 AST 106 units/L (5-40) H 03/22/19 06:53 ALT 378 units/L (7-56) H 03/22/19 06:53 181 units/L (35-129) H 03/22/19 06:53 368 units/L (55-170) H 03/23/19 06:07 < 0.010 ng/mL (0.00-0.029) 03/16/19 10:37 5.9 g/dL (6.3-8.2) L 03/22/19 06:53 3.2 g/dL (3.9-5) L 03/22/19 06:53 1.2 % 03/22/19 06:53 Triglycerides 76 mg/dL (2-149) 03/18/19 15:24 [place] (Yellow) 03/18/19 12:49 Cloudy (Clear) 03/18/19 12:49 5.0 (5.0-7.0) 03/18/19 12:49 Ur Specific [place] 1.015 (1.003-1.030) 03/18/19 12:49 >500 mg/dL (Negative) 03/18/19 12:49 150 mg/dL (Negative) 03/18/19 12:49 Tr mg/dL (Negative) 03/18/19 12:49 Lg (Negative) 03/18/19 12:49 Neg (Negative) 03/18/19 12:49 Neg (Negative) 03/18/19 12:49 < 2.0 mg/dL (<2.0) 03/18/19 12:49 Ur Leukocyte Esterase Neg (Negative) 03/18/19 12:49 18.0 /HPF (0.0-6.0) H 03/18/19 12:49 121.0 /HPF (0.0-6.0) 03/18/19 12:49 U Epithel Cells (Auto) 2.0 /HPF (0-13.0) 03/18/19 12:49 3+ /HPF (Negative) 03/18/19 12:49 Few /HPF 03/18/19 12:49 136.3 mg/dL (0.1-20.0) H 03/21/19 15:00 37 mmol/L 03/21/19 15:00 Clear 03/16/19 12:40 Clear 03/16/19 12:40 Colorless 03/16/19 12:40 Colorless 03/16/19 12:40 2 /mm3 (1-10) 03/16/19 12:40 2 /mm3 (1-10) 03/16/19 12:40 0 /mm3 (0-0) 03/16/19 12:40 0 /mm3 (0-0) 03/16/19 12:40 CSF Seg Neutrophils 0 % (0-6) 03/16/19 12:40 CSF Seg Neutrophils 0 % (0-6) 03/16/19 12:40 47.7 % (40-80) 03/16/19 12:40 93.1 % (40-80) 03/16/19 12:40 CSF Reactive Lymphs 0 % 03/16/19 12:40 CSF Reactive Lymphs 0 % 03/16/19 12:40 6.9 % (15-45) 03/16/19 12:40 52.3 % (15-45) 03/16/19 12:40 0 % 03/16/19 12:40 0 % 03/16/19 12:40 0 % 03/16/19 12:40 0 % 03/16/19 12:40 C 03/16/19 12:40 C 03/16/19 12:40 69 mg/dL 03/16/19 12:40 Salicylates < 0.3 mg/dL (2.8-20.0) L 03/16/19 10:37 Presumptive positive 03/16/19 11:37 Presumptive negative 03/16/19 11:37 Acetaminophen < 5.0 ug/mL (10.0-30.0) L 03/16/19 10:37 Ur Barbiturates Screen Presumptive negative 03/16/19 11:37 Ur Phencyclidine Scrn Presumptive negative 03/16/19 11:37 Ur Amphetamines Screen Presumptive positive 03/16/19 11:37 U Benzodiazepines Scrn Presumptive negative 03/16/19 11:37 Presumptive positive 03/16/19 11:37 U Marijuana (THC) Screen Presumptive negative 03/16/19 11:37 Disclamer 03/16/19 11:37 Plasma/Serum Alcohol < 0.01 % (0-0.07) 03/16/19 10:37 69 mg/dL (82-185) L 03/18/19 15:24 14 mg/dL (15-53) L 03/18/19 15:24 Hepatitis A IgM Ab Non-reactive (NonReactive) 03/20/19 14:30 Hep Bs Antigen Non-reactive (Negative) 03/20/19 14:30 Hep B Core IgM Ab Non-reactive (NonReactive) 03/20/19 14:30 Non-reactive (NonReactive) 03/20/19 14:30 HIV 1&2 Antibody Rapid Non react (Non React) 03/16/19 12:05 Non react (Non React) 03/16/19 12:05 Active Medications - Current Medications Current Medications: Generic Name Dose Route Start Last Admin Trade Name Freq PRN Reason Stop Dose Admin Acetaminophen 650 mg 03/24/19 02:16 03/24/19 03:34 Tylenol PO 650 mg Q6H PRN Administration Pain, Mild (1-3) Cephalexin 250 mg 03/22/19 22:00 03/23/19 21:56 Keflex PO 250 mg Q12HR JOÃO Administration Diphenhydramine HCl 25 mg 03/19/19 22:54 03/23/19 22:04 Benadryl PO 25 mg Q6H PRN Administration Itching Famotidine 20 mg 03/19/19 10:00 03/23/19 12:35 Pepcid PO 20 mg DAILY JOÃO Administration Heparin Sodium (Porcine) 5,000 unit 03/16/19 22:00 03/23/19 21:56 Heparin SUB-Q 5,000 unit Q12HR JOÃO Administration Sodium Chloride 100 mls @ 999 mls/hr 03/21/19 07:45 Nacl 0.9% IV BECK PRN Hypotension Sodium Chloride 1,000 mls @ 50 mls/hr 03/21/19 10:00 03/23/19 12:35 Nacl 0.9% 1000 Ml IV 50 mls/hr DIRECT JOÃO Administration Lorazepam 2 mg 03/19/19 17:14 03/24/19 01:16 Ativan IV 2 mg Q6H PRN Administration Agitation Sodium Chloride 10 ml 03/16/19 22:00 03/23/19 21:56 Sodium Chloride Flush Syringe 10 Ml IV 10 ml BID JOÃO Administration Sodium Chloride 10 ml 03/16/19 11:52 Sodium Chloride Flush Syringe 10 Ml IV PRN PRN LINE FLUSH Nutrition/Malnutrition Assess - Dietary Evaluation Nutrition/Malnutrition Findings: Nutrition Notes Start: 03/23/19 09:37 Freq: Status: Active Protocol: Document 03/23/19 09:37 LP (Rec: 03/23/19 09:38 LP [id number]) Nutrition Notes Need for Assessment generated from: LOS Initial or Follow up Brief Note Current Diagnosis Acute Kidney Injury, Respiratory Failure Other Pertinent Diagnosis drug abuse Subjective/Other Information Screen for LOS. Pt currently NPO for renal bx but was eating at least 75% of meals. Nutrition Intervention Revisit per MD consult or patient Sign Off request:
--- NOTE | 2019-03-24 10:31 | Progress Note ---
Assessment and Plan - Patient Problems (1) Acute renal failure Current Visit: Yes Status: Acute Qualifiers: Acute renal failure type: with acute tubular necrosis Qualified Code(s): N17.0 - Acute kidney failure with tubular necrosis Plan to address problem: severe ABDI possibly in the setting of ATN. With the urinalysis findings have to rule out possible glomerulonephritis. Concern for possible underlying rapidly progressive glomerulonephritis given quick rise in his serum creatinine wors ening kidney function. Hep B/C/ HIV panel negative. low C3/4 noted, pending ANCA vasculitis studies. S/p empiric treatment with IV steroid pulse, cont po prednisone 60mg po qd, s/p renal biopsy on 03/23. progressive decline in eGFR noted along with developing uremic symptoms. Patient initiated on HD on 03/20, HD well tolerated. cont HD on MWF schedule until significant renal recovery seen. Further management depending on renal biopsy result. Recommend avoiding any nephrotoxins. Maintain maps above 65. (2) Rhabdomyolysis Current Visit: Yes Status: Acute Qualifiers: Encounter type: initial encounter Plan to address problem: CPK levels are trending down with fluid hydration. (3) Encephalopathy Current Visit: Yes Status: Acute Plan to address problem: uremic encephalopathy contributing. improved with HD (4) Respiratory failure Current Visit: Yes Status: Acute Qualifiers: Chronicity: acute Respiratory failure complication: hypoxia Qualified Code(s): J96.01 - Acute respiratory failure with hypoxia Plan to address problem: s/p extubation , no acute respiratory distress Subjective Date of service: 03/24/19 Principal diagnosis: Ac. hypoxemic resp failure; Ac encephalopathy (toxic/met); ABDI; Drug OD Interval history: Pt awake, denies fever, chills, SOB, CP, n/v/d, reports somewhat increased urine output since yesterday. low complements noted, waiting for renal biopsy result. Objective - Vital Signs Vital signs: Vital Signs - 12hr 03/23/19 03/24/19 23:08 05:30 Temperature 100.3 F H 99.4 F Pulse Rate 65 86 Respiratory 20 20 Rate Blood Pressure 130/80 136/67 O2 Sat by Pulse 98 97 Oximetry - General Appearance General appearance: well-developed, well-nourished, appears stated age EENT: ATNC, PERRL, mucous membranes moist Neck: no JVD Respiratory: Present: Clear to Ascultation Cardiology: regular, S1S2 Gastrointestinal: normoactive bowel sounds Integumentary: no rash, other (no edema ) Neurologic: no focal deficit, alert and oriented x3, strength 5/5, CN 3-12 intact Psychiatric: mood/affect appropriate, cooperative - Lab 03/24/19 07:46 03/24/19 07:46 Most recent lab results Calcium 7.1 mg/dL (8.4-10.2) L 03/24/19 07:46 136.3 mg/dL (0.1-20.0) H 03/21/19 15:00 37 mmol/L 03/21/19 15:00 Medications & Allergies - Medications Allergies/Adverse Reactions: Allergies Unable to Assess Allergy (Unverified 03/16/19 11:41) AMS Home Medications: Home Medications Medication Instructions Recorded Confirmed Last Taken Type Unobtainable 03/16/19 03/16/19 Unknown History Active Medications: Generic Name Dose Route Start Last Admin Trade Name Freq PRN Reason Stop Dose Admin Acetaminophen 650 mg 03/24/19 02:16 03/24/19 03:34 Tylenol PO 650 mg Q6H PRN Administration Pain, Mild (1-3) Cephalexin 250 mg 03/22/19 22:00 03/23/19 21:56 Keflex PO 250 mg Q12HR JOÃO Administration Diphenhydramine HCl 25 mg 03/19/19 22:54 03/23/19 22:04 Benadryl PO 25 mg Q6H PRN Administration Itching Famotidine 20 mg 03/19/19 10:00 03/23/19 12:35 Pepcid PO 20 mg DAILY JOÃO Administration Heparin Sodium (Porcine) 5,000 unit 03/16/19 22:00 03/23/19 21:56 Heparin SUB-Q 5,000 unit Q12HR JOÃO Administration Sodium Chloride 100 mls @ 999 mls/hr 03/21/19 07:45 Nacl 0.9% IV BECK PRN Hypotension Sodium Chloride 1,000 mls @ 50 mls/hr 03/21/19 10:00 03/23/19 12:35 Nacl 0.9% 1000 Ml IV 50 mls/hr DIRECT JOÃO Administration Lorazepam 2 mg 03/19/19 17:14 03/24/19 01:16 Ativan IV 2 mg Q6H PRN Administration Agitation Prednisone 60 mg 03/24/19 11:00 Deltasone PO QDAY JOÃO Sodium Chloride 10 ml 03/16/19 22:00 03/23/19 21:56 Sodium Chloride Flush Syringe 10 Ml IV 10 ml BID JOÃO Administration Sodium Chloride 10 ml 03/16/19 11:52 Sodium Chloride Flush Syringe 10 Ml IV PRN PRN LINE FLUSH
[2019-03-24] MEDS: DELTASONE PO SCH (12:01)
[2019-03-24] MEDS: KEFLEX PO SCH ×2 (12:01→22:44)
[2019-03-24] MEDS: PEPCID PO SCH (12:01)
[2019-03-24] MEDS: HEPARIN SUB-Q SCH ×2 (12:01→21:07)
[2019-03-24] MEDS: NACL 0.9% 1000 ML 1,000 ML IV SCH (12:03)
[2019-03-24] MEDS: SODIUM CHLORIDE FLUSH SYRINGE 10 ML IV SCH ×2 (12:09→22:44)
--- NOTE | 2019-03-24 12:36 | Progress Note ---
Assessment and Plan Acute hypoxemic respiratory failure on MVS Acute metabolic- toxic encephalopathy Acute metabolic acidosis Acute renal failure (multifactorial) Rhabdomyolysis Polysubstance abuse disorder with overdose - get CXR re: physical exam and coughing post biopsy - follow kidney biopsy report - conyinue conservative volume management - strict I's & O's - continue HD/UF for toxin and volume clearance / to prevent pulmonary edema - trend CpK levels and follow clinically (down to teens now) - all cultures NGTD - follow clinically off AB's - prn BMPs at this stage - Supplemental oxygen prn to keep O2 sats > 90% - Bronchodilators prn at this point - continue accuchecks with glycemic control per SSI fo target blood glucose <180mg/dL - aspiration precautions - Avoid nephrotoxic agents, adjust all antibiotics and medications for CrCL and GFR - VTE and Stress ulcer prophylaxis - Substance abuse counselling done at bedside prior ... re-evaluate in am & prn Subjective Date of service: 03/24/19 Principal diagnosis: Ac. hypoxemic resp failure; Ac encephalopathy (toxic/met); ABDI; Drug OD Interval history: Patient is seen today for: Ac. hypoxemic respiratory failure on MVS; Acute encep halopathy (toxic/met); Acute metabolic acidosis; Acute renal failure (multifactorial); Rhabdomyolysis; Polysubstance abuse disorder with overdose Seen and examined at bedside; 24hour events reviewed; nursing and respiratory care staff consulted; no adverse overnight events reported to me; resting peacefully in bed; has been sleeping most of day per parents; No N/V/F/C; co mplained of some lower back pain earlier per Dad; No gross hematuria Objective Vital Signs - 12hr 03/24/19 05:30 Temperature 99.4 F Pulse Rate 86 Respiratory 20 Rate Blood Pressure 136/67 O2 Sat by Pulse 97 Oximetry Constitutional: no acute distress, alert Eyes: non-icteric ENT: oropharynx moist Neck: supple, no lymphadenopathy, no JVD Effort: normal Ascultation: Bilateral: rhonchi (both bases; inspiratory) Percussion: Bilateral: not dull Cardiovascular: regular rate and rhythm, other (S1,S2, no murmurs, gallops or rubs) Gastrointestinal: normoactive bowel sounds, soft, non-tender, non-distended, other (bowel sounds in all 4 quadrants,) Integumentary: normal Extremities: no cyanosis, no edema, pink and warm, pulses normal, no ischemia or petechiae Neurologic: normal mental status, non-focal exam, pupils equal and round, motor strength normal and Psychiatric: other (sleeping) CBC and BMP: 03/24/19 07:46 03/24/19 07:46 ABG, PT/INR, D-dimer: ABG POC ABG pH 7.473 (7.35-7.45) H 03/18/19 09:16 POC ABG pCO2 31.5 (35-45) L 03/18/19 09:16 POC ABG pO2 118 (80-105) H 03/18/19 09:16 POC ABG HCO3 23.1 (22-26 mml/L) 03/18/19 09:16 POC ABG Total CO2 24 (23-27mmol/L) 03/18/19 09:16 POC ABG O2 Sat 99 03/18/19 09:16 PT/INR, D-dimer PT 14.9 Sec. (12.2-14.9) 03/22/19 15:13 INR 1.20 (0.87-1.13) H 03/22/19 15:13 Abnormal lab findings: Abnormal Labs 03/16/19 03/16/19 03/16/19 10:00 10:21 10:37 WBC 27.7 H RBC Hgb Hct MCHC Plt Count 553 H Adams % (Auto) Adams # Seg Neutrophils % Seg Neuts % (Manual) 90.0 H Lymphocytes % (Manual) 2.0 L Seg Neutrophils # Seg Neutrophils # Man 24.9 H Lymphocytes # (Manual) 0.6 L Monocytes # (Manual) 1.4 H PT INR POC ABG pH POC ABG pCO2 POC ABG pO2 Sodium Potassium Chloride Carbon Dioxide BUN Creatinine Glucose POC Glucose 49 L 154 H Calcium Total Bilirubin Direct Bilirubin AST ALT Alkaline Phosphatase Total Creatine Kinase Total Protein Albumin Urine WBC (Auto) Urine Creatinine Salicylates Acetaminophen Complement C3 Complement C4 03/16/19 03/16/19 03/16/19 10:37 10:37 10:37 WBC RBC Hgb Hct MCHC Plt Count Adams % (Auto) Adams # Seg Neutrophils % Seg Neuts % (Manual) Lymphocytes % (Manual) Seg Neutrophils # Seg Neutrophils # Man Lymphocytes # (Manual) Monocytes # (Manual) PT 17.5 H INR 1.47 H POC ABG pH POC ABG pCO2 POC ABG pO2 Sodium Potassium 5.1 H Chloride Carbon Dioxide 13 L BUN 35 H Creatinine 3.0 H Glucose 129 H POC Glucose Calcium Total Bilirubin 2.60 H Direct Bilirubin AST 160 H ALT 106 H Alkaline Phosphatase 133 H Total Creatine Kinase Total Protein Albumin Urine WBC (Auto) Urine Creatinine Salicylates < 0.3 L Acetaminophen Complement C3 Complement C4 03/16/19 03/16/19 03/16/19 10:37 10:37 11:37 WBC RBC Hgb Hct MCHC Plt Count Adams % (Auto) Adams # Seg Neutrophils % Seg Neuts % (Manual) Lymphocytes % (Manual) Seg Neutrophils # Seg Neutrophils # Man Lymphocytes # (Manual) Monocytes # (Manual) PT INR POC ABG pH POC ABG pCO2 POC ABG pO2 Sodium Potassium Chloride Carbon Dioxide BUN Creatinine Glucose POC Glucose Calcium Total Bilirubin Direct Bilirubin AST ALT Alkaline Phosphatase Total Creatine Kinase 4300 H Total Protein Albumin Urine WBC (Auto) 10.0 H Urine Creatinine Salicylates Acetaminophen < 5.0 L Complement C3 Complement C4 03/16/19 03/16/19 03/17/19 11:37 12:25 04:41 WBC 13.5 H RBC Hgb Hct MCHC 35 H Plt Count Adams % (Auto) Adams # 1.0 H Seg Neutrophils % 76.4 H Seg Neuts % (Manual) Lymphocytes % (Manual) Seg Neutrophils # 10.3 H Seg Neutrophils # Man Lymphocytes # (Manual) Monocytes # (Manual) PT INR POC ABG pH 7.188 L POC ABG pCO2 47.9 H POC ABG pO2 Sodium Potassium Chloride Carbon Dioxide BUN Creatinine Glucose POC Glucose Calcium Total Bilirubin Direct Bilirubin AST ALT Alkaline Phosphatase Total Creatine Kinase Total Protein Albumin Urine WBC (Auto) Urine Creatinine 75.6 H Salicylates Acetaminophen Complement C3 Complement C4 03/17/19 03/17/19 03/17/19 04:41 04:41 04:57 WBC RBC Hgb Hct MCHC Plt Count Adams % (Auto) Adams # Seg Neutrophils % Seg Neuts % (Manual) Lymphocytes % (Manual) Seg Neutrophils # Seg Neutrophils # Man Lymphocytes # (Manual) Monocytes # (Manual) PT INR POC ABG pH 7.302 L POC ABG pCO2 POC ABG pO2 158 H Sodium Potassium Chloride Carbon Dioxide 13 L BUN 57 H Creatinine 4.6 H D Glucose POC Glucose Calcium 8.2 L Total Bilirubin Direct Bilirubin AST 567 H ALT 356 H Alkaline Phosphatase Total Creatine Kinase 01138 H Total Protein 6.0 L D Albumin 3.4 L Urine WBC (Auto) Urine Creatinine Salicylates Acetaminophen Complement C3 Complement C4 03/17/19 03/17/19 03/18/19 08:27 16:47 04:45 WBC RBC Hgb Hct MCHC Plt Count Adams % (Auto) Adams # Seg Neutrophils % Seg Neuts % (Manual) Lymphocytes % (Manual) Seg Neutrophils # Seg Neutrophils # Man Lymphocytes # (Manual) Monocytes # (Manual) PT INR POC ABG pH 7.304 L 7.459 H POC ABG pCO2 POC ABG pO2 135 H 127 H 124 H Sodium Potassium Chloride Carbon Dioxide BUN Creatinine Glucose POC Glucose Calcium Total Bilirubin Direct Bilirubin AST ALT Alkaline Phosphatase Total Creatine Kinase Total Protein Albumin Urine WBC (Auto) Urine Creatinine Salicylates Acetaminophen Complement C3 Complement C4 03/18/19 03/18/19 03/18/19 04:59 09:16 10:00 WBC RBC Hgb Hct MCHC Plt Count Adams % (Auto) Adams # Seg Neutrophils % Seg Neuts % (Manual) Lymphocytes % (Manual) Seg Neutrophils # Seg Neutrophils # Man Lymphocytes # (Manual) Monocytes # (Manual) PT INR POC ABG pH 7.473 H POC ABG pCO2 31.5 L POC ABG pO2 118 H Sodium Potassium 3.1 L D Chloride Carbon Dioxide 21 L D BUN 75 H Creatinine 7.9 H D Glucose 120 H POC Glucose Calcium 7.5 L Total Bilirubin Direct Bilirubin AST ALT Alkaline Phosphatase Total Creatine Kinase 02335 H Total Protein Albumin Urine WBC (Auto) Urine Creatinine Salicylates Acetaminophen Complement C3 Complement C4 03/18/19 03/18/19 03/18/19 10:00 12:49 15:24 WBC RBC 3.47 L Hgb 10.8 L Hct 31.2 L MCHC 35 H Plt Count Adams % (Auto) 9.2 H Adams # Seg Neutrophils % Seg Neuts % (Manual) Lymphocytes % (Manual) Seg Neutrophils # Seg Neutrophils # Man Lymphocytes # (Manual) Monocytes # (Manual) PT INR POC ABG pH POC ABG pCO2 POC ABG pO2 Sodium Potassium Chloride Carbon Dioxide BUN Creatinine Glucose POC Glucose Calcium Total Bilirubin Direct Bilirubin AST ALT Alkaline Phosphatase Total Creatine Kinase Total Protein Albumin Urine WBC (Auto) 18.0 H Urine Creatinine Salicylates Acetaminophen Complement C3 69 L Complement C4 0603/19/19 03/19/19 15:24 04:22 04:22 WBC RBC Hgb Hct MCHC Plt Count Adams % (Auto) Adams # Seg Neutrophils % Seg Neuts % (Manual) Lymphocytes % (Manual) Seg Neutrophils # Seg Neutrophils # Man Lymphocytes # (Manual) Monocytes # (Manual) PT INR POC ABG pH POC ABG pCO2 POC ABG pO2 Sodium Potassium Chloride Carbon Dioxide 20 L BUN 78 H Creatinine 9.1 H Glucose POC Glucose Calcium 8.0 L Total Bilirubin 2.00 H Direct Bilirubin AST 444 H ALT 559 H Alkaline Phosphatase 166 H Total Creatine Kinase 69143 H Total Protein 5.6 L Albumin 3.0 L Urine WBC (Auto) Urine Creatinine Salicylates Acetaminophen Complement C3 Complement C4 14 L 03/19/19 03/19/19 03/20/19 04:22 09:53 06:32 WBC RBC 3.35 L Hgb 10.5 L Hct 30.6 L MCHC Plt Count Adams % (Auto) Adams # Seg Neutrophils % Seg Neuts % (Manual) Lymphocytes % (Manual) Seg Neutrophils # Seg Neutrophils # Man Lymphocytes # (Manual) Monocytes # (Manual) PT INR POC ABG pH POC ABG pCO2 POC ABG pO2 Sodium Potassium Chloride Carbon Dioxide BUN Creatinine Glucose POC Glucose Calcium Total Bilirubin 2.20 H Direct Bilirubin 1.6 H AST 467 H ALT 611 H Alkaline Phosphatase 189 H Total Creatine Kinase 4375 H Total Protein 6.1 L Albumin 3.3 L Urine WBC (Auto) Urine Creatinine Salicylates Acetaminophen Complement C3 Complement C4 03/20/19 03/20/19 03/21/19 06:32 06:32 08:24 WBC RBC Hgb 11.6 L Hct 33.5 L MCHC 35 H Plt Count Adams % (Auto) Adams # Seg Neutrophils % Seg Neuts % (Manual) Lymphocytes % (Manual) Seg Neutrophils # Seg Neutrophils # Man Lymphocytes # (Manual) Monocytes # (Manual) PT INR POC ABG pH POC ABG pCO2 POC ABG pO2 Sodium 136 L Potassium Chloride 97.7 L Carbon Dioxide 18 L BUN 88 H Creatinine 11.0 H Glucose 147 H POC Glucose Calcium Total Bilirubin 1.40 H Direct Bilirubin AST 269 H ALT 552 H Alkaline Phosphatase 198 H Total Creatine Kinase 1011 H Total Protein Albumin 3.3 L Urine WBC (Auto) Urine Creatinine Salicylates Acetaminophen Complement C3 Complement C4 03/21/19 03/21/1903/22/19 08:24 15:00 06:53 WBC RBC Hgb Hct MCHC Plt Count Adams % (Auto) Adams # Seg Neutrophils % Seg Neuts % (Manual) Lymphocytes % (Manual) Seg Neutrophils # Seg Neutrophils # Man Lymphocytes # (Manual) Monocytes # (Manual) PT INR POC ABG pH POC ABG pCO2 POC ABG pO2 Sodium 136 L Potassium Chloride Carbon Dioxide 20 L BUN 76 H Creatinine 9.6 H Glucose 146 H POC Glucose Calcium 8.0 L Total Bilirubin Direct Bilirubin AST ALT Alkaline Phosphatase Total Creatine Kinase 642 H Total Protein Albumin Urine WBC (Auto) Urine Creatinine 136.3 H Salicylates Acetaminophen Complement C3 Complement C4 03/22/19 03/22/19 03/22/19 06:53 06:53 15:13 WBC RBC 3.36 L Hgb 10.5 L Hct 30.5 L MCHC 35 H Plt Count Adams % (Auto) Adams # Seg Neutrophils % Seg Neuts % (Manual) Lymphocytes % (Manual) Seg Neutrophils # Seg Neutrophils # Man Lymphocytes # (Manual) Monocytes # (Manual) PT INR 1.20 H POC ABG pH POC ABG pCO2 POC ABG pO2 Sodium 134 L Potassium Chloride 96.1 L Carbon Dioxide 18 L BUN 94 H Creatinine 10.8 H Glucose 136 H POC Glucose Calcium 7.8 L Total Bilirubin Direct Bilirubin AST 106 H ALT 378 H Alkaline Phosphatase 181 H Total Creatine Kinase Total Protein 5.9 L Albumin 3.2 L Urine WBC (Auto) Urine Creatinine Salicylates Acetaminophen Complement C3 Complement C4 03/23/19 03/24/19 03/24/19 06:07 07:46 07:46 WBC RBC 3.20 L Hgb 10.1 L Hct 28.7 L MCHC 35 H Plt Count Adams % (Auto) Adams # Seg Neutrophils % Seg Neuts % (Manual) Lymphocytes % (Manual) Seg Neutrophils # Seg Neutrophils # Man Lymphocytes # (Manual) Monocytes # (Manual) PT INR POC ABG pH POC ABG pCO2 POC ABG pO2 Sodium 134 L Potassium Chloride 97.9 L Carbon Dioxide 20 L BUN 75 H 81 H Creatinine 9.5 H 10.2 H Glucose POC Glucose Calcium 7.1 L 7.1 L Total Bilirubin Direct Bilirubin AST ALT Alkaline Phosphatase Total Creatine Kinase 368 H Total Protein Albumin Urine WBC (Auto) Urine Creatinine Salicylates Acetaminophen Complement C3 Complement C4 Chest x-ray: pending Allied health notes reviewed: nursing
[2019-03-24] MEDS ORDERED: NACL 0.9 (PRIMING MACHINE ONLY DIALYSIS) MC ONE (16:48)
--- NOTE | 2019-03-24 17:12 | XRay Report ---
CHEST 1 VIEW INDICATION / CLINICAL INFORMATION: Cough; Bibasilar crackles. COMPARISON: 03/16/2019 FINDINGS: SUPPORT DEVICES: Central catheter enters from a right internal jugular approach. The catheter tip pro jects the level of the superior vena cava. HEART / MEDIASTINUM: No significant abnormality. LUNGS / PLEURA: No significant pulmonary or pleural abnormality.. No pneumothorax. ADDITIONAL FINDINGS: No significant additional findings. IMPRESSION: 1. No acute findings. Signer Name: Prabhakar Connor MD Signed: 03/24/2019 5:07 PM Workstation Name: [id number]
[2019-03-24 19:25] LABS: Myeloperoxidase Antibody <1.0 AI (<1.0)
[2019-03-25 06:08] LABS: Creatinine,Urine 75.9 mg/dL (0.1-20.0)
--- NOTE | 2019-03-25 07:42 | Progress Note ---
Assessment and Plan - Patient Problems (1) Acute renal failure Current Visit: Yes Status: Acute Qualifiers: Acute renal failure type: with acute tubular necrosis Qualified Code(s): N17.0 - Acute kidney failure with tubular necrosis Plan to address problem: Patient is not showing signs of renal recovery at this time. Initial biopsy report discussed with pathologist revealed acute tubular necrosis and presence of intratubular myoglobin casts seen in rhabdomyolysis. No crescents or signifi cant chronicity were noted on the specimen per pathologist. We'll continue on dialysis support at this time. Next dialysis session before tomorrow. If no changes noted by the end of this week, will then set patient up for permacath placement as he may likely need outpatient dialysis with his prolonged recovery phase from severe acute tubular necrosis. (2) Rhabdomyolysis Current Visit: Yes Status: Acute Qualifiers: Encounter type: initial encounter Plan to address problem: His CPK levels are showing improvement with fluid hydration. Will continue at this time. (3) Encephalopathy Current Visit: Yes Status: Acute Plan to address problem: His mental status seems to be improved back to baseline. We'll continue to monitor. Component of uremic encephalopathy is improving with dialysis. (4) Respiratory failure Current Visit: Yes Status: Acute Qualifiers: Chronicity: acute Respiratory failure complication: hypoxia Qualified Code(s): J96.01 - Acute respiratory failure with hypoxia Plan to address problem: His overall respiratory status is stable on room air. Subjective Principal diagnosis: Ac. hypoxemic resp failure; Ac encephalopathy (toxic/met); ABDI; Drug OD Interval history: No acute events overnight. Patient resting comfortably without any complaints. I did get contacted by the [facility] laboratory in regards to patient's renal biopsy. Discussed with pathologist who told me that initial biopsy findings are consistent with severe acute tubular necrosis and myoglobin casts in the setting of likely rhabdomyolysis. He did not see or appreciate any crescents on the specimen. He did not appreciate any significant background interstitial fibrosis. He mentioned that the level of chronicity was low. Likely most of the patient's injury is acute in nature. Objective - Vital Signs Vital signs: Vital Signs - 12hr 03/24/19 03/25/19 22:53 05:39 Temperature 98.6 F 99.2 F Pulse Rate 73 Respiratory 18 20 Rate Blood Pressure 131/66 135/79 O2 Sat by Pulse 96 Oximetry - General Appearance General appearance: appears stated age, obese EENT: ATNC Neck: no JVD, no thyromegaly Respiratory: Present: Clear to Ascultation, Normal Exam Cardiology: regular, S1S2 Gastrointestinal: normal, normoactive bowel sounds Integumentary: no rash, warm and dry Neurologic: no focal deficit Musculoskeletal: other (-edema ) Psychiatric: cooperative - Lab 03/24/19 07:46 03/24/19 07:46 Most recent lab results Calcium 7.1 mg/dL (8.4-10.2) L 03/24/19 07:46 75.9 mg/dL (0.1-20.0) H 03/24/19 05:30 37 mmol/L 03/21/19 15:00 43 mg/dL (5-11.8) H 03/24/19 05:30 - Allied health notes Allied health notes reviewed: nursing Medications & Allergies - Medications Allergies/Adverse Reactions: Allergies Unable to Assess Allergy (Unverified 03/16/19 11:41) AMS Home Medications: Home Medications Medication Instructions Recorded Confirmed Last Taken Type Unobtainable 03/16/19 03/16/19 Unknown History Active Medications: Generic Name Dose Route Start Last Admin Trade Name Freq PRN Reason Stop Dose Admin Acetaminophen 650 mg 03/24/19 02:16 03/24/19 03:34 Tylenol PO 650 mg Q6H PRN Administration Pain, Mild (1-3) Cephalexin 250 mg 03/22/19 22:00 03/24/19 22:44 Keflex PO 250 mg Q12HR JOÃO Administration Diphenhydramine HCl 25 mg 03/19/19 22:54 03/23/19 22:04 Benadryl PO 25 mg Q6H PRN Administration Itching Famotidine 20 mg 03/19/19 10:00 03/24/19 12:01 Pepcid PO 20 mg DAILY JOÃO Administration Heparin Sodium (Porcine) 5,000 unit 03/16/19 22:00 03/24/19 21:07 Heparin SUB-Q 5,000 unit Q12HR JOÃO Administration Sodium Chloride 100 mls @ 999 mls/hr 03/21/19 07:45 Nacl 0.9% IV BECK PRN Hypotension Sodium Chloride 1,000 mls @ 50 mls/hr 03/21/19 10:00 03/24/19 12:03 Nacl 0.9% 1000 Ml IV 50 mls/hr DIRECT JOÃO Administration Lorazepam 2 mg 03/19/19 17:14 03/24/19 01:16 Ativan IV 2 mg Q6H PRN Administration Agitation Prednisone 60 mg 03/24/19 11:00 03/24/19 12:01 Deltasone PO 60 mg QDAY JOÃO Administration Sodium Chloride 10 ml 03/16/19 22:00 03/24/19 22:44 Sodium Chloride Flush Syringe 10 Ml IV 10 ml BID JOÃO Administration Sodium Chloride 10 ml 03/16/19 11:52 Sodium Chloride Flush Syringe 10 Ml IV PRN PRN LINE FLUSH
--- NOTE | 2019-03-25 08:07 | Progress Note ---
Assessment and Plan Assessment and plan: 33 YO Male with Polysubstance Abuse, Psychosis currently and inpatient at [facility] presents to ED for evaluation. Pt is lethargic and unable to provide history and is intubated and on vest support at time of my exam. Patient history provided by his father who is at bedside during exam and interview. As per father, the patient was found to be confused by [place] [facility] staff to be confused with decreased level of responsiveness. EMS notified, and upon arrival the patient was found to be unresponsive and treated with supportive care and IM Narcan and transported to [facility]. Pt seen and evaluated in ED and was found to have Encephalopathy, Sepsis, and Respiratory distress and was unable to protect his airway. Pt intubated and placed on vent support. Pt admitted to ICU and initiated on sepsis protocol. He improved, was extubated, transferred to medical floor. * Extubated successfully 03/18/19 * Patient on admission was treated with sepsis while other differential diagnosis SIRS (systemic inflammatory response syndrome), Hypoglycemia, NMS (neuroleptic malignant syndrome), Drug abuse, Hepatic dysfunction was highly evident. He did rather recover quickly only evidence noted for infection is from Urinalysis * His mental status improved by day 2 * He had noted seizure like activity follow administration of Narcan * UDS positive for cocain * Neurology, Renal and [employer] input noted * csf, unremarkable. Head CT -normal. EEG did not show active seizure. * Dialysis access placed 03/20/19 and dialysis started Sepsis- Resolved Acute Renal failure with underlying ATN and possible Glomerelonephritis, - Started on HD, s/p renal biopsy 03/23 Nephrology following. vascular work up ongoing, pulse dose steroids started METABOLIC ACIDOSIS: started dialysis, anticipate correction Acute Metabolic Encephalopathy- Intermittent, may require intermittent Ativan, MONITOR FOR RESPIRATORY DEPRESSION Acute cystitis- No culture growth, continue abx till day after biopsy and then discontinue if no fever Polysubstane abuse- With overdose, UDS, POSITIVE for opioids, cocain and amphateamines, counselling provided, greater than 15 mins. Patient currently admitted from a Rehab program Seizure-Likely secondary to opiate withdrawal Tobacco use disorder- Counseling provided Acute Hypoxemic Respiratory Failure-Resolved Rhabdomylysis- Improving, initially treated with IV Bicarb Drip Acute Heaptocellular dysfunction- ?Acute Hepatitis vs passive congestive failure and shock liver state-Improving- Hyperkalemia- Resolved DVT/GI prophy Plan discussed with patient and father at bedside History Interval history: had left kidney biopsy 03/23 No pain at biopsy site No new complaints Hospitalist Physical - Physical exam Narrative exam: Gen: Not in acute distress, lying in bed,obese HEENT: Normocephalic, atraumatic Neck: supple, no JVD Heart: S1 and S2 reg, no murmurs, rubs or gallop Lungs: Clear, no crackles, no wheeze Abd: soft, non tender, non distended, normal BS Ext: No edema, no clubbing, no cyanosis, Neuro: Awake,alert, oriented,moves all ext, - Constitutional Vitals: Temp Pulse Resp BP Pulse Ox 99.2 F 73 20 135/79 96 03/25/19 05:39 03/24/19 22:53 03/25/19 05:39 03/25/19 05:39 03/24/19 22:53 General appearance: Present: obese Results - Labs CBC & Chem 7: 03/24/19 07:46 03/24/19 07:46 Labs: Laboratory Last Values WBC 8.9 K/mm3 (4.5-11.0) 03/24/19 07:46 RBC 3.20 M/mm3 (3.65-5.03) L 03/24/19 07:46 Hgb 10.1 gm/dl (11.8-15.2) L 03/24/19 07:46 Hct 28.7 % (35.5-45.6) L 03/24/19 07:46 MCV 90 fl (84-94) 03/24/19 07:46 MCH 32 pg (28-32) 03/24/19 07:46 MCHC 35 % (32-34) H 03/24/19 07:46 RDW 13.9 % (13.2-15.2) 03/24/19 07:46 Plt Count 318 K/mm3 (140-440) 03/24/19 07:46 Lymph % (Auto) 17.3 % (13.4-35.0) 03/18/19 10:00 Cotton % (Auto) 9.2 % (0.0-7.3) H 03/18/19 10:00 Eos % (Auto) 3.1 % (0.0-4.3) 03/18/19 10:00 Baso % (Auto) 1.2 % (0.0-1.8) 03/18/19 10:00 Lymph # 1.6 K/mm3 (1.2-5.4) 03/18/19 10:00 Cotton # 0.8 K/mm3 (0.0-0.8) 03/18/19 10:00 Eos # 0.3 K/mm3 (0.0-0.4) 03/18/19 10:00 Baso # 0.1 K/mm3 (0.0-0.1) 03/18/19 10:00 Add Manual Diff Complete 03/16/19 10:37 Total Counted 100 03/16/19 10:37 Seg Neutrophils % 69.2 % (40.0-70.0) 03/18/19 10:00 Seg Neuts % (Manual) 90.0 % (40.0-70.0) H 03/16/19 10:37 1.0 % 03/16/19 10:37 2.0 % (13.4-35.0) L 03/16/19 10:37 Reactive Lymphs % (Man) 0 % 03/16/19 10:37 5.0 % (0.0-7.3) 03/16/19 10:37 0 % (0.0-4.3) 03/16/19 10:37 0 % (0.0-1.8) 03/16/19 10:37 1.0 % 03/16/19 10:37 1.0 % 03/16/19 10:37 0 % 03/16/19 10:37 0 % 03/16/19 10:37 Nucleated RBC % Not Reportable 03/16/19 10:37 Seg Neutrophils # 6.3 K/mm3 (1.8-7.7) 03/18/19 10:00 Seg Neutrophils # Man 24.9 K/mm3 (1.8-7.7) H 03/16/19 10:37 Band Neutrophils # 0.3 K/mm3 03/16/19 10:37 0.6 K/mm3 (1.2-5.4) L 03/16/19 10:37 Abs React Lymphs (Man) 0.0 K/mm3 03/16/19 10:37 1.4 K/mm3 (0.0-0.8) H 03/16/19 10:37 0.0 K/mm3 (0.0-0.4) 03/16/19 10:37 0.0 K/mm3 (0.0-0.1) 03/16/19 10:37 0.3 K/mm3 03/16/19 10:37 0.3 K/mm3 03/16/19 10:37 0.0 K/mm3 03/16/19 10:37 Blast Cells # 0.0 K/mm3 03/16/19 10:37 WBC Morphology Not Reportable 03/16/19 10:37 Hypersegmented Neuts Not Reportable 03/16/19 10:37 Hyposegmented Neuts Not Reportable 03/16/19 10:37 Hypogranular Neuts Not Reportable 03/16/19 10:37 Not Reportable 03/16/19 10:37 Not Reportable 03/16/19 10:37 Not Reportable 03/16/19 10:37 Not Reportable 03/16/19 10:37 Not Reportable 03/16/19 10:37 Not Reportable 03/16/19 10:37 Consistent w auto 03/16/19 10:37 Not Reportable 03/16/19 10:37 Plt Clumps, EDTA Not Reportable 03/16/19 10:37 Not Reportable 03/16/19 10:37 Not Reportable 03/16/19 10:37 Not Reportable 03/16/19 10:37 Plt Morphology Comment Not Reportable 03/16/19 10:37 RBC Morphology Normal 03/16/19 10:37 Dimorphic RBCs Not Reportable 03/16/19 10:37 Not Reportable 03/16/19 10:37 Not Reportable 03/16/19 10:37 Not Reportable 03/16/19 10:37 Not Reportable 03/16/19 10:37 Not Reportable 03/16/19 10:37 Not Reportable 03/16/19 10:37 Not Reportable 03/16/19 10:37 Not Reportable 03/16/19 10:37 Not Reportable 03/16/19 10:37 Not Reportable 03/16/19 10:37 Not Reportable 03/16/19 10:37 Not Reportable 03/16/19 10:37 Not Reportable 03/16/19 10:37 Not Reportable 03/16/19 10:37 Not Reportable 03/16/19 10:37 Not Reportable 03/16/19 10:37 Not Reportable 03/16/19 10:37 Not Reportable 03/16/19 10:37 Not Reportable 03/16/19 10:37 Acanthocytes (Spur) Not Reportable 03/16/19 10:37 Rouleaux Not Reportable 03/16/19 10:37 Not Reportable 03/16/19 10:37 Not Reportable 03/16/19 10:37 Not Reportable 03/16/19 10:37 Not Reportable 03/16/19 10:37 Hem Pathologist Commnt No 03/16/19 10:37 PT 14.9 Sec. (12.2-14.9) 03/22/19 15:13 INR 1.20 (0.87-1.13) H 03/22/19 15:13 APTT 26.4 Sec. (24.2-36.6) 03/22/19 15:13 POC ABG pH 7.473 (7.35-7.45) H 03/18/19 09:16 POC ABG pCO2 31.5 (35-45) L 03/18/19 09:16 POC ABG pO2 118 (80-105) H 03/18/19 09:16 POC ABG HCO3 23.1 (22-26 mml/L) 03/18/19 09:16 POC ABG Total CO2 24 (23-27mmol/L) 03/18/19 09:16 POC ABG O2 Sat 99 03/18/19 09:16 POC ABG Base Excess 0 ((-2) - (+3)mmol/L) 03/18/19 09:16 25 % 03/18/19 09:16 Sodium 134 mmol/L (137-145) L 03/24/19 07:46 Potassium 3.9 mmol/L (3.6-5.0) 03/24/19 07:46 Chloride 97.9 mmol/L (98-107) L 03/24/19 07:46 Carbon Dioxide 20 mmol/L (22-30) L 03/24/19 07:46 20 mmol/L 03/24/19 07:46 BUN 81 mg/dL (9-20) H 03/24/19 07:46 10.2 mg/dL (0.8-1.5) H 03/24/19 07:46 Estimated GFR 6 ml/min 03/24/19 07:46 8 % 03/24/19 07:46 Glucose 94 mg/dL (75-100) 03/24/19 07:46 POC Glucose 100 (70-105) 03/16/19 17:45 Lactic Acid 0.80 mmol/L (0.7-2.0) 03/16/19 16:38 Calcium 7.1 mg/dL (8.4-10.2) L 03/24/19 07:46 0.90 mg/dL (0.1-1.2) 03/22/19 06:53 1.6 mg/dL (0-0.2) H 03/19/19 09:53 0.6 mg/dL 03/19/19 09:53 AST 106 units/L (5-40) H 03/22/19 06:53 ALT 378 units/L (7-56) H 03/22/19 06:53 181 units/L (35-129) H 03/22/19 06:53 368 units/L (55-170) H 03/23/19 06:07 < 0.010 ng/mL (0.00-0.029) 03/16/19 10:37 5.9 g/dL (6.3-8.2) L 03/22/19 06:53 3.2 g/dL (3.9-5) L 03/22/19 06:53 1.2 % 03/22/19 06:53 Triglycerides 76 mg/dL (2-149) 03/18/19 15:24 [place] (Yellow) 03/18/19 12:49 Cloudy (Clear) 03/18/19 12:49 5.0 (5.0-7.0) 03/18/19 12:49 Ur Specific [place] 1.015 (1.003-1.030) 03/18/19 12:49 >500 mg/dL (Negative) 03/18/19 12:49 150 mg/dL (Negative) 03/18/19 12:49 Tr mg/dL (Negative) 03/18/19 12:49 Lg (Negative) 03/18/19 12:49 Neg (Negative) 03/18/19 12:49 Neg (Negative) 03/18/19 12:49 < 2.0 mg/dL (<2.0) 03/18/19 12:49 Ur Leukocyte Esterase Neg (Negative) 03/18/19 12:49 18.0 /HPF (0.0-6.0) H 03/18/19 12:49 121.0 /HPF (0.0-6.0) 03/18/19 12:49 U Epithel Cells (Auto) 2.0 /HPF (0-13.0) 03/18/19 12:49 3+ /HPF (Negative) 03/18/19 12:49 Few /HPF 03/18/19 12:49 75.9 mg/dL (0.1-20.0) H 03/24/19 05:30 37 mmol/L 03/21/19 15:00 43 mg/dL (5-11.8) H 03/24/19 05:30 Clear 03/16/19 12:40 Clear 03/16/19 12:40 Colorless 03/16/19 12:40 Colorless 03/16/19 12:40 2 /mm3 (1-10) 03/16/19 12:40 2 /mm3 (1-10) 03/16/19 12:40 0 /mm3 (0-0) 03/16/19 12:40 0 /mm3 (0-0) 03/16/19 12:40 CSF Seg Neutrophils 0 % (0-6) 03/16/19 12:40 CSF Seg Neutrophils 0 % (0-6) 03/16/19 12:40 47.7 % (40-80) 03/16/19 12:40 93.1 % (40-80) 03/16/19 12:40 CSF Reactive Lymphs 0 % 03/16/19 12:40 CSF Reactive Lymphs 0 % 03/16/19 12:40 6.9 % (15-45) 03/16/19 12:40 52.3 % (15-45) 03/16/19 12:40 0 % 03/16/19 12:40 0 % 03/16/19 12:40 0 % 03/16/19 12:40 0 % 03/16/19 12:40 C 03/16/19 12:40 C 03/16/19 12:40 69 mg/dL 03/16/19 12:40 Salicylates < 0.3 mg/dL (2.8-20.0) L 03/16/19 10:37 Presumptive positive 03/16/19 11:37 Presumptive negative 03/16/19 11:37 Acetaminophen < 5.0 ug/mL (10.0-30.0) L 03/16/19 10:37 Ur Barbiturates Screen Presumptive negative 03/16/19 11:37 Ur Phencyclidine Scrn Presumptive negative 03/16/19 11:37 Ur Amphetamines Screen Presumptive positive 03/16/19 11:37 U Benzodiazepines Scrn Presumptive negative 03/16/19 11:37 Presumptive positive 03/16/19 11:37 U Marijuana (THC) Screen Presumptive negative 03/16/19 11:37 Disclamer 03/16/19 11:37 Plasma/Serum Alcohol < 0.01 % (0-0.07) 03/16/19 10:37 Proteinase 3 (PR3) Ab <1.0 AI (<1.0) 03/18/19 15:24 Myeloperoxidase Ab <1.0 AI (<1.0) 03/18/19 15:24 69 mg/dL (82-185) L 03/18/19 15:24 14 mg/dL (15-53) L 03/18/19 15:24 Hepatitis A IgM Ab Non-reactive (NonReactive) 03/20/19 14:30 Hep Bs Antigen Non-reactive (Negative) 03/20/19 14:30 Hep B Core IgM Ab Non-reactive (NonReactive) 03/20/19 14:30 Non-reactive (NonReactive) 03/20/19 14:30 HIV 1&2 Antibody Rapid Non react (Non React) 03/16/19 12:05 Non react (Non React) 03/16/19 12:05 Active Medications - Current Medications Current Medications: Generic Name Dose Route Start Last Admin Trade Name Freq PRN Reason Stop Dose Admin Acetaminophen 650 mg 03/24/19 02:16 03/24/19 03:34 Tylenol PO 650 mg Q6H PRN Administration Pain, Mild (1-3) Cephalexin 250 mg 03/22/19 22:00 03/24/19 22:44 Keflex PO 250 mg Q12HR JOÃO Administration Diphenhydramine HCl 25 mg 03/19/19 22:54 03/23/19 22:04 Benadryl PO 25 mg Q6H PRN Administration Itching Famotidine 20 mg 03/19/19 10:00 03/24/19 12:01 Pepcid PO 20 mg DAILY JOÃO Administration Heparin Sodium (Porcine) 5,000 unit 03/16/19 22:00 03/24/19 21:07 Heparin SUB-Q 5,000 unit Q12HR JOÃO Administration Sodium Chloride 100 mls @ 999 mls/hr 03/21/19 07:45 Nacl 0.9% IV BECK PRN Hypotension Sodium Chloride 1,000 mls @ 50 mls/hr 03/21/19 10:00 03/24/19 12:03 Nacl 0.9% 1000 Ml IV 50 mls/hr DIRECT JOÃO Administration Lorazepam 2 mg 03/19/19 17:14 03/24/19 01:16 Ativan IV 2 mg Q6H PRN Administration Agitation Prednisone 60 mg 03/24/19 11:00 03/24/19 12:01 Deltasone PO 60 mg QDAY JOÃO Administration Sodium Chloride 10 ml 03/16/19 22:00 03/24/19 22:44 Sodium Chloride Flush Syringe 10 Ml IV 10 ml BID JOÃO Administration Sodium Chloride 10 ml 03/16/19 11:52 Sodium Chloride Flush Syringe 10 Ml IV PRN PRN LINE FLUSH Nutrition/Malnutrition Assess - Dietary Evaluation Nutrition/Malnutrition Findings: Nutrition Notes Start: 03/23/19 09:37 Freq: Status: Active Protocol: Document 03/23/19 09:37 LP (Rec: 03/23/19 09:38 LP [id number]) Nutrition Notes Need for Assessment generated from: LOS Initial or Follow up Brief Note Current Diagnosis Acute Kidney Injury, Respiratory Failure Other Pertinent Diagnosis drug abuse Subjective/Other Information Screen for LOS. Pt currently NPO for renal bx but was eating at least 75% of meals. Nutrition Intervention Revisit per MD consult or patient Sign Off request:
--- NOTE | 2019-03-25 08:14 | Progress Note ---
Assessment and Plan -Acute hypoxemic respiratory failure s/p MVS -Acute metabolic- toxic encephalopathy -Acute metabolic acidosis -Acute renal failure (multifactorial) -Rhabdomyolysis -Polysubstance abuse disorder with overdose -PRN CXR and ABG -Supplemental oxygen to keep O2 sats > 90% -Bronchodilators -Accuchecks with glycemic control. Target blood glucose <180mg/dL -Prevention of delirium, maintenance of sleep-wake cycle -Avoid nephrotoxic agents, adjust all antibiotics and medications for CrCL and GFR -VTE and Stress ulcer prophylaxis -Substance abuse counselling done--ongoing -PT/OT to evaluate and treat, increase activity --HD/UF schedule per Renal service -Updated patient and family re care plan- NO smoking, -Discharge planning will be dictated by Primary and renal service OK for discharge planning from pulmonary standpoint CONDITION: FAIR PROGNOSIS: FAIR CODE STATUS: FULL CODE Subjective Date of service: 03/25/19 Principal diagnosis: Ac. hypoxemic resp failure; Ac encephalopathy (toxic/met); ABDI; Drug OD Interval history: Patient is seen today for: Ac. hypoxemic respiratory failure s/p MVS; Acute encephalopathy (toxic/met); Acute metabolic acidosis; Acute renal failure (multifactorial); Rhabdomyolysis; Polysubstance abuse disorder with overdose Seen and examined at bedside; 24hour events reviewed; nursing and respiratory care staff consulted; no adverse overnight events reported to me; s/p HD catheter yesterday tolerated it well. Awake and alert; father at the bedside. s/p reanl biopsy- results are pending No fevers, no vomiting, ambulating now. Objective Vital Signs - 12hr 03/24/19 03/25/19 22:53 05:39 Temperature 98.6 F 99.2 F Pulse Rate 73 Respiratory 18 20 Rate Blood Pressure 131/66 135/79 O2 Sat by Pulse 96 Oximetry Constitutional: no acute distress, alert Eyes: non-icteric ENT: oropharynx moist Neck: supple, no lymphadenopathy, no JVD Effort: normal Ascultation: Bilateral: diminished breath sounds, rhonchi (both bases; inspiratory) Percussion: Bilateral: not dull Cardiovascular: regular rate and rhythm, other (S1,S2, no murmurs, gallops or rubs) Gastrointestinal: normoactive bowel sounds, soft, non-tender, non-distended, other (bowel sounds in all 4 quadrants,) Integumentary: normal Extremities: no cyanosis, no edema, pink and warm, pulses normal, no ischemia or petechiae Neurologic: normal mental status, non-focal exam, pupils equal and round, motor strength normal and Psychiatric: mood appropriate, affect normal CBC and BMP: 03/24/19 07:46 03/26/19 07:11 ABG, PT/INR, D-dimer: ABG POC ABG pH 7.473 (7.35-7.45) H 03/18/19 09:16 POC ABG pCO2 31.5 (35-45) L 03/18/19 09:16 POC ABG pO2 118 (80-105) H 03/18/19 09:16 POC ABG HCO3 23.1 (22-26 mml/L) 03/18/19 09:16 POC ABG Total CO2 24 (23-27mmol/L) 03/18/19 09:16 POC ABG O2 Sat 99 03/18/19 09:16 PT/INR, D-dimer PT 14.9 Sec. (12.2-14.9) 03/22/19 15:13 INR 1.20 (0.87-1.13) H 03/22/19 15:13 Abnormal lab findings: Abnormal Labs 03/16/19 03/16/19 03/16/19 10:00 10:21 10:37 WBC 27.7 H RBC Hgb Hct MCHC Plt Count 553 H [place] % (Auto) [place] # Seg Neutrophils % Seg Neuts % (Manual) 90.0 H Lymphocytes % (Manual) 2.0 L Seg Neutrophils # Seg Neutrophils # Man 24.9 H Lymphocytes # (Manual) 0.6 L Monocytes # (Manual) 1.4 H PT INR POC ABG pH POC ABG pCO2 POC ABG pO2 Sodium Potassium Chloride Carbon Dioxide BUN Creatinine Glucose POC Glucose 49 L 154 H Calcium Total Bilirubin Direct Bilirubin AST ALT Alkaline Phosphatase Total Creatine Kinase Total Protein Albumin Urine WBC (Auto) Urine Creatinine Urine Total Protein Salicylates Acetaminophen Complement C3 Complement C4 03/16/19 03/16/19 03/16/19 10:37 10:37 10:37 WBC RBC Hgb Hct MCHC Plt Count [place] % (Auto) [place] # Seg Neutrophils % Seg Neuts % (Manual) Lymphocytes % (Manual) Seg Neutrophils # Seg Neutrophils # Man Lymphocytes # (Manual) Monocytes # (Manual) PT 17.5 H INR 1.47 H POC ABG pH POC ABG pCO2 POC ABG pO2 Sodium Potassium 5.1 H Chloride Carbon Dioxide 13 L BUN 35 H Creatinine 3.0 H Glucose 129 H POC Glucose Calcium Total Bilirubin 2.60 H Direct Bilirubin AST 160 H ALT 106 H Alkaline Phosphatase 133 H Total Creatine Kinase Total Protein Albumin Urine WBC (Auto) Urine Creatinine Urine Total Protein Salicylates < 0.3 L Acetaminophen Complement C3 Complement C4 03/16/19 03/16/19 03/16/19 10:37 10:37 11:37 WBC RBC Hgb Hct MCHC Plt Count [place] % (Auto) [place] # Seg Neutrophils % Seg Neuts % (Manual) Lymphocytes % (Manual) Seg Neutrophils # Seg Neutrophils # Man Lymphocytes # (Manual) Monocytes # (Manual) PT INR POC ABG pH POC ABG pCO2 POC ABG pO2 Sodium Potassium Chloride Carbon Dioxide BUN Creatinine Glucose POC Glucose Calcium Total Bilirubin Direct Bilirubin AST ALT Alkaline Phosphatase Total Creatine Kinase 4300 H Total Protein Albumin Urine WBC (Auto) 10.0 H Urine Creatinine Urine Total Protein Salicylates Acetaminophen < 5.0 L Complement C3 Complement C4 03/16/19 03/16/19 03/17/19 11:37 12:25 04:41 WBC 13.5 H RBC Hgb Hct MCHC 35 H Plt Count [place] % (Auto) [place] # 1.0 H Seg Neutrophils % 76.4 H Seg Neuts % (Manual) Lymphocytes % (Manual) Seg Neutrophils # 10.3 H Seg Neutrophils # Man Lymphocytes # (Manual) Monocytes # (Manual) PT INR POC ABG pH 7.188 L POC ABG pCO2 47.9 H POC ABG pO2 Sodium Potassium Chloride Carbon Dioxide BUN Creatinine Glucose POC Glucose Calcium Total Bilirubin Direct Bilirubin AST ALT Alkaline Phosphatase Total Creatine Kinase Total Protein Albumin Urine WBC (Auto) Urine Creatinine 75.6 H Urine Total Protein Salicylates Acetaminophen Complement C3 Complement C4 03/17/19 03/17/19 03/17/19 04:41 04:41 04:57 WBC RBC Hgb Hct MCHC Plt Count [place] % (Auto) [place] # Seg Neutrophils % Seg Neuts % (Manual) Lymphocytes % (Manual) Seg Neutrophils # Seg Neutrophils # Man Lymphocytes # (Manual) Monocytes # (Manual) PT INR POC ABG pH 7.302 L POC ABG pCO2 POC ABG pO2 158 H Sodium Potassium Chloride Carbon Dioxide 13 L BUN 57 H Creatinine 4.6 H D Glucose POC Glucose Calcium 8.2 L Total Bilirubin Direct Bilirubin AST 567 H ALT 356 H Alkaline Phosphatase Total Creatine Kinase 16216 H Total Protein 6.0 L D Albumin 3.4 L Urine WBC (Auto) Urine Creatinine Urine Total Protein Salicylates Acetaminophen Complement C3 Complement C4 03/17/19 03/17/19 03/18/19 08:27 16:47 04:45 WBC RBC Hgb Hct MCHC Plt Count [place] % (Auto) [place] # Seg Neutrophils % Seg Neuts % (Manual) Lymphocytes % (Manual) Seg Neutrophils # Seg Neutrophils # Man Lymphocytes # (Manual) Monocytes # (Manual) PT INR POC ABG pH 7.304 L 7.459 H POC ABG pCO2 POC ABG pO2 135 H 127 H 124 H Sodium Potassium Chloride Carbon Dioxide BUN Creatinine Glucose POC Glucose Calcium Total Bilirubin Direct Bilirubin AST ALT Alkaline Phosphatase Total Creatine Kinase Total Protein Albumin Urine WBC (Auto) Urine Creatinine Urine Total Protein Salicylates Acetaminophen Complement C3 Complement C4 03/18/19 03/18/19 03/18/19 04:59 09:16 10:00 WBC RBC Hgb Hct MCHC Plt Count [place] % (Auto) [place] # Seg Neutrophils % Seg Neuts % (Manual) Lymphocytes % (Manual) Seg Neutrophils # Seg Neutrophils # Man Lymphocytes # (Manual) Monocytes # (Manual) PT INR POC ABG pH 7.473 H POC ABG pCO2 31.5 L POC ABG pO2 118 H Sodium Potassium 3.1 L D Chloride Carbon Dioxide 21 L D BUN 75 H Creatinine 7.9 H D Glucose 120 H POC Glucose Calcium 7.5 L Total Bilirubin Direct Bilirubin AST ALT Alkaline Phosphatase Total Creatine Kinase 67886 H Total Protein Albumin Urine WBC (Auto) Urine Creatinine Urine Total Protein Salicylates Acetaminophen Complement C3 Complement C4 03/18/19 03/18/19 03/18/19 10:00 12:49 15:24 WBC RBC 3.47 L Hgb 10.8 L Hct 31.2 L MCHC 35 H Plt Count [place] % (Auto) 9.2 H [place] # Seg Neutrophils % Seg Neuts % (Manual) Lymphocytes % (Manual) Seg Neutrophils # Seg Neutrophils # Man Lymphocytes # (Manual) Monocytes # (Manual) PT INR POC ABG pH POC ABG pCO2 POC ABG pO2 Sodium Potassium Chloride Carbon Dioxide BUN Creatinine Glucose POC Glucose Calcium Total Bilirubin Direct Bilirubin AST ALT Alkaline Phosphatase Total Creatine Kinase Total Protein Albumin Urine WBC (Auto) 18.0 H Urine Creatinine Urine Total Protein Salicylates Acetaminophen Complement C3 69 L Complement C4 03/18/19 03/19/19 03/19/19 15:24 04:22 04:22 WBC RBC Hgb Hct MCHC Plt Count [place] % (Auto) [place] # Seg Neutrophils % Seg Neuts % (Manual) Lymphocytes % (Manual) Seg Neutrophils # Seg Neutrophils # Man Lymphocytes # (Manual) Monocytes # (Manual) PT INR POC ABG pH POC ABG pCO2 POC ABG pO2 Sodium Potassium Chloride Carbon Dioxide 20 L BUN 78 H Creatinine 9.1 H Glucose POC Glucose Calcium 8.0 L Total Bilirubin 2.00 H Direct Bilirubin AST 444 H ALT 559 H Alkaline Phosphatase 166 H Total Creatine Kinase 69737 H Total Protein 5.6 L Albumin 3.0 L Urine WBC (Auto) Urine Creatinine Urine Total Protein Salicylates Acetaminophen Complement C3 Complement C4 14 L 03/19/19 03/19/19 03/20/19 04:22 09:53 06:32 WBC RBC 3.35 L Hgb 10.5 L Hct 30.6 L MCHC Plt Count [place] % (Auto) [place] # Seg Neutrophils % Seg Neuts % (Manual) Lymphocytes % (Manual) Seg Neutrophils # Seg Neutrophils # Man Lymphocytes # (Manual) Monocytes # (Manual) PT INR POC ABG pH POC ABG pCO2 POC ABG pO2 Sodium Potassium Chloride Carbon Dioxide BUN Creatinine Glucose POC Glucose Calcium Total Bilirubin 2.20 H Direct Bilirubin 1.6 H AST 467 H ALT 611 H Alkaline Phosphatase 189 H Total Creatine Kinase 4375 H Total Protein 6.1 L Albumin 3.3 L Urine WBC (Auto) Urine Creatinine Urine Total Protein Salicylates Acetaminophen Complement C3 Complement C4 03/20/19 03/20/19 03/21/19 06:32 06:32 08:24 WBC RBC Hgb 11.6 L Hct 33.5 L MCHC 35 H Plt Count [place] % (Auto) [place] # Seg Neutrophils % Seg Neuts % (Manual) Lymphocytes % (Manual) Seg Neutrophils # Seg Neutrophils # Man Lymphocytes # (Manual) Monocytes # (Manual) PT INR POC ABG pH POC ABG pCO2 POC ABG pO2 Sodium 136 L Potassium Chloride 97.7 L Carbon Dioxide 18 L BUN 88 H Creatinine 11.0 H Glucose 147 H POC Glucose Calcium Total Bilirubin 1.40 H Direct Bilirubin AST 269 H ALT 552 H Alkaline Phosphatase 198 H Total Creatine Kinase 1011 H Total Protein Albumin 3.3 L Urine WBC (Auto) Urine Creatinine Urine Total Protein Salicylates Acetaminophen Complement C3 Complement C4 03/21/19 03/21/19 03/22/19 08:24 15:00 06:53 WBC RBC Hgb Hct MCHC Plt Count [place] % (Auto) [place] # Seg Neutrophils % Seg Neuts % (Manual) Lymphocytes % (Manual) Seg Neutrophils # Seg Neutrophils # Man Lymphocytes # (Manual) Monocytes # (Manual) PT INR POC ABG pH POC ABG pCO2 POC ABG pO2 Sodium 136 L Potassium Chloride Carbon Dioxide 20 L BUN 76 H Creatinine 9.6 H Glucose 146 H POC Glucose Calcium 8.0 L Total Bilirubin Direct Bilirubin AST ALT Alkaline Phosphatase Total Creatine Kinase 642 H Total Protein Albumin Urine WBC (Auto) Urine Creatinine 136.3 H Urine Total Protein Salicylates Acetaminophen Complement C3 Complement C4 03/22/19 03/22/19 03/22/19 06:53 06:53 15:13 WBC RBC 3.36 L Hgb 10.5 L Hct 30.5 L MCHC 35 H Plt Count [place] % (Auto) [place] # Seg Neutrophils % Seg Neuts % (Manual) Lymphocytes % (Manual) Seg Neutrophils # Seg Neutrophils # Man Lymphocytes # (Manual) Monocytes # (Manual) PT INR 1.20 H POC ABG pH POC ABG pCO2 POC ABG pO2 Sodium 134 L Potassium Chloride 96.1 L Carbon Dioxide 18 L BUN 94 H Creatinine 10.8 H Glucose 136 H POC Glucose Calcium 7.8 L Total Bilirubin Direct Bilirubin AST 106 H ALT 378 H Alkaline Phosphatase 181 H Total Creatine Kinase Total Protein 5.9 L Albumin 3.2 L Urine WBC (Auto) Urine Creatinine Urine Total Protein Salicylates Acetaminophen Complement C3 Complement C4 03/23/19 03/24/19 03/24/19 06:07 05:30 07:46 WBC RBC 3.20 L Hgb 10.1 L Hct 28.7 L MCHC 35 H Plt Count [place] % (Auto) [place] # Seg Neutrophils % Seg Neuts % (Manual) Lymphocytes % (Manual) Seg Neutrophils # Seg Neutrophils # Man Lymphocytes # (Manual) Monocytes # (Manual) PT INR POC ABG pH POC ABG pCO2 POC ABG pO2 Sodium Potassium Chloride Carbon Dioxide BUN 75 H Creatinine 9.5 H Glucose POC Glucose Calcium 7.1 L Total Bilirubin Direct Bilirubin AST ALT Alkaline Phosphatase Total Creatine Kinase 368 H Total Protein Albumin Urine WBC (Auto) Urine Creatinine 75.9 H Urine Total Protein 43 H Salicylates Acetaminophen Complement C3 Complement C4 03/24/19 07:46 WBC RBC Hgb Hct MCHC Plt Count [place] % (Auto) [place] # Seg Neutrophils % Seg Neuts % (Manual) Lymphocytes % (Manual) Seg Neutrophils # Seg Neutrophils # Man Lymphocytes # (Manual) Monocytes # (Manual) PT INR POC ABG pH POC ABG pCO2 POC ABG pO2 Sodium 134 L Potassium Chloride 97.9 L Carbon Dioxide 20 L BUN 81 H Creatinine 10.2 H Glucose POC Glucose Calcium 7.1 L Total Bilirubin Direct Bilirubin AST ALT Alkaline Phosphatase Total Creatine Kinase Total Protein Albumin Urine WBC (Auto) Urine Creatinine Urine Total Protein Salicylates Acetaminophen Complement C3 Complement C4 Allied health notes reviewed: nursing
[2019-03-25] MEDS: DELTASONE PO SCH (10:41)
[2019-03-25] MEDS: HEPARIN SUB-Q SCH ×2 (10:42→21:39)
[2019-03-25] MEDS: SODIUM CHLORIDE FLUSH SYRINGE 10 ML IV SCH ×2 (10:42→21:39)
[2019-03-25] MEDS: PEPCID PO SCH (10:42)
[2019-03-25] MEDS: KEFLEX PO SCH ×2 (10:42→21:38)
[2019-03-25] MEDS: TYLENOL PO PRN (17:02)
[2019-03-25] MEDS: HABITROL TD SCH (18:03)
[2019-03-25] MEDS: ATIVAN IV PRN (21:39)
[2019-03-26] MEDS: NACL 0.9% 1000 ML 1,000 ML IV SCH (03:18)
[2019-03-26] MEDS: APRESOLINE IV PRN (05:56)
[2019-03-26 08:08] LABS: Calcium 8.2 mg/dL (8.4-10.2)
--- NOTE | 2019-03-26 12:10 | Progress Note ---
Assessment and Plan Assessment and plan: 33 YO Male with Polysubstance Abuse, Psychosis currently and inpatient at [facility] presents to ED for evaluation. Pt is lethargic and unable to provide history and is intubated and on vest support at time of my exam. Patient history provided by his father who is at bedside during exam and interview. As per father, the patient was found to be confused by [facility] staff to be confused with decreased level of responsiveness. EMS notified, and upon arrival the patient was found to be unresponsive and treated with supportive care and IM Narcan and transported to [facility]. Pt seen and evaluated in ED and was found to have Encephalopathy, Sepsis, and Respiratory distress and was unable to protect his airway. Pt intubated and placed on vent support. Pt admitted to ICU and initiated on sepsis protocol. He improved, was extubated, transferred to medical floor. * Extubated successfully 03/18/19 * Patient on admission was treated with sepsis while other differential diagnosis SIRS (systemic inflammatory response syndrome), Hypoglycemia, NMS (neuroleptic malignant syndrome), Drug abuse, Hepatic dysfunction was highly evident. He did rather recover quickly only evidence noted for infection is from Urinalysis * His mental status improved by day 2 * He had noted seizure like activity follow administration of Narcan * UDS positive for cocain * Neurology, Renal and Loan Servicing Specialist input noted * csf, unremarkable. Head CT -normal. EEG did not show active seizure. * Dialysis access placed 03/20/19 and dialysis started Sepsis- Resolved Acute Renal failure with underlying ATN and possible Glomerelonephritis, - Started on HD, s/p renal biopsy 03/23 Nephrology following. vascular work up ongoing, pulse dose steroids started METABOLIC ACIDOSIS: started dialysis, anticipate correction Acute Metabolic Encephalopathy- Intermittent, may require intermittent Ativan, MONITOR FOR RESPIRATORY DEPRESSION Acute cystitis- No culture growth, continue abx till day after biopsy and then discontinue if no fever Polysubstane abuse- With overdose, UDS, POSITIVE for opioids, cocain and amphateamines, counselling provided, greater than 15 mins. Patient currently admitted from a Rehab program Seizure-Likely secondary to opiate withdrawal Tobacco use disorder- Counseling provided Acute Hypoxemic Respiratory Failure-Resolved Rhabdomylysis- Improving, initially treated with IV Bicarb Drip Acute Heaptocellular dysfunction- ?Acute Hepatitis vs passive congestive failure and shock liver state-Improving- Hyperkalemia- Resolved DVT/GI prophy Plan discussed with patient and father at bedside. Still awaiting biopsy report History Interval history: had left kidney biopsy 03/23/19 No pain at biopsy site No new complaints Hospitalist Physical - Physical exam Narrative exam: Gen: Not in acute distress, lying in bed,obese HEENT: Normocephalic, atraumatic Neck: supple, no JVD Heart: S1 and S2 reg, no murmurs, rubs or gallop Lungs: Clear, no crackles, no wheeze Abd: soft, non tender, non distended, normal BS Ext: No edema, no clubbing, no cyanosis, Neuro: Awake,alert, oriented,moves all ext, - Constitutional Vitals: Temp Pulse Resp BP Pulse Ox 98.0 F 75 20 154/86 100 03/26/19 12:06 03/26/19 12:06 03/26/19 12:06 03/26/19 12:06 03/26/19 12:06 General appearance: Present: obese Results - Labs CBC & Chem 7: 03/24/19 07:46 03/26/19 07:11 Labs: Laboratory Last Values WBC 8.9 K/mm3 (4.5-11.0) 03/24/19 07:46 RBC 3.20 M/mm3 (3.65-5.03) L 03/24/19 07:46 Hgb 10.1 gm/dl (11.8-15.2) L 03/24/19 07:46 Hct 28.7 % (35.5-45.6) L 03/24/19 07:46 MCV 90 fl (84-94) 03/24/19 07:46 MCH 32 pg (28-32) 03/24/19 07:46 MCHC 35 % (32-34) H 03/24/19 07:46 RDW 13.9 % (13.2-15.2) 03/24/19 07:46 Plt Count 318 K/mm3 (140-440) 03/24/19 07:46 Lymph % (Auto) 17.3 % (13.4-35.0) 03/18/19 10:00 Rhea % (Auto) 9.2 % (0.0-7.3) H 03/18/19 10:00 Eos % (Auto) 3.1 % (0.0-4.3) 03/18/19 10:00 Baso % (Auto) 1.2 % (0.0-1.8) 03/18/19 10:00 Lymph # 1.6 K/mm3 (1.2-5.4) 03/18/19 10:00 Rhea # 0.8 K/mm3 (0.0-0.8) 03/18/19 10:00 Eos # 0.3 K/mm3 (0.0-0.4) 03/18/19 10:00 Baso # 0.1 K/mm3 (0.0-0.1) 03/18/19 10:00 Add Manual Diff Complete 03/16/19 10:37 Total Counted 100 03/16/19 10:37 Seg Neutrophils % 69.2 % (40.0-70.0) 03/18/19 10:00 Seg Neuts % (Manual) 90.0 % (40.0-70.0) H 03/16/19 10:37 1.0 % 03/16/19 10:37 2.0 % (13.4-35.0) L 03/16/19 10:37 Reactive Lymphs % (Man) 0 % 03/16/19 10:37 5.0 % (0.0-7.3) 03/16/19 10:37 0 % (0.0-4.3) 03/16/19 10:37 0 % (0.0-1.8) 03/16/19 10:37 1.0 % 03/16/19 10:37 1.0 % 03/16/19 10:37 0 % 03/16/19 10:37 0 % 03/16/19 10:37 Nucleated RBC % Not Reportable 03/16/19 10:37 Seg Neutrophils # 6.3 K/mm3 (1.8-7.7) 03/18/19 10:00 Seg Neutrophils # Man 24.9 K/mm3 (1.8-7.7) H 03/16/19 10:37 Band Neutrophils # 0.3 K/mm3 03/16/19 10:37 0.6 K/mm3 (1.2-5.4) L 03/16/19 10:37 Abs React Lymphs (Man) 0.0 K/mm3 03/16/19 10:37 1.4 K/mm3 (0.0-0.8) H 03/16/19 10:37 0.0 K/mm3 (0.0-0.4) 03/16/19 10:37 0.0 K/mm3 (0.0-0.1) 03/16/19 10:37 0.3 K/mm3 03/16/19 10:37 0.3 K/mm3 03/16/19 10:37 0.0 K/mm3 03/16/19 10:37 Blast Cells # 0.0 K/mm3 03/16/19 10:37 WBC Morphology Not Reportable 03/16/19 10:37 Hypersegmented Neuts Not Reportable 03/16/19 10:37 Hyposegmented Neuts Not Reportable 03/16/19 10:37 Hypogranular Neuts Not Reportable 03/16/19 10:37 Not Reportable 03/16/19 10:37 Not Reportable 03/16/19 10:37 Not Reportable 03/16/19 10:37 Not Reportable 03/16/19 10:37 Not Reportable 03/16/19 10:37 Not Reportable 03/16/19 10:37 Consistent w auto 03/16/19 10:37 Not Reportable 03/16/19 10:37 Plt Clumps, EDTA Not Reportable 03/16/19 10:37 Not Reportable 03/16/19 10:37 Not Reportable 03/16/19 10:37 Not Reportable 03/16/19 10:37 Plt Morphology Comment Not Reportable 03/16/19 10:37 RBC Morphology Normal 03/16/19 10:37 Dimorphic RBCs Not Reportable 03/16/19 10:37 Not Reportable 03/16/19 10:37 Not Reportable 03/16/19 10:37 Not Reportable 03/16/19 10:37 Not Reportable 03/16/19 10:37 Not Reportable 03/16/19 10:37 Not Reportable 03/16/19 10:37 Not Reportable 03/16/19 10:37 Not Reportable 03/16/19 10:37 Not Reportable 03/16/19 10:37 Not Reportable 03/16/19 10:37 Not Reportable 03/16/19 10:37 Not Reportable 03/16/19 10:37 Not Reportable 03/16/19 10:37 Not Reportable 03/16/19 10:37 Not Reportable 03/16/19 10:37 Not Reportable 03/16/19 10:37 Not Reportable 03/16/19 10:37 Not Reportable 03/16/19 10:37 Not Reportable 03/16/19 10:37 Acanthocytes (Spur) Not Reportable 03/16/19 10:37 Rouleaux Not Reportable 03/16/19 10:37 Not Reportable 03/16/19 10:37 Not Reportable 03/16/19 10:37 Not Reportable 03/16/19 10:37 Not Reportable 03/16/19 10:37 Hem Pathologist Commnt No 03/16/19 10:37 PT 14.9 Sec. (12.2-14.9) 03/22/19 15:13 INR 1.20 (0.87-1.13) H 03/22/19 15:13 APTT 26.4 Sec. (24.2-36.6) 03/22/19 15:13 POC ABG pH 7.473 (7.35-7.45) H 03/18/19 09:16 POC ABG pCO2 31.5 (35-45) L 03/18/19 09:16 POC ABG pO2 118 (80-105) H 03/18/19 09:16 POC ABG HCO3 23.1 (22-26 mml/L) 03/18/19 09:16 POC ABG Total CO2 24 (23-27mmol/L) 03/18/19 09:16 POC ABG O2 Sat 99 03/18/19 09:16 POC ABG Base Excess 0 ((-2) - (+3)mmol/L) 03/18/19 09:16 25 % 03/18/19 09:16 Sodium 137 mmol/L (137-145) 03/26/19 07:11 Potassium 3.7 mmol/L (3.6-5.0) 03/26/19 07:11 Chloride 100.5 mmol/L (98-107) 03/26/19 07:11 Carbon Dioxide 21 mmol/L (22-30) L 03/26/19 07:11 19 mmol/L 03/26/19 07:11 BUN 59 mg/dL (9-20) H 03/26/19 07:11 7.9 mg/dL (0.8-1.5) H 03/26/19 07:11 Estimated GFR 8 ml/min 03/26/19 07:11 7 % 03/26/19 07:11 Glucose 107 mg/dL (75-100) H 03/26/19 07:11 POC Glucose 100 (70-105) 03/16/19 17:45 Lactic Acid 0.80 mmol/L (0.7-2.0) 03/16/19 16:38 Calcium 8.2 mg/dL (8.4-10.2) L D 03/26/19 07:11 0.90 mg/dL (0.1-1.2) 03/22/19 06:53 1.6 mg/dL (0-0.2) H 03/19/19 09:53 0.6 mg/dL 03/19/19 09:53 AST 106 units/L (5-40) H 03/22/19 06:53 ALT 378 units/L (7-56) H 03/22/19 06:53 181 units/L (35-129) H 03/22/19 06:53 368 units/L (55-170) H 03/23/19 06:07 < 0.010 ng/mL (0.00-0.029) 03/16/19 10:37 5.9 g/dL (6.3-8.2) L 03/22/19 06:53 3.2 g/dL (3.9-5) L 03/22/19 06:53 1.2 % 03/22/19 06:53 Triglycerides 76 mg/dL (2-149) 03/18/19 15:24 [place] (Yellow) 03/18/19 12:49 Cloudy (Clear) 03/18/19 12:49 5.0 (5.0-7.0) 03/18/19 12:49 Ur Specific [place] 1.015 (1.003-1.030) 03/18/19 12:49 >500 mg/dL (Negative) 03/18/19 12:49 150 mg/dL (Negative) 03/18/19 12:49 Tr mg/dL (Negative) 03/18/19 12:49 Lg (Negative) 03/18/19 12:49 Neg (Negative) 03/18/19 12:49 Neg (Negative) 03/18/19 12:49 < 2.0 mg/dL (<2.0) 03/18/19 12:49 Ur Leukocyte Esterase Neg (Negative) 03/18/19 12:49 18.0 /HPF (0.0-6.0) H 03/18/19 12:49 121.0 /HPF (0.0-6.0) 03/18/19 12:49 U Epithel Cells (Auto) 2.0 /HPF (0-13.0) 03/18/19 12:49 3+ /HPF (Negative) 03/18/19 12:49 Few /HPF 03/18/19 12:49 75.9 mg/dL (0.1-20.0) H 03/24/19 05:30 37 mmol/L 03/21/19 15:00 43 mg/dL (5-11.8) H 03/24/19 05:30 Clear 03/16/19 12:40 Clear 03/16/19 12:40 Colorless 03/16/19 12:40 Colorless 03/16/19 12:40 2 /mm3 (1-10) 03/16/19 12:40 2 /mm3 (1-10) 03/16/19 12:40 0 /mm3 (0-0) 03/16/19 12:40 0 /mm3 (0-0) 03/16/19 12:40 CSF Seg Neutrophils 0 % (0-6) 03/16/19 12:40 CSF Seg Neutrophils 0 % (0-6) 03/16/19 12:40 47.7 % (40-80) 03/16/19 12:40 93.1 % (40-80) 03/16/19 12:40 CSF Reactive Lymphs 0 % 03/16/19 12:40 CSF Reactive Lymphs 0 % 03/16/19 12:40 6.9 % (15-45) 03/16/19 12:40 52.3 % (15-45) 03/16/19 12:40 0 % 03/16/19 12:40 0 % 03/16/19 12:40 0 % 03/16/19 12:40 0 % 03/16/19 12:40 C 03/16/19 12:40 C 03/16/19 12:40 69 mg/dL 03/16/19 12:40 Salicylates < 0.3 mg/dL (2.8-20.0) L 03/16/19 10:37 Presumptive positive 03/16/19 11:37 Presumptive negative 03/16/19 11:37 Acetaminophen < 5.0 ug/mL (10.0-30.0) L 03/16/19 10:37 Ur Barbiturates Screen Presumptive negative 03/16/19 11:37 Ur Phencyclidine Scrn Presumptive negative 03/16/19 11:37 Ur Amphetamines Screen Presumptive positive 03/16/19 11:37 U Benzodiazepines Scrn Presumptive negative 03/16/19 11:37 Presumptive positive 03/16/19 11:37 U Marijuana (THC) Screen Presumptive negative 03/16/19 11:37 Disclamer 03/16/19 11:37 Plasma/Serum Alcohol < 0.01 % (0-0.07) 03/16/19 10:37 Proteinase 3 (PR3) Ab <1.0 AI (<1.0) 03/18/19 15:24 Myeloperoxidase Ab <1.0 AI (<1.0) 03/18/19 15:24 69 mg/dL (82-185) L 03/18/19 15:24 14 mg/dL (15-53) L 03/18/19 15:24 Hepatitis A IgM Ab Non-reactive (NonReactive) 03/20/19 14:30 Hep Bs Antigen Non-reactive (Negative) 03/20/19 14:30 Hep B Core IgM Ab Non-reactive (NonReactive) 03/20/19 14:30 Non-reactive (NonReactive) 03/20/19 14:30 HIV 1&2 Antibody Rapid Non react (Non React) 03/16/19 12:05 Non react (Non React) 03/16/19 12:05 Active Medications - Current Medications Current Medications: Generic Name Dose Route Start Last Admin Trade Name Freq PRN Reason Stop Dose Admin Acetaminophen 650 mg 03/24/19 02:16 03/25/19 17:02 Tylenol PO 650 mg Q6H PRN Administration Pain, Mild (1-3) Cephalexin 250 mg 03/22/19 22:00 03/25/19 21:38 Keflex PO 250 mg Q12HR JOÃO Administration Diphenhydramine HCl 25 mg 03/19/19 22:54 03/23/19 22:04 Benadryl PO 25 mg Q6H PRN Administration Itching Famotidine 20 mg 03/19/19 10:00 03/25/19 10:42 Pepcid PO 20 mg DAILY JOÃO Administration Heparin Sodium (Porcine) 5,000 unit 03/16/19 22:00 03/25/19 21:39 Heparin SUB-Q 5,000 unit Q12HR JOÃO Administration Hydralazine HCl 10 mg 03/26/19 04:35 03/26/19 05:56 Apresoline IV 10 mg Q4HR PRN Administration Blood Pressure Sodium Chloride 100 mls @ 999 mls/hr 03/21/19 07:45 Nacl 0.9% IV BECK PRN Hypotension Sodium Chloride 1,000 mls @ 50 mls/hr 03/21/19 10:00 03/26/19 03:18 Nacl 0.9% 1000 Ml IV 50 mls/hr DIRECT JOÃO Administration Lorazepam 2 mg 03/19/19 17:14 03/25/19 21:39 Ativan IV 2 mg Q6H PRN Administration Agitation Nicotine 21 mg 03/25/19 18:00 03/25/19 18:03 Habitrol TD 21 mg QDAY JOÃO Administration Prednisone 60 mg 03/24/19 11:00 03/25/19 10:41 Deltasone PO 60 mg QDAY JOÃO Administration Sodium Chloride 10 ml 03/16/19 22:00 03/25/19 21:39 Sodium Chloride Flush Syringe 10 Ml IV 10 ml BID JOÃO Administration Sodium Chloride 10 ml 03/16/19 11:52 Sodium Chloride Flush Syringe 10 Ml IV PRN PRN LINE FLUSH Nutrition/Malnutrition Assess - Dietary Evaluation Nutrition/Malnutrition Findings: Nutrition Notes Start: 03/23/19 09:37 Freq: Status: Active Protocol: Document 03/23/19 09:37 LP (Rec: 03/23/19 09:38 LP [id number]) Nutrition Notes Need for Assessment generated from: LOS Initial or Follow up Brief Note Current Diagnosis Acute Kidney Injury, Respiratory Failure Other Pertinent Diagnosis drug abuse Subjective/Other Information Screen for LOS. Pt currently NPO for renal bx but was eating at least 75% of meals. Nutrition Intervention Revisit per MD consult or patient Sign Off request:
--- NOTE | 2019-03-26 13:47 | Progress Note ---
Assessment and Plan - Patient Problems (1) Acute renal failure Current Visit: Yes Status: Acute Qualifiers: Acute renal failure type: with acute tubular necrosis Qualified Code(s): N17.0 - Acute kidney failure with tubular necrosis Plan to address problem: Hopeful that Patient is showing signs of renal recovery as his serum creatinine level decreased to 7.9 decreased. Initial biopsy report discussed with pathologist revealed acute tubular necrosis and presence of intratubular myoglobin casts seen in rhabdomyolysis. No crescents or significant chronicity were noted on the specimen per pathologist. We'll continue on dialysis support at this time. I anticipate that he will not need any dialysis treatments over the weekend, which will allow us to see if he continues to show signs of renal recovery. Will monitor closely. If he still will require temporary dialysis , then will tent atively plan for permcath placement on Friday, but first we need to monitor his renal function this weekend. Discussed the biopsy findings with the patient and his mother. (2) Rhabdomyolysis Current Visit: Yes Status: Acute Qualifiers: Encounter type: initial encounter Plan to address problem: His CPK levels are showing improvement with fluid hydration. Will continue at this time. (3) Encephalopathy Current Visit: Yes Status: Acute Plan to address problem: His mental status seems to be improved back to baseline. We'll continue to monitor. Component of uremic encephalopathy is improving with dialysis. (4) Respiratory failure Current Visit: Yes Status: Acute Qualifiers: Chronicity: acute Respiratory failure complication: hypoxia Qualified Code(s): J96.01 - Acute respiratory failure with hypoxia Plan to address problem: His overall respiratory status is stable on room air. Subjective Date of service: 03/26/19 Principal diagnosis: Ac. hypoxemic resp failure; Ac encephalopathy (toxic/met); ABDI; Drug OD Interval history: No new issues overnight. He states that he has been urinating more. His labs are showing signs of possible early renal recovery. He had HD today without any issues. Biopsy findings were reviewed with the patient and his mother. Objective - Vital Signs Vital signs: Vital Signs - 12hr 03/26/19 03/26/19 03/26/19 03:17 04:00 05:26 Temperature 98.8 F Pulse Rate 70 71 Respiratory 20 Rate Respiratory 17 Rate [no s/s] Blood Pressure 172/100 Blood Pressure 169/100 [Left] O2 Sat by Pulse 100 Oximetry 03/26/19 03/26/19 03/26/19 05:56 07:45 08:00 Temperature 98.2 F Pulse Rate 70 75 76 Respiratory 18 Rate Respiratory Rate [no s/s] Blood Pressure 172/100 161/90 171/96 Blood Pressure [Left] O2 Sat by Pulse Oximetry 03/26/19 03/26/19 03/26/19 08:15 08:30 08:45 Temperature Pulse Rate 72 74 80 Respiratory Rate Respiratory Rate [no s/s] Blood Pressure 159/86 150/80 168/87 Blood Pressure [Left] O2 Sat by Pulse Oximetry 03/26/19 03/26/19 03/26/19 09:00 09:15 09:30 Temperature Pulse Rate 80 77 76 Respiratory Rate Respiratory Rate [no s/s] Blood Pressure 168/87 172/92 167/78 Blood Pressure [Left] O2 Sat by Pulse Oximetry 03/26/19 03/26/19 03/26/19 09:45 10:00 10:15 Temperature Pulse Rate 71 82 85 Respiratory Rate Respiratory Rate [no s/s] Blood Pressure 171/93 178/92 137/74 Blood Pressure [Left] O2 Sat by Pulse Oximetry 03/26/19 03/26/19 03/26/19 10:30 10:45 11:00 Temperature 98.0 F Pulse Rate 78 73 84 Respiratory 18 Rate Respiratory Rate [no s/s] Blood Pressure 158/83 157/87 150/80 Blood Pressure [Left] O2 Sat by Pulse Oximetry 03/26/19 12:06 Temperature 98.0 F Pulse Rate 75 Respiratory 20 Rate Respiratory Rate [no s/s] Blood Pressure 154/86 Blood Pressure [Left] O2 Sat by Pulse 100 Oximetry - General Appearance General appearance: well-developed, well-nourished, appears stated age EENT: ATNC, PERRL Neck: no JVD, no thyromegaly Respiratory: Present: Clear to Ascultation, Normal Exam Cardiology: regular, S1S2 Gastrointestinal: normal, normoactive bowel sounds Integumentary: no rash, warm and dry Neurologic: no focal deficit, no asterixis, alert and oriented x3 Psychiatric: mood/affect appropriate, cooperative - Lab 03/24/19 07:46 03/26/19 07:11 Most recent lab results Calcium 8.2 mg/dL (8.4-10.2) L D 03/26/19 07:11 75.9 mg/dL (0.1-20.0) H 03/24/19 05:30 37 mmol/L 03/21/19 15:00 43 mg/dL (5-11.8) H 03/24/19 05:30 - Allied health notes Allied health notes reviewed: nursing Medications & Allergies - Medications Allergies/Adverse Reactions: Allergies droperidol Adverse Reaction (Verified 03/25/19 11:10) Rash Home Medications: Home Medications Medication Instructions Recorded Confirmed Last Taken Type Unobtainable 03/16/19 03/16/19 Unknown History Active Medications: Generic Name Dose Route Start Last Admin Trade Name Freq PRN Reason Stop Dose Admin Acetaminophen 650 mg 03/24/19 02:16 03/25/19 17:02 Tylenol PO 650 mg Q6H PRN Administration Pain, Mild (1-3) Cephalexin 250 mg 03/22/19 22:00 03/25/19 21:38 Keflex PO 250 mg Q12HR JOÃO Administration Diphenhydramine HCl 25 mg 03/19/19 22:54 03/23/19 22:04 Benadryl PO 25 mg Q6H PRN Administration Itching Famotidine 20 mg 03/19/19 10:00 03/25/19 10:42 Pepcid PO 20 mg DAILY JOÃO Administration Heparin Sodium (Porcine) 5,000 unit 03/16/19 22:00 03/25/19 21:39 Heparin SUB-Q 5,000 unit Q12HR JOÃO Administration Hydralazine HCl 10 mg 03/26/19 04:35 03/26/19 05:56 Apresoline IV 10 mg Q4HR PRN Administration Blood Pressure Sodium Chloride 100 mls @ 999 mls/hr 03/21/19 07:45 Nacl 0.9% IV BECK PRN Hypotension Sodium Chloride 1,000 mls @ 50 mls/hr 03/21/19 10:00 03/26/19 03:18 Nacl 0.9% 1000 Ml IV 50 mls/hr DIRECT JOÃO Administration Lorazepam 2 mg 03/19/19 17:14 03/25/19 21:39 Ativan IV 2 mg Q6H PRN Administration Agitation Nicotine 21 mg 03/25/19 18:00 03/25/19 18:03 Habitrol TD 21 mg QDAY JOÃO Administration Prednisone 60 mg 03/24/19 11:00 03/25/19 10:41 Deltasone PO 60 mg QDAY JOÃO Administration Sodium Chloride 10 ml 03/16/19 22:00 03/25/19 21:39 Sodium Chloride Flush Syringe 10 Ml IV 10 ml BID JOÃO Administration Sodium Chloride 10 ml 03/16/19 11:52 Sodium Chloride Flush Syringe 10 Ml IV PRN PRN LINE FLUSH
[2019-03-26] MEDS: DELTASONE PO SCH (14:18)
[2019-03-26] MEDS: HABITROL TD SCH (14:19)
[2019-03-26] MEDS: PEPCID PO SCH (14:19)
[2019-03-26] MEDS: KEFLEX PO SCH ×2 (14:20→21:41)
[2019-03-26] MEDS: HEPARIN SUB-Q SCH ×2 (14:20→21:41)
[2019-03-26] MEDS: SODIUM CHLORIDE FLUSH SYRINGE 10 ML IV SCH ×2 (14:21→21:42)
[2019-03-26] MEDS: BENADRYL PO PRN (21:41)
--- NOTE | 2019-03-27 09:32 | Progress Note ---
Assessment and Plan Assessment and plan: 33 YO Male with Polysubstance Abuse, Psychosis currently and inpatient at [facility] presents to ED for evaluation. Pt is lethargic and unable to provide history and is intubated and on vest support at time of my exam. Patient history provided by his father who is at bedside during exam and interview. As per father, the patient was found to be confused by [place] staff to be confused with decreased level of responsiveness. EMS notified, and upon arrival the patient was found to be unresponsive and treated with supportive care and IM Narcan and transported to [facility]. Pt seen and evaluated in ED and was found to have Encephalopathy, Sepsis, and Respiratory distress and was unable to protect his airway. Pt intubated and placed on vent support. Pt admitted to ICU and initiated on sepsis protocol. He improved, was extubated, transferred to medical floor. * Extubated successfully 03/18/19 * Patient on admission was treated with sepsis while other differential diagnosis SIRS (systemic inflammatory response syndrome), Hypoglycemia, NMS (neuroleptic malignant syndrome), Drug abuse, Hepatic dysfunction was highly evident. He did rather recover quickly only evidence noted for infection is from Urinalysis * His mental status improved by day 2 * He had noted seizure like activity follow administration of Narcan * UDS positive for cocain * Neurology, Renal and Chief Resource Officer input noted * csf, unremarkable. Head CT -normal. EEG did not show active seizure. * Dialysis access placed 03/20/19 and dialysis started Sepsis- Resolved Acute Renal failure with underlying ATN and possible Glomerelonephritis, - Started on HD, s/p renal biopsy 03/23 Nephrology following. vascular work up ongoing, pulse dose steroids started METABOLIC ACIDOSIS: started dialysis, anticipate correction Acute Metabolic Encephalopathy- Intermittent, may require intermittent Ativan, MONITOR FOR RESPIRATORY DEPRESSION Acute cystitis- No culture growth, continue abx till day after biopsy and then discontinue if no fever Polysubstane abuse- With overdose, UDS, POSITIVE for opioids, cocain and amphateamines, counselling provided, greater than 15 mins. Patient currently admitted from a Rehab program Seizure-Likely secondary to opiate withdrawal Tobacco use disorder- Counseling provided Acute Hypoxemic Respiratory Failure-Resolved Rhabdomylysis- Improving, initially treated with IV Bicarb Drip Acute Heaptocellular dysfunction- ?Acute Hepatitis vs passive congestive failure and shock liver state-Improving- Hyperkalemia- Resolved DVT/GI prophy Plan discussed with patient and father at bedside. Still awaiting official biopsy report History Interval history: had left kidney biopsy 03/23/19 No pain at biopsy site No new complaints Hospitalist Physical - Physical exam Narrative exam: Gen: Not in acute distress, lying in bed,obese HEENT: Normocephalic, atraumatic Neck: supple, no JVD Heart: S1 and S2 reg, no murmurs, rubs or gallop Lungs: Clear, no crackles, no wheeze Abd: soft, non tender, non distended, normal BS Ext: No edema, no clubbing, no cyanosis, Neuro: Awake,alert, oriented,moves all ext, - Constitutional Vitals: Temp Pulse Resp BP Pulse Ox 98.8 F 75 18 130/63 96 03/27/19 05:37 03/27/19 05:37 03/27/19 05:37 03/27/19 05:37 03/27/19 05:37 General appearance: Present: obese Results - Labs CBC & Chem 7: 03/24/19 07:46 03/26/19 07:11 Labs: Laboratory Last Values WBC 8.9 K/mm3 (4.5-11.0) 03/24/19 07:46 RBC 3.20 M/mm3 (3.65-5.03) L 03/24/19 07:46 Hgb 10.1 gm/dl (11.8-15.2) L 03/24/19 07:46 Hct 28.7 % (35.5-45.6) L 03/24/19 07:46 MCV 90 fl (84-94) 03/24/19 07:46 MCH 32 pg (28-32) 03/24/19 07:46 MCHC 35 % (32-34) H 03/24/19 07:46 RDW 13.9 % (13.2-15.2) 03/24/19 07:46 Plt Count 318 K/mm3 (140-440) 03/24/19 07:46 Lymph % (Auto) 17.3 % (13.4-35.0) 03/18/19 10:00 [place] % (Auto) 9.2 % (0.0-7.3) H 03/18/19 10:00 Eos % (Auto) 3.1 % (0.0-4.3) 03/18/19 10:00 Baso % (Auto) 1.2 % (0.0-1.8) 03/18/19 10:00 Lymph # 1.6 K/mm3 (1.2-5.4) 03/18/19 10:00 [place] # 0.8 K/mm3 (0.0-0.8) 03/18/19 10:00 Eos # 0.3 K/mm3 (0.0-0.4) 03/18/19 10:00 Baso # 0.1 K/mm3 (0.0-0.1) 03/18/19 10:00 Add Manual Diff Complete 03/16/19 10:37 Total Counted 100 03/16/19 10:37 Seg Neutrophils % 69.2 % (40.0-70.0) 03/18/19 10:00 Seg Neuts % (Manual) 90.0 % (40.0-70.0) H 03/16/19 10:37 1.0 % 03/16/19 10:37 2.0 % (13.4-35.0) L 03/16/19 10:37 Reactive Lymphs % (Man) 0 % 03/16/19 10:37 5.0 % (0.0-7.3) 03/16/19 10:37 0 % (0.0-4.3) 03/16/19 10:37 0 % (0.0-1.8) 03/16/19 10:37 1.0 % 03/16/19 10:37 1.0 % 03/16/19 10:37 0 % 03/16/19 10:37 0 % 03/16/19 10:37 Nucleated RBC % Not Reportable 03/16/19 10:37 Seg Neutrophils # 6.3 K/mm3 (1.8-7.7) 03/18/19 10:00 Seg Neutrophils # Man 24.9 K/mm3 (1.8-7.7) H 03/16/19 10:37 Band Neutrophils # 0.3 K/mm3 03/16/19 10:37 0.6 K/mm3 (1.2-5.4) L 03/16/19 10:37 Abs React Lymphs (Man) 0.0 K/mm3 03/16/19 10:37 1.4 K/mm3 (0.0-0.8) H 03/16/19 10:37 0.0 K/mm3 (0.0-0.4) 03/16/19 10:37 0.0 K/mm3 (0.0-0.1) 03/16/19 10:37 0.3 K/mm3 03/16/19 10:37 0.3 K/mm3 03/16/19 10:37 0.0 K/mm3 03/16/19 10:37 Blast Cells # 0.0 K/mm3 03/16/19 10:37 WBC Morphology Not Reportable 03/16/19 10:37 Hypersegmented Neuts Not Reportable 03/16/19 10:37 Hyposegmented Neuts Not Reportable 03/16/19 10:37 Hypogranular Neuts Not Reportable 03/16/19 10:37 Not Reportable 03/16/19 10:37 Not Reportable 03/16/19 10:37 Not Reportable 03/16/19 10:37 Not Reportable 03/16/19 10:37 Not Reportable 03/16/19 10:37 Not Reportable 03/16/19 10:37 Consistent w auto 03/16/19 10:37 Not Reportable 03/16/19 10:37 Plt Clumps, EDTA Not Reportable 03/16/19 10:37 Not Reportable 03/16/19 10:37 Not Reportable 03/16/19 10:37 Not Reportable 03/16/19 10:37 Plt Morphology Comment Not Reportable 03/16/19 10:37 RBC Morphology Normal 03/16/19 10:37 Dimorphic RBCs Not Reportable 03/16/19 10:37 Not Reportable 03/16/19 10:37 Not Reportable 03/16/19 10:37 Not Reportable 03/16/19 10:37 Not Reportable 03/16/19 10:37 Not Reportable 03/16/19 10:37 Not Reportable 03/16/19 10:37 Not Reportable 03/16/19 10:37 Not Reportable 03/16/19 10:37 Not Reportable 03/16/19 10:37 Not Reportable 03/16/19 10:37 Not Reportable 03/16/19 10:37 Not Reportable 03/16/19 10:37 Not Reportable 03/16/19 10:37 Not Reportable 03/16/19 10:37 Not Reportable 03/16/19 10:37 Not Reportable 03/16/19 10:37 Not Reportable 03/16/19 10:37 Not Reportable 03/16/19 10:37 Not Reportable 03/16/19 10:37 Acanthocytes (Spur) Not Reportable 03/16/19 10:37 Rouleaux Not Reportable 03/16/19 10:37 Not Reportable 03/16/19 10:37 Not Reportable 03/16/19 10:37 Not Reportable 03/16/19 10:37 Not Reportable 03/16/19 10:37 Hem Pathologist Commnt No 03/16/19 10:37 PT 14.9 Sec. (12.2-14.9) 03/22/19 15:13 INR 1.20 (0.87-1.13) H 03/22/19 15:13 APTT 26.4 Sec. (24.2-36.6) 03/22/19 15:13 POC ABG pH 7.473 (7.35-7.45) H 03/18/19 09:16 POC ABG pCO2 31.5 (35-45) L 03/18/19 09:16 POC ABG pO2 118 (80-105) H 03/18/19 09:16 POC ABG HCO3 23.1 (22-26 mml/L) 03/18/19 09:16 POC ABG Total CO2 24 (23-27mmol/L) 03/18/19 09:16 POC ABG O2 Sat 99 03/18/19 09:16 POC ABG Base Excess 0 ((-2) - (+3)mmol/L) 03/18/19 09:16 25 % 03/18/19 09:16 Sodium 137 mmol/L (137-145) 03/26/19 07:11 Potassium 3.7 mmol/L (3.6-5.0) 03/26/19 07:11 Chloride 100.5 mmol/L (98-107) 03/26/19 07:11 Carbon Dioxide 21 mmol/L (22-30) L 03/26/19 07:11 19 mmol/L 03/26/19 07:11 BUN 59 mg/dL (9-20) H 03/26/19 07:11 7.9 mg/dL (0.8-1.5) H 03/26/19 07:11 Estimated GFR 8 ml/min 03/26/19 07:11 7 % 03/26/19 07:11 Glucose 107 mg/dL (75-100) H 03/26/19 07:11 POC Glucose 100 (70-105) 03/16/19 17:45 Lactic Acid 0.80 mmol/L (0.7-2.0) 03/16/19 16:38 Calcium 8.2 mg/dL (8.4-10.2) L D 03/26/19 07:11 0.90 mg/dL (0.1-1.2) 03/22/19 06:53 1.6 mg/dL (0-0.2) H 03/19/19 09:53 0.6 mg/dL 03/19/19 09:53 AST 106 units/L (5-40) H 03/22/19 06:53 ALT 378 units/L (7-56) H 03/22/19 06:53 181 units/L (35-129) H 03/22/19 06:53 368 units/L (55-170) H 03/23/19 06:07 < 0.010 ng/mL (0.00-0.029) 03/16/19 10:37 5.9 g/dL (6.3-8.2) L 03/22/19 06:53 3.2 g/dL (3.9-5) L 03/22/19 06:53 1.2 % 03/22/19 06:53 Triglycerides 76 mg/dL (2-149) 03/18/19 15:24 [place] (Yellow) 03/18/19 12:49 Cloudy (Clear) 03/18/19 12:49 5.0 (5.0-7.0) 03/18/19 12:49 Ur Specific [place] 1.015 (1.003-1.030) 03/18/19 12:49 >500 mg/dL (Negative) 03/18/19 12:49 150 mg/dL (Negative) 03/18/19 12:49 Tr mg/dL (Negative) 03/18/19 12:49 Lg (Negative) 03/18/19 12:49 Neg (Negative) 03/18/19 12:49 Neg (Negative) 03/18/19 12:49 < 2.0 mg/dL (<2.0) 03/18/19 12:49 Ur Leukocyte Esterase Neg (Negative) 03/18/19 12:49 18.0 /HPF (0.0-6.0) H 03/18/19 12:49 121.0 /HPF (0.0-6.0) 03/18/19 12:49 U Epithel Cells (Auto) 2.0 /HPF (0-13.0) 03/18/19 12:49 3+ /HPF (Negative) 03/18/19 12:49 Few /HPF 03/18/19 12:49 75.9 mg/dL (0.1-20.0) H 03/24/19 05:30 37 mmol/L 03/21/19 15:00 43 mg/dL (5-11.8) H 03/24/19 05:30 Clear 03/16/19 12:40 Clear 03/16/19 12:40 Colorless 03/16/19 12:40 Colorless 03/16/19 12:40 2 /mm3 (1-10) 03/16/19 12:40 2 /mm3 (1-10) 03/16/19 12:40 0 /mm3 (0-0) 03/16/19 12:40 0 /mm3 (0-0) 03/16/19 12:40 CSF Seg Neutrophils 0 % (0-6) 03/16/19 12:40 CSF Seg Neutrophils 0 % (0-6) 03/16/19 12:40 47.7 % (40-80) 03/16/19 12:40 93.1 % (40-80) 03/16/19 12:40 CSF Reactive Lymphs 0 % 03/16/19 12:40 CSF Reactive Lymphs 0 % 03/16/19 12:40 6.9 % (15-45) 03/16/19 12:40 52.3 % (15-45) 03/16/19 12:40 0 % 03/16/19 12:40 0 % 03/16/19 12:40 0 % 03/16/19 12:40 0 % 03/16/19 12:40 C 03/16/19 12:40 C 03/16/19 12:40 69 mg/dL 03/16/19 12:40 Salicylates < 0.3 mg/dL (2.8-20.0) L 03/16/19 10:37 Presumptive positive 03/16/19 11:37 Presumptive negative 03/16/19 11:37 Acetaminophen < 5.0 ug/mL (10.0-30.0) L 03/16/19 10:37 Ur Barbiturates Screen Presumptive negative 03/16/19 11:37 Ur Phencyclidine Scrn Presumptive negative 03/16/19 11:37 Ur Amphetamines Screen Presumptive positive 03/16/19 11:37 U Benzodiazepines Scrn Presumptive negative 03/16/19 11:37 Presumptive positive 03/16/19 11:37 U Marijuana (THC) Screen Presumptive negative 03/16/19 11:37 Disclamer 03/16/19 11:37 Plasma/Serum Alcohol < 0.01 % (0-0.07) 03/16/19 10:37 Proteinase 3 (PR3) Ab <1.0 AI (<1.0) 03/18/19 15:24 Myeloperoxidase Ab <1.0 AI (<1.0) 03/18/19 15:24 69 mg/dL (82-185) L 03/18/19 15:24 14 mg/dL (15-53) L 03/18/19 15:24 Hepatitis A IgM Ab Non-reactive (NonReactive) 03/20/19 14:30 Hep Bs Antigen Non-reactive (Negative) 03/20/19 14:30 Hep B Core IgM Ab Non-reactive (NonReactive) 03/20/19 14:30 Non-reactive (NonReactive) 03/20/19 14:30 HIV 1&2 Antibody Rapid Non react (Non React) 03/16/19 12:05 Non react (Non React) 03/16/19 12:05 Active Medications - Current Medications Current Medications: Generic Name Dose Route Start Last Admin Trade Name Freq PRN Reason Stop Dose Admin Acetaminophen 650 mg 03/24/19 02:16 03/25/19 17:02 Tylenol PO 650 mg Q6H PRN Administration Pain, Mild (1-3) Cephalexin 250 mg 03/22/19 22:00 03/26/19 21:41 Keflex PO 250 mg Q12HR JOÃO Administration Diphenhydramine HCl 25 mg 03/19/19 22:54 03/26/19 21:41 Benadryl PO 25 mg Q6H PRN Administration Itching Famotidine 20 mg 03/19/19 10:00 03/26/19 14:19 Pepcid PO 20 mg DAILY JOÃO Administration Heparin Sodium (Porcine) 5,000 unit 03/16/19 22:00 03/26/19 21:41 Heparin SUB-Q 5,000 unit Q12HR JOÃO Administration Hydralazine HCl 10 mg 03/26/19 04:35 03/26/19 05:56 Apresoline IV 10 mg Q4HR PRN Administration Blood Pressure Sodium Chloride 100 mls @ 999 mls/hr 03/21/19 07:45 Nacl 0.9% IV BECK PRN Hypotension Sodium Chloride 1,000 mls @ 50 mls/hr 03/21/19 10:00 03/26/19 03:18 Nacl 0.9% 1000 Ml IV 50 mls/hr DIRECT JOÃO Administration Lorazepam 2 mg 03/19/19 17:14 03/25/19 21:39 Ativan IV 2 mg Q6H PRN Administration Agitation Nicotine 21 mg 03/25/19 18:00 03/26/19 14:19 Habitrol TD 21 mg QDAY JOÃO Administration Prednisone 60 mg 03/24/19 11:00 03/26/19 14:18 Deltasone PO 60 mg QDAY JOÃO Administration Sodium Chloride 10 ml 03/16/19 22:00 03/26/19 21:42 Sodium Chloride Flush Syringe 10 Ml IV 10 ml BID OJÃO Administration Sodium Chloride 10 ml 03/16/19 11:52 Sodium Chloride Flush Syringe 10 Ml IV PRN PRN LINE FLUSH Nutrition/Malnutrition Assess - Dietary Evaluation Nutrition/Malnutrition Findings: Nutrition Notes Start: 03/23/19 09:37 Freq: Status: Active Protocol: Document 03/23/19 09:37 LP (Rec: 03/23/19 09:38 LP [id number]) Nutrition Notes Need for Assessment generated from: LOS Initial or Follow up Brief Note Current Diagnosis Acute Kidney Injury, Respiratory Failure Other Pertinent Diagnosis drug abuse Subjective/Other Information Screen for LOS. Pt currently NPO for renal bx but was eating at least 75% of meals. Nutrition Intervention Revisit per MD consult or patient Sign Off request:
[2019-03-27] MEDS: PEPCID PO SCH (11:27)
[2019-03-27] MEDS: HABITROL TD SCH ×2 (11:27→11:31)
[2019-03-27] MEDS: DELTASONE PO SCH (11:27)
[2019-03-27] MEDS: KEFLEX PO SCH ×2 (11:27→21:51)
[2019-03-27] MEDS: SODIUM CHLORIDE FLUSH SYRINGE 10 ML IV SCH ×2 (11:32→21:51)
[2019-03-27] MEDS: HEPARIN SUB-Q SCH ×2 (11:33→21:50)
--- NOTE | 2019-03-27 11:39 | Progress Note ---
Assessment and Plan - Patient Problems (1) Acute renal failure Current Visit: Yes Status: Acute Qualifiers: Acute renal failure type: with acute tubular necrosis Qualified Code(s): N17.0 - Acute kidney failure with tubular necrosis Plan to address problem: Hopeful that Patient is showing signs of renal recovery as his serum creatinine level decreased to 7.9 decreased. Initial biopsy report discussed with pathologist revealed acute tubular necrosis and presence of intratubular myoglobin casts seen in rhabdomyolysis. No crescents or significant chronicity were noted on the specimen per pathologist. We'll continue on dialysis support at this time. I anticipate that he will not need any dialysis treatments over the weekend, which will allow us to see if he continues to show signs of renal recovery. Will monitor closely. If he still will require temporary dialysis , then will tent atively plan for permcath placement on Friday, but first we need to monitor his renal function this weekend. Discussed the biopsy findings with the patient and his mother. (2) Rhabdomyolysis Current Visit: Yes Status: Acute Qualifiers: Encounter type: initial encounter Plan to address problem: His CPK levels have shown improvement with fluid hydration. Will continue to monitor. (3) Encephalopathy Current Visit: Yes Status: Acute Plan to address problem: His mental status seems to be improved back to baseline. We'll continue to monitor. Component of uremic encephalopathy is improving with dialysis. (4) Respiratory failure Current Visit: Yes Status: Acute Qualifiers: Chronicity: acute Respiratory failure complication: hypoxia Qualified Code(s): J96.01 - Acute respiratory failure with hypoxia Plan to address problem: His overall respiratory status is stable on room air. Subjective Principal diagnosis: Ac. hypoxemic resp failure; Ac encephalopathy (toxic/met); ABDI; Drug OD Interval history: No acute changes overnight. Objective - Vital Signs Vital signs: Vital Signs - 12hr 03/27/19 03/27/19 00:27 05:37 Temperature 98.7 F 98.8 F Pulse Rate 83 75 Respiratory 18 18 Rate Blood Pressure 125/67 130/63 O2 Sat by Pulse 97 96 Oximetry - General Appearance General appearance: well-developed, well-nourished, obese EENT: ATNC, PERRL Neck: no JVD, no thyromegaly Respiratory: Present: Clear to Ascultation, Normal Exam Cardiology: regular, S1S2 Gastrointestinal: normal, normoactive bowel sounds Integumentary: no rash, warm and dry Neurologic: no focal deficit Psychiatric: mood/affect appropriate, cooperative - Lab 03/24/19 07:46 03/26/19 07:11 Most recent lab results Calcium 8.2 mg/dL (8.4-10.2) L D 03/26/19 07:11 75.9 mg/dL (0.1-20.0) H 03/24/19 05:30 37 mmol/L 03/21/19 15:00 43 mg/dL (5-11.8) H 03/24/19 05:30 - Allied health notes Allied health notes reviewed: nursing Medications & Allergies - Medications Allergies/Adverse Reactions: Allergies droperidol Adverse Reaction (Verified 03/25/19 11:10) Rash Home Medications: Home Medications Medication Instructions Recorded Confirmed Last Taken Type Unobtainable 03/16/19 03/16/19 Unknown History Active Medications: Generic Name Dose Route Start Last Admin Trade Name Freq PRN Reason Stop Dose Admin Acetaminophen 650 mg 03/24/19 02:16 03/25/19 17:02 Tylenol PO 650 mg Q6H PRN Administration Pain, Mild (1-3) Cephalexin 250 mg 03/22/19 22:00 03/27/19 11:27 Keflex PO 250 mg Q12HR JOÃO Administration Diphenhydramine HCl 25 mg 03/19/19 22:54 03/26/19 21:41 Benadryl PO 25 mg Q6H PRN Administration Itching Famotidine 20 mg 03/19/19 10:00 03/27/19 11:27 Pepcid PO 20 mg DAILY JOÃO Administration Heparin Sodium (Porcine) 5,000 unit 03/16/19 22:00 03/27/19 11:33 Heparin SUB-Q 5,000 unit Q12HR JOÃO Administration Hydralazine HCl 10 mg 03/26/19 04:35 03/26/19 05:56 Apresoline IV 10 mg Q4HR PRN Administration Blood Pressure Sodium Chloride 100 mls @ 999 mls/hr 03/21/19 07:45 Nacl 0.9% IV BECK PRN Hypotension Sodium Chloride 1,000 mls @ 50 mls/hr 03/21/19 10:00 03/26/19 03:18 Nacl 0.9% 1000 Ml IV 50 mls/hr DIRECT JOÃO Administration Lorazepam 2 mg 03/19/19 17:14 03/25/19 21:39 Ativan IV 2 mg Q6H PRN Administration Agitation Nicotine 21 mg 03/25/19 18:00 03/27/19 11:31 Habitrol TD Not Given QDAY JOÃO Prednisone 60 mg 03/24/19 11:00 03/27/19 11:27 Deltasone PO 60 mg QDAY JOÃO Administration Sodium Chloride 10 ml 03/16/19 22:00 03/27/19 11:32 Sodium Chloride Flush Syringe 10 Ml IV 10 ml BID JOÃO Administration Sodium Chloride 10 ml 03/16/19 11:52 Sodium Chloride Flush Syringe 10 Ml IV PRN PRN LINE FLUSH
[2019-03-27 12:45] LABS: Calcium 8.1 mg/dL (8.4-10.2)
--- NOTE | 2019-03-27 13:12 | Progress Note ---
Assessment and Plan Acute hypoxemic respiratory failure on MVS Acute metabolic- toxic encephalopathy Acute metabolic acidosis Acute renal failure (multifactorial) Rhabdomyolysis Polysubstance abuse disorder with overdose - remains theoretically at risk for Acute pulmonary edema with impaired renal function - kidney biopsy report suggest's ATN / Rhabdomyolysis induced pathology - continue conservative volume management - strict I's & O's - continue HD/UF for toxin and volume clearance / to prevent pulmonary edema (intermittent at this point) - Supplemental oxygen prn to keep O2 sats > 90% - cpK now WNL - all cultures NGTD - follow clinically off AB's - prn BMPs at this stage - Bronchodilators prn at this point - continue accuchecks with glycemic control per SSI fo target blood glucose <180mg/dL - aspiration precautions - Avoid nephrotoxic agents, adjust all antibiotics and medications for CrCL and GFR - VTE and Stress ulcer prophylaxis - Substance abuse counselling done at bedside prior ... re-evaluate in am & prn Subjective Date of service: 03/27/19 Principal diagnosis: Ac. hypoxemic resp failure; Ac encephalopathy (toxic/met); ABDI; Drug OD Interval history: Patient is seen today for: Ac. hypoxemic respiratory failure on MVS; Acute encephalopathy (toxic/met); Acute metabolic acidosis; Acute renal failure (multifactorial); Rhabdomyolysis; Polysubstance abuse disorder with overdose Seen and examined at bedside; 24hour events reviewed; nursing and respiratory care staff consulted; no adverse overnight events reported to me; resting peacefully in bed; no hemoptysis; denies acute chest pains or palpitations; No N/V/F/C Objective Vital Signs - 12hr 03/27/19 03/27/19 05:37 12:00 Temperature 98.8 F 98.9 F Pulse Rate 75 77 Respiratory 18 18 Rate Blood Pressure 130/63 152/89 O2 Sat by Pulse 96 99 Oximetry Constitutional: no acute distress, alert Eyes: non-icteric ENT: oropharynx moist Neck: supple, no lymphadenopathy, no JVD Effort: normal Ascultation: Bilateral: clear Percussion: Bilateral: not dull Cardiovascular: regular rate and rhythm, other (S1,S2, no murmurs, gallops or rubs) Gastrointestinal: normoactive bowel sounds, soft, non-tender, non-distended, other (bowel sounds in all 4 quadrants,) Integumentary: normal Extremities: no cyanosis, no edema, pink and warm, pulses normal, no ischemia or petechiae Neurologic: normal mental status, non-focal exam, pupils equal and round, motor strength normal and Psychiatric: mood appropriate, affect normal CBC and BMP: 03/24/19 07:46 03/28/19 08:14 ABG, PT/INR, D-dimer: ABG POC ABG pH 7.473 (7.35-7.45) H 03/18/19 09:16 POC ABG pCO2 31.5 (35-45) L 03/18/19 09:16 POC ABG pO2 118 (80-105) H 03/18/19 09:16 POC ABG HCO3 23.1 (22-26 mml/L) 03/18/19 09:16 POC ABG Total CO2 24 (23-27mmol/L) 03/18/19 09:16 POC ABG O2 Sat 99 03/18/19 09:16 PT/INR, D-dimer PT 14.9 Sec. (12.2-14.9) 03/22/19 15:13 INR 1.20 (0.87-1.13) H 03/22/19 15:13 Abnormal lab findings: Abnormal Labs 03/16/19 03/16/19 03/16/19 10:00 10:21 10:37 WBC 27.7 H RBC Hgb Hct MCHC Plt Count 553 H Isabel[place] % (Auto) [place] # Seg Neutrophils % Seg Neuts % (Manual) 90.0 H Lymphocytes % (Manual) 2.0 L Seg Neutrophils # Seg Neutrophils # Man 24.9 H Lymphocytes # (Manual) 0.6 L Monocytes # (Manual) 1.4 H PT INR POC ABG pH POC ABG pCO2 POC ABG pO2 Sodium Potassium Chloride Carbon Dioxide BUN Creatinine Glucose POC Glucose 49 L 154 H Calcium Total Bilirubin Direct Bilirubin AST ALT Alkaline Phosphatase Total Creatine Kinase Total Protein Albumin Urine WBC (Auto) Urine Creatinine Urine Total Protein Salicylates Acetaminophen Complement C3 Complement C4 03/16/19 03/16/19 03/16/19 10:37 10:37 10:37 WBC RBC Hgb Hct MCHC Plt Count [place] % (Auto) [place] # Seg Neutrophils % Seg Neuts % (Manual) Lymphocytes % (Manual) Seg Neutrophils # Seg Neutrophils # Man Lymphocytes # (Manual) Monocytes # (Manual) PT 17.5 H INR 1.47 H POC ABG pH POC ABG pCO2 POC ABG pO2 Sodium Potassium 5.1 H Chloride Carbon Dioxide 13 L BUN 35 H Creatinine 3.0 H Glucose 129 H POC Glucose Calcium Total Bilirubin 2.60 H Direct Bilirubin AST 160 H ALT 106 H Alkaline Phosphatase 133 H Total Creatine Kinase Total Protein Albumin Urine WBC (Auto) Urine Creatinine Urine Total Protein Salicylates < 0.3 L Acetaminophen Complement C3 Complement C4 03/16/19 03/16/19 03/16/19 10:37 10:37 11:37 WBC RBC Hgb Hct MCHC Plt Count [place] % (Auto) [place] # Seg Neutrophils % Seg Neuts % (Manual) Lymphocytes % (Manual) Seg Neutrophils # Seg Neutrophils # Man Lymphocytes # (Manual) Monocytes # (Manual) PT INR POC ABG pH POC ABG pCO2 POC ABG pO2 Sodium Potassium Chloride Carbon Dioxide BUN Creatinine Glucose POC Glucose Calcium Total Bilirubin Direct Bilirubin AST ALT Alkaline Phosphatase Total Creatine Kinase 4300 H Total Protein Albumin Urine WBC (Auto) 10.0 H Urine Creatinine Urine Total Protein Salicylates Acetaminophen < 5.0 L Complement C3 Complement C4 03/16/19 03/16/19 03/17/19 11:37 12:25 04:41 WBC 13.5 H RBC Hgb Hct MCHC 35 H Plt Count [place] % (Auto) [place] # 1.0 H Seg Neutrophils % 76.4 H Seg Neuts % (Manual) Lymphocytes % (Manual) Seg Neutrophils # 10.3 H Seg Neutrophils # Man Lymphocytes # (Manual) Monocytes # (Manual) PT INR POC ABG pH 7.188 L POC ABG pCO2 47.9 H POC ABG pO2 Sodium Potassium Chloride Carbon Dioxide BUN Creatinine Glucose POC Glucose Calcium Total Bilirubin Direct Bilirubin AST ALT Alkaline Phosphatase Total Creatine Kinase Total Protein Albumin Urine WBC (Auto) Urine Creatinine 75.6 H Urine Total Protein Salicylates Acetaminophen Complement C3 Complement C4 03/17/19 03/17/19 03/17/19 04:41 04:41 04:57 WBC RBC Hgb Hct MCHC Plt Count [place] % (Auto) [place] # Seg Neutrophils % Seg Neuts % (Manual) Lymphocytes % (Manual) Seg Neutrophils # Seg Neutrophils # Man Lymphocytes # (Manual) Monocytes # (Manual) PT INR POC ABG pH 7.302 L POC ABG pCO2 POC ABG pO2 158 H Sodium Potassium Chloride Carbon Dioxide 13 L BUN 57 H Creatinine 4.6 H D Glucose POC Glucose Calcium 8.2 L Total Bilirubin Direct Bilirubin AST 567 H ALT 356 H Alkaline Phosphatase Total Creatine Kinase 70102 H Total Protein 6.0 L D Albumin 3.4 L Urine WBC (Auto) Urine Creatinine Urine Total Protein Salicylates Acetaminophen Complement C3 Complement C4 03/17/19 03/17/19 03/18/19 08:27 16:47 04:45 WBC RBC Hgb Hct MCHC Plt Count [place] % (Auto) [place] # Seg Neutrophils % Seg Neuts % (Manual) Lymphocytes % (Manual) Seg Neutrophils # Seg Neutrophils # Man Lymphocytes # (Manual) Monocytes # (Manual) PT INR POC ABG pH 7.304 L 7.459 H POC ABG pCO2 POC ABG pO2 135 H 127 H 124 H Sodium Potassium Chloride Carbon Dioxide BUN Creatinine Glucose POC Glucose Calcium Total Bilirubin Direct Bilirubin AST ALT Alkaline Phosphatase Total Creatine Kinase Total Protein Albumin Urine WBC (Auto) Urine Creatinine Urine Total Protein Salicylates Acetaminophen Complement C3 Complement C4 03/18/19 03/18/19 03/18/19 04:59 09:16 10:00 WBC RBC Hgb Hct MCHC Plt Count [place] % (Auto) [place] # Seg Neutrophils % Seg Neuts % (Manual) Lymphocytes % (Manual) Seg Neutrophils # Seg Neutrophils # Man Lymphocytes # (Manual) Monocytes # (Manual) PT INR POC ABG pH 7.473 H POC ABG pCO2 31.5 L POC ABG pO2 118 H Sodium Potassium 3.1 L D Chloride Carbon Dioxide 21 L D BUN 75 H Creatinine 7.9 H D Glucose 120 H POC Glucose Calcium 7.5 L Total Bilirubin Direct Bilirubin AST ALT Alkaline Phosphatase Total Creatine Kinase 10086 H Total Protein Albumin Urine WBC (Auto) Urine Creatinine Urine Total Protein Salicylates Acetaminophen Complement C3 Complement C4 03/18/19 03/18/19 03/18/19 10:00 12:49 15:24 WBC RBC 3.47 L Hgb 10.8 L Hct 31.2 L MCHC 35 H Plt Count [place] % (Auto) 9.2 H [place] # Seg Neutrophils % Seg Neuts % (Manual) Lymphocytes % (Manual) Seg Neutrophils # Seg Neutrophils # Man Lymphocytes # (Manual) Monocytes # (Manual) PT INR POC ABG pH POC ABG pCO2 POC ABG pO2 Sodium Potassium Chloride Carbon Dioxide BUN Creatinine Glucose POC Glucose Calcium Total Bilirubin Direct Bilirubin AST ALT Alkaline Phosphatase Total Creatine Kinase Total Protein Albumin Urine WBC (Auto) 18.0 H Urine Creatinine Urine Total Protein Salicylates Acetaminophen Complement C3 69 L Complement C4 03/18/19 03/19/19 03/19/19 15:24 04:22 04:22 WBC RBC Hgb Hct MCHC Plt Count [place] % (Auto) [place] # Seg Neutrophils % Seg Neuts % (Manual) Lymphocytes % (Manual) Seg Neutrophils # Seg Neutrophils # Man Lymphocytes # (Manual) Monocytes # (Manual) PT INR POC ABG pH POC ABG pCO2 POC ABG pO2 Sodium Potassium Chloride Carbon Dioxide 20 L BUN 78 H Creatinine 9.1 H Glucose POC Glucose Calcium 8.0 L Total Bilirubin 2.00 H Direct Bilirubin AST 444 H ALT 559 H Alkaline Phosphatase 166 H Total Creatine Kinase 62364 H Total Protein 5.6 L Albumin 3.0 L Urine WBC (Auto) Urine Creatinine Urine Total Protein Salicylates Acetaminophen Complement C3 Complement C4 14 L 03/19/19 03/19/19 03/20/19 04:22 09:53 06:32 WBC RBC 3.35 L Hgb 10.5 L Hct 30.6 L MCHC Plt Count [place] % (Auto) [place] # Seg Neutrophils % Seg Neuts % (Manual) Lymphocytes % (Manual) Seg Neutrophils # Seg Neutrophils # Man Lymphocytes # (Manual) Monocytes # (Manual) PT INR POC ABG pH POC ABG pCO2 POC ABG pO2 Sodium Potassium Chloride Carbon Dioxide BUN Creatinine Glucose POC Glucose Calcium Total Bilirubin 2.20 H Direct Bilirubin 1.6 H AST 467 H ALT 611 H Alkaline Phosphatase 189 H Total Creatine Kinase 4375 H Total Protein 6.1 L Albumin 3.3 L Urine WBC (Auto) Urine Creatinine Urine Total Protein Salicylates Acetaminophen Complement C3 Complement C4 03/20/19 03/20/19 03/21/19 06:32 06:32 08:24 WBC RBC Hgb 11.6 L Hct 33.5 L MCHC 35 H Plt Count [place] % (Auto) [place] # Seg Neutrophils % Seg Neuts % (Manual) Lymphocytes % (Manual) Seg Neutrophils # Seg Neutrophils # Man Lymphocytes # (Manual) Monocytes # (Manual) PT INR POC ABG pH POC ABG pCO2 POC ABG pO2 Sodium 136 L Potassium Chloride 97.7 L Carbon Dioxide 18 L BUN 88 H Creatinine 11.0 H Glucose 147 H POC Glucose Calcium Total Bilirubin 1.40 H Direct Bilirubin AST 269 H ALT 552 H Alkaline Phosphatase 198 H Total Creatine Kinase 1011 H Total Protein Albumin 3.3 L Urine WBC (Auto) Urine Creatinine Urine Total Protein Salicylates Acetaminophen Complement C3 Complement C4 03/21/19 03/21/19 03/22/19 08:24 15:00 06:53 WBC RBC Hgb Hct MCHC Plt Count [place] % (Auto) [place] # Seg Neutrophils % Seg Neuts % (Manual) Lymphocytes % (Manual) Seg Neutrophils # Seg Neutrophils # Man Lymphocytes # (Manual) Monocytes # (Manual) PT INR POC ABG pH POC ABG pCO2 POC ABG pO2 Sodium 136 L Potassium Chloride Carbon Dioxide 20 L BUN 76 H Creatinine 9.6 H Glucose 146 H POC Glucose Calcium 8.0 L Total Bilirubin Direct Bilirubin AST ALT Alkaline Phosphatase Total Creatine Kinase 642 H Total Protein Albumin Urine WBC (Auto) Urine Creatinine 136.3 H Urine Total Protein Salicylates Acetaminophen Complement C3 Complement C4 03/22/19 03/22/19 03/22/19 06:53 06:53 15:13 WBC RBC 3.36 L Hgb 10.5 L Hct 30.5 L MCHC 35 H Plt Count [place] % (Auto) [place] # Seg Neutrophils % Seg Neuts % (Manual) Lymphocytes % (Manual) Seg Neutrophils # Seg Neutrophils # Man Lymphocytes # (Manual) Monocytes # (Manual) PT INR 1.20 H POC ABG pH POC ABG pCO2 POC ABG pO2 Sodium 134 L Potassium Chloride 96.1 L Carbon Dioxide 18 L BUN 94 H Creatinine 10.8 H Glucose 136 H POC Glucose Calcium 7.8 L Total Bilirubin Direct Bilirubin AST 106 H ALT 378 H Alkaline Phosphatase 181 H Total Creatine Kinase Total Protein 5.9 L Albumin 3.2 L Urine WBC (Auto) Urine Creatinine Urine Total Protein Salicylates Acetaminophen Complement C3 Complement C4 03/23/19 03/24/19 03/24/19 06:07 05:30 07:46 WBC RBC 3.20 L Hgb 10.1 L Hct 28.7 L MCHC 35 H Plt Count [place] % (Auto) [place] # Seg Neutrophils % Seg Neuts % (Manual) Lymphocytes % (Manual) Seg Neutrophils # Seg Neutrophils # Man Lymphocytes # (Manual) Monocytes # (Manual) PT INR POC ABG pH POC ABG pCO2 POC ABG pO2 Sodium Potassium Chloride Carbon Dioxide BUN 75 H Creatinine 9.5 H Glucose POC Glucose Calcium 7.1 L Total Bilirubin Direct Bilirubin AST ALT Alkaline Phosphatase Total Creatine Kinase 368 H Total Protein Albumin Urine WBC (Auto) Urine Creatinine 75.9 H Urine Total Protein 43 H Salicylates Acetaminophen Complement C3 Complement C4 03/24/19 03/26/19 03/27/19 07:46 07:11 11:53 WBC RBC Hgb Hct MCHC Plt Count [place] % (Auto) [place] # Seg Neutrophils % Seg Neuts % (Manual) Lymphocytes % (Manual) Seg Neutrophils # Seg Neutrophils # Man Lymphocytes # (Manual) Monocytes # (Manual) PT INR POC ABG pH POC ABG pCO2 POC ABG pO2 Sodium 134 L Potassium Chloride 97.9 L Carbon Dioxide 20 L 21 L BUN 81 H 59 H 40 H Creatinine 10.2 H 7.9 H 5.9 H Glucose 107 H POC Glucose Calcium 7.1 L 8.2 L D 8.1 L Total Bilirubin Direct Bilirubin AST ALT Alkaline Phosphatase Total Creatine Kinase Total Protein Albumin Urine WBC (Auto) Urine Creatinine Urine Total Protein Salicylates Acetaminophen Complement C3 Complement C4 Chest x-ray: image reviewed (BERTIN bahena; no acute process otherwise) Allied health notes reviewed: nursing
[2019-03-28] MEDS: DELTASONE PO SCH (08:59)
[2019-03-28] MEDS: PEPCID PO SCH (08:59)
[2019-03-28] MEDS: HEPARIN SUB-Q SCH ×2 (08:59→22:27)
[2019-03-28] MEDS: KEFLEX PO SCH ×2 (08:59→22:27)
[2019-03-28] MEDS: SODIUM CHLORIDE FLUSH SYRINGE 10 ML IV SCH ×2 (09:04→22:28)
[2019-03-28] MEDS: HABITROL TD SCH (09:10)
[2019-03-28 09:35] LABS: Calcium 8.6 mg/dL (8.4-10.2)
--- NOTE | 2019-03-28 12:23 | Progress Note ---
Assessment and Plan Assessment and plan: 33 YO Male with Polysubstance Abuse, Psychosis currently and inpatient at [facility] presents to ED for evaluation. Pt is lethargic and unable to provide history and is intubated and on vest support at time of my exam. Patient history provided by his father who is at bedside during exam and interview. As per father, the patient was found to be confused by [facility] staff to be confused with decreased level of responsiveness. EMS notified, and upon arrival the patient was found to be unresponsive and treated with supportive care and IM Narcan and transported to [facility]. Pt seen and evaluated in ED and was found to have Encephalopathy, Sepsis, and Respiratory distress and was unable to protect his airway. Pt intubated and placed on vent support. Pt admitted to ICU and initiated on sepsis protocol. He improved, was extubated, transferred to medical floor. * Extubated successfully 03/18/19 * Patient on admission was treated with sepsis while other differential diagnosis SIRS (systemic inflammatory response syndrome), Hypoglycemia, NMS (neuroleptic malignant syndrome), Drug abuse, Hepatic dysfunction was highly evident. He did rather recover quickly only evidence noted for infection is from Urinalysis * His mental status improved by day 2 * He had noted seizure like activity follow administration of Narcan * UDS positive for cocain * Neurology, Renal and Provider Network Mgr input noted * csf, unremarkable. Head CT -normal. EEG did not show active seizure. * Dialysis access placed 03/20/19 and dialysis started Sepsis- Resolved Acute Renal failure with underlying ATN and possible Glomerelonephritis, - Started on HD, s/p renal biopsy 03/23 Nephrology following. vascular work up ongoing, pulse dose steroids started METABOLIC ACIDOSIS: started dialysis, anticipate correction Acute Metabolic Encephalopathy- Intermittent, may require intermittent Ativan, MONITOR FOR RESPIRATORY DEPRESSION Acute cystitis- No culture growth, continue abx till day after biopsy and then discontinue if no fever Polysubstane abuse- With overdose, UDS, POSITIVE for opioids, cocain and amphateamines, counselling provided, greater than 15 mins. Patient currently admitted from a Rehab program Seizure-Likely secondary to opiate withdrawal Tobacco use disorder- Counseling provided Acute Hypoxemic Respiratory Failure-Resolved Rhabdomylysis- Improving, initially treated with IV Bicarb Drip Acute Heaptocellular dysfunction- ?Acute Hepatitis vs passive congestive failure and shock liver state-Improving- Hyperkalemia- Resolved DVT/GI prophy Plan discussed with patient and father at bedside. Still awaiting official biopsy report History Interval history: had left kidney biopsy 03/23/19 No pain at biopsy site No new complaints Hospitalist Physical - Physical exam Narrative exam: Gen: Not in acute distress, lying in bed,obese HEENT: Normocephalic, atraumatic Neck: supple, no JVD Heart: S1 and S2 reg, no murmurs, rubs or gallop Lungs: Clear, no crackles, no wheeze Abd: soft, non tender, non distended, normal BS Ext: No edema, no clubbing, no cyanosis, Neuro: Awake,alert, oriented,moves all ext, - Constitutional Vitals: Temp Pulse Resp BP Pulse Ox 98.7 F 71 20 154/75 100 03/28/19 04:37 03/28/19 04:37 03/28/19 04:37 03/28/19 04:37 03/28/19 04:37 General appearance: Present: obese Results - Labs CBC & Chem 7: 03/24/19 07:46 03/28/19 08:14 Labs: Laboratory Last Values WBC 8.9 K/mm3 (4.5-11.0) 03/24/19 07:46 RBC 3.20 M/mm3 (3.65-5.03) L 03/24/19 07:46 Hgb 10.1 gm/dl (11.8-15.2) L 03/24/19 07:46 Hct 28.7 % (35.5-45.6) L 03/24/19 07:46 MCV 90 fl (84-94) 03/24/19 07:46 MCH 32 pg (28-32) 03/24/19 07:46 MCHC 35 % (32-34) H 03/24/19 07:46 RDW 13.9 % (13.2-15.2) 03/24/19 07:46 Plt Count 318 K/mm3 (140-440) 03/24/19 07:46 Lymph % (Auto) 17.3 % (13.4-35.0) 03/18/19 10:00 [place] % (Auto) 9.2 % (0.0-7.3) H 03/18/19 10:00 Eos % (Auto) 3.1 % (0.0-4.3) 03/18/19 10:00 Baso % (Auto) 1.2 % (0.0-1.8) 03/18/19 10:00 Lymph # 1.6 K/mm3 (1.2-5.4) 03/18/19 10:00 [place] # 0.8 K/mm3 (0.0-0.8) 03/18/19 10:00 Eos # 0.3 K/mm3 (0.0-0.4) 03/18/19 10:00 Baso # 0.1 K/mm3 (0.0-0.1) 03/18/19 10:00 Add Manual Diff Complete 03/16/19 10:37 Total Counted 100 03/16/19 10:37 Seg Neutrophils % 69.2 % (40.0-70.0) 03/18/19 10:00 Seg Neuts % (Manual) 90.0 % (40.0-70.0) H 03/16/19 10:37 1.0 % 03/16/19 10:37 2.0 % (13.4-35.0) L 03/16/19 10:37 Reactive Lymphs % (Man) 0 % 03/16/19 10:37 5.0 % (0.0-7.3) 03/16/19 10:37 0 % (0.0-4.3) 03/16/19 10:37 0 % (0.0-1.8) 03/16/19 10:37 1.0 % 03/16/19 10:37 1.0 % 03/16/19 10:37 0 % 03/16/19 10:37 0 % 03/16/19 10:37 Nucleated RBC % Not Reportable 03/16/19 10:37 Seg Neutrophils # 6.3 K/mm3 (1.8-7.7) 03/18/19 10:00 Seg Neutrophils # Man 24.9 K/mm3 (1.8-7.7) H 03/16/19 10:37 Band Neutrophils # 0.3 K/mm3 03/16/19 10:37 0.6 K/mm3 (1.2-5.4) L 03/16/19 10:37 Abs React Lymphs (Man) 0.0 K/mm3 03/16/19 10:37 1.4 K/mm3 (0.0-0.8) H 03/16/19 10:37 0.0 K/mm3 (0.0-0.4) 03/16/19 10:37 0.0 K/mm3 (0.0-0.1) 03/16/19 10:37 0.3 K/mm3 03/16/19 10:37 0.3 K/mm3 03/16/19 10:37 0.0 K/mm3 03/16/19 10:37 Blast Cells # 0.0 K/mm3 03/16/19 10:37 WBC Morphology Not Reportable 03/16/19 10:37 Hypersegmented Neuts Not Reportable 03/16/19 10:37 Hyposegmented Neuts Not Reportable 03/16/19 10:37 Hypogranular Neuts Not Reportable 03/16/19 10:37 Not Reportable 03/16/19 10:37 Not Reportable 03/16/19 10:37 Not Reportable 03/16/19 10:37 Not Reportable 03/16/19 10:37 Not Reportable 03/16/19 10:37 Not Reportable 03/16/19 10:37 Consistent w auto 03/16/19 10:37 Not Reportable 03/16/19 10:37 Plt Clumps, EDTA Not Reportable 03/16/19 10:37 Not Reportable 03/16/19 10:37 Not Reportable 03/16/19 10:37 Not Reportable 03/16/19 10:37 Plt Morphology Comment Not Reportable 03/16/19 10:37 RBC Morphology Normal 03/16/19 10:37 Dimorphic RBCs Not Reportable 03/16/19 10:37 Not Reportable 03/16/19 10:37 Not Reportable 03/16/19 10:37 Not Reportable 03/16/19 10:37 Not Reportable 03/16/19 10:37 Not Reportable 03/16/19 10:37 Not Reportable 03/16/19 10:37 Not Reportable 03/16/19 10:37 Not Reportable 03/16/19 10:37 Not Reportable 03/16/19 10:37 Not Reportable 03/16/19 10:37 Not Reportable 03/16/19 10:37 Not Reportable 03/16/19 10:37 Not Reportable 03/16/19 10:37 Not Reportable 03/16/19 10:37 Not Reportable 03/16/19 10:37 Not Reportable 03/16/19 10:37 Not Reportable 03/16/19 10:37 Not Reportable 03/16/19 10:37 Not Reportable 03/16/19 10:37 Acanthocytes (Spur) Not Reportable 03/16/19 10:37 Rouleaux Not Reportable 03/16/19 10:37 Not Reportable 03/16/19 10:37 Not Reportable 03/16/19 10:37 Not Reportable 03/16/19 10:37 Not Reportable 03/16/19 10:37 Hem Pathologist Commnt No 03/16/19 10:37 PT 14.9 Sec. (12.2-14.9) 03/22/19 15:13 INR 1.20 (0.87-1.13) H 03/22/19 15:13 APTT 26.4 Sec. (24.2-36.6) 03/22/19 15:13 POC ABG pH 7.473 (7.35-7.45) H 03/18/19 09:16 POC ABG pCO2 31.5 (35-45) L 03/18/19 09:16 POC ABG pO2 118 (80-105) H 03/18/19 09:16 POC ABG HCO3 23.1 (22-26 mml/L) 03/18/19 09:16 POC ABG Total CO2 24 (23-27mmol/L) 03/18/19 09:16 POC ABG O2 Sat 99 03/18/19 09:16 POC ABG Base Excess 0 ((-2) - (+3)mmol/L) 03/18/19 09:16 25 % 03/18/19 09:16 Sodium 140 mmol/L (137-145) 03/28/19 08:14 Potassium 3.7 mmol/L (3.6-5.0) 03/28/19 08:14 Chloride 100.9 mmol/L (98-107) 03/28/19 08:14 Carbon Dioxide 24 mmol/L (22-30) 03/28/19 08:14 19 mmol/L 03/28/19 08:14 BUN 45 mg/dL (9-20) H 03/28/19 08:14 5.6 mg/dL (0.8-1.5) H 03/28/19 08:14 Estimated GFR 12 ml/min 03/28/19 08:14 8 % 03/28/19 08:14 Glucose 87 mg/dL (75-100) 03/28/19 08:14 POC Glucose 100 (70-105) 03/16/19 17:45 Lactic Acid 0.80 mmol/L (0.7-2.0) 03/16/19 16:38 Calcium 8.6 mg/dL (8.4-10.2) 03/28/19 08:14 0.90 mg/dL (0.1-1.2) 03/22/19 06:53 1.6 mg/dL (0-0.2) H 03/19/19 09:53 0.6 mg/dL 03/19/19 09:53 AST 106 units/L (5-40) H 03/22/19 06:53 ALT 378 units/L (7-56) H 03/22/19 06:53 181 units/L (35-129) H 03/22/19 06:53 368 units/L (55-170) H 03/23/19 06:07 < 0.010 ng/mL (0.00-0.029) 03/16/19 10:37 5.9 g/dL (6.3-8.2) L 03/22/19 06:53 3.2 g/dL (3.9-5) L 03/22/19 06:53 1.2 % 03/22/19 06:53 Triglycerides 76 mg/dL (2-149) 03/18/19 15:24 [place] (Yellow) 03/18/19 12:49 Cloudy (Clear) 03/18/19 12:49 5.0 (5.0-7.0) 03/18/19 12:49 Ur Specific D Han[place] 1.015 (1.003-1.030) 03/18/19 12:49 >500 mg/dL (Negative) 03/18/19 12:49 150 mg/dL (Negative) 03/18/19 12:49 Tr mg/dL (Negative) 03/18/19 12:49 Lg (Negative) 03/18/19 12:49 Neg (Negative) 03/18/19 12:49 Neg (Negative) 03/18/19 12:49 < 2.0 mg/dL (<2.0) 03/18/19 12:49 Ur Leukocyte Esterase Neg (Negative) 03/18/19 12:49 18.0 /HPF (0.0-6.0) H 03/18/19 12:49 121.0 /HPF (0.0-6.0) 03/18/19 12:49 U Epithel Cells (Auto) 2.0 /HPF (0-13.0) 03/18/19 12:49 3+ /HPF (Negative) 03/18/19 12:49 Few /HPF 03/18/19 12:49 75.9 mg/dL (0.1-20.0) H 03/24/19 05:30 37 mmol/L 03/21/19 15:00 43 mg/dL (5-11.8) H 03/24/19 05:30 Clear 03/16/19 12:40 Clear 03/16/19 12:40 Colorless 03/16/19 12:40 Colorless 03/16/19 12:40 2 /mm3 (1-10) 03/16/19 12:40 2 /mm3 (1-10) 03/16/19 12:40 0 /mm3 (0-0) 03/16/19 12:40 0 /mm3 (0-0) 03/16/19 12:40 CSF Seg Neutrophils 0 % (0-6) 03/16/19 12:40 CSF Seg Neutrophils 0 % (0-6) 03/16/19 12:40 47.7 % (40-80) 03/16/19 12:40 93.1 % (40-80) 03/16/19 12:40 CSF Reactive Lymphs 0 % 03/16/19 12:40 CSF Reactive Lymphs 0 % 03/16/19 12:40 6.9 % (15-45) 03/16/19 12:40 52.3 % (15-45) 03/16/19 12:40 0 % 03/16/19 12:40 0 % 03/16/19 12:40 0 % 03/16/19 12:40 0 % 03/16/19 12:40 C 03/16/19 12:40 C 03/16/19 12:40 69 mg/dL 03/16/19 12:40 Salicylates < 0.3 mg/dL (2.8-20.0) L 03/16/19 10:37 Presumptive positive 03/16/19 11:37 Presumptive negative 03/16/19 11:37 Acetaminophen < 5.0 ug/mL (10.0-30.0) L 03/16/19 10:37 Ur Barbiturates Screen Presumptive negative 03/16/19 11:37 Ur Phencyclidine Scrn Presumptive negative 03/16/19 11:37 Ur Amphetamines Screen Presumptive positive 03/16/19 11:37 U Benzodiazepines Scrn Presumptive negative 03/16/19 11:37 Presumptive positive 03/16/19 11:37 U Marijuana (THC) Screen Presumptive negative 03/16/19 11:37 Disclamer 03/16/19 11:37 Plasma/Serum Alcohol < 0.01 % (0-0.07) 03/16/19 10:37 Proteinase 3 (PR3) Ab <1.0 AI (<1.0) 03/18/19 15:24 Myeloperoxidase Ab <1.0 AI (<1.0) 03/18/19 15:24 69 mg/dL (82-185) L 03/18/19 15:24 14 mg/dL (15-53) L 03/18/19 15:24 Hepatitis A IgM Ab Non-reactive (NonReactive) 03/20/19 14:30 Hep Bs Antigen Non-reactive (Negative) 03/20/19 14:30 Hep B Core IgM Ab Non-reactive (NonReactive) 03/20/19 14:30 Non-reactive (NonReactive) 03/20/19 14:30 HIV 1&2 Antibody Rapid Non react (Non React) 03/16/19 12:05 Non react (Non React) 03/16/19 12:05 Active Medications - Current Medications Current Medications: Generic Name Dose Route Start Last Admin Trade Name Freq PRN Reason Stop Dose Admin Acetaminophen 650 mg 03/24/19 02:16 03/25/19 17:02 Tylenol PO 650 mg Q6H PRN Administration Pain, Mild (1-3) Cephalexin 250 mg 03/22/19 22:00 03/28/19 08:59 Keflex PO 250 mg Q12HR JOÃO Administration Diphenhydramine HCl 25 mg 03/19/19 22:54 07/05/19 21:41 Benadryl PO 25 mg Q6H PRN Administration Itching Famotidine 20 mg 03/19/19 10:00 03/28/19 08:59 Pepcid PO 20 mg DAILY JOÃO Administration Heparin Sodium (Porcine) 5,000 unit 03/16/19 22:00 03/28/19 08:59 Heparin SUB-Q 5,000 unit Q12HR JOÃO Administration Hydralazine HCl 10 mg 03/26/19 04:35 03/26/19 05:56 Apresoline IV 10 mg Q4HR PRN Administration Blood Pressure Sodium Chloride 100 mls @ 999 mls/hr 03/21/19 07:45 Nacl 0.9% IV BECK PRN Hypotension Lorazepam 2 mg 03/19/19 17:14 03/25/19 21:39 Ativan IV 2 mg Q6H PRN Administration Agitation Nicotine 21 mg 03/25/19 18:00 03/28/19 09:10 Habitrol TD Not Given QDAY JOÃO Prednisone 60 mg 03/24/19 11:00 03/28/19 08:59 Deltasone PO 60 mg QDAY JOÃO Administration Sodium Chloride 10 ml 03/16/19 22:00 03/28/19 09:04 Sodium Chloride Flush Syringe 10 Ml IV 10 ml BID JOÃO Administration Sodium Chloride 10 ml 03/16/19 11:52 Sodium Chloride Flush Syringe 10 Ml IV PRN PRN LINE FLUSH Nutrition/Malnutrition Assess - Dietary Evaluation Nutrition/Malnutrition Findings: Nutrition Notes Start: 03/23/19 09:37 Freq: Status: Active Protocol: Document 03/23/19 09:37 LP (Rec: 03/23/19 09:38 LP [id number]) Nutrition Notes Need for Assessment generated from: LOS Initial or Follow up Brief Note Current Diagnosis Acute Kidney Injury, Respiratory Failure Other Pertinent Diagnosis drug abuse Subjective/Other Information Screen for LOS. Pt currently NPO for renal bx but was eating at least 75% of meals. Nutrition Intervention Revisit per MD consult or patient Sign Off request:
--- NOTE | 2019-03-28 14:07 | Progress Note ---
Assessment and Plan Acute hypoxemic respiratory failure on MVS Acute metabolic- toxic encephalopathy Acute metabolic acidosis Acute renal failure (multifactorial) Rhabdomyolysis Polysubstance abuse disorder with overdose - remains theoretically at risk for Acute pulmonary edema with impaired renal function - kidney biopsy report suggest's ATN / Rhabdomyolysis induced pathology - continue conservative volume management - strict I's & O's - continue HD/UF for toxin and volume clearance / to prevent pulmonary edema (intermittent at this point) - Supplemental oxygen prn to keep O2 sats > 90% - cpK now WNL - all cultures NGTD - follow clinically off AB's - prn BMPs at this stage - Bronchodilators prn at this point - continue accuchecks with glycemic control per SSI fo target blood glucose <180mg/dL - aspiration precautions - Avoid nephrotoxic agents, adjust all antibiotics and medications for CrCL and GFR - VTE and Stress ulcer prophylaxis - Substance abuse counselling done at bedside prior ... re-evaluate in am & prn Subjective Date of service: 03/28/19 Principal diagnosis: Ac. hypoxemic resp failure; Ac encephalopathy (toxic/met); ABDI; Drug OD Interval history: Patient is seen today for: Ac. hypoxemic respiratory failure on MVS; Acute encephalopathy (toxic/met); Acute metabolic acidosis; Acute renal failure (multifactorial); Rhabdomyolysis; Polysubstance abuse disorder with overdose Seen and examined at bedside; 24hour events reviewed; nursing and respiratory care staff consulted; no adverse overnight events reported to me; resting peacefully in bed; no N/V/F/C Objective Vital Signs - 12hr 03/28/19 03/28/19 04:37 11:58 Temperature 98.7 F 98.2 F Pulse Rate 71 68 Respiratory 20 18 Rate Blood Pressure 154/75 167/97 O2 Sat by Pulse 100 97 Oximetry Constitutional: no acute distress, alert Eyes: non-icteric ENT: oropharynx moist Neck: supple, no lymphadenopathy, no JVD Effort: normal Ascultation: Bilateral: clear, diminished breath sounds, rhonchi (both bases; inspiratory) Percussion: Bilateral: not dull Cardiovascular: regular rate and rhythm, other (S1,S2, no murmurs, gallops or rubs) Gastrointestinal: normoactive bowel sounds, soft, non-tender, non-distended, other (bowel sounds in all 4 quadrants,) Integumentary: normal Extremities: no cyanosis, no edema, pink and warm, pulses normal, no ischemia or petechiae Neurologic: normal mental status, non-focal exam, pupils equal and round, motor strength normal and Psychiatric: mood appropriate, affect normal CBC and BMP: 03/24/19 07:46 03/30/19 04:42 ABG, PT/INR, D-dimer: ABG POC ABG pH 7.473 (7.35-7.45) H 03/18/19 09:16 POC ABG pCO2 31.5 (35-45) L 03/18/19 09:16 POC ABG pO2 118 (80-105) H 03/18/19 09:16 POC ABG HCO3 23.1 (22-26 mml/L) 03/18/19 09:16 POC ABG Total CO2 24 (23-27mmol/L) 03/18/19 09:16 POC ABG O2 Sat 99 03/18/19 09:16 PT/INR, D-dimer PT 14.9 Sec. (12.2-14.9) 03/22/19 15:13 INR 1.20 (0.87-1.13) H 03/22/19 15:13 Abnormal lab findings: Abnormal Labs 03/16/19 03/16/19 03/16/19 10:00 10:21 10:37 WBC 27.7 H RBC Hgb Hct MCHC Plt Count 553 H [place] % (Auto) [place] # Seg Neutrophils % Seg Neuts % (Manual) 90.0 H Lymphocytes % (Manual) 2.0 L Seg Neutrophils # Seg Neutrophils # Man 24.9 H Lymphocytes # (Manual) 0.6 L Monocytes # (Manual) 1.4 H PT INR POC ABG pH POC ABG pCO2 POC ABG pO2 Sodium Potassium Chloride Carbon Dioxide BUN Creatinine Glucose POC Glucose 49 L 154 H Calcium Total Bilirubin Direct Bilirubin AST ALT Alkaline Phosphatase Total Creatine Kinase Total Protein Albumin Urine WBC (Auto) Urine Creatinine Urine Total Protein Salicylates Acetaminophen Complement C3 Complement C4 03/16/19 03/16/19 03/16/19 10:37 10:37 10:37 WBC RBC Hgb Hct MCHC Plt Count [place] % (Auto) [place] # Seg Neutrophils % Seg Neuts % (Manual) Lymphocytes % (Manual) Seg Neutrophils # Seg Neutrophils # Man Lymphocytes # (Manual) Monocytes # (Manual) PT 17.5 H INR 1.47 H POC ABG pH POC ABG pCO2 POC ABG pO2 Sodium Potassium 5.1 H Chloride Carbon Dioxide 13 L BUN 35 H Creatinine 3.0 H Glucose 129 H POC Glucose Calcium Total Bilirubin 2.60 H Direct Bilirubin AST 160 H ALT 106 H Alkaline Phosphatase 133 H Total Creatine Kinase Total Protein Albumin Urine WBC (Auto) Urine Creatinine Urine Total Protein Salicylates < 0.3 L Acetaminophen Complement C3 Complement C4 03/16/19 03/16/19 03/16/19 10:37 10:37 11:37 WBC RBC Hgb Hct MCHC Plt Count [place] % (Auto) [place] # Seg Neutrophils % Seg Neuts % (Manual) Lymphocytes % (Manual) Seg Neutrophils # Seg Neutrophils # Man Lymphocytes # (Manual) Monocytes # (Manual) PT INR POC ABG pH POC ABG pCO2 POC ABG pO2 Sodium Potassium Chloride Carbon Dioxide BUN Creatinine Glucose POC Glucose Calcium Total Bilirubin Direct Bilirubin AST ALT Alkaline Phosphatase Total Creatine Kinase 4300 H Total Protein Albumin Urine WBC (Auto) 10.0 H Urine Creatinine Urine Total Protein Salicylates Acetaminophen < 5.0 L Complement C3 Complement C4 03/16/19 03/16/19 03/17/19 11:37 12:25 04:41 WBC 13.5 H RBC Hgb Hct MCHC 35 H Plt Count [place] % (Auto) [place] # 1.0 H Seg Neutrophils % 76.4 H Seg Neuts % (Manual) Lymphocytes % (Manual) Seg Neutrophils # 10.3 H Seg Neutrophils # Man Lymphocytes # (Manual) Monocytes # (Manual) PT INR POC ABG pH 7.188 L POC ABG pCO2 47.9 H POC ABG pO2 Sodium Potassium Chloride Carbon Dioxide BUN Creatinine Glucose POC Glucose Calcium Total Bilirubin Direct Bilirubin AST ALT Alkaline Phosphatase Total Creatine Kinase Total Protein Albumin Urine WBC (Auto) Urine Creatinine 75.6 H Urine Total Protein Salicylates Acetaminophen Complement C3 Complement C4 03/17/19 03/17/19 03/17/19 04:41 04:41 04:57 WBC RBC Hgb Hct MCHC Plt Count [place] % (Auto) [place] # Seg Neutrophils % Seg Neuts % (Manual) Lymphocytes % (Manual) Seg Neutrophils # Seg Neutrophils # Man Lymphocytes # (Manual) Monocytes # (Manual) PT INR POC ABG pH 7.302 L POC ABG pCO2 POC ABG pO2 158 H Sodium Potassium Chloride Carbon Dioxide 13 L BUN 57 H Creatinine 4.6 H D Glucose POC Glucose Calcium 8.2 L Total Bilirubin Direct Bilirubin AST 567 H ALT 356 H Alkaline Phosphatase Total Creatine Kinase 17869 H Total Protein 6.0 L D Albumin 3.4 L Urine WBC (Auto) Urine Creatinine Urine Total Protein Salicylates Acetaminophen Complement C3 Complement C4 03/17/19 03/17/19 03/18/19 08:27 16:47 04:45 WBC RBC Hgb Hct MCHC Plt Count [place] % (Auto) [place] # Seg Neutrophils % Seg Neuts % (Manual) Lymphocytes % (Manual) Seg Neutrophils # Seg Neutrophils # Man Lymphocytes # (Manual) Monocytes # (Manual) PT INR POC ABG pH 7.304 L 7.459 H POC ABG pCO2 POC ABG pO2 135 H 127 H 124 H Sodium Potassium Chloride Carbon Dioxide BUN Creatinine Glucose POC Glucose Calcium Total Bilirubin Direct Bilirubin AST ALT Alkaline Phosphatase Total Creatine Kinase Total Protein Albumin Urine WBC (Auto) Urine Creatinine Urine Total Protein Salicylates Acetaminophen Complement C3 Complement C4 03/18/19 03/18/19 03/18/19 04:59 09:16 10:00 WBC RBC Hgb Hct MCHC Plt Count [place] % (Auto) [place] # Seg Neutrophils % Seg Neuts % (Manual) Lymphocytes % (Manual) Seg Neutrophils # Seg Neutrophils # Man Lymphocytes # (Manual) Monocytes # (Manual) PT INR POC ABG pH 7.473 H POC ABG pCO2 31.5 L POC ABG pO2 118 H Sodium Potassium 3.1 L D Chloride Carbon Dioxide 21 L D BUN 75 H Creatinine 7.9 H D Glucose 120 H POC Glucose Calcium 7.5 L Total Bilirubin Direct Bilirubin AST ALT Alkaline Phosphatase Total Creatine Kinase 62327 H Total Protein Albumin Urine WBC (Auto) Urine Creatinine Urine Total Protein Salicylates Acetaminophen Complement C3 Complement C4 03/18/19 03/18/19 03/18/19 10:00 12:49 15:24 WBC RBC 3.47 L Hgb 10.8 L Hct 31.2 L MCHC 35 H Plt Count [place] % (Auto) 9.2 H [place] # Seg Neutrophils % Seg Neuts % (Manual) Lymphocytes % (Manual) Seg Neutrophils # Seg Neutrophils # Man Lymphocytes # (Manual) Monocytes # (Manual) PT INR POC ABG pH POC ABG pCO2 POC ABG pO2 Sodium Potassium Chloride Carbon Dioxide BUN Creatinine Glucose POC Glucose Calcium Total Bilirubin Direct Bilirubin AST ALT Alkaline Phosphatase Total Creatine Kinase Total Protein Albumin Urine WBC (Auto) 18.0 H Urine Creatinine Urine Total Protein Salicylates Acetaminophen Complement C3 69 L Complement C4 03/18/19 03/19/19 03/19/19 15:24 04:22 04:22 WBC RBC Hgb Hct MCHC Plt Count [place] % (Auto) [place] # Seg Neutrophils % Seg Neuts % (Manual) Lymphocytes % (Manual) Seg Neutrophils # Seg Neutrophils # Man Lymphocytes # (Manual) Monocytes # (Manual) PT INR POC ABG pH POC ABG pCO2 POC ABG pO2 Sodium Potassium Chloride Carbon Dioxide 20 L BUN 78 H Creatinine 9.1 H Glucose POC Glucose Calcium 8.0 L Total Bilirubin 2.00 H Direct Bilirubin AST 444 H ALT 559 H Alkaline Phosphatase 166 H Total Creatine Kinase 47309 H Total Protein 5.6 L Albumin 3.0 L Urine WBC (Auto) Urine Creatinine Urine Total Protein Salicylates Acetaminophen Complement C3 Complement C4 14 L 03/19/19 03/19/19 03/20/19 04:22 09:53 06:32 WBC RBC 3.35 L Hgb 10.5 L Hct 30.6 L MCHC Plt Count [place] % (Auto) [place] # Seg Neutrophils % Seg Neuts % (Manual) Lymphocytes % (Manual) Seg Neutrophils # Seg Neutrophils # Man Lymphocytes # (Manual) Monocytes # (Manual) PT INR POC ABG pH POC ABG pCO2 POC ABG pO2 Sodium Potassium Chloride Carbon Dioxide BUN Creatinine Glucose POC Glucose Calcium Total Bilirubin 2.20 H Direct Bilirubin 1.6 H AST 467 H ALT 611 H Alkaline Phosphatase 189 H Total Creatine Kinase 4375 H Total Protein 6.1 L Albumin 3.3 L Urine WBC (Auto) Urine Creatinine Urine Total Protein Salicylates Acetaminophen Complement C3 Complement C4 03/20/19 03/20/19 03/21/19 06:32 06:32 08:24 WBC RBC Hgb 11.6 L Hct 33.5 L MCHC 35 H Plt Count [place] % (Auto) [place] # Seg Neutrophils % Seg Neuts % (Manual) Lymphocytes % (Manual) Seg Neutrophils # Seg Neutrophils # Man Lymphocytes # (Manual) Monocytes # (Manual) PT INR POC ABG pH POC ABG pCO2 POC ABG pO2 Sodium 136 L Potassium Chloride 97.7 L Carbon Dioxide 18 L BUN 88 H Creatinine 11.0 H Glucose 147 H POC Glucose Calcium Total Bilirubin 1.40 H Direct Bilirubin AST 269 H ALT 552 H Alkaline Phosphatase 198 H Total Creatine Kinase 1011 H Total Protein Albumin 3.3 L Urine WBC (Auto) Urine Creatinine Urine Total Protein Salicylates Acetaminophen Complement C3 Complement C4 03/21/19 03/21/19 03/22/19 08:24 15:00 06:53 WBC RBC Hgb Hct MCHC Plt Count [place] % (Auto) [place] # Seg Neutrophils % Seg Neuts % (Manual) Lymphocytes % (Manual) Seg Neutrophils # Seg Neutrophils # Man Lymphocytes # (Manual) Monocytes # (Manual) PT INR POC ABG pH POC ABG pCO2 POC ABG pO2 Sodium 136 L Potassium Chloride Carbon Dioxide 20 L BUN 76 H Creatinine 9.6 H Glucose 146 H POC Glucose Calcium 8.0 L Total Bilirubin Direct Bilirubin AST ALT Alkaline Phosphatase Total Creatine Kinase 642 H Total Protein Albumin Urine WBC (Auto) Urine Creatinine 136.3 H Urine Total Protein Salicylates Acetaminophen Complement C3 Complement C4 03/22/19 03/22/19 03/22/19 06:53 06:53 15:13 WBC RBC 3.36 L Hgb 10.5 L Hct 30.5 L MCHC 35 H Plt Count [place] % (Auto) [place] # Seg Neutrophils % Seg Neuts % (Manual) Lymphocytes % (Manual) Seg Neutrophils # Seg Neutrophils # Man Lymphocytes # (Manual) Monocytes # (Manual) PT INR 1.20 H POC ABG pH POC ABG pCO2 POC ABG pO2 Sodium 134 L Potassium Chloride 96.1 L Carbon Dioxide 18 L BUN 94 H Creatinine 10.8 H Glucose 136 H POC Glucose Calcium 7.8 L Total Bilirubin Direct Bilirubin AST 106 H ALT 378 H Alkaline Phosphatase 181 H Total Creatine Kinase Total Protein 5.9 L Albumin 3.2 L Urine WBC (Auto) Urine Creatinine Urine Total Protein Salicylates Acetaminophen Complement C3 Complement C4 03/23/19 03/24/19 03/24/19 06:07 05:30 07:46 WBC RBC 3.20 L Hgb 10.1 L Hct 28.7 L MCHC 35 H Plt Count [place] % (Auto) [place] # Seg Neutrophils % Seg Neuts % (Manual) Lymphocytes % (Manual) Seg Neutrophils # Seg Neutrophils # Man Lymphocytes # (Manual) Monocytes # (Manual) PT INR POC ABG pH POC ABG pCO2 POC ABG pO2 Sodium Potassium Chloride Carbon Dioxide BUN 75 H Creatinine 9.5 H Glucose POC Glucose Calcium 7.1 L Total Bilirubin Direct Bilirubin AST ALT Alkaline Phosphatase Total Creatine Kinase 368 H Total Protein Albumin Urine WBC (Auto) Urine Creatinine 75.9 H Urine Total Protein 43 H Salicylates Acetaminophen Complement C3 Complement C4 03/24/19 03/26/19 03/27/19 07:46 07:11 11:53 WBC RBC Hgb Hct MCHC Plt Count [place] % (Auto) [place] # Seg Neutrophils % Seg Neuts % (Manual) Lymphocytes % (Manual) Seg Neutrophils # Seg Neutrophils # Man Lymphocytes # (Manual) Monocytes # (Manual) PT INR POC ABG pH POC ABG pCO2 POC ABG pO2 Sodium 134 L Potassium Chloride 97.9 L Carbon Dioxide 20 L 21 L BUN 81 H 59 H 40 H Creatinine 10.2 H 7.9 H 5.9 H Glucose 107 H POC Glucose Calcium 7.1 L 8.2 L D 8.1 L Total Bilirubin Direct Bilirubin AST ALT Alkaline Phosphatase Total Creatine Kinase Total Protein Albumin Urine WBC (Auto) Urine Creatinine Urine Total Protein Salicylates Acetaminophen Complement C3 Complement C4 03/28/19 08:14 WBC RBC Hgb Hct MCHC Plt Count [place] % (Auto) [place] # Seg Neutrophils % Seg Neuts % (Manual) Lymphocytes % (Manual) Seg Neutrophils # Seg Neutrophils # Man Lymphocytes # (Manual) Monocytes # (Manual) PT INR POC ABG pH POC ABG pCO2 POC ABG pO2 Sodium Potassium Chloride Carbon Dioxide BUN 45 H Creatinine 5.6 H Glucose POC Glucose Calcium Total Bilirubin Direct Bilirubin AST ALT Alkaline Phosphatase Total Creatine Kinase Total Protein Albumin Urine WBC (Auto) Urine Creatinine Urine Total Protein Salicylates Acetaminophen Complement C3 Complement C4 Allied health notes reviewed: nursing
[2019-03-28] MEDS: APRESOLINE IV PRN (18:01)
[2019-03-28] MEDS: BENADRYL PO PRN (22:30)
[2019-03-29] MEDS: APRESOLINE IV PRN ×2 (06:44→12:30)
[2019-03-29 07:53] LABS: Calcium 8.3 mg/dL (8.4-10.2)
--- NOTE | 2019-03-29 08:10 | Progress Note ---
Assessment and Plan Assessment and plan: 33 YO Male with Polysubstance Abuse, Psychosis currently and inpatient at [facility] presents to ED for evaluation. Pt is lethargic and unable to provide history and is intubated and on vest support at time of my exam. Patient history provided by his father who is at bedside during exam and interview. As per father, the patient was found to be confused by [facility] staff to be confused with decreased level of responsiveness. EMS notified, and upon arrival the patient was found to be unresponsive and treated with supportive care and IM Narcan and transported to [facility]. Pt seen and evaluated in ED and was found to have Encephalopathy, Sepsis, and Respiratory distress and was unable to protect his airway. Pt intubated and placed on vent support. Pt admitted to ICU and initiated on sepsis protocol. He improved, was extubated, transferred to medical floor. Dialysis started on 03/20/19 and after few sessions, Creatinine is improving. dialysis held over weekend and Creatinine st ill improving 5.0 today. Nephrology says patient may be discharged home tomorrow without dialysis , if creatinine further improves follow in the office in one week * Extubated successfully 03/18/19 * Patient on admission was treated with sepsis while other differential diagnosis SIRS (systemic inflammatory response syndrome), Hypoglycemia, NMS (neuroleptic malignant syndrome), Drug abuse, Hepatic dysfunction was highly evident. He did rather recover quickly only evidence noted for infection is fr om Urinalysis * His mental status improved by day 2 * He had noted seizure like activity follow administration of Narcan * UDS positive for cocain * Neurology, Renal and Manager [employer] input noted * csf, unremarkable. Head CT -normal. EEG did not show active seizure. * Dialysis access placed 03/20/19 and dialysis started Sepsis- Resolved Acute Renal failure with underlying ATN and possible Glomerelonephritis, - Started on HD, s/p renal biopsy 03/23 Nephrology following. vascular work up ongoing, pulse dose steroids started METABOLIC ACIDOSIS: improved on dialysis Acute Metabolic Encephalopathy- Resolved Acute cystitis- completed Abx Polysubstane abuse- With overdose, UDS, POSITIVE for opioids, cocain and amphateamines, counselling provided, greater than 15 mins. Patient currently admitted from a Rehab program Seizure-Likely secondary to opiate withdrawal Tobacco use disorder- Counseling provided Acute Hypoxemic Respiratory Failure-Resolved Rhabdomylysis- Improving, initially treated with IV Bicarb Drip Acute Heaptocellular dysfunction- ?Acute Hepatitis vs passive congestive failure and shock liver state-Improving- Hyperkalemia- Resolved DVT/GI prophy Plan discussed with patient and father at bedside. Still awaiting official biopsy report but nephrology notes say ATN History Interval history: had left kidney biopsy 03/23/19 No pain at biopsy site No new complaints Hospitalist Physical - Physical exam Narrative exam: Gen: Not in acute distress, lying in bed,obese HEENT: Normocephalic, atraumatic Neck: supple, no JVD Heart: S1 and S2 reg, no murmurs, rubs or gallop Lungs: Clear, no crackles, no wheeze Abd: soft, non tender, non distended, normal BS Ext: No edema, no clubbing, no cyanosis, Neuro: Awake,alert, oriented,moves all ext, - Constitutional Vitals: Temp Pulse Resp BP Pulse Ox 98.6 F 74 20 183/105 98 03/29/19 05:32 03/29/19 05:32 03/29/19 05:32 03/29/19 06:44 03/29/19 05:32 General appearance: Present: obese Results - Labs CBC & Chem 7: 03/24/19 07:46 03/29/19 06:46 Labs: Laboratory Last Values WBC 8.9 K/mm3 (4.5-11.0) 03/24/19 07:46 RBC 3.20 M/mm3 (3.65-5.03) L 03/24/19 07:46 Hgb 10.1 gm/dl (11.8-15.2) L 03/24/19 07:46 Hct 28.7 % (35.5-45.6) L 03/24/19 07:46 MCV 90 fl (84-94) 03/24/19 07:46 MCH 32 pg (28-32) 03/24/19 07:46 MCHC 35 % (32-34) H 03/24/19 07:46 RDW 13.9 % (13.2-15.2) 03/24/19 07:46 Plt Count 318 K/mm3 (140-440) 03/24/19 07:46 Lymph % (Auto) 17.3 % (13.4-35.0) 03/18/19 10:00 [place] % (Auto) 9.2 % (0.0-7.3) H 03/18/19 10:00 Eos % (Auto) 3.1 % (0.0-4.3) 03/18/19 10:00 Baso % (Auto) 1.2 % (0.0-1.8) 03/18/19 10:00 Lymph # 1.6 K/mm3 (1.2-5.4) 03/18/19 10:00 [place] # 0.8 K/mm3 (0.0-0.8) 03/18/19 10:00 Eos # 0.3 K/mm3 (0.0-0.4) 03/18/19 10:00 Baso # 0.1 K/mm3 (0.0-0.1) 03/18/19 10:00 Add Manual Diff Complete 03/16/19 10:37 Total Counted 100 03/16/19 10:37 Seg Neutrophils % 69.2 % (40.0-70.0) 03/18/19 10:00 Seg Neuts % (Manual) 90.0 % (40.0-70.0) H 03/16/19 10:37 1.0 % 03/16/19 10:37 2.0 % (13.4-35.0) L 03/16/19 10:37 Reactive Lymphs % (Man) 0 % 03/16/19 10:37 5.0 % (0.0-7.3) 03/16/19 10:37 0 % (0.0-4.3) 03/16/19 10:37 0 % (0.0-1.8) 03/16/19 10:37 1.0 % 03/16/19 10:37 1.0 % 03/16/19 10:37 0 % 03/16/19 10:37 0 % 03/16/19 10:37 Nucleated RBC % Not Reportable 03/16/19 10:37 Seg Neutrophils # 6.3 K/mm3 (1.8-7.7) 03/18/19 10:00 Seg Neutrophils # Man 24.9 K/mm3 (1.8-7.7) H 03/16/19 10:37 Band Neutrophils # 0.3 K/mm3 03/16/19 10:37 0.6 K/mm3 (1.2-5.4) L 03/16/19 10:37 Abs React Lymphs (Man) 0.0 K/mm3 03/16/19 10:37 1.4 K/mm3 (0.0-0.8) H 03/16/19 10:37 0.0 K/mm3 (0.0-0.4) 03/16/19 10:37 0.0 K/mm3 (0.0-0.1) 03/16/19 10:37 0.3 K/mm3 03/16/19 10:37 0.3 K/mm3 03/16/19 10:37 0.0 K/mm3 03/16/19 10:37 Blast Cells # 0.0 K/mm3 03/16/19 10:37 WBC Morphology Not Reportable 03/16/19 10:37 Hypersegmented Neuts Not Reportable 03/16/19 10:37 Hyposegmented Neuts Not Reportable 03/16/19 10:37 Hypogranular Neuts Not Reportable 03/16/19 10:37 Not Reportable 03/16/19 10:37 Not Reportable 03/16/19 10:37 Not Reportable 03/16/19 10:37 Not Reportable 03/16/19 10:37 Not Reportable 03/16/19 10:37 Not Reportable 03/16/19 10:37 Consistent w auto 03/16/19 10:37 Not Reportable 03/16/19 10:37 Plt Clumps, EDTA Not Reportable 03/16/19 10:37 Not Reportable 03/16/19 10:37 Not Reportable 03/16/19 10:37 Not Reportable 03/16/19 10:37 Plt Morphology Comment Not Reportable 03/16/19 10:37 RBC Morphology Normal 03/16/19 10:37 Dimorphic RBCs Not Reportable 03/16/19 10:37 Not Reportable 03/16/19 10:37 Not Reportable 03/16/19 10:37 Not Reportable 03/16/19 10:37 Not Reportable 03/16/19 10:37 Not Reportable 03/16/19 10:37 Not Reportable 03/16/19 10:37 Not Reportable 03/16/19 10:37 Not Reportable 03/16/19 10:37 Not Reportable 03/16/19 10:37 Not Reportable 03/16/19 10:37 Not Reportable 03/16/19 10:37 Not Reportable 03/16/19 10:37 Not Reportable 03/16/19 10:37 Not Reportable 03/16/19 10:37 Not Reportable 03/16/19 10:37 Not Reportable 03/16/19 10:37 Not Reportable 03/16/19 10:37 Not Reportable 03/16/19 10:37 Not Reportable 03/16/19 10:37 Acanthocytes (Spur) Not Reportable 03/16/19 10:37 Rouleaux Not Reportable 03/16/19 10:37 Not Reportable 03/16/19 10:37 Not Reportable 03/16/19 10:37 Not Reportable 03/16/19 10:37 Not Reportable 03/16/19 10:37 Hem Pathologist Commnt No 03/16/19 10:37 PT 14.9 Sec. (12.2-14.9) 03/22/19 15:13 INR 1.20 (0.87-1.13) H 03/22/19 15:13 APTT 26.4 Sec. (24.2-36.6) 03/22/19 15:13 POC ABG pH 7.473 (7.35-7.45) H 03/18/19 09:16 POC ABG pCO2 31.5 (35-45) L 03/18/19 09:16 POC ABG pO2 118 (80-105) H 03/18/19 09:16 POC ABG HCO3 23.1 (22-26 mml/L) 03/18/19 09:16 POC ABG Total CO2 24 (23-27mmol/L) 03/18/19 09:16 POC ABG O2 Sat 99 03/18/19 09:16 POC ABG Base Excess 0 ((-2) - (+3)mmol/L) 03/18/19 09:16 25 % 03/18/19 09:16 Sodium 138 mmol/L (137-145) 03/29/19 06:46 Potassium 4.4 mmol/L (3.6-5.0) 03/29/19 06:46 Chloride 101.9 mmol/L (98-107) 03/29/19 06:46 Carbon Dioxide 21 mmol/L (22-30) L 03/29/19 06:46 20 mmol/L 03/29/19 06:46 BUN 52 mg/dL (9-20) H 03/29/19 06:46 5.0 mg/dL (0.8-1.5) H 03/29/19 06:46 Estimated GFR 14 ml/min 03/29/19 06:46 10 % 03/29/19 06:46 Glucose 86 mg/dL (75-100) 03/29/19 06:46 POC Glucose 100 (70-105) 03/16/19 17:45 Lactic Acid 0.80 mmol/L (0.7-2.0) 03/16/19 16:38 Calcium 8.3 mg/dL (8.4-10.2) L 03/29/19 06:46 0.90 mg/dL (0.1-1.2) 03/22/19 06:53 1.6 mg/dL (0-0.2) H 03/19/19 09:53 0.6 mg/dL 03/19/19 09:53 AST 106 units/L (5-40) H 03/22/19 06:53 ALT 378 units/L (7-56) H 03/22/19 06:53 181 units/L (35-129) H 03/22/19 06:53 368 units/L (55-170) H 03/23/19 06:07 < 0.010 ng/mL (0.00-0.029) 03/16/19 10:37 5.9 g/dL (6.3-8.2) L 03/22/19 06:53 3.2 g/dL (3.9-5) L 03/22/19 06:53 1.2 % 03/22/19 06:53 Triglycerides 76 mg/dL (2-149) 03/18/19 15:24 [place] (Yellow) 03/18/19 12:49 Cloudy (Clear) 03/18/19 12:49 5.0 (5.0-7.0) 03/18/19 12:49 Ur Specific [place] 1.015 (1.003-1.030) 03/18/19 12:49 >500 mg/dL (Negative) 03/18/19 12:49 150 mg/dL (Negative) 03/18/19 12:49 Tr mg/dL (Negative) 03/18/19 12:49 Lg (Negative) 03/18/19 12:49 Neg (Negative) 03/18/19 12:49 Neg (Negative) 03/18/19 12:49 < 2.0 mg/dL (<2.0) 03/18/19 12:49 Ur Leukocyte Esterase Neg (Negative) 03/18/19 12:49 18.0 /HPF (0.0-6.0) H 03/18/19 12:49 121.0 /HPF (0.0-6.0) 03/18/19 12:49 U Epithel Cells (Auto) 2.0 /HPF (0-13.0) 03/18/19 12:49 3+ /HPF (Negative) 03/18/19 12:49 Few /HPF 03/18/19 12:49 75.9 mg/dL (0.1-20.0) H 03/24/19 05:30 37 mmol/L 03/21/19 15:00 43 mg/dL (5-11.8) H 03/24/19 05:30 Clear 03/16/19 12:40 Clear 03/16/19 12:40 Colorless 03/16/19 12:40 Colorless 03/16/19 12:40 2 /mm3 (1-10) 03/16/19 12:40 2 /mm3 (1-10) 03/16/19 12:40 0 /mm3 (0-0) 03/16/19 12:40 0 /mm3 (0-0) 03/16/19 12:40 CSF Seg Neutrophils 0 % (0-6) 03/16/19 12:40 CSF Seg Neutrophils 0 % (0-6) 03/16/19 12:40 47.7 % (40-80) 03/16/19 12:40 93.1 % (40-80) 03/16/19 12:40 CSF Reactive Lymphs 0 % 03/16/19 12:40 CSF Reactive Lymphs 0 % 03/16/19 12:40 6.9 % (15-45) 03/16/19 12:40 52.3 % (15-45) 03/16/19 12:40 0 % 03/16/19 12:40 0 % 03/16/19 12:40 0 % 03/16/19 12:40 0 % 03/16/19 12:40 C 03/16/19 12:40 C 03/16/19 12:40 69 mg/dL 03/16/19 12:40 Salicylates < 0.3 mg/dL (2.8-20.0) L 03/16/19 10:37 Presumptive positive 03/16/19 11:37 Presumptive negative 03/16/19 11:37 Acetaminophen < 5.0 ug/mL (10.0-30.0) L 03/16/19 10:37 Ur Barbiturates Screen Presumptive negative 03/16/19 11:37 Ur Phencyclidine Scrn Presumptive negative 03/16/19 11:37 Ur Amphetamines Screen Presumptive positive 03/16/19 11:37 U Benzodiazepines Scrn Presumptive negative 03/16/19 11:37 Presumptive positive 03/16/19 11:37 U Marijuana (THC) Screen Presumptive negative 03/16/19 11:37 Disclamer 03/16/19 11:37 Plasma/Serum Alcohol < 0.01 % (0-0.07) 03/16/19 10:37 Proteinase 3 (PR3) Ab <1.0 AI (<1.0) 03/18/19 15:24 Myeloperoxidase Ab <1.0 AI (<1.0) 03/18/19 15:24 69 mg/dL (82-185) L 03/18/19 15:24 14 mg/dL (15-53) L 03/18/19 15:24 Hepatitis A IgM Ab Non-reactive (NonReactive) 03/20/19 14:30 Hep Bs Antigen Non-reactive (Negative) 03/20/19 14:30 Hep B Core IgM Ab Non-reactive (NonReactive) 03/20/19 14:30 Non-reactive (NonReactive) 03/20/19 14:30 HIV 1&2 Antibody Rapid Non react (Non React) 03/16/19 12:05 Non react (Non React) 03/16/19 12:05 Active Medications - Current Medications Current Medications: Generic Name Dose Route Start Last Admin Trade Name Freq PRN Reason Stop Dose Admin Acetaminophen 650 mg 03/24/19 02:16 03/25/19 17:02 Tylenol PO 650 mg Q6H PRN Administration Pain, Mild (1-3) Cephalexin 250 mg 03/22/19 22:00 03/28/19 22:27 Keflex PO 250 mg Q12HR JOÃO Administration Diphenhydramine HCl 25 mg 03/19/19 22:54 03/28/19 22:30 Benadryl PO 25 mg Q6H PRN Administration Itching Famotidine 20 mg 03/19/19 10:00 03/28/19 08:59 Pepcid PO 20 mg DAILY JOÃO Administration Heparin Sodium (Porcine) 5,000 unit 03/16/19 22:00 03/28/19 22:27 Heparin SUB-Q 5,000 unit Q12HR JOÃO Administration Hydralazine HCl 10 mg 03/26/19 04:35 03/29/19 06:44 Apresoline IV 10 mg Q4HR PRN Administration Blood Pressure Sodium Chloride 100 mls @ 999 mls/hr 03/21/19 07:45 Nacl 0.9% IV BECK PRN Hypotension Lorazepam 2 mg 03/19/19 17:14 03/25/19 21:39 Ativan IV 2 mg Q6H PRN Administration Agitation Nicotine 21 mg 03/25/19 18:00 03/28/19 09:10 Habitrol TD Not Given QDAY JOÃO Prednisone 60 mg 03/24/19 11:00 03/28/19 08:59 Deltasone PO 60 mg QDAY JOÃO Administration Sodium Chloride 10 ml 03/16/19 22:00 03/28/19 22:28 Sodium Chloride Flush Syringe 10 Ml IV 10 ml BID JOÃO Administration Sodium Chloride 10 ml 03/16/19 11:52 Sodium Chloride Flush Syringe 10 Ml IV PRN PRN LINE FLUSH Nutrition/Malnutrition Assess - Dietary Evaluation Nutrition/Malnutrition Findings: Nutrition Notes Start: 03/23/19 09:37 Freq: Status: Active Protocol: Document 03/23/19 09:37 LP (Rec: 03/23/19 09:38 LP [id number]) Nutrition Notes Need for Assessment generated from: LOS Initial or Follow up Brief Note Current Diagnosis Acute Kidney Injury, Respiratory Failure Other Pertinent Diagnosis drug abuse Subjective/Other Information Screen for LOS. Pt currently NPO for renal bx but was eating at least 75% of meals. Nutrition Intervention Revisit per MD consult or patient Sign Off request:
--- NOTE | 2019-03-29 08:28 | Progress Note ---
Assessment and Plan - Patient Problems (1) Acute renal failure Current Visit: Yes Status: Acute Qualifiers: Acute renal failure type: with acute tubular necrosis Qualified Code(s): N17.0 - Acute kidney failure with tubular necrosis Plan to address problem: Hopeful that Patient is showing signs of renal recovery as his serum creatinine level decreased to 5.0. Initial biopsy report discussed with pathologist revealed acute tubular necrosis and presence of intratubular myoglobin casts seen in rhabdomyolysis. No crescents or significant chronicity were noted on the specimen per pathologist. Will hold off on further hemodialysis sessions. Will monitor his kidney functions closely. Please obtain BMP tomorrow morning. If continued signs of renal recovery is noted, patient will be able to be discharged home tomorrow. Have discussed this plan with the primary team attending. (2) Rhabdomyolysis Current Visit: Yes Status: Acute Qualifiers: Encounter type: initial encounter Plan to address problem: His CPK levels have shown improvement with fluid hydration. Will continue to monitor. (3) Encephalopathy Current Visit: Yes Status: Acute Plan to address problem: His mental status seems to be improved back to baseline. We'll continue to monitor. (4) Respiratory failure Current Visit: Yes Status: Acute Qualifiers: Chronicity: acute Respiratory failure complication: hypoxia Qualified Code(s): J96.01 - Acute respiratory failure with hypoxia Plan to address problem: His overall respiratory status is stable on room air. Subjective Date of service: 03/29/19 Principal diagnosis: Ac. hypoxemic resp failure; Ac encephalopathy (toxic/met); ABDI; Drug OD Interval history: No acute issues overnight. His renal function is showing improvement. We'll hold off on hemodialysis at this time. We'll continue to monitor labs. I'm hopeful that if his renal function shows improvement even into tomorrow that he will be stable for discharge. Have discussed this plan with the family, the patient, as well as with the primary team attending. Objective - Vital Signs Vital signs: Vital Signs - 12hr 03/28/19 03/29/19 03/29/19 22:18 05:32 06:44 Temperature 98.6 F 98.6 F Pulse Rate 72 74 Respiratory 20 20 Rate Blood Pressure 179/101 183/105 183/105 O2 Sat by Pulse 100 98 Oximetry - General Appearance General appearance: well-developed, well-nourished, appears stated age, obese EENT: ATNC, PERRL Neck: no JVD, no thyromegaly Respiratory: Present: Clear to Ascultation, Normal Exam Cardiology: regular, S1S2 Gastrointestinal: normal, normoactive bowel sounds Integumentary: no rash, warm and dry Neurologic: no focal deficit, alert and oriented x3 Psychiatric: mood/affect appropriate, cooperative - Lab 03/24/19 07:46 03/29/19 06:46 Most recent lab results Calcium 8.3 mg/dL (8.4-10.2) L 03/29/19 06:46 75.9 mg/dL (0.1-20.0) H 03/24/19 05:30 37 mmol/L 03/21/19 15:00 43 mg/dL (5-11.8) H 03/24/19 05:30 - Allied health notes Allied health notes reviewed: nursing Medications & Allergies - Medications Allergies/Adverse Reactions: Allergies droperidol Adverse Reaction (Verified 03/25/19 11:10) Rash Home Medications: Home Medications Medication Instructions Recorded Confirmed Last Taken Type Unobtainable 03/16/19 03/16/19 Unknown History Active Medications: Generic Name Dose Route Start Last Admin Trade Name Freq PRN Reason Stop Dose Admin Acetaminophen 650 mg 03/24/19 02:16 03/25/19 17:02 Tylenol PO 650 mg Q6H PRN Administration Pain, Mild (1-3) Cephalexin 250 mg 03/22/19 22:00 03/28/19 22:27 Keflex PO 250 mg Q12HR JOÃO Administration Diphenhydramine HCl 25 mg 03/19/19 22:54 03/28/19 22:30 Benadryl PO 25 mg Q6H PRN Administration Itching Famotidine 20 mg 03/19/19 10:00 03/28/19 08:59 Pepcid PO 20 mg DAILY JOÃO Administration Heparin Sodium (Porcine) 5,000 unit 03/16/19 22:00 03/28/19 22:27 Heparin SUB-Q 5,000 unit Q12HR JOÃO Administration Hydralazine HCl 10 mg 03/26/19 04:35 03/29/19 06:44 Apresoline IV 10 mg Q4HR PRN Administration Blood Pressure Sodium Chloride 100 mls @ 999 mls/hr 03/21/19 07:45 Nacl 0.9% IV BECK PRN Hypotension Lorazepam 2 mg 03/19/19 17:14 03/25/19 21:39 Ativan IV 2 mg Q6H PRN Administration Agitation Nicotine 21 mg 03/25/19 18:00 03/28/19 09:10 Habitrol TD Not Given QDAY JOÃO Prednisone 60 mg 03/24/19 11:00 03/28/19 08:59 Deltasone PO 60 mg QDAY JOÃO Administration Sodium Chloride 10 ml 03/16/19 22:00 03/28/19 22:28 Sodium Chloride Flush Syringe 10 Ml IV 10 ml BID JOÃO Administration Sodium Chloride 10 ml 03/16/19 11:52 Sodium Chloride Flush Syringe 10 Ml IV PRN PRN LINE FLUSH
[2019-03-29] MEDS ORDERED: MORPHINE IV PRN (10:18)
[2019-03-29] MEDS: HABITROL TD SCH (10:40)
[2019-03-29] MEDS: PEPCID PO SCH (10:40)
[2019-03-29] MEDS: DELTASONE PO SCH (10:40)
[2019-03-29] MEDS: HEPARIN SUB-Q SCH ×2 (10:40→21:33)
[2019-03-29] MEDS: KEFLEX PO SCH (10:47)
[2019-03-29] MEDS: SODIUM CHLORIDE FLUSH SYRINGE 10 ML IV SCH ×2 (10:51→21:34)
--- NOTE | 2019-03-29 11:25 | XRay Report ---
LEFT SHOULDER, 3 VIEWS INDICATION: Severe left shoulder pain since this morning. COMPARISON: None. IMPRESSION: Normal bone mineralization. There appears to be posterior subluxation or dislocation at the left glenohumeral joint. Please correlate with the patient. Moderate osteoarthritic changes are i dentified at the glenohumeral joint. There is normal articulation at the AC joint. No evidence for fr acture, bone lesion or ligamentous injury. Normal soft tissues. Signer Name: Inder Zuñiga Jr, MD Signed: 03/29/2019 11:21 AM Workstation Name: [id number]
--- NOTE | 2019-03-29 17:42 | Event Note ---
Date: 03/29/19 Called earlier by Nurse patient c/o pain left shoulder. X ray shows subluxation or dislocation. Ortho consulted.
--- NOTE | 2019-03-29 19:06 | Progress Note ---
Assessment and Plan Patient resting on room air. No complaint of chest pain or shortness of breath or cough. Chest xray no acute findings. ABG POC ABG pH 7.473 (7.35-7.45) H 03/18/19 09:16 POC ABG pCO2 31.5 (35-45) L 03/18/19 09:16 POC ABG pO2 118 (80-105) H 03/18/19 09:16 POC ABG HCO3 23.1 (22-26 mml/L) 03/18/19 09:16 POC ABG Total CO2 24 (23-27mmol/L) 03/18/19 09:16 POC ABG O2 Sat 99 03/18/19 09:16 Patient stable from pulmonary point of view. Signing off the case. If you need any pulmonary help call us back. - Patient Problems (1) Acute renal failure Current Visit: Yes Status: Acute Qualifiers: Acute renal failure type: with acute tubular necrosis Qualified Code(s): N17.0 - Acute kidney failure with tubular necrosis Plan to address problem: Management as per nephrology. Subjective Date of service: 03/29/19 Principal diagnosis: Ac. hypoxemic resp failure; Ac encephalopathy (toxic/met); ABDI; Drug OD Interval history: Patient resting on room air. No complaint of chest pain or shortness of breath or cough. Chest xray no acute findings. ABG POC ABG pH 7.473 (7.35-7.45) H 03/18/19 09:16 POC ABG pCO2 31.5 (35-45) L 03/18/19 09:16 POC ABG pO2 118 (80-105) H 03/18/19 09:16 POC ABG HCO3 23.1 (22-26 mml/L) 03/18/19 09:16 POC ABG Total CO2 24 (23-27mmol/L) 03/18/19 09:16 POC ABG O2 Sat 99 03/18/19 09:16 Patient stable from pulmonary point of view. Signing off the case. If you need any pulmonary help call us back. Objective Vital Signs - 12hr 03/29/19 03/29/19 11:51 12:30 Temperature 98.7 F Pulse Rate 75 Respiratory 20 Rate Blood Pressure 215/96 180/103 Constitutional: no acute distress, alert Eyes: non-icteric ENT: oropharynx moist Neck: supple, no lymphadenopathy, no JVD Effort: normal Ascultation: Bilateral: diminished breath sounds, rhonchi (both bases; inspiratory) Percussion: Bilateral: not dull Cardiovascular: regular rate and rhythm, other (S1,S2, no murmurs, gallops or rubs) Gastrointestinal: normoactive bowel sounds, soft, non-tender, non-distended, other (bowel sounds in all 4 quadrants,) Integumentary: normal Extremities: no cyanosis, no edema, pink and warm, pulses normal, no ischemia or petechiae Neurologic: normal mental status, non-focal exam, pupils equal and round, motor strength normal and Psychiatric: mood appropriate, affect normal CBC and BMP: 03/24/19 07:46 03/29/19 06:46 ABG, PT/INR, D-dimer: ABG POC ABG pH 7.473 (7.35-7.45) H 03/18/19 09:16 POC ABG pCO2 31.5 (35-45) L 03/18/19 09:16 POC ABG pO2 118 (80-105) H 03/18/19 09:16 POC ABG HCO3 23.1 (22-26 mml/L) 03/18/19 09:16 POC ABG Total CO2 24 (23-27mmol/L) 03/18/19 09:16 POC ABG O2 Sat 99 03/18/19 09:16 PT/INR, D-dimer PT 14.9 Sec. (12.2-14.9) 03/22/19 15:13 INR 1.20 (0.87-1.13) H 03/22/19 15:13 Abnormal lab findings: Abnormal Labs 03/16/19 03/16/19 03/16/19 10:00 10:21 10:37 WBC 27.7 H RBC Hgb Hct MCHC Plt Count 553 H [place] % (Auto) [place] # Seg Neutrophils % Seg Neuts % (Manual) 90.0 H Lymphocytes % (Manual) 2.0 L Seg Neutrophils # Seg Neutrophils # Man 24.9 H Lymphocytes # (Manual) 0.6 L Monocytes # (Manual) 1.4 H PT INR POC ABG pH POC ABG pCO2 POC ABG pO2 Sodium Potassium Chloride Carbon Dioxide BUN Creatinine Glucose POC Glucose 49 L 154 H Calcium Total Bilirubin Direct Bilirubin AST ALT Alkaline Phosphatase Total Creatine Kinase Total Protein Albumin Urine WBC (Auto) Urine Creatinine Urine Total Protein Salicylates Acetaminophen Complement C3 Complement C4 03/16/19 03/16/19 03/16/19 10:37 10:37 10:37 WBC RBC Hgb Hct MCHC Plt Count [place] % (Auto) [place] # Seg Neutrophils % Seg Neuts % (Manual) Lymphocytes % (Manual) Seg Neutrophils # Seg Neutrophils # Man Lymphocytes # (Manual) Monocytes # (Manual) PT 17.5 H INR 1.47 H POC ABG pH POC ABG pCO2 POC ABG pO2 Sodium Potassium 5.1 H Chloride Carbon Dioxide 13 L BUN 35 H Creatinine 3.0 H Glucose 129 H POC Glucose Calcium Total Bilirubin 2.60 H Direct Bilirubin AST 160 H ALT 106 H Alkaline Phosphatase 133 H Total Creatine Kinase Total Protein Albumin Urine WBC (Auto) Urine Creatinine Urine Total Protein Salicylates < 0.3 L Acetaminophen Complement C3 Complement C4 03/16/19 03/16/19 03/16/19 10:37 10:37 11:37 WBC RBC Hgb Hct MCHC Plt Count [place] % (Auto) [place] # Seg Neutrophils % Seg Neuts % (Manual) Lymphocytes % (Manual) Seg Neutrophils # Seg Neutrophils # Man Lymphocytes # (Manual) Monocytes # (Manual) PT INR POC ABG pH POC ABG pCO2 POC ABG pO2 Sodium Potassium Chloride Carbon Dioxide BUN Creatinine Glucose POC Glucose Calcium Total Bilirubin Direct Bilirubin AST ALT Alkaline Phosphatase Total Creatine Kinase 4300 H Total Protein Albumin Urine WBC (Auto) 10.0 H Urine Creatinine Urine Total Protein Salicylates Acetaminophen < 5.0 L Complement C3 Complement C4 03/16/19 03/16/19 03/17/19 11:37 12:25 04:41 WBC 13.5 H RBC Hgb Hct MCHC 35 H Plt Count [place] % (Auto) [place] # 1.0 H Seg Neutrophils % 76.4 H Seg Neuts % (Manual) Lymphocytes % (Manual) Seg Neutrophils # 10.3 H Seg Neutrophils # Man Lymphocytes # (Manual) Monocytes # (Manual) PT INR POC ABG pH 7.188 L POC ABG pCO2 47.9 H POC ABG pO2 Sodium Potassium Chloride Carbon Dioxide BUN Creatinine Glucose POC Glucose Calcium Total Bilirubin Direct Bilirubin AST ALT Alkaline Phosphatase Total Creatine Kinase Total Protein Albumin Urine WBC (Auto) Urine Creatinine 75.6 H Urine Total Protein Salicylates Acetaminophen Complement C3 Complement C4 03/17/19 03/17/19 03/17/19 04:41 04:41 04:57 WBC RBC Hgb Hct MCHC Plt Count [place] % (Auto) [place] # Seg Neutrophils % Seg Neuts % (Manual) Lymphocytes % (Manual) Seg Neutrophils # Seg Neutrophils # Man Lymphocytes # (Manual) Monocytes # (Manual) PT INR POC ABG pH 7.302 L POC ABG pCO2 POC ABG pO2 158 H Sodium Potassium Chloride Carbon Dioxide 13 L BUN 57 H Creatinine 4.6 H D Glucose POC Glucose Calcium 8.2 L Total Bilirubin Direct Bilirubin AST 567 H ALT 356 H Alkaline Phosphatase Total Creatine Kinase 59357 H Total Protein 6.0 L D Albumin 3.4 L Urine WBC (Auto) Urine Creatinine Urine Total Protein Salicylates Acetaminophen Complement C3 Complement C4 03/17/19 03/17/19 03/18/19 08:27 16:47 04:45 WBC RBC Hgb Hct MCHC Plt Count [place] % (Auto) [place] # Seg Neutrophils % Seg Neuts % (Manual) Lymphocytes % (Manual) Seg Neutrophils # Seg Neutrophils # Man Lymphocytes # (Manual) Monocytes # (Manual) PT INR POC ABG pH 7.304 L 7.459 H POC ABG pCO2 POC ABG pO2 135 H 127 H 124 H Sodium Potassium Chloride Carbon Dioxide BUN Creatinine Glucose POC Glucose Calcium Total Bilirubin Direct Bilirubin AST ALT Alkaline Phosphatase Total Creatine Kinase Total Protein Albumin Urine WBC (Auto) Urine Creatinine Urine Total Protein Salicylates Acetaminophen Complement C3 Complement C4 03/18/19 03/18/19 03/18/19 04:59 09:16 10:00 WBC RBC Hgb Hct MCHC Plt Count [place] % (Auto) [place] # Seg Neutrophils % Seg Neuts % (Manual) Lymphocytes % (Manual) Seg Neutrophils # Seg Neutrophils # Man Lymphocytes # (Manual) Monocytes # (Manual) PT INR POC ABG pH 7.473 H POC ABG pCO2 31.5 L POC ABG pO2 118 H Sodium Potassium 3.1 L D Chloride Carbon Dioxide 21 L D BUN 75 H Creatinine 7.9 H D Glucose 120 H POC Glucose Calcium 7.5 L Total Bilirubin Direct Bilirubin AST ALT Alkaline Phosphatase Total Creatine Kinase 64940 H Total Protein Albumin Urine WBC (Auto) Urine Creatinine Urine Total Protein Salicylates Acetaminophen Complement C3 Complement C4 03/18/19 03/18/19 03/18/19 10:00 12:49 15:24 WBC RBC 3.47 L Hgb 10.8 L Hct 31.2 L MCHC 35 H Plt Count [place] % (Auto) 9.2 H [place] # Seg Neutrophils % Seg Neuts % (Manual) Lymphocytes % (Manual) Seg Neutrophils # Seg Neutrophils # Man Lymphocytes # (Manual) Monocytes # (Manual) PT INR POC ABG pH POC ABG pCO2 POC ABG pO2 Sodium Potassium Chloride Carbon Dioxide BUN Creatinine Glucose POC Glucose Calcium Total Bilirubin Direct Bilirubin AST ALT Alkaline Phosphatase Total Creatine Kinase Total Protein Albumin Urine WBC (Auto) 18.0 H Urine Creatinine Urine Total Protein Salicylates Acetaminophen Complement C3 69 L Complement C4 03/18/19 03/19/19 03/19/19 15:24 04:22 04:22 WBC RBC Hgb Hct MCHC Plt Count [place] % (Auto) [place] # Seg Neutrophils % Seg Neuts % (Manual) Lymphocytes % (Manual) Seg Neutrophils # Seg Neutrophils # Man Lymphocytes # (Manual) Monocytes # (Manual) PT INR POC ABG pH POC ABG pCO2 POC ABG pO2 Sodium Potassium Chloride Carbon Dioxide 20 L BUN 78 H Creatinine 9.1 H Glucose POC Glucose Calcium 8.0 L Total Bilirubin 2.00 H Direct Bilirubin AST 444 H ALT 559 H Alkaline Phosphatase 166 H Total Creatine Kinase 09743 H Total Protein 5.6 L Albumin 3.0 L Urine WBC (Auto) Urine Creatinine Urine Total Protein Salicylates Acetaminophen Complement C3 Complement C4 14 L 03/19/19 03/19/19 03/20/19 04:22 09:53 06:32 WBC RBC 3.35 L Hgb 10.5 L Hct 30.6 L MCHC Plt Count [place] % (Auto) [place] # Seg Neutrophils % Seg Neuts % (Manual) Lymphocytes % (Manual) Seg Neutrophils # Seg Neutrophils # Man Lymphocytes # (Manual) Monocytes # (Manual) PT INR POC ABG pH POC ABG pCO2 POC ABG pO2 Sodium Potassium Chloride Carbon Dioxide BUN Creatinine Glucose POC Glucose Calcium Total Bilirubin 2.20 H Direct Bilirubin 1.6 H AST 467 H ALT 611 H Alkaline Phosphatase 189 H Total Creatine Kinase 4375 H Total Protein 6.1 L Albumin 3.3 L Urine WBC (Auto) Urine Creatinine Urine Total Protein Salicylates Acetaminophen Complement C3 Complement C4 03/20/19 03/20/19 03/21/19 06:32 06:32 08:24 WBC RBC Hgb 11.6 L Hct 33.5 L MCHC 35 H Plt Count [place] % (Auto) [place] # Seg Neutrophils % Seg Neuts % (Manual) Lymphocytes % (Manual) Seg Neutrophils # Seg Neutrophils # Man Lymphocytes # (Manual) Monocytes # (Manual) PT INR POC ABG pH POC ABG pCO2 POC ABG pO2 Sodium 136 L Potassium Chloride 97.7 L Carbon Dioxide 18 L BUN 88 H Creatinine 11.0 H Glucose 147 H POC Glucose Calcium Total Bilirubin 1.40 H Direct Bilirubin AST 269 H ALT 552 H Alkaline Phosphatase 198 H Total Creatine Kinase 1011 H Total Protein Albumin 3.3 L Urine WBC (Auto) Urine Creatinine Urine Total Protein Salicylates Acetaminophen Complement C3 Complement C4 03/21/19 03/21/19 03/22/19 08:24 15:00 06:53 WBC RBC Hgb Hct MCHC Plt Count [place] % (Auto) [place] # Seg Neutrophils % Seg Neuts % (Manual) Lymphocytes % (Manual) Seg Neutrophils # Seg Neutrophils # Man Lymphocytes # (Manual) Monocytes # (Manual) PT INR POC ABG pH POC ABG pCO2 POC ABG pO2 Sodium 136 L Potassium Chloride Carbon Dioxide 20 L BUN 76 H Creatinine 9.6 H Glucose 146 H POC Glucose Calcium 8.0 L Total Bilirubin Direct Bilirubin AST ALT Alkaline Phosphatase Total Creatine Kinase 642 H Total Protein Albumin Urine WBC (Auto) Urine Creatinine 136.3 H Urine Total Protein Salicylates Acetaminophen Complement C3 Complement C4 03/22/19 03/22/19 03/22/19 06:53 06:53 15:13 WBC RBC 3.36 L Hgb 10.5 L Hct 30.5 L MCHC 35 H Plt Count [place] % (Auto) [place] # Seg Neutrophils % Seg Neuts % (Manual) Lymphocytes % (Manual) Seg Neutrophils # Seg Neutrophils # Man Lymphocytes # (Manual) Monocytes # (Manual) PT INR 1.20 H POC ABG pH POC ABG pCO2 POC ABG pO2 Sodium 134 L Potassium Chloride 96.1 L Carbon Dioxide 18 L BUN 94 H Creatinine 10.8 H Glucose 136 H POC Glucose Calcium 7.8 L Total Bilirubin Direct Bilirubin AST 106 H ALT 378 H Alkaline Phosphatase 181 H Total Creatine Kinase Total Protein 5.9 L Albumin 3.2 L Urine WBC (Auto) Urine Creatinine Urine Total Protein Salicylates Acetaminophen Complement C3 Complement C4 03/23/19 03/24/19 03/24/19 06:07 05:30 07:46 WBC RBC 3.20 L Hgb 10.1 L Hct 28.7 L MCHC 35 H Plt Count [place] % (Auto) [place] # Seg Neutrophils % Seg Neuts % (Manual) Lymphocytes % (Manual) Seg Neutrophils # Seg Neutrophils # Man Lymphocytes # (Manual) Monocytes # (Manual) PT INR POC ABG pH POC ABG pCO2 POC ABG pO2 Sodium Potassium Chloride Carbon Dioxide BUN 75 H Creatinine 9.5 H Glucose POC Glucose Calcium 7.1 L Total Bilirubin Direct Bilirubin AST ALT Alkaline Phosphatase Total Creatine Kinase 368 H Total Protein Albumin Urine WBC (Auto) Urine Creatinine 75.9 H Urine Total Protein 43 H Salicylates Acetaminophen Complement C3 Complement C4 03/24/19 03/26/19 03/27/19 07:46 07:11 11:53 WBC RBC Hgb Hct MCHC Plt Count [place] % (Auto) [place] # Seg Neutrophils % Seg Neuts % (Manual) Lymphocytes % (Manual) Seg Neutrophils # Seg Neutrophils # Man Lymphocytes # (Manual) Monocytes # (Manual) PT INR POC ABG pH POC ABG pCO2 POC ABG pO2 Sodium 134 L Potassium Chloride 97.9 L Carbon Dioxide 20 L 21 L BUN 81 H 59 H 40 H Creatinine 10.2 H 7.9 H 5.9 H Glucose 107 H POC Glucose Calcium 7.1 L 8.2 L D 8.1 L Total Bilirubin Direct Bilirubin AST ALT Alkaline Phosphatase Total Creatine Kinase Total Protein Albumin Urine WBC (Auto) Urine Creatinine Urine Total Protein Salicylates Acetaminophen Complement C3 Complement C4 03/28/19 03/29/19 08:14 06:46 WBC RBC Hgb Hct MCHC Plt Count [place] % (Auto) [place] # Seg Neutrophils % Seg Neuts % (Manual) Lymphocytes % (Manual) Seg Neutrophils # Seg Neutrophils # Man Lymphocytes # (Manual) Monocytes # (Manual) PT INR POC ABG pH POC ABG pCO2 POC ABG pO2 Sodium Potassium Chloride Carbon Dioxide 21 L BUN 45 H 52 H Creatinine 5.6 H 5.0 H Glucose POC Glucose Calcium 8.3 L Total Bilirubin Direct Bilirubin AST ALT Alkaline Phosphatase Total Creatine Kinase Total Protein Albumin Urine WBC (Auto) Urine Creatinine Urine Total Protein Salicylates Acetaminophen Complement C3 Complement C4 Chest x-ray: report reviewed (No acute findings.), image reviewed Allied health notes reviewed: nursing
[2019-03-30 05:49] LABS: Calcium 8.2 mg/dL (8.4-10.2)
--- NOTE | 2019-03-30 08:03 | Progress Note ---
Assessment and Plan - Patient Problems (1) Acute renal failure Current Visit: Yes Status: Acute Qualifiers: Acute renal failure type: with acute tubular necrosis Qualified Code(s): N17.0 - Acute kidney failure with tubular necrosis Plan to address problem: Hopeful that Patient is showing signs of renal recovery as his serum creatinine level decreased to 3.9. Initial biopsy report discussed with pathologist revealed acute tubular necrosis and presence of intratubular myoglobin casts seen in rhabdomyolysis. No crescents or significant chronicity were noted on the specimen per pathologist. Will hold off on further hemodialysis sessions. Will monitor his kidney functions closely in the outpatient setting. From a nephrology standpoint patient is stable to be discharged. Please have Vas-Cath removed prior to discharge. (2) Rhabdomyolysis Current Visit: Yes Status: Acute Qualifiers: Encounter type: initial encounter Plan to address problem: His CPK levels have shown improvement with fluid hydration. (3) Encephalopathy Current Visit: Yes Status: Acute Plan to address problem: His mental status seems to be improved back to baseline. (4) Respiratory failure Current Visit: Yes Status: Acute Qualifiers: Chronicity: acute Respiratory failure complication: hypoxia Qualified Code(s): J96.01 - Acute respiratory failure with hypoxia Plan to address problem: His overall respiratory status is stable on room air. Subjective Date of service: 03/30/19 Principal diagnosis: Ac. hypoxemic resp failure; Ac encephalopathy (toxic/met); ABDI; Drug OD Interval history: No acute issues overnight. Renal function noted and continues to improve. We had held dialysis on Friday. From a nephrology standpoint patient is stable to be discharged. He needs to have his Vas-Cath removed before discharge. I instructed patient and patient's father yesterday that he needs to follow-up with me in approximately one week post discharge. Objective - Vital Signs Vital signs: Vital Signs - 12hr 03/29/19 03/29/19 03/30/19 21:30 23:36 05:43 Temperature 99.7 F H 99.5 F 98.5 F Pulse Rate 79 75 Respiratory 18 20 20 Rate Blood Pressure 140/85 150/82 150/88 O2 Sat by Pulse 98 97 Oximetry - General Appearance General appearance: well-developed, well-nourished, appears stated age, obese EENT: ATNC, PERRL Neck: no JVD, no thyromegaly Respiratory: Present: Clear to Ascultation, Normal Exam Cardiology: regular, S1S2 Gastrointestinal: normal, normoactive bowel sounds Integumentary: no rash, warm and dry Neurologic: no focal deficit, no asterixis, alert and oriented x3 Psychiatric: mood/affect appropriate, cooperative - Lab 03/24/19 07:46 03/30/19 04:42 Most recent lab results Calcium 8.2 mg/dL (8.4-10.2) L 03/30/19 04:42 75.9 mg/dL (0.1-20.0) H 03/24/19 05:30 37 mmol/L 03/21/19 15:00 43 mg/dL (5-11.8) H 03/24/19 05:30 - Allied health notes Allied health notes reviewed: nursing Medications & Allergies - Medications Allergies/Adverse Reactions: Allergies droperidol Adverse Reaction (Verified 03/25/19 11:10) Rash Home Medications: Home Medications Medication Instructions Recorded Confirmed Last Taken Type Unobtainable 03/16/19 03/16/19 Unknown History Active Medications: Generic Name Dose Route Start Last Admin Trade Name Freq PRN Reason Stop Dose Admin Acetaminophen 650 mg 03/24/19 02:16 03/25/19 17:02 Tylenol PO 650 mg Q6H PRN Administration Pain, Mild (1-3) Diphenhydramine HCl 25 mg 03/19/19 22:54 03/28/19 22:30 Benadryl PO 25 mg Q6H PRN Administration Itching Famotidine 20 mg 03/19/19 10:00 03/29/19 10:40 Pepcid PO 20 mg DAILY JOÃO Administration Heparin Sodium (Porcine) 5,000 unit 03/16/19 22:00 03/29/19 21:33 Heparin SUB-Q 5,000 unit Q12HR JOÃO Administration Hydralazine HCl 10 mg 03/26/19 04:35 03/29/19 12:30 Apresoline IV 10 mg Q4HR PRN Administration Blood Pressure Sodium Chloride 100 mls @ 999 mls/hr 03/21/19 07:45 Nacl 0.9% IV BECK PRN Hypotension Lorazepam 2 mg 03/19/19 17:14 03/25/19 21:39 Ativan IV 2 mg Q6H PRN Administration Agitation Morphine Sulfate 2 mg 03/29/19 10:18 03/29/19 10:39 Morphine IV 2 mg Q4H PRN Administration Pain, Moderate (4-6) Nicotine 21 mg 03/25/19 18:00 03/29/19 10:40 Habitrol TD 21 mg QDAY JOÃO Administration Prednisone 60 mg 03/24/19 11:00 03/29/19 10:40 Deltasone PO 60 mg QDAY JOÃO Administration Sodium Chloride 10 ml 03/16/19 22:00 03/29/19 21:34 Sodium Chloride Flush Syringe 10 Ml IV 10 ml BID JOÃO Administration Sodium Chloride 10 ml 03/16/19 11:52 Sodium Chloride Flush Syringe 10 Ml IV PRN PRN LINE FLUSH
[2019-03-30] MEDS: DELTASONE PO SCH (11:03)
[2019-03-30] MEDS: PEPCID PO SCH (11:03)
--- NOTE | 2019-03-30 11:29 | XRay Report ---
XR shoulder 2+V LT INDICATION / CLINICAL INFORMATION: shoulder pain. COMPARISON: Left shoulder radiographs on 03/29/2019. FINDINGS: The previously identified posterior shoulder dislocation has been reduced with normal appearing align ment of the glenohumeral joint on the current study. There is a chronic-appearing Hill-Sachs deformit y in the humeral head suggesting remote prior dislocation. Signer Name: Eloy Solitario MD Signed: 03/30/2019 11:25 AM Workstation Name: [email or web address]
[2019-03-30] MEDS: APRESOLINE IV PRN (11:53)
--- NOTE | 2019-03-30 12:25 | Discharge Summary ---
Providers - Providers Date of Admission: 03/16/19 11:55 Date of discharge: 03/30/19 Attending physician: BRIANNA MONTERROSO 03/17/19 05:35 Consult to Physician [CONS] Routine Comment: Consulting Provider: ATUL HEMPHILL Physician Instructions: Reason For Exam: ICU management 03/17/19 09:06 Consult to Physician [CONS] Routine Comment: Consulting Provider: ARTHUR MALIK Physician Instructions: Reason For Exam: seizure 03/18/19 12:47 Consult to Physician [CONS] Routine Comment: Consulting Provider: ANDERSON PULIDO Physician Instructions: Reason For Exam: ABDI-RHABDO 03/20/19 10:15 Consult to Physician [CONS] Urgent Comment: Consulting Provider: ASHOK LUGO Physician Instructions: Reason For Exam: ABDI, vascath for initiation of HD 03/22/19 15:14 Physical Therapy Evaluation and Treat [CONS] Routine Comment: Reason For Exam: mobility 03/29/19 12:19 Consult to Physician [CONS] Routine Comment: Consulting Provider: RAFAEL CM Physician Instructions: Reason For Exam: Left shoulder dislocation/subluxation [facility] Condition: Critical Pertinent studies: Head CT CXR Renal US Renal biopsy Hospital course: 33 YO Male with Polysubstance Abuse, Psychosis was inpatient at [facility] presented to ED as the patient was found to be confused by [facility] staff with decreased level of responsiveness. EMS notified, and upon arrival the patient was found to be unresponsive and treated with supportive care and IM Narcan and transported to [facility]. Pt seen and evaluated in ED and was found to have Encephalopathy, Sepsis, and Respiratory distress and was unable to protect his airway. Pt intubated and placed on vent support. Pt admitted to ICU and initiated on sepsis protocol. He improved, was extubated, transferred to medical floor. Dialysis started on 03/20/19 and after few sessions, Creatinine is improving. dialysis held over weekend and Creatinine still improving. Nephrology says patient may be discharged home today without dialysis , and to follow in the nephrology office in one week * Extubated successfully 03/18/19 * Patient on admission was treated with sepsis while other differential diagnosis SIRS (systemic inflammatory response syndrome), Hypoglycemia, NMS (neuroleptic malignant syndrome), Drug abuse, Hepatic dysfunction was highly evident. He did rather recover quickly only evidence noted for infection is from Urinalysis * His mental status improved by day 2 * He had noted seizure like activity follow administration of Narcan * UDS positive for cocain * Neurology, Renal and Learning Support Services Director input noted * csf, unremarkable. Head CT -normal. EEG did not show active seizure. * Dialysis access placed 03/20/19 and dialysis started Discharge Diagnosis: Sepsis- Resolved Acute Renal failure with underlying ATN and possible Glomerelonephritis, - Started on HD, s/p renal biopsy 03/23, Nephrology following. vascular work up ongoing, pulse dose steroids started METABOLIC ACIDOSIS: improved on dialysis Acute Metabolic Encephalopathy- Resolved Acute cystitis- completed Abx Polysubstane abuse- With overdose, UDS, POSITIVE for opioids, cocain and amphateamines, counselling provided, greater than 15 mins. Patient currently admitted from a Rehab program Seizure-Likely secondary to opiate withdrawal Tobacco use disorder- Counseling provided Acute Hypoxemic Respiratory Failure-Resolved Rhabdomylysis- Improving, initially treated with IV Bicarb Drip Acute Heaptocellular dysfunction- ?Acute Hepatitis vs passive congestive failure and shock liver state-Improving- Hyperkalemia- Resolved DVT/GI prophy Hospitalist Physical Gen: Not in acute distress, lying in bed,obese HEENT: Normocephalic, atraumatic Neck: supple, no JVD Heart: S1 and S2 reg, no murmurs, rubs or gallop Lungs: Clear, no crackles, no wheeze Abd: soft, non tender, non distended, normal BS Ext: No edema, no clubbing, no cyanosis, Neuro: Awake,alert, oriented,moves all ext, Disposition: - TO HOME OR SELFCARE Time spent for discharge: 34 minutes Core Measure Documentation - Palliative Care Palliative Care/ Comfort Measures: Not Applicable - Core Measures Any of the following diagnoses?: none Exam - Constitutional Vitals: Temp Pulse Resp BP Pulse Ox 98.9 F 75 20 172/106 97 03/30/19 11:34 03/30/19 05:43 03/30/19 11:34 03/30/19 11:53 03/30/19 05:43 Plan Activity: advance as tolerated Weight Bearing Status: Non-Weight Bearing Diet: renal Follow up with: ALBERTO OLIVA MD [Primary Care Provider] - 3-5 Days ANDERSON PULIDO, DO [Staff Physician] - 7 Days Prescriptions: Carvedilol [Coreg] 3.125 mg PO BID #60 tablet predniSONE [Deltasone] 40 mg PO QDAY #7 tablet amLODIPine [Norvasc] 10 mg PO DAILY #30 tab
--- NOTE | 2019-03-30 13:02 | Consultation ---
History of Present Illness - [facility] Consult date: 03/30/19 Consult reason: joint pain History of present illness: 33 y/o male with c/o left shoulder pain, states felt like shoulder coming out of socket yesterday denies previous hx of dislocation...states he rotated arm and got shoulder back in to place on own...currently asymptomatic.... Past History Past Medical History: other (polysubstance abuse, Psychosis) Past Surgical History: No surgical history, Other (reviewed) Social history: single, smoking, alcohol abuse Family history: no significant family history (reviewed) Medications and Allergies Allergies Allergy/AdvReac Type Severity Reaction Status Date / Time droperidol AdvReac Rash Verified 03/25/19 11:10 Home Medications Medication Instructions Recorded Confirmed Last Taken Type predniSONE [Deltasone] 40 mg PO QDAY #7 tablet 03/30/19 Unknown Rx Active Meds: Active Medications Acetaminophen (Tylenol) 650 mg PO Q6H PRN PRN Reason: Pain, Mild (1-3) Last Admin: 03/25/19 17:02 Dose: 650 mg Documented by: Diphenhydramine HCl (Benadryl) 25 mg PO Q6H PRN PRN Reason: Itching Last Admin: 03/28/19 22:30 Dose: 25 mg Documented by: Famotidine (Pepcid) 20 mg PO DAILY [facility] Last Admin: 03/30/19 11:03 Dose: 20 mg Documented by: Heparin Sodium (Porcine) (Heparin) 5,000 unit SUB-Q Q12HR [facility] Last Admin: 03/29/19 21:33 Dose: 5,000 unit Documented by: Hydralazine HCl (Apresoline) 10 mg IV Q4HR PRN PRN Reason: Blood Pressure Last Admin: 03/30/19 11:53 Dose: 10 mg Documented by: Sodium Chloride (Nacl 0.9%) 100 mls @ 999 mls/hr IV BECK PRN PRN Reason: Hypotension Lorazepam (Ativan) 2 mg IV Q6H PRN PRN Reason: Agitation Last Admin: 03/25/19 21:39 Dose: 2 mg Documented by: Morphine Sulfate (Morphine) 2 mg IV Q4H PRN PRN Reason: Pain, Moderate (4-6) Last Admin: 03/29/19 10:39 Dose: 2 mg Documented by: Nicotine (Habitrol) 21 mg TD QDAY [facility] Last Admin: 03/29/19 10:40 Dose: 21 mg Documented by: Prednisone (Deltasone) 60 mg PO QDAY [facility] Last Admin: 03/30/19 11:03 Dose: 60 mg Documented by: Sodium Chloride (Sodium Chloride Flush Syringe 10 Ml) 10 ml IV BID [facility] Last Admin: 03/29/19 21:34 Dose: 10 ml Documented by: Sodium Chloride (Sodium Chloride Flush Syringe 10 Ml) 10 ml IV PRN PRN PRN Reason: LINE FLUSH Physical Examination - Physical exam Narrative exam: left shoulder - good active ROM, negative apprehension sign, distal n/v intact plain xrays reviewed by me and show no evidence of rosana dislocation, possibly subluxation at glenohumeral joint on first series of films but follow-up xrays show no evidence of either subluxation or dislocation Eyes: PERRL ENT: Positive: clear oral mucosa Respiratory effort: normal Respiratory: bilateral: CTA Rhythm: regular Heart Sounds: Positive: S1 & S2 General gastrointestinal: Positive: soft, non-tender, non-distended, normal bowel sounds Integumentary: clear, warm, dry Neurologic: Positive: CNII-XII intact, moves all extremities, gait normal. Negative: focal deficits Assessment and Plan left shoulder pain possible left shoulder subluxation recommendations - outpatient physical therapy for muscle stren exercises may discharge to home with f/u appointment in my office in 1 month
[2019-03-30] MEDS ORDERED: COREG PO SCH (15:00)
[2019-03-30] MEDS ORDERED: NORVASC PO SCH (15:00)
[2019-03-30 15:43] VITALS: BP 150/102
== END 2019-03-30 14:30 | disposition home or self-care (01) | DRG 871 ==
LOC: ED 09:42 → CC1 11:55 → 3A 03-19 12:13
PROVIDERS: ADMIT Internal Medicine; ATTEND Internal Medicine
PROC: 4A033R1 Measurement of Arterial Saturation, Peripheral, Percutaneous Approach (ICD-10-PCS; principal; 2019-03-16)
PROC: 0BH17EZ Insertion of Endotracheal Airway into Trachea, Via Natural or Artificial Opening (ICD-10-PCS; 2019-03-16)
PROC: 5A1945Z Respiratory Ventilation, 24-96 Consecutive Hours (ICD-10-PCS; 2019-03-16)
PROC: 009U3ZX Drainage of Spinal Canal, Percutaneous Approach, Diagnostic (ICD-10-PCS; 2019-03-16)
PROC: 0BP1XDZ Removal of Intraluminal Device from Trachea, External Approach (ICD-10-PCS; 2019-03-18)
PROC: 5A1D70Z Performance of Urinary Filtration, Intermittent, Less than 6 Hours Per Day (ICD-10-PCS; 2019-03-20)
PROC: 02HV33Z Insertion of Infusion Device into Superior Vena Cava, Percutaneous Approach (ICD-10-PCS; 2019-03-20)
PROC: B5181ZA Fluoroscopy of Superior Vena Cava using Low Osmolar Contrast, Guidance (ICD-10-PCS; 2019-03-20)
PROC: B548ZZA Ultrasonography of Superior Vena Cava, Guidance (ICD-10-PCS; 2019-03-20)
PROC: 5A1D70Z Performance of Urinary Filtration, Intermittent, Less than 6 Hours Per Day (ICD-10-PCS; 2019-03-22)
PROC: 0TB03ZX Excision of Right Kidney, Percutaneous Approach, Diagnostic (ICD-10-PCS; 2019-03-23)
PROC: 5A1D70Z Performance of Urinary Filtration, Intermittent, Less than 6 Hours Per Day (ICD-10-PCS; 2019-03-24)
PROC: 5A1D70Z Performance of Urinary Filtration, Intermittent, Less than 6 Hours Per Day (ICD-10-PCS; 2019-03-26)
DX: A41.9 Sepsis, unspecified organism (principal); J96.01 Acute respiratory failure with hypoxia; N17.0 Acute kidney failure with tubular necrosis; G92 Toxic encephalopathy; G21.0 Malignant neuroleptic syndrome; N18.6 End stage renal disease; M62.82 Rhabdomyolysis; N30.01 Acute cystitis with hematuria; F10.239 Alcohol dependence with withdrawal, unspecified; T40.5X1A Poisoning by cocaine, accidental (unintentional), initial encounter; T43.621A Poisoning by amphetamines, accidental (unintentional), initial encounter; T40.2X1A Poisoning by other opioids, accidental (unintentional), initial encounter; F19.10 Other psychoactive substance abuse, uncomplicated; F29 Unspecified psychosis not due to a substance or known physiological condition; K76.89 Other specified diseases of liver; E87.5 Hyperkalemia; F17.210 Nicotine dependence, cigarettes, uncomplicated; E16.2 Hypoglycemia, unspecified; Y92.89 Other specified places as the place of occurrence of the external cause; N05.9 Unspecified nephritic syndrome with unspecified morphologic changes; S43.002A Unspecified subluxation of left shoulder joint, initial encounter; X58.XXXA Exposure to other specified factors, initial encounter; Y93.89 Activity, other specified; Y99.8 Other external cause status
CPT/HCPCS: 36415; 36556; 36600; 70450; 71045; 76770; 76937; 77001; 77012; 80048; 80053; 80074; 80076; 80307; 80320; 81001; 82140; 82550; 82570; 82803; 82947; 82962; 84156; 84300; 84478; 84484; 85007; 85025; 85027; 85610; 85730; 86021; 86160; 87040; 87070; 87086; 87116; 87205; 87806; 89051; 93005; 93010; 94002; 94003; 95819; G0378; C1752; G0480; J0360; J0456; J0696; J1170; J1644; J1940; J2060; J2250; J2270; J2405; J2704; J2930; J3010; J3370; J7030; J7040; J7050; J7070; J7512